=== PATIENT | male | born 1965 | race Two or more races ===

== ENCOUNTER 2019-01-20 10:47 | Inpatient (IN) | payer BC | END 2019-01-22 18:55 | disposition home or self-care (01) | LOC: JER 10:47 → JERBED 14:36 → J4W 01-21 18:33 → J2W 01-21 18:51 → J4W 01-21 21:06 ==

== ENCOUNTER 2019-01-24 15:39 | Inpatient (IN) | payer BC | END 2019-01-28 12:20 | LOC: JER 15:39 → J4S 01-25 16:58 → JERBED 18:55 ==

== ENCOUNTER 2019-09-11 12:08 | Inpatient (IN) | payer BC ==
--- NOTE | 2019-09-11 12:54 | PDOC ---
History of Present Illness - General Stated Complaint: SEIZURE Time Seen by Provider: 09/11/19 12:19 - History of Present Illness Initial Comments: 09/11/19 12:46 53 yo M PMH HTN, HLD, DM, Grave's disease, recent stroke in January 2019 with residual L sided deficits, presenting with seizure. All history per EMS. Called by mother, who states that patient had focal L sided seizure and fell onto his face. Upon EMS arrival, patient denied this was the case and was refusing to come to the hospital, but during EMS interview, patient had another L sided seiz ure. Patient was placed on the stretcher and given 2.5 of midazolam. During transport, patient reportedly had a full tonic clonic seizure, so he was given another 2.5 of midazolam. Per EMS, patient had approximately 5 minutes of witnessed seizure. Unable to assess ROS due to patient's clinical status. Past History - Past Medical History Allergies/Adverse Reactions: Allergies Allergy/AdvReac Type Severity Reaction Status Date / Time No Known Allergies Allergy Verified 09/11/19 12:31 Home Medications: Ambulatory Orders Amlodipine Besylate [Norvasc -] 5 mg PO DAILY #30 tablet 01/22/19 Atorvastatin Ca [Lipitor] 80 mg PO HS #30 tablet 01/22/19 Clopidogrel Bisulfate [Plavix -] 75 mg PO DAILY #30 tablet 01/22/19 metFORMIN HCL [Glucophage -] 500 mg PO BID #60 tablet 01/22/19 Lisinopril [Prinivil] 20 mg PO DAILY #0 tablet 01/28/19 Levetiracetam [Keppra Xr -] 750 mg PO BID #60 tab 09/11/19 Anemia: No Asthma: No Cardiac Disorders: No CVA: Yes COPD: No Diabetes: Yes (borderline) GI Disorders: Yes (hiatal hernia) Disorders: No HTN: No Seizures: Yes - Surgical History Appendectomy: Yes Cholecystectomy: Yes (2010) - Immunization History Immunization Up to Date: No - Psycho Social/Smoking Cessation Hx Smoking Status: No Smoking History: Smoker current status UNK Have you smoked in the past 12 months: No Number of Cigarettes Smoked Daily: 0 Information on smoking cessation initiated: No Hx Alcohol Use: No Drug/Substance Use Hx: No Substance Use Type: None Review of Systems - Review of Systems Comments:: 09/11/19 12:59 Unable to assess due to patient's clinical status. *Physical Exam - Vital Signs Last Vital Signs Temp Pulse Resp BP Pulse Ox 98.4 F 102 H 20 137/72 100 09/11/19 12:28 09/11/19 12:28 09/11/19 12:28 09/11/19 12:28 09/11/19 12:28 - Physical Exam 09/11/19 12:51 Gen: well-developed, appears confused Neuro: not answering questions, leftward deviation. Obeys commands to move his R arm and R leg, squeeze eyes HEENT: atraumatic, normocephalic Neck: trachea midline, supple CV: tachycardic at 103, regular rhythm, no murmurs, rubs, or gallops Pulm: CTA b/l, no wheezing Abd: soft, non-distended, non-tender MSK: full ROM on R side, not moving his left side, intact pulses Extr: no edema, no deformities Skin: warm, dry, small abrasion on bridge of nose ED Treatment Course - LABORATORY CBC & Chemistry Diagram: 09/12/19 09:20 09/12/19 09:20 - RADIOLOGY Radiology Studies Ordered: Category Date Time Status HEAD CT (STROKE) [CT] Stat CT Scan 09/11/19 12:29 Ordered Medical Decision Making - Medical Decision Making 09/11/19 12:50 Concern for CVA v seizure. Patient taken immediately to CT scan, Code Pyle called. - CT (stroke) - EKG, CXR - CBC, CMP - UA/UC - PT & PTT - neurology consult 09/11/19 12:54 CT scan: No CT evidence of acute intracranial pathology. Chronic R temporal/occipital cortical infarct, chronic R thalamic infarct. 09/11/19 13:[address] Juan Antonio Sylvester, who recommends Keppra loading with 1 gram. If patient improves back to baseline mental status, and does not have any more seizures, recommends starting patient on Keppra 750mg BID and to follow up outpatient. 09/11/19 13:12 Patient more awake, knows his own name and that the year is 2019, did not know where he was. States that he has never had seizures in the past. Confirms that he does not move his L arm or leg due to extreme pain if he tries. Will watch patient for at least 2 hours; if patient returns to his baseline, will dc for further outpatient management. 09/11/19 13:36 Patient states that he had a prior seizure in April 2019, went to [facility], and was started on a yellow pill twice a day. Reports that he has been taking this pill as prescribed. Does state that he got this medication from [facility] on [facility]. 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 Dean Ashton this Thursday, was told that his overactive thyroid is due to Graves disease. Attempted to call [facility] to clarify the yellow pill ([phone]), but it appears that they are closed on weekends. Called our pharmacy on file, [facility], who confirm that they have no record of the patient being on Keppra. 09/11/19 13:47 Labs unremarkable. 09/11/19 13:50 Per brother Raymond Osei, patient was on Keppra 500mg BID. Saw Dr. Cade. Has baseline difficulty moving his left arm and left leg at baseline, and also takes some time to get his words out. Asks to call patient at [phone] when patient is ready to be discharged, as the brother can pick the patient up. 09/11/19 14:00 CXR without acute pathology. EKG with normal sinus at 92 bpm, no acute pathology. 09/11/19 14:50 Patient with another generalized tonic clonic seizure starting at 1448, lasting approximately 1 minute and 5 seconds. Resolved before medications were given, and patient is able to say name, location, and year immediately afterwards. Will call Dr. Sylvester again, give Ativan 2mg, admit patient. 09/11/19 15:[address] Sylvester, who recommends giving 500mg more of Keppra and 1g of phosphenytoin. Patient will be admitted. Discharge - Discharge Information Problems reviewed: Yes Clinical Impression/Diagnosis: Seizure Condition: Stable - Admission Yes - Additional Discharge Information - Follow up/Referral - Patient Discharge Instructions - Post Discharge Activity
[2019-09-11 13:01] LABS: BASO % 0.8 % (0-2.0); EOS % 0.6 % (0-4.5); HEMATOCRIT 40.5 % (35.4-49); HEMOGLOBIN 13.3 GM/dL (11.7-16.9); LYMPH % 8.2 % (8-40); MCH 29.7 pg (25.7-33.7); MEAN CELL VOLUME 90.2 fl (80-96); MEAN PLT VOLUME 8.6 fl (7.5-11.1); MONO % 3.1 % (3.8-10.2); NEUT % 87.3 % (42.8-82.8); PLATELET COUNT 276 K/MM3 (134-434); RBC 4.49 M/mm3 (4.00-5.60); RDW 15.1 % (11.9-15.9); WHITE BLOOD COUNT 7.9 K/mm3 (4.0-10.0)
[2019-09-11] MEDS ORDERED: levETIRAcetam 500 MG/5 ML INJECTION VIAL IVPB ONE ×4 (13:03→15:15)
[2019-09-11 13:12] LABS: INR 1.13 (0.83-1.09); PROTHROMBIN TIME (PATIENT) 13.3 SEC (9.7-13.0)
[2019-09-11 13:14] LABS: ACTIVATED PTT 28.8 SECONDS (25.2-36.5)
[2019-09-11 13:35] LABS: ALBUMIN 3.5 g/dl (3.4-5.0); ALK PHOS 66 U/L (45-117); ANION GAP 9 MMOL/L (8-16); BILIRUBIN,TOTAL 0.3 mg/dL (0.2-1); BLOOD UREA NITROGEN 11.8 mg/dL (7-18); CALCIUM 8.7 mg/dL (8.5-10.1); CHLORIDE 108 mmol/L (98-107); CO2 25 mmol/L (21-32); CREATININE 0.9 mg/dL (0.55-1.3); GLUCOSE,RANDOM 129 mg/dL (74-106); POTASSIUM 3.9 mmol/L (3.5-5.1); SGOT/AST 15 U/L (15-37); SGPT/ALT 20 U/L (13-61); SODIUM 142 mmol/L (136-145); TOT PROT 6.3 g/dl (6.4-8.2)
[2019-09-11] MEDS ORDERED: LORazepam 2 MG/ML SDV VIAL ONE (14:49)
[2019-09-11] MEDS ORDERED: PHENYTOIN SODIUM 100 MG/2 ML VIAL IVPB ONE (15:00)
[2019-09-11] MEDS ORDERED: FOSPHENYTOIN SODIUM 1,000 MG in SODIUM CHLORIDE 100 ML IVPB ONE (15:02)
--- NOTE | 2019-09-11 15:02 | PDOC ---
Documentation entered by Higinio Michael SCRIBE, acting as scribe for Ale Gonsalez MD. Ale Gonsalez MD: This documentation has been prepared by the Alec esposito Daniel, SCRIBE, under my direction and personally reviewed by me in its entirety. I confirm that the documentation accurately reflects all work, treatment, procedures, and medical decision making performed by me. Attending Attestation - Resident Resident Name: Filippo Ovalle - ED Attending Attestation I have performed the following: I have examined & evaluated the patient, The case was reviewed & discussed with the resident, I agree w/resident's findings & plan, Exceptions are as noted - HPI HPI: 09/11/19 12:45 The patient is a 53 year old male with a past medical history of HTN, HLD, diabetes, Grave's disease, seizure disorder, TIA, and CVA (01/2019) here today for evaluation of seizure. EMS reports that the patient was visiting his mother when he had a seizure and his mother called EMS. Patient had another seizure when EMS arrived and was given 2.5 of versed. EMS states that he had another seizure while en route and was given another 2.5 of versed. EMS states that his seizure lasted for approximately 5 minutes. Allergies: NKA - Physicial Exam PE: 09/11/19 13:39 Agree with the resident exam. PAtient is alert and oriented x 3. Speech is extremely slow, which is his baseline, as per family. + weakness of the L side, that is chronic as per the patient. - Medical Decision Making 09/11/19 13:56 Pt presents to the ED complaining of partial seizures that generalized x 2. Patient has history of CVA and known seizure disorder, on keppra. Given versed by EMS. Minimally responsive on arrival to the ED, now following commands and answering questions. CT negative for acute findings. 09/11/19 14:54 Called to patient bedside for recurrent seizure. Patient had witnessed tonic clonic seizure lasting 1 min 30 seconds. Seizure resolved spontaneously. Given ativan. Case discussed with Dr. Goodrich, who is asking for the patient to be given an additional 500 of keppra and one gram fosphenytonin. Will admit for recurrent seizures. 09/11/19 15:03 Discharge - Discharge Information Problems reviewed: Yes Clinical Impression/Diagnosis: Seizure Condition: Stable - Follow up/Referral - Patient Discharge Instructions - Post Discharge Activity
--- NOTE | 2019-09-11 15:08 | HP ---
CHIEF COMPLAINT: seizure PCP: follows at the outpatient [facility] HISTORY OF PRESENT ILLNESS: patient somnolent during interview, asleep, received ativan 2mg push in the ED at 1506. history and physical obtained from chart and ED signout. Patient is a 53 year old male with a significant past medical history of hypertension, diabetes, hyperlipidemia, graves disease, seizure disorder and CVA 01/2019 (with residual slow speech and left sided weakness) who presents to the ED today for evaluation of seizures. EMS reported to the ED that the patient was visiting his mother when he had a seizure and his mother called EMS. Patient had another seizure when EMS arrived and was given 2.5mg of Versed. Patient then had another seizure while en route and was given another 2.5 of versed. The last seizure was reported to have lasted for approximately 5 minutes. He was reported to be awake and alert x 3 when in the ED. Patent has a known history of CVA on Keppra, but unclear if he has been compliant with Keppra. His head CT is negative for acute process. In the ED patient had a recurrent seizure, a witnessed tonic clonic seizure lasting 1 min 30 seconds per ED note. Seizure resolved spontaneously. Given ativan 2mg at 1506 and given additional 500 of keppra IV (total keppra 1500mg given) and one gram fosphenytonin. ER course was notable for: (1) No CT evidence of acute intracranial pathology. Chronic R temporal/occipital cortical infarct, chronic R thalamic infarct. (2) fosphenytoin sodium 1000mg (3) keppra loading dose 1000mg in the ED, followed by ativan 2 mg IV (4) Recent Travel: unknown, patent somnolent PAST MEDICAL HISTORY: unknown, patent somnolent PAST SURGICAL HISTORY: unknown, but has old healed abdominal scars (laproscopic) Social History: Smoking: unknown Alcohol: unknown Drugs: unknown Allergies No Known Allergies Allergy (Verified 09/11/19 12:31) HOME MEDICATIONS: Home Medications Medication Instructions Recorded Amlodipine Besylate [Norvasc -] 5 mg PO DAILY #30 tablet 01/22/19 Atorvastatin Ca [Lipitor] 80 mg PO HS #30 tablet 01/22/19 Clopidogrel Bisulfate [Plavix -] 75 mg PO DAILY #30 tablet 01/22/19 metFORMIN HCL [Glucophage -] 500 mg PO BID #60 tablet 01/22/19 Lisinopril [Prinivil] 20 mg PO DAILY #0 tablet 01/28/19 Levetiracetam [Keppra Xr -] 750 mg PO BID #60 tab 09/11/19 REVIEW OF SYSTEMS unable to perform as patient is somnolent PHYSICAL EXAMINATION Vital Signs - 24 hr 09/11/19 09/11/19 09/11/19 12:28 12:56 14:51 Temperature 98.4 F 98.5 F Pulse Rate 102 H Pulse Rate [ 108 H 108 H Apical] Respiratory 20 18 19 Rate Blood Pressure 137/72 Blood Pressure 133/75 141/87 [Left Arm] O2 Sat by Pulse 100 100 99 Oximetry (%) GENERAL: somnolent, post seizure and received ativan 2mg. response to tactile stimuli HEAD: Normal with no signs of trauma. EYES: Pupils equal, round and reactive to light EARS, NOSE, THROAT: Moist mucous membranes. NECK: Normal range of motion, supple without lymphadenopathy, JVD, or masses. LUNGS: mild congestion of upper lobes, on 2 liters of nasal cannula, stable oxygen saturations HEART: Regular rate and rhythm ABDOMEN: Soft, nontender, not distended,old laproscopic surgical scars, healed MUSCULOSKELETAL: No CVA tenderness. UPPER EXTREMITIES: No peripheral edema. LOWER EXTREMITIES: No peripheral edema. NEUROLOGICAL: unable to assess/s/p seizure laboratory Results - last 24 hr 09/11/19 09/11/19 09/11/19 12:29 12:45 12:45 WBC 7.9 RBC 4.49 Hgb 13.3 Hct 40.5 MCV 90.2 MCH 29.7 MCHC 33.0 RDW 15.1 D Plt Count 276 MPV 8.6 D Absolute Neuts (auto) 6.9 Neutrophils % 87.3 H D Lymphocytes % 8.2 D Monocytes % 3.1 L Eosinophils % 0.6 Basophils % 0.8 Nucleated RBC % 0 PT with INR 13.30 H INR 1.13 H PTT (Actin FS) 28.8 Sodium 142 Potassium 3.9 Chloride 108 H Carbon Dioxide 25 Anion Gap 9 BUN 11.8 Creatinine 0.9 Est GFR (CKD-EPI)AfAm 111.05 Est GFR (CKD-EPI)NonAf 95.81 Random Glucose 129 H Calcium 8.7 Total Bilirubin 0.3 AST 15 ALT 20 Alkaline Phosphatase 66 Creatine Kinase 150 Creatine Kinase Index 0.7 CK-MB (CK-2) 1.1 Troponin I < 0.02 Total Protein 6.3 L Albumin 3.5 Blood Type Antibody Screen 09/11/19 12:45 WBC RBC Hgb Hct MCV MCH MCHC RDW Plt Count MPV Absolute Neuts (auto) Neutrophils % Lymphocytes % Monocytes % Eosinophils % Basophils % Nucleated RBC % PT with INR INR PTT (Actin FS) Sodium Potassium Chloride Carbon Dioxide Anion Gap BUN Creatinine Est GFR (CKD-EPI)AfAm Est GFR (CKD-EPI)NonAf Random Glucose Calcium Total Bilirubin AST ALT Alkaline Phosphatase Creatine Kinase Creatine Kinase Index CK-MB (CK-2) Troponin I Total Protein Albumin Blood Type A POSITIVE Antibody Screen Negative ASSESSMENT/PLAN: Problem List - Problem (1) Seizure Assessment/Plan: patient with 3 reported tonic clonic seizure today on arrival to the ED, also had seizure activity in the ED Given Keppra 1500mg loading dose, Fosphenytoin sodium 1000mg and Ativan 2mg Patient appears to be post seizure and somnolent vitals stable, airway patent on 2 liters maintain seizure precautions keppra levels ordered, urine tox and etoh levels ordered continue keprra 1500 iv BID ativan 1mg q 6 prn for breakthrough seizures EEG per neuro neurology aware of consult and has seen patient in past Code(s): R56.9 - UNSPECIFIED CONVULSIONS (2) CVA (cerebral vascular accident) Assessment/Plan: s/p large right HOSPITAL 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 cont plavix (asa intolerance), and statin. PT eval. neuro eval Code(s): I63.9 - CEREBRAL INFARCTION, UNSPECIFIED Qualifiers: CVA mechanism: unspecified Qualified Code(s): I63.9 - Cerebral infarction, unspecified (3) Diabetes mellitus Assessment/Plan: hold oral meds, initiate bgms ac/hs and insulin Code(s): E11.9 - TYPE 2 DIABETES MELLITUS WITHOUT COMPLICATIONS (4) Hypertension Assessment/Plan: on Norvasc and Lisinopril Code(s): I10 - ESSENTIAL (PRIMARY) HYPERTENSION (5) Hyperthyroidism Assessment/Plan: Outpatient endocrine follow-up = Code(s): E05.90 - THYROTOXICOSIS, UNSP WITHOUT THYROTOXIC CRISIS OR STORM (6) DVT prophylaxis Assessment/Plan: on lovenox Code(s): Z29.9 - ENCOUNTER FOR PROPHYLACTIC MEASURES, UNSPECIFIED Visit type - Emergency Visit Emergency Visit: Yes ED Registration Date: 09/11/19 Care time: The patient presented to the Emergency Department on the above date and was hospitalized for further evaluation of their emergent condition. - New Patient This patient is new to me today: Yes Date on this admission: 09/11/19 - Critical Care Critical Care patient: No
[2019-09-11] MEDS ORDERED: LORazepam 2 MG/ML SDV VIAL IVPUSH PRN (16:32)
[2019-09-11 18:27] VITALS: BMI 26.0
[2019-09-11 19:04] LABS: EPI CELLS 6 /uL (0-25.1); HYALINE CASTS 2 /uL (0-3.1); PH,URINE 6.5 (5.0-8.0); URINE APPEARANCE CLEAR; URINE BACTERIA 18 /uL (0-1359); URINE BILIRUBIN NEGATIVE (NEGATIVE); URINE COLOR YELLOW; URINE GLUCOSE (UA) NEGATIVE (NEGATIVE); URINE KETONE NEGATIVE (NEGATIVE); URINE LEUK ESTERASE NEGATIVE (NEGATIVE); URINE NITRITE NEGATIVE (NEGATIVE); URINE PROTEIN 1+ (NEGATIVE); URINE RBC 6 /uL (0-23.9); URINE UROBILINOGEN 0.2 mg/dL (0.2-1.0); URINE WBC 11 /uL (0-25.8)
[2019-09-11 20:09] LABS: COCAINE, UR NEGATIVE ng/ml (CUTOFF=300); METHADONE, UR NEGATIVE ng/ml (CUTOFF=300); OPIATES, URI NEGATIVE ng/ml (CUTOFF=300); PHENCYCLIDINE,URINE NEGATIVE ng/ml (CUTOFF=25); URINE AMPHETAMINES NEGATIVE ng/ml (CUTOFF=500); URINE BARBITURATES NEGATIVE ng/ml (CUTOFF=200)
[2019-09-11 20:22] LABS: URINE BENZODIAZEPINES POSITIVE ng/ml (CUTOFF=200)
[2019-09-11] MEDS: INSULIN SLIDING SCALE (NOVOLOG) 1 VIAL SQ SCH (21:57)
[2019-09-11] MEDS: SODIUM CHLORIDE 1,000 ML IV SCH (21:58)
[2019-09-11] MEDS ORDERED: ATORVASTATIN CA 80 MG TABLET (FP) PO SCH (22:00)
[2019-09-11] MEDS: levETIRAcetam 500 MG/5 ML INJECTION VIAL IVPB SCH (22:00)
--- NOTE | 2019-09-11 22:36 | CON.NEURO ---
Consult - Alcohol/Substance Use Hx Alcohol Use: No - Smoking History Smoking history: Smoker current status UNK Have you smoked in the past 12 months: No Aproximately how many cigarettes per day: 0 Home Medications - Allergies Allergies/Adverse Reactions: Allergies Allergy/AdvReac Type Severity Reaction Status Date / Time No Known Allergies Allergy Verified 09/11/19 12:31 - Home Medications Home Medications: Ambulatory Orders Amlodipine Besylate [Norvasc -] 5 mg PO DAILY #30 tablet 01/22/19 Atorvastatin Ca [Lipitor] 80 mg PO HS #30 tablet 01/22/19 Clopidogrel Bisulfate [Plavix -] 75 mg PO DAILY #30 tablet 01/22/19 metFORMIN HCL [Glucophage -] 500 mg PO BID #60 tablet 01/22/19 Lisinopril [Prinivil] 20 mg PO DAILY #0 tablet 01/28/19 Levetiracetam [Keppra Xr -] 750 mg PO BID #60 tab 09/11/19 Physical Exam-Neuro Vital Signs: Vital Signs Temperature 97.3 F L 09/11/19 18:00 Pulse Rate 99 H 09/11/19 18:00 Respiratory Rate 20 09/11/19 18:00 Blood Pressure 141/83 09/11/19 18:00 O2 Sat by Pulse Oximetry (%) 100 09/11/19 18:46 Labs: CBC, BMP 09/11/19 12:45 09/11/19 12:29 INR, PTT INR 1.13 (0.83-1.09) H 09/11/19 12:45 Assessment/Plan cc New onset seizure HPI 53 year old male known to me, history of HTN, DM, HLD. Ly came to hospital for seizure and had one seizure in ed after keppra. Patient was given versed and wa spost ictal and admitted to [facility]. His ct head was normal. He was on keppra. Patient was given keppra 1.5 gm iv once and dilantin one daniel once . He has right temporal occpital cortical infarct, he is on plavix and statin. He is on keppra 750 po bid Ly was seen during COVID 19 pandemic , case was discussed with housestaff and chart was reviewed. PAST MEDICAL HISTORY: unknown, patent somnolent PAST SURGICAL HISTORY: unknown, but has old healed abdominal scars (laproscopic) Social History: Smoking: unknown Alcohol: unknown Drugs: unknown Allergies No Known Allergies Allergy (Verified 09/11/19 12:31) HOME MEDICATIONS: Home Medications Medication Instructions Recorded Amlodipine Besylate [Norvasc -] 5 mg PO DAILY #30 tablet 01/22/19 Atorvastatin Ca [Lipitor] 80 mg PO HS #30 tablet 01/22/19 Clopidogrel Bisulfate [Plavix -] 75 mg PO DAILY #30 tablet 01/22/19 metFORMIN HCL [Glucophage -] 500 mg PO BID #60 tablet 01/22/19 Lisinopril [Prinivil] 20 mg PO DAILY #0 tablet 01/28/19 Levetiracetam [Keppra Xr -] 750 mg PO BID #60 tab 09/11/19 ROS,FH,SH reviewed in chart old dysarthria and left hemiparesis ct head showed encephalomalacia and no acute findings He was given keppra 1.5 gm keppra once and phosphenytoin 1 gm once A/p 53 year old male known to me, history of HTN, DM, HLD, old stroke with left hp and right occopito-parietal encephalomalcia with breakthrogh seizure Plan increase keppra 1500 po bid may discharged from neurological point of view and follow up outpatient Thanking you so much Juan Antonio Sylvester MD
[2019-09-12] MEDS: INSULIN SLIDING SCALE (NOVOLOG) 1 VIAL SQ SCH ×3 (06:13→16:54)
[2019-09-12] MEDS: SODIUM CHLORIDE 1,000 ML IV SCH (06:15)
[2019-09-12] MEDS ORDERED: ACETAMINOPHEN 325 MG TABLET (FP) PO ONE (06:51)
[2019-09-12 08:35] VITALS: BP 135/79; PULSE 84; TEMP 98.2
[2019-09-12] MEDS: levETIRAcetam 500 MG/5 ML INJECTION VIAL IVPB SCH (09:43)
--- NOTE | 2019-09-12 09:44 | EKG ---
Test Reason : Blood Pressure : / mmHG Vent. Rate : 092 BPM Atrial Rate : 092 BPM P-R Int : 174 ms QRS Dur : 090 ms QT Int : 370 ms P-R-T Axes : 060 024 049 degrees QTc Int : 457 ms NORMAL SINUS RHYTHM NORMAL ECG WHEN COMPARED WITH ECG OF 20-JAN-2019 11:45, NO SIGNIFICANT CHANGE WAS FOUND Confirmed by Artie Nuñez ([id number]) on 09/12/2019 9:43:54 AM Referred By: Confirmed By:Artie Nuñez
[2019-09-12] MEDS ORDERED: LISINOPRIL 20 MG TABLET (FP) PO SCH (10:00)
[2019-09-12] MEDS ORDERED: amLODIPine BESYLATE 5 MG TABLET (FP) PO SCH (10:00)
[2019-09-12] MEDS ORDERED: CLOPIDOGREL BISULFATE 75 MG TABLET (FP) PO SCH (10:00)
[2019-09-12] MEDS ORDERED: ENOXAPARIN NA (PORCINE) 40 MG/0.4 ML DISP.SYRIN SQ SCH (10:00)
[2019-09-12 10:10] LABS: HEMATOCRIT 37.7 % (35.4-49); HEMOGLOBIN 12.6 GM/dL (11.7-16.9); MCH 29.7 pg (25.7-33.7); MCHC 33.3 g/dl (32.0-35.9); MEAN CELL VOLUME 89.2 fl (80-96); MEAN PLT VOLUME 8.7 fl (7.5-11.1); PLATELET COUNT 247 K/MM3 (134-434); RBC 4.23 M/mm3 (4.00-5.60); RDW 15.1 % (11.9-15.9); WHITE BLOOD COUNT 8.9 K/mm3 (4.0-10.0)
[2019-09-12 10:18] LABS: INR 1.26 (0.83-1.09); PROTHROMBIN TIME (PATIENT) 14.9 SEC (9.7-13.0)
[2019-09-12 10:38] LABS: ALBUMIN 3.2 g/dl (3.4-5.0); BILIRUBIN,TOTAL 1.1 mg/dL (0.2-1); BLOOD UREA NITROGEN 8.4 mg/dL (7-18); CALCIUM 8.4 mg/dL (8.5-10.1); CREATININE 0.7 mg/dL (0.55-1.3); PHOSPHOROUS 3.1 mg/dL (2.5-4.9); POTASSIUM 3.8 mmol/L (3.5-5.1); TOT PROT 5.6 g/dl (6.4-8.2)
--- NOTE | 2019-09-12 17:27 | PN ---
Progress Note (short form) - Note Progress Note: H53 year old male known to me, history of HTN, DM, HLD. Ly came to hospital for seizure and had one seizure in ed after keppra. Patient was given versed and wa spost ictal and admitted to [facility]. His ct head was normal. He was on keppra. Patient was given keppra 1.5 gm iv once and dilantin one daniel once . He has right temporal occpital cortical infarct, he is on plavix and statin. He is on keppra 750 po bid Ly was seen during COVID 19 pandemic , case was discussed with housestaff and chart was reviewed. There is no more seizure, patient has been stable overnight NEUROLOGICAL EXAMINATION Alert oriented x 3, follow command, vss Left hemiparesis Dysarthria present ct head showed encephalomalacia and no acute findings He was given keppra 1.5 gm keppra once and phosphenytoin 1 gm once A/p 53 year old male known to me, history of HTN, DM, HLD, old stroke with left hp and right occopito-parietal encephalomalcia with breakthrogh seizure Plan conintue keppra 1500 po bid -Patient can be discharged home Thanking you so much Juan Antonio Sylvester MD
--- NOTE | 2019-09-12 19:01 | DS ---
Physical Examination Vital Signs: Vital Signs Temperature 98.2 F 09/12/19 08:34 Pulse Rate 84 09/12/19 08:34 Respiratory Rate 20 09/12/19 08:35 Blood Pressure 135/79 09/12/19 08:34 O2 Sat by Pulse Oximetry (%) 96 09/12/19 08:35 Findings/Remarks: I was called by hospitalist [facility] pt was admitted yesterday with seizures; he has h/o seizures was on keppra 750 mg po bid at home; head CT no acute changes seen by neruology who rec DC home on [id number] mg po bid; pt ready to go home no c/o no recurrent seizures no AGUIRRE no fever chills cough SOB; no dysuria; UA some WBC UCx pending no symptoms Constitutional: Yes: No Distress, Calm Eyes: Yes: Conjunctiva Clear HENT: Yes: Atraumatic Neck: Yes: Supple Cardiovascular: Yes: Regular Rate and Rhythm Respiratory: Yes: CTA Bilaterally Gastrointestinal: Yes: Soft. No: Tenderness Renal/: No: Hematuria Musculoskeletal: No: Joint Stiffness, Joint Swelling Extremities: No: Cold, Cool, Cyanosis Edema: No Integumentary: No: Rash, Venous Stasis Changes Neurological: Yes: Alert, Oriented ...Motor Strength: LUE (4/5), LLE (4/5) Psychiatric: Yes: Alert, Oriented. No: Agitated, Suicidal Ideation Labs: CBC, BMP 09/12/19 09:20 09/12/19 09:20 Discharge Summary Problems reviewed: Yes Reason For Visit: SEIZURE Current Active Problems DVT prophylaxis (Acute) Seizure (Acute) Procedures: Principal: 53 YOM h/o ASHD CVA Seizures on keppra 750 mg po bid at home admitted with seizures Other Procedures: head CT no changes; seen by neuro rec double keppra dose and DC home;. no other c/o Hospital Course: stable with above; DC home f/u in office in 1 week; no driving; f/u as advised PCP cardio and neurology; falls PFX Condition: Stable - Instructions Diet, Activity, Other Instructions: f/u PCP cardiology and neurology in 1-2 weeks take meds as advised RTER if worse or recurrent c/o do not drive unless cleared by neurology falls prophylaxis Referrals: Juan Antonio Sylvester MD [Staff Physician] - Josiane Arboleda [Staff Physician] - Disposition: HOME - Home Medications Comprehensive Discharge Medication List: Ambulatory Orders Amlodipine Besylate [Norvasc -] 5 mg PO DAILY #30 tablet 01/22/19 Atorvastatin Ca [Lipitor] 80 mg PO HS #30 tablet 01/22/19 Clopidogrel Bisulfate [Plavix -] 75 mg PO DAILY #30 tablet 01/22/19 metFORMIN HCL [Glucophage -] 500 mg PO BID #60 tablet 01/22/19 Lisinopril [Prinivil] 20 mg PO DAILY #0 tablet 01/28/19 Levetiracetam [Keppra Xr -] 1500 mg PO BID #60 tab 09/11/19
[2019-09-12] MEDS ORDERED: levETIRAcetam 500 MG TABLET (FP) PO ONE (19:05)
--- NOTE | 2019-09-13 11:45 | PN ---
Progress Note (short form) - Note Progress Note: UCx mixed GNR and enteroccocus <10K colonies for both; UA WBC 11 pt asymtpomatic no fever NL WBC; advised to repeat UA UCX in office this week and to see PCP and dr Tran this week.
== END 2019-09-12 19:45 | disposition home or self-care (01) | DRG 101 ==
LOC: JER 12:08 → JERBED 14:56 → J6S 16:56
PROVIDERS: ADMIT Internal Medicine; ATTEND Specialist
DX: G40.909 Epilepsy, unspecified, not intractable, without status epilepticus (principal); I69.354 Hemiplegia and hemiparesis following cerebral infarction affecting left non-dominant side; I10 Essential (primary) hypertension; E78.5 Hyperlipidemia, unspecified; E11.9 Type 2 diabetes mellitus without complications; E05.00 Thyrotoxicosis with diffuse goiter without thyrotoxic crisis or storm; Z79.84 Long term (current) use of oral hypoglycemic drugs; G93.89 Other specified disorders of brain
CPT/HCPCS: 36415; 70450-TC; 71045-TC-FY; 80053; 80177; 80307; 81003; 82550; 82553; 82962; 83735; 84100; 84443; 84484; 85025; 85027; 85610; 85730; 86850; 86900; 86901; 87086; 93005; 93010; 97116-GP; 97161-GP; 99285-25; J7030

== ENCOUNTER 2020-01-03 17:00 | Inpatient (IN) | payer BC ==
[2020-01-03 17:24] VITALS: BMI 27.4
[2020-01-03] MEDS ORDERED: levETIRAcetam 500 MG/5 ML INJECTION VIAL IVPB ONE ×2 (17:31→17:43)
[2020-01-03] MEDS ORDERED: LORazepam 2 MG/ML SDV VIAL ONE ×2 (17:36→17:42)
--- NOTE | 2020-01-03 17:36 | PDOC ---
Documentation entered by Josiane Conner SCRIBE, acting as scribe for Lucero Lopez MD. Lucero Lopez MD: This documentation has been prepared by the evaibe, Josiane Conner SCRIBE, under my direction and personally reviewed by me in its entirety. I confirm that the documentation accurately reflects all work, treatment, procedures, and medical decision making performed by me. Attending Attestation - Resident Resident Name: DestinDavey lastison - ED Attending Attestation I have performed the following: I have examined & evaluated the patient, The case was reviewed & discussed with the resident, I agree w/resident's findings & plan, Exceptions are as noted - HPI HPI: 01/03/20 17:29 Patient is a 54 year old male with a significant past medical history of HTN, HLD, diabetes, Grave's disease, seizure disorder, TIA, and CVA (01/2019), who presents to the ED with a complex partial seizure that has been going on x1 hour. Per patients mother, the patient's last seizure was yesterday and that it only lasted a few minutes whereas today's seizure has been lasting a long time only affecting his last side. Patient also had a stroke last January and has ever since been compliant with medication. Patient denies: chest pain, palpitations, SOB, smoking, drugs, alcohol use. Allergies: NKDA Neurologist : Dr. Cade PCP: Dr. Haines PSH: Appendectomy - Physicial Exam PE: 01/03/20 19:18 58-year-old male with partial complex seizures and was conversant Head normocephalic atraumatic Lungs clear to auscultation bilaterally CVS is regular rate rhythm S1-S2 Abdomen is flat Skin is warm and dry Extremities no deformities Neuro patient was alert and oriented x3, he was having partial complex seizures with a Jacksonion march of the left arm and leg 01/03/20 19:20 - Medical Decision Making 01/03/20 19:29 pt has h/o seizures following a stroke in 2018 he BIBA for protracted seizure today, pt given ativan 2 mg x 2 m then 1 gram of fosphentyoin ,then seizure stopped pt denies any head trauma case discussed with neurologist Dr Cade and pt will be admitted , we also increased keppra to 1000mg BID at Dr Cade's suggestion ADMIT 01/03/20 19:34 01/03/20 22:00 Discharge - Discharge Information Problems reviewed: Yes Clinical Impression/Diagnosis: Seizure Condition: Improved - Follow up/Referral - Patient Discharge Instructions - Post Discharge Activity
[2020-01-03] MEDS ORDERED: FOSPHENYTOIN SODIUM 1,000 MG in SODIUM CHLORIDE 100 ML IVPB ONE (18:04)
--- NOTE | 2020-01-03 18:04 | PDOC ---
History of Present Illness - General Chief Complaint: Tremors Stated Complaint: tremors Time Seen by Provider: 01/03/20 17:26 - History of Present Illness Initial Comments: 54 yo male with pmh seizures, DM, stroke presents to the ED with seizure that has been going on for the past 1 hour. Pt is actively seizing so much of the his tory was given by mother. Mother says pt has a history of seizure disorder and his last seizure was yesterday, but that only lasted a few minutes. Today the seizure has been lasting longer it has only been on the left side and it usually is only on one side with the pt conscious. Pt mother explains that he had a stroke last January and he has been having seizures since. Pt has multiple seizures since January, he is being followed by Dr. Cade, who has prescribed pt with Keppra 750 BID. Pt has explained he has been compliant with medication and denies any current chest pain, palpitations, or SOB. Pt did explain he chronically hits head due to left sided weakness, but did not hit his head with seizure today. Pt also has associated left sided weakness which is due to prior stoke. PMH: Seizure DM HLD Stroke Meds: Metformin Metroprolol Keppra Atorvastatin PSH: Appendectomy Allegys: NKA Social: Denies smoking, drugs, or alcohol Neurologist : Dr. Cade PCP: Dr. Arboleda 01/03/20 18:54 Past History - Medical History Allergies/Adverse Reactions: Allergies Allergy/AdvReac Type Severity Reaction Status Date / Time No Known Allergies Allergy Verified 01/03/20 17:24 Home Medications: Ambulatory Orders Clopidogrel Bisulfate [Plavix -] 75 mg PO DAILY #30 tablet 01/22/19 metFORMIN HCL [Glucophage -] 500 mg PO BID #60 tablet 01/22/19 Metoprolol Succinate [Toprol XL -] 25 mg PO DAILY 90 Days #90 tab.sr.24h MDD 1 10/28/19 Risperidone [Risperdal -] 1 mg PO DAILY 7 Days #7 tablet MDD 1 10/28/19 levETIRAcetam [Keppra -] 750 mg PO BID 30 Days #180 tablet MDD 6 10/28/19 Acetaminophen [Tylenol .Regular Strength -] 650 mg PO Q6H PRN tablet 11/15/19 Amlodipine Besylate [Norvasc -] 5 mg PO DAILY 11/15/19 Atorvastatin Ca [Lipitor] 40 mg PO HS 11/15/19 Insulin Sliding Scale [Novolog Vial Sliding Scale -] 1 vial SQ BIDAC units 11/15/19 Methimazole [Tapazole] 5 mg PO 11/15/19 Gabapentin [Neurontin -] 100 mg PO Q8H PRN #30 capsule 11/16/19 Anemia: No Asthma: No Cardiac Disorders: No CVA: Yes COPD: No Diabetes: Yes (borderline) GI Disorders: Yes (hiatal hernia) Disorders: No HTN: No Seizures: Yes - Surgical History Appendectomy: Yes Cholecystectomy: Yes (2010) - Immunization History Immunization Up to Date: No - Psycho-Social/Smoking History Smoking Status: No Smoking History: Never smoked Have you smoked in the past 12 months: No Number of Cigarettes Smoked Daily: 0 - Substance Abuse Hx (Audit-C & DAST Scrn) How often the patient has six or more drinks on one occasion: Never Score: In Men: 4 or > Positive; In Women: 3 or > Positive: 0 Screen Result (Pos requires Nsg. Audit-10AR): Negative In the last yr the pt used illegal drug/Rx for NonMed reason: No Score: Yes response is considered Positive: 0 Screen Result (Positive result requires Nsg. DAST-10): Negative Review of Systems - Review of Systems Comments:: GENERAL/CONSTITUTIONAL: No fever or chills. Weakness on left side HEAD, EYES, EARS, NOSE AND THROAT: No change in vision. No ear pain or dis charge. No sore throat. CARDIOVASCULAR: No chest pain or shortness of breath RESPIRATORY: No cough, wheezing, or hemoptysis. GASTROINTESTINAL: No nausea, vomiting, diarrhea or constipation. GENITOURINARY: No dysuria, frequency, or change in urination. MUSCULOSKELETAL: No joint or muscle swelling or pain. No neck or back pain. SKIN: No rash NEUROLOGIC: Seizure and left sided weakness ENDOCRINE: No increased thirst. No abnormal weight change HEMATOLOGIC/LYMPHATIC: No anemia, easy bleeding, or history of blood clots. ALLERGIC/IMMUNOLOGIC: No hives or skin allergy. *Physical Exam - Vital Signs Last Vital Signs Temp Pulse Resp BP Pulse Ox 99.9 F H 108 H 16 129/65 98 01/03/20 17:19 01/03/20 17:19 01/03/20 17:19 01/03/20 17:19 01/03/20 17:19 - Physical Exam GENERAL: Awake, alert, and fully oriented, Pt was actively seizing left side on first appearace. After giving medication Pt stopped seizing. HEAD: Mild abrasion on left side EYES: PERRLA, EOMI, sclera anicteric, conjunctiva clear ENT: Auricles normal inspection, hearing grossly normal, nares patent, oropharynx clear without exudates. Moist mucosa NECK: no lymphadenopathy, JVD, or masses LUNGS: speaks full sentences, clear to auscultation bilaterally HEART: Regular rate and rhythm, normal S1 and S2, no murmurs, rubs or gallops, peripheral pulses normal and equal bilaterally. ABDOMEN: Soft, nontender, normoactive bowel sounds. No guarding, no rebound. No masses EXTREMITIES : Normal inspection, , no edema. No clubbing or cyanosis. NEUROLOGICAL: Not able to fully do neuro exam because pt was seizing. CN 2-12 were grossly intact. Left side of pt was had active tremors. SKIN: Diaphoretic normal turgor, no rashes or lesions noted 01/03/20 18:30 Heart Score/ECG Review - ECG Intrepretation Rhythm: Regular Rhythm - Adams Adams: Normal - ECG Impressions Comment:: Regular rate Sinus tachycardia at [address] Normal [place] interval No ST changes Normal axis 01/03/20 18:45 ED Treatment Course - LABORATORY CBC & Chemistry Diagram: 01/03/20 17:31 01/03/20 17:31 Medical Decision Making - Medical Decision Making 01/03/20 18:05 54 yo male actively seizing on presentation. Pt was given 2 mg Ativan x2 with 1 g of Keppra. Pt has now stopped seizing. Called Dr. Pitts his neurologist who said to change home medication keppra from 750mg twice a day to keppra 1g twice a day. Norris Kurtz also said to add phosphenytoin 1g once . -Pts labs were drawn: - CBC - CMP - Chest Xray - COVID - levetiracetum levels - UA Dr. Pitts also stated he wanted pt admitted to hospitalist team and he will consult. Pt lab will be assesed and monitored every few minutes. 01/03/20 18:[address] 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 Pt right now at SpO2 100% and not actively seizing. 01/03/20 18:[address] Garcia who stated that he agreed with plan and wants to be admitted to himself. He asked about glucose which is 91 from lab results. He also asked about med change which is keppra from 750 mg BID to 1g BID. 01/03/20 19:08 Pt is still in ED so passed on care to night team. Discharge - Discharge Information Problems reviewed: Yes Clinical Impression/Diagnosis: Seizure Condition: Improved - Admission Yes - Follow up/Referral Referrals: Santos Arboleda MD [Primary Care Provider] - - Patient Discharge Instructions - Post Discharge Activity - Transfer to Acute Care Facility Accepting Physician:: Dr. Santos Arboleda
[2020-01-03 18:19] LABS: INR 1.08 (0.83-1.09); PROTHROMBIN TIME (PATIENT) 12.8 SEC (9.7-13.0)
[2020-01-03 18:21] LABS: ACTIVATED PTT 28.2 SECONDS (25.2-36.5)
[2020-01-03 18:27] LABS: BASO % 0.6 % (0-2.0); HEMATOCRIT 41.6 % (35.4-49); HEMOGLOBIN 13.9 GM/dL (11.7-16.9); LYMPH % 20.2 % (8-40); MCH 30.3 pg (25.7-33.7); MCHC 33.4 g/dl (32.0-35.9); MEAN CELL VOLUME 90.8 fl (80-96); MEAN PLT VOLUME 9.2 fl (7.5-11.1); MONO % 3.8 % (3.8-10.2); NEUT % 75.4 % (42.8-82.8); PLATELET COUNT 301 K/MM3 (134-434); RBC 4.58 M/mm3 (4.00-5.60); RDW 13.7 % (11.9-15.9); WHITE BLOOD COUNT 11.6 K/mm3 (4.0-10.0)
[2020-01-03 19:01] LABS: ALBUMIN 4.4 g/dl (3.4-5.0); ALK PHOS 70 U/L (45-117); ANION GAP 12 MMOL/L (8-16); BILIRUBIN,TOTAL 0.8 mg/dL (0.2-1); BLOOD UREA NITROGEN 11.7 mg/dL (7-18); CALCIUM 9.4 mg/dL (8.5-10.1); CHLORIDE 106 mmol/L (98-107); CO2 23 mmol/L (21-32); GLUCOSE,RANDOM 91 mg/dL (74-106); POTASSIUM 4.5 mmol/L (3.5-5.1); SGOT/AST 19 U/L (15-37); SGPT/ALT 20 U/L (13-61); SODIUM 142 mmol/L (136-145); TOT PROT 7.5 g/dl (6.4-8.2)
[2020-01-03] MEDS ORDERED: ACETAMINOPHEN 1000 MG/100 ML VIAL (NON FORMULARY) IVPB ONE (19:50)
[2020-01-03] MEDS ORDERED: ACETAMINOPHEN INJECTION 100 ML IVPB ONE (19:51)
[2020-01-04] MEDS ORDERED: ATORVASTATIN CA 40 MG TABLET (FP) ONE (01:55)
[2020-01-04] MEDS: metoPROLOL SUCCINATE 25 MG TAB.SR.24H (FP) PO SCH ×3 (01:58→21:10)
[2020-01-04] MEDS: ATORVASTATIN CA 40 MG TABLET (FP) PO SCH ×2 (01:59→21:10)
[2020-01-04 02:15] LABS: PH,URINE 5.5 (5.0-8.0); URINE APPEARANCE CLEAR; URINE BILIRUBIN NEGATIVE (NEGATIVE); URINE COLOR YELLOW; URINE GLUCOSE (UA) NEGATIVE (NEGATIVE); URINE KETONE 1+ (NEGATIVE); URINE LEUK ESTERASE NEGATIVE (NEGATIVE); URINE NITRITE NEGATIVE (NEGATIVE); URINE PROTEIN NEGATIVE (NEGATIVE); URINE UROBILINOGEN 0.2 mg/dL (0.2-1.0)
[2020-01-04] MEDS ORDERED: DEXTROSE 50%-WATER - 25 GM/50 ML VIAL IVPUSH ONE (06:53)
[2020-01-04] MEDS ORDERED: DEXTROSE 50%-WATER 25 GM/50 ML DISP.SYRIN ONE (06:53)
[2020-01-04] MEDS: INSULIN SLIDING SCALE (NOVOLOG) 1 VIAL SQ SCH ×4 (06:55→21:11)
[2020-01-04 07:27] LABS: HEMATOCRIT 36.2 % (35.4-49); HEMOGLOBIN 11.9 GM/dL (11.7-16.9); MEAN CELL VOLUME 91.1 fl (80-96); MEAN PLT VOLUME 8.5 fl (7.5-11.1); PLATELET COUNT 205 K/MM3 (134-434); RBC 3.98 M/mm3 (4.00-5.60); RDW 13.5 % (11.9-15.9); WHITE BLOOD COUNT 6.5 K/mm3 (4.0-10.0)
--- NOTE | 2020-01-04 07:47 | HP ---
Admitting History and Physical - Primary Care Physician PCP: Josiane Arboleda - Admission History of Present Illness: Patient is a 54 year old male with a significant past medical history of HTN, HLD, diabetes, Grave's disease, seizure disorder, TIA, and CVA (01/2019), who presents to the ED with a complex partial seizure that has been going on x1 hour. Per patients mother, the patient's last seizure was yesterday and that it only lasted a few minutes whereas today's seizure has been lasting a long time only affecting his last side. Patient also had a stroke last January and has ever since been compliant with medication. Patient denies: chest pain, palpitations, SOB, smoking, drugs, alcohol use. neurology dr Cade cardiology dr Barrett (saw them recently outpt)/ per pt. 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: CVA (with left hemiparesis), Seizure Cardiovascular: Yes: HTN Endocrine: Yes: Diabetes Mellitus, Other (Graves disease) - Smoking History Smoking history: Never smoked Have you smoked in the past 12 months: No Aproximately how many cigarettes per day: 0 - Alcohol/Substance Use Hx Alcohol Use: Yes (occasionally) History of Substance Use: reports: None - Social History Usual Living Arrangement: Yes: With Parent Do you think of yourself as: Straight/Heterosexual History of Recent Travel: No Home Medications - Allergies Allergies/Adverse Reactions: Allergies Allergy/AdvReac Type Severity Reaction Status Date / Time No Known Allergies Allergy Verified 01/03/20 17:24 - Home Medications Home Medications: Ambulatory Orders metFORMIN HCL [Glucophage -] 500 mg PO BID #60 tablet 01/22/19 Atorvastatin Ca [Lipitor] 40 mg PO HS 11/15/19 Metoprolol Succinate [Toprol XL -] 25 mg PO BID MDD 1 01/03/20 Acetaminophen [Tylenol .Regular Strength -] 650 mg PO Q4H PRN tablet 01/05/20 Lacosamide [Vimpat -] 50 mg PO BID #60 tab MDD 2 01/05/20 levETIRAcetam [Keppra -] 500 mg PO BID #120 tablet MDD 4 01/05/20 Family Medical History Family History: Unremarkable Review of Systems - Review of Systems Constitutional: denies: Chills, Fever Eyes: denies: Blind Spots, Blurred Vision, Double Vision HENT: denies: Ear Pain, Epistaxis Neck: denies: Stiffness, Tenderness Cardiovascular: denies: Chest Pain, Shortness of Breath Respiratory: denies: Cough, SOB, SOB on Exertion Gastrointestinal: denies: Abdominal Pain, Bloating, Constipation, Diarrhea, Vomiting Genitourinary: denies: Burning, Dysuria, Flank Pain Musculoskeletal: denies: Back Pain, Extremity Pain Integumentary: denies: Eczema, Pruritis, Rash Neurological: reports: Seizure. denies: Change in LOC, Confusion, Dizziness, Headache, Syncope, Tremors, Weakness Hematology/Lymphatic: denies: Easily Bruised, Excessive Bleeding Psychiatric: denies: Altered Sleep Pattern, Anxiety, Depression, Paranoia, Suicidal Physical Examination Vital Signs: Vital Signs Temperature 98.1 F 01/04/20 06:00 Pulse Rate 69 01/04/20 06:00 Respiratory Rate 20 01/04/20 06:00 Blood Pressure 121/77 01/04/20 06:00 O2 Sat by Pulse Oximetry (%) 100 01/04/20 06:00 Constitutional: Yes: No Distress, Calm Eyes: Yes: Conjunctiva Clear HENT: Yes: Atraumatic Neck: Yes: Supple Cardiovascular: Yes: Regular Rate and Rhythm Respiratory: Yes: CTA Bilaterally Gastrointestinal: Yes: Soft. No: Tenderness Renal/: No: Hematuria Musculoskeletal: No: Joint Stiffness, Joint Swelling Extremities: No: Cold, Cool, Cyanosis Edema: No Integumentary: No: Rash, Venous Stasis Changes Neurological: Yes: Alert, Oriented ...Motor Strength: LUE (old 4/5 l SIDED WEAKNESS / OLD CVA), LLE Psychiatric: Yes: Alert, Oriented. No: Agitated, Suicidal Ideation Labs: CBC, BMP 01/04/20 07:08 Imaging - Results Chest X-ray: Report Reviewed Other: Report Reviewed Assessment/Plan Patient is a 54 year old male with history of HTN, HLD, diabetes, Grave's disease, seizure disorder, TIA, and CVA (01/2019), who presents to the ED with a complex partial seizure that has been going on x1 hour. admit; neurology eval; anti-seizure meds per neurology; head CT falls pfx d/w pt and staff
[2020-01-04 07:56] LABS: ALBUMIN 3.5 g/dl (3.4-5.0); BILIRUBIN,TOTAL 0.8 mg/dL (0.2-1); CALCIUM 8.6 mg/dL (8.5-10.1); CREATININE 0.8 mg/dL (0.55-1.3); POTASSIUM 3.6 mmol/L (3.5-5.1)
--- NOTE | 2020-01-04 09:38 | EKG ---
Test Reason : Blood Pressure : / mmHG Vent. Rate : 101 BPM Atrial Rate : 101 BPM P-R Int : 178 ms QRS Dur : 094 ms QT Int : 354 ms P-R-T Axes : 073 063 052 degrees QTc Int : 459 ms SINUS TACHYCARDIA INFERIOR INFARCT LATERAL INFARCT ABNORMAL ECG Confirmed by MD SULEMAN, GURVINDER ([id number]) on 01/04/2020 9:38:30 AM Referred By: Confirmed By:GURVINDER SHELL MD
[2020-01-04] MEDS: metFORMIN HCL 500 MG TABLET (FP) PO SCH ×2 (09:45→21:13)
[2020-01-04] MEDS: levETIRAcetam 500 MG TABLET (FP) PO SCH ×4 (10:47→21:10)
--- NOTE | 2020-01-04 11:32 | CONSULT ---
Consult - text type - Consultation Consultation Note: NEUROSURGERY CONSULTATION Samir Osei is a 54 year old Latin male who has achief complaint of neck and arm pains. He has developed particularly severe Left arm radicular pain and was evaluated in the [facility] ED in September 2019, however, although imaging was obtained, due to the COVID pandemic, he was not offered further treatment. The patient has a known seizure disorder and is managed on Keppra. He also has a history of TIA, CVA (January 2019) and DM as well as Grave's disease. The patient was referred to [facility] by Dr. Cade for further evaluation and management. Immediately prior to his visit to the office, he suffered a prolong ed seizure and was brought to the [facility] ED for further evaluation and treatment. He was admitted and his dose of Keppra was increased. I spoke to him briefly and reviewed his clinical course as well as imaging findings. MRI Cervical demonstrates degenerative loss of lordosis and moderate to severe spondylosis with profound osteophytes, disc bulges and hypertrophic posterior longitudinal ligament and ligamentum flavum which when combined with a congenitally narrow spinal canal results in effacement of the ventral and dorsal CSF spaces and deformation of the Cervical spinal cord. There appear to be foraminal soft discs which are worst at C56 and C67 on the Left. The AP spinal canal diameters are: C23 = 8.4mm; C34 = 8.6mm; C45 = 10mm; C56 = 8.8mm; & C67 = 9.3mm. CT Cervical demonstrates ossification of the posterior longitudinal ligament as well as severe ventral osteophytes consistent with DISH. He is currently awake and alert on exam and is awaiting his COVID test results. I will discuss potential treatment options for his condition when I return. The patient appreciates the information shared with him. All questions were answered.
--- NOTE | 2020-01-04 12:31 | CON.NEURO ---
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 Pt was reportedly actively seizing so much of the history was given by mother. Mother says pt has a history of seizure disorder and his last seizure was 01/01, but that only lasted a few minutes. yesterday the seizure has been lasting longer it has only been on the left side and it usually is only on one side with the pt conscious. as per chart, mother explains that he had a stroke last January 2019 and he has been having seizures since. last seen by in office on 12/08/19 --and dx with cervical radiculopathy ( ccervical stenosis causing pain dwon the left arm and was referred to neurosurgery) . As per chart , he has been compliant with medication and denies any current chest pain, palpitations, or SOB. Pt did explain he chronically hits head due to left sided weakness, but did not hit his head with seizure today. Pt also has associated left sided weakness which is due to prior stoke. no Sz today, close to baseline. 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: CVA (with left hemiparesis), Seizure, Other (stroke, residual left hemip) Cardio/Vascular: Yes: HTN Endocrine: Yes: Diabetes Mellitus, Other (Graves disease) - Alcohol/Substance Use Hx Alcohol Use: Yes (occasionally) History of Substance Use: reports: None - Smoking History Smoking history: Never smoked Have you smoked in the past 12 months: No Aproximately how many cigarettes per day: 0 - Social History Usual Living Arrangement: With Spouse History of Recent Travel: No Home Medications - Allergies Allergies/Adverse Reactions: Allergies Allergy/AdvReac Type Severity Reaction Status Date / Time No Known Allergies Allergy Verified 01/03/20 17:24 - Home Medications Home Medications: Ambulatory Orders metFORMIN HCL [Glucophage -] 500 mg PO BID #60 tablet 01/22/19 Atorvastatin Ca [Lipitor] 40 mg PO HS 11/15/19 Metoprolol Succinate [Toprol XL -] 25 mg PO BID MDD 1 01/03/20 levETIRAcetam [Keppra -] 500 mg PO BID MDD 6 01/03/20 Physical Exam-Neuro Vital Signs: Vital Signs Temperature 98.2 F 01/04/20 08:50 Pulse Rate 78 01/04/20 08:50 Respiratory Rate 20 01/04/20 08:50 Blood Pressure 99/55 L 01/04/20 08:50 O2 Sat by Pulse Oximetry (%) 100 01/04/20 08:50 Constitutional: Yes: Well Nourished Labs: CBC, BMP 01/04/20 07:08 01/04/20 07:08 INR, PTT INR 1.08 (0.83-1.09) 01/03/20 17:31 - Neuro Exam Level Of Consciousness: Yes: Alert (left hemieparesis ), Oriented to Person (left hemiparesis ) Speech: WNL Problem List - Problems (1) Seizure Code(s): R56.9 - UNSPECIFIED CONVULSIONS (2) CVA (cerebral vascular accident) Code(s): I63.9 - CEREBRAL INFARCTION, UNSPECIFIED Qualifiers: CVA mechanism: unspecified Qualified Code(s): I63.9 - Cerebral infarction, unspecified (3) History of CVA with residual deficit Code(s): I69.30 - UNSPECIFIED SEQUELAE OF CEREBRAL INFARCTION (4) Hypertension Code(s): I10 - ESSENTIAL (PRIMARY) HYPERTENSION (5) Hyperthyroidism Code(s): E05.90 - THYROTOXICOSIS, UNSP WITHOUT THYROTOXIC CRISIS OR STORM (6) Left-sided weakness Code(s): R53.1 - WEAKNESS Assessment/Plan 54 yo male with pmh seizures, DM, stroke with residual left hemiparesis, last SZ 09/08 (MRI BRAIN 05/21/19 - showed 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 Pt was reportedly actively seizing so much of the history was given by mother. Mother says pt has a history of seizure disorder and his last seizure was 01/01, but that only lasted a few minutes. yesterday the seizure has been lasting longer it has only been on the left side and it usually is only on one side with the pt conscious. as per chart, mother explains that he had a stroke last January 2019 and he has been having seizures since. last seen by in office on 12/08/19 --and dx with cervical radiculopathy ( ccervical stenosis causing pain dwon the left arm and was referred to neurosurgery) . As per chart , he has been compliant with medication and denies any current chest pain, palpitations, or SOB. Pt did explain he chronically hits head due to left sided weakness, but did not hit his head with seizure today. Pt also has associated left sided weakness which is due to prior stoke. AP : as above ,old CVA with residual left hemiparesis , recent focal breakthrough seizures, status epilepticus , old stroke likely ictal focus would like to increase KEppra 1000BID or add another AED ( as he states he was compliant ) as he has a fixed cortical focus of gliosis though he is reluctant to inc Keppra ( feels higher dose dose caused halluicnations) ; so will ADD VINPAT 50BID and continue to titrate as outpt ands continue current dose of keppra 500BID. can Dc in AM if no new events ( can FU NEUROSURGERy as outpt, may require decompression but would wait till neurologically stable ) DR ANTONY
[2020-01-04] MEDS: LACOSAMIDE 50 MG TABLET PO SCH ×2 (14:31→21:10)
[2020-01-05] MEDS ORDERED: ACETAMINOPHEN 325 MG TABLET (FP) ONE (01:27)
[2020-01-05] MEDS ORDERED: ACETAMINOPHEN 325 MG TABLET (FP) PO PRN (01:59)
[2020-01-05] MEDS: INSULIN SLIDING SCALE (NOVOLOG) 1 VIAL SQ SCH ×2 (06:22→12:04)
[2020-01-05] MEDS: metoPROLOL SUCCINATE 25 MG TAB.SR.24H (FP) PO SCH (09:24)
[2020-01-05] MEDS: LACOSAMIDE 50 MG TABLET PO SCH (09:24)
[2020-01-05] MEDS: levETIRAcetam 500 MG TABLET (FP) PO SCH (09:24)
--- NOTE | 2020-01-05 12:00 | DS ---
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 - vimpat ordered per neurology no more seizures feels well wants to go home; cleared by neurology for DC home on keppra and new medication (pt did not want to increase keppra dose) d/w pt do not drive / swim seen also by NS for LUE and neck pain / numbness with moving arm / neck; has CSpine ds and needs surgery, to be done when cleared by neurology no CP SOB MCDONALD palp - saw cardio oputpt advised f/u with them by next week; Constitutional: Yes: No Distress, Calm Eyes: Yes: Conjunctiva Clear HENT: Yes: Atraumatic Neck: Yes: Supple Cardiovascular: Yes: Regular Rate and Rhythm Respiratory: Yes: CTA Bilaterally Gastrointestinal: Yes: Soft. No: Tenderness Renal/: No: CVA Tenderness - Left, CVA Tenderness - Right, Hematuria Musculoskeletal: No: Joint Stiffness, Joint Swelling Extremities: No: Cold, Cool, Cyanosis Edema: No Integumentary: No: Rash, Venous Stasis Changes Neurological: Yes: Alert, Oriented, Pre-Existing Deficit (L sided mild weaknes s). No: Aphasia, Dysarthria, Facial Droop, Lethargy, Seizure ...Motor Strength: LUE, LLE (old 4/5 weakness from old CVA no new changes) Psychiatric: Yes: Alert, Oriented. No: Agitated, Suicidal Ideation Labs: CBC, BMP 01/04/20 07:08 01/04/20 07:08 Discharge Summary Problems reviewed: Yes Reason For Visit: SEIZURE Current Active Problems Seizure (Acute) Procedures: Principal: 54 YOM HTN ASHD CVA seizures admitted with recurrent seizures despite pt taking keppra at home; of note per ER home meds list Plavix was not present; pt is currently on Plavix and he said he has it home Other Procedures: head CT negative, seen by neurology, added vimpat;. also seen by NS for neck and LUE neuropathy Hospital Course: improved with above f/u PCP cardiology neurology and NS in 1-2 weeks; RTER if recurrent c/o Condition: Improved - Instructions Diet, Activity, Other Instructions: f/u PCP and neurology in 1-2 weeks; f/u cardiology and neurosurgery 1-2 weeks; do not drive or swim; take meds as prescribed; RTER if worse or recurrent c/o; to take Plavix everyday (if no bleeding or other C/I d/w pt); falls precautions. Referrals: Santos Arboleda MD [Primary Care Provider] - Tor Raymundo MD, FAANS [Staff Physician] - Camron Cade DO [Staff Physician] - Ranjan Barrett MD [Staff Physician] - Disposition: HOME - Home Medications Comprehensive Discharge Medication List: Ambulatory Orders metFORMIN HCL [Glucophage -] 500 mg PO BID #60 tablet 01/22/19 Atorvastatin Ca [Lipitor] 40 mg PO HS 11/15/19 Metoprolol Succinate [Toprol XL -] 25 mg PO BID MDD 1 01/03/20 levETIRAcetam [Keppra -] 500 mg PO BID MDD 6 01/03/20
[2020-01-05] MEDS: metFORMIN HCL 500 MG TABLET (FP) PO SCH (12:04)
[2020-01-05 15:12] VITALS: BP 125/78; PULSE 80; TEMP 98.8
--- NOTE | 2020-01-06 10:53 | PN ---
Progress Note (short form) - Note Progress Note: Patient seen and examined. I discussed his imaging findings and potential treatment options in detail. I explained that surgery would not be advised so soon after his uncontrolled seizure activity and proposed seeing him in my office in the coming weeks to plan a course of care. He asked intelligent questions and understood the information provided. All questions answered.
--- NOTE | 2020-01-07 11:00 | PN ---
Progress Note (short form) - Note Progress Note: I called pt to see if he is taking his 2 seizure meds as ordered, he is and doing OK, no more seizures, he went for PT rehab, he has home plavix and taking it, refills ordered. To come to clinic next week for f.u.
== END 2020-01-05 15:40 | disposition home or self-care (01) | DRG 101 ==
LOC: JER 17:00 → JERBED 19:17 → J6WEST-2 01-04 08:56
PROVIDERS: ADMIT Specialist; ATTEND Specialist
DX: G40.209 Localization-related (focal) (partial) symptomatic epilepsy and epileptic syndromes with complex partial seizures, not intractable, without status epilepticus (principal); I69.354 Hemiplegia and hemiparesis following cerebral infarction affecting left non-dominant side; I10 Essential (primary) hypertension; E78.5 Hyperlipidemia, unspecified; E11.9 Type 2 diabetes mellitus without complications; I25.10 Atherosclerotic heart disease of native coronary artery without angina pectoris
CPT/HCPCS: 36415; 70450-TC; 71045-TC-FY; 80053; 80177; 81003; 82550; 82962; 84484; 85025; 85027; 85610; 85730; 93005; 93010; 99285-25; J0131; U0003

== ENCOUNTER 2020-01-24 04:22 | Inpatient (IN) | payer BC ==
[2020-01-23 08:39] VITALS: BMI 24.3
[2020-01-24] MEDS ORDERED: CEFAZOLIN 2 GM/D5W 2 GM/50 ML ML IVPB ONE (07:00)
[2020-01-24] MEDS ORDERED: LIDOCAINE 1%/EPI 1:100000 (20 ML MULTI DOSE VIAL) ONE ×2 (07:15→08:54)
[2020-01-24] MEDS ORDERED: GENTAMICIN SO4 80 MG/2 ML VIAL ONE ×2 (07:15→11:27)
[2020-01-24] MEDS ORDERED: BUPIVACAINE LIPOSOME/PF (EXPAREL) 266 MG/20 ML VIAL ONE (07:15)
[2020-01-24] MEDS ORDERED: THROMBIN (BOVINE) 5,000 UNIT VIAL TP ONE ×5 (07:15→11:57)
[2020-01-24] MEDS ORDERED: ceFAZolin SODIUM 1 GM VIAL ONE ×2 (07:19→17:48)
[2020-01-24] MEDS ORDERED: PROPOFOL 20 ML ONE ×2 (07:21)
[2020-01-24] MEDS ORDERED: LIDOCAINE HCL/PF 2% SDV 5ML VIAL ONE (07:21)
[2020-01-24] MEDS ORDERED: fentaNYL CITRATE 250 MCG/5 ML VIAL ONE (07:21)
[2020-01-24] MEDS ORDERED: ROCURONIUM BROMIDE 50 MG/5 ML SYRINGE ONE ×3 (07:22→11:05)
[2020-01-24] MEDS ORDERED: MIDAZOLAM HCL 2 MG/2 ML SINGLE DOSE VIAL ONE ×3 (07:22→13:04)
[2020-01-24] MEDS ORDERED: THROMBIN (BOVINE) 20,000 UNIT VIAL TP ONE (07:49)
--- NOTE | 2020-01-24 07:56 | HP ---
History & Physical Update - History History: No Change - Physical Physical: No Change - Assessment Assessment: No Change - Plan Plan: No Change (Full H&P in chart from 01/18/20)
[2020-01-24] MEDS ORDERED: ONDANSETRON 4 MG/2 ML VIAL IVPUSH PRN ×2 (08:06→13:58)
[2020-01-24] MEDS ORDERED: HYDROmorphone HCl 2 MG/ML VIAL IVPUSH PRN ×2 (08:07→08:08)
[2020-01-24] MEDS ORDERED: ACETAMINOPHEN INJECTION 200 ML IVPB ONE (08:10)
[2020-01-24] MEDS ORDERED: ceFAZolin 2 GRAM PREMIX BAG IVPB ONE (08:35)
[2020-01-24] MEDS ORDERED: VANCOMYCIN 1,000 MG VIAL (RESTRICTED TO ID ONLY) IVPB ONE (08:35)
[2020-01-24] MEDS ORDERED: VANCOMYCIN 1,000 MG VIAL (RESTRICTED TO ID ONLY) ONE (08:43)
[2020-01-24] MEDS ORDERED: LIDOCAINE 1%/EPI 1:100000 (20 ML MULTI DOSE VIAL) IJ ONE (08:44)
[2020-01-24] MEDS ORDERED: BACITRACIN 15 GM TUBE TOPICAL OINTMENT ONE (08:54)
[2020-01-24] MEDS ORDERED: BACITRACIN 50,000 UNITS VIAL NR ONE (09:02)
[2020-01-24] MEDS ORDERED: GENTAMICIN SO4 80 MG/2 ML VIAL IVPB ONE (09:02)
[2020-01-24] MEDS ORDERED: HYDROmorphone HCl 2 MG/ML VIAL ONE ×2 (09:04→15:12)
[2020-01-24] MEDS ORDERED: EPHEDRINE SULFATE/0.9% NACL/PF 50 MG/10 ML SYRINGE NR ONE (10:59)
[2020-01-24] MEDS ORDERED: ceFAZolin SODIUM 1 GM VIAL IVPB ONE (11:30)
[2020-01-24] MEDS ORDERED: NEOSTIGMINE METHYLSULFATE 0.5 MG/1 ML - 10 ML MDV ONE (12:58)
[2020-01-24] MEDS ORDERED: GLYCOPYRROLATE 0.2 MG/1 ML VIAL ONE (12:58)
[2020-01-24] MEDS ORDERED: ONDANSETRON 4 MG/2 ML VIAL ONE (13:00)
[2020-01-24] MEDS ORDERED: LIDOCAINE HCL 2% JELLY (5 ML/TUBE) ONE (13:00)
[2020-01-24] MEDS ORDERED: BUPIVACAINE HCL/PF 0.5% (5 MG/ML) 30 ML VIAL IJ ONE (13:12)
[2020-01-24] MEDS ORDERED: BUPIVACAINE LIPOSOME/PF (EXPAREL) 266 MG/20 ML VIAL NR ONE (13:12)
[2020-01-24] MEDS ORDERED: diphenhydrAMINE HCL 25 MG CAPSULE (FP) PO PRN (13:58)
[2020-01-24] MEDS ORDERED: oxyCODONE HCL 5 MG TABLET PO PRN (13:58)
[2020-01-24] MEDS ORDERED: LACTATED RINGERS SOLUTION 1,000 ML/1,000 ML INFUS.BAG IV SCH (14:00)
[2020-01-24] MEDS: LACTATED RINGERS SOLUTION 1,000 ML IV SCH ×2 (16:30→17:11)
[2020-01-24] MEDS: DOCUSATE SODIUM 100 MG CAPSULE (FP) PO SCH ×3 (17:12→21:37)
[2020-01-24] MEDS ORDERED: DEXTROSE 5%-WATER - 50 ML IVPB ONE (17:48)
[2020-01-24] MEDS: metFORMIN HCL 500 MG TABLET (FP) PO SCH (17:55)
[2020-01-24] MEDS: CEFAZOLIN 1 GM in DEXTROSE 5%-WATER - 50 ML IVPB SCH (17:55)
[2020-01-24] MEDS: LACOSAMIDE 50 MG TABLET PO SCH (21:29)
[2020-01-24] MEDS: oxyCODONE HCL 5 MG TABLET PO PRN (21:29)
[2020-01-24] MEDS: ATORVASTATIN CA 20 MG TABLET (FP) PO SCH (21:29)
[2020-01-24] MEDS: levETIRAcetam 250 MG TABLET PO SCH (21:29)
[2020-01-24] MEDS: metoPROLOL SUCCINATE 25 MG TAB.SR.24H (FP) PO SCH (21:29)
[2020-01-25] MEDS ORDERED: DEXTROSE 5%-WATER - 50 ML IVPB ONE ×3 (00:53→17:20)
[2020-01-25] MEDS ORDERED: ceFAZolin SODIUM 1 GM VIAL ONE ×3 (00:53→17:20)
[2020-01-25] MEDS: CEFAZOLIN 1 GM in DEXTROSE 5%-WATER - 50 ML IVPB SCH ×3 (01:32→17:31)
[2020-01-25] MEDS: oxyCODONE HCL 5 MG TABLET PO PRN (05:00)
[2020-01-25] MEDS: metFORMIN HCL 500 MG TABLET (FP) PO SCH ×2 (06:02→17:31)
[2020-01-25] MEDS: DOCUSATE SODIUM 100 MG CAPSULE (FP) PO SCH ×3 (06:02→21:54)
--- NOTE | 2020-01-25 07:22 | PN ---
Progress Note, Physician Chief Complaint: in bed s/p CSpine surgery, awake alert; has some local pain no other c/o; plavix held per NS consults tests and meds reviewed - Current Medication List Current Medications: Active Medications Atorvastatin Calcium (Lipitor -) 20 mg PO HS [facility] Last Admin: 01/24/20 21:29 Dose: 20 mg Documented by: Diphenhydramine HCl (Benadryl -) 25 mg PO Q6H PRN PRN Reason: FOR ITCHING Docusate Sodium (Colace -) 100 mg PO TID [facility] Last Admin: 01/25/20 06:02 Dose: Not Given Documented by: Ferrous Sulfate (Feosol -) 325 mg PO DAILY [facility] Folic Acid (Folic Acid -) 1 mg PO DAILY [facility] Hydromorphone HCl (Dilaudid Vial -) 0.5 mg IVPUSH ONCE PRN PRN Reason: PAIN LEVEL 7 - 10 Last Admin: 01/24/20 23:11 Dose: 0.5 mg Documented by: Hydromorphone HCl (Dilaudid Vial -) 0.25 mg IVPUSH ONCE PRN PRN Reason: PAIN LEVEL 7 - 10 Last Admin: 01/24/20 15:13 Dose: 0.25 mg Documented by: Lactated Ringer's (Lactated Ringers Solution) 1,000 mls @ 75 mls/hr IV ASDIR [facility] Last Admin: 01/24/20 17:11 Dose: Not Given Documented by: Cefazolin Sodium 1 gm/ (Dextrose) 50 mls @ 100 mls/hr IVPB Q8H-IV [facility] Last Admin: 01/25/20 01:32 Dose: 100 mls/hr Documented by: Lacosamide (Vimpat -) 50 mg PO BID [facility] Last Admin: 01/24/20 21:29 Dose: 50 mg Documented by: Levetiracetam (Keppra -) 750 mg PO BID [facility] Last Admin: 01/24/20 21:29 Dose: 750 mg Documented by: Metformin HCl (Glucophage -) 500 mg PO BIDAC [facility] Last Admin: 01/25/20 06:02 Dose: 500 mg Documented by: Methimazole (Tapazole -) 5 mg PO DAILY [facility] Metoprolol Succinate (Toprol Xl -) 25 mg PO BID [facility] Last Admin: 01/24/20 21:29 Dose: 25 mg Documented by: Ondansetron HCl (Zofran Injection) 4 mg IVPUSH Q6H PRN PRN Reason: NAUSEA AND/OR VOMITING Oxycodone HCl (Roxicodone -) 5 mg PO Q4H PRN PRN Reason: PAIN LEVEL 1-5 Last Admin: 01/25/20 05:06 Dose: 5 mg Documented by: Oxycodone HCl (Roxicodone -) 10 mg PO Q4H PRN PRN Reason: PAIN LEVEL 6-10 - Objective Vital Signs: Vital Signs Temperature 98.3 F 01/25/20 05:00 Pulse Rate 72 01/25/20 05:00 Respiratory Rate 20 01/25/20 05:00 Blood Pressure 137/82 01/25/20 05:00 O2 Sat by Pulse Oximetry (%) 96 01/24/20 21:00 Constitutional: Yes: No Distress, Calm Eyes: Yes: Conjunctiva Clear HENT: Yes: Atraumatic Neck: Yes: Supple, Other (collar s/p CSpine sx) Cardiovascular: Yes: Regular Rate and Rhythm Respiratory: Yes: CTA Bilaterally Gastrointestinal: Yes: Soft. No: Tenderness Genitourinary: No: Hematuria Musculoskeletal: No: Joint Stiffness, Joint Swelling Extremities: No: Cold, Cool, Cyanosis Edema: No Integumentary: No: Rash, Venous Stasis Changes Neurological: Yes: Alert, Oriented ...Motor Strength: WNL Psychiatric: Yes: Alert, Oriented. No: Agitated, Suicidal Ideation - ....Imaging Other: Report Reviewed Assessment/Plan 54 YOM h/o HTN HLPM DM ASHD CVA seizures and spinal ds admitted for elective CSpine surgery stable; cont meds; pain meds prn; DVT pfx DM HTN control seizures meds po to restart plavix po when OK with NS falls pfx; d/w pt and staff
[2020-01-25 07:44] LABS: BASO % 0.2 % (0-2.0); EOS % 0.1 % (0-4.5); HEMATOCRIT 31.4 % (35.4-49); HEMOGLOBIN 10.4 GM/dL (11.7-16.9); LYMPH % 13.3 % (8-40); MCHC 33.2 g/dl (32.0-35.9); MEAN CELL VOLUME 90.6 fl (80-96); MEAN PLT VOLUME 9.2 fl (7.5-11.1); MONO % 7.3 % (3.8-10.2); NEUT % 79.1 % (42.8-82.8); PLATELET COUNT 224 K/MM3 (134-434); RBC 3.47 M/mm3 (4.00-5.60); RDW 13.2 % (11.9-15.9); WHITE BLOOD COUNT 13.3 K/mm3 (4.0-10.0)
[2020-01-25 08:26] LABS: BLOOD UREA NITROGEN 12.4 mg/dL (7-18); CALCIUM 8.6 mg/dL (8.5-10.1); CREATININE 0.6 mg/dL (0.55-1.3); POTASSIUM 3.9 mmol/L (3.5-5.1)
[2020-01-25] MEDS ORDERED: PT OWN MED DRAWER 7, Y5N ONE (09:47)
[2020-01-25] MEDS: FOLIC ACID 1 MG TABLET (FP) PO SCH (09:50)
[2020-01-25] MEDS: LACOSAMIDE 50 MG TABLET PO SCH ×2 (09:50→21:54)
[2020-01-25] MEDS: METHIMAZOLE 5 MG TABLET (FP) PO SCH (09:51)
[2020-01-25] MEDS: FERROUS SO4 325 MG TABLET (FP) PO SCH (09:51)
[2020-01-25] MEDS: metoPROLOL SUCCINATE 25 MG TAB.SR.24H (FP) PO SCH ×2 (09:51→21:54)
[2020-01-25] MEDS: levETIRAcetam 250 MG TABLET PO SCH ×2 (09:51→21:54)
--- NOTE | 2020-01-25 10:45 | PN ---
Progress Note (short form) - Note Progress Note: Surgery note: Pt oob to chair, states that his left hand remains stiff. Having some painful swallowing. No CP or SOB. Vital Signs Period Temp Pulse Resp BP Sys/Adamson Pulse Ox Last 24 Hr 97.9 F-98.8 F 60-100 10-22 112-162/48-95 95-100 FAUZIA:130ml serosangrenous-anterior 185ml serosangrenous posterior Huggins:1300ml GEN: A&0x3, NAD CV: RRR Lungs: CTA b/l Neck: Dressing c/d/i, no masses. cervical collar in place. Neuro: interpreter deaf strength decreased on the left. LE: 5/5 dorsi/plantar flexion b/l. SCDs in place CBC, BMP /05/ 06:50 01/24/ 06:50 A/P: 54 yo male s/p C4-5 corpectomy(anterior) with posterior decompression- laminectomy with pedicle screws C2-T1, POD#1 Continue oob to chair/PT IV fluid until tolerating clears well DVT with heparin SQ IV abx while drain in place D/w Dr. Raymundo
--- NOTE | 2020-01-25 12:13 | PN ---
Progress Note, Physician Chief Complaint: s/p C4-6 ant corpectoym, C7-T1 post. pedicle screws, under general anesthesia History of Present Illness: post op day one - Current Medication List Current Medications: Active Medications Atorvastatin Calcium (Lipitor -) 20 mg PO HS [facility] Last Admin: 01/24/20 21:29 Dose: 20 mg Documented by: Diphenhydramine HCl (Benadryl -) 25 mg PO Q6H PRN PRN Reason: FOR ITCHING Docusate Sodium (Colace -) 100 mg PO TID [facility] Last Admin: 01/25/20 06:02 Dose: Not Given Documented by: Ferrous Sulfate (Feosol -) 325 mg PO DAILY [facility] Last Admin: 01/25/20 09:51 Dose: 325 mg Documented by: Folic Acid (Folic Acid -) 1 mg PO DAILY [facility] Last Admin: 01/25/20 09:50 Dose: 1 mg Documented by: Heparin Sodium (Porcine) (Heparin -) 5,000 unit SQ TID [facility] Lactated Ringer's (Lactated Ringers Solution) 1,000 mls @ 75 mls/hr IV ASDIR [facility] Last Admin: 01/24/20 17:11 Dose: Not Given Documented by: Cefazolin Sodium 1 gm/ (Dextrose) 50 mls @ 100 mls/hr IVPB Q8H-IV [facility] Last Admin: 01/25/20 09:51 Dose: 100 mls/hr Documented by: Lacosamide (Vimpat -) 50 mg PO BID [facility] Last Admin: 01/25/20 09:50 Dose: 50 mg Documented by: Levetiracetam (Keppra -) 750 mg PO BID [facility] Last Admin: 01/25/20 09:51 Dose: 750 mg Documented by: Metformin HCl (Glucophage -) 500 mg PO BIDAC [facility] Last Admin: 01/25/20 06:02 Dose: 500 mg Documented by: Methimazole (Tapazole -) 5 mg PO DAILY [facility] Last Admin: 01/25/20 09:51 Dose: 5 mg Documented by: Metoprolol Succinate (Toprol Xl -) 25 mg PO BID [facility] Last Admin: 01/25/20 09:51 Dose: 25 mg Documented by: Ondansetron HCl (Zofran Injection) 4 mg IVPUSH Q6H PRN PRN Reason: NAUSEA AND/OR VOMITING Oxycodone HCl (Roxicodone -) 5 mg PO Q4H PRN PRN Reason: PAIN LEVEL 1-5 Last Admin: 01/25/20 05:06 Dose: 5 mg Documented by: Oxycodone HCl (Roxicodone -) 10 mg PO Q4H PRN PRN Reason: PAIN LEVEL 6-10 - Objective Vital Signs: Vital Signs Temperature 98.1 F 01/25/20 10:00 Pulse Rate 67 01/25/20 10:00 Respiratory Rate 18 01/25/20 10:00 Blood Pressure 136/65 01/25/20 10:00 O2 Sat by Pulse Oximetry (%) 100 01/25/20 10:00 Constitutional: Yes: Well Nourished Cardiovascular: Yes: WNL Respiratory: Yes: WNL Gastrointestinal: Yes: WNL Labs: CBC, BMP 01/25/20 06:50 01/25/20 06:50 Assessment/Plan Complaining of visual field disturbances intermittently, described as the sensation of tearing in the eye. currently asymptomatic, advised the patient to monitor symptoms and if not improving ask to be further evaluated. Not consistent with optic nerve edema or ischemia. Dept of anesthesiology will sign off care at this time but please consult again if questions regarding anesthesia, pain management or possible positioning related eye injuries.
[2020-01-25] MEDS: HEPARIN NA (PORCINE) 5,000 UNITS/ML 1ML VIAL SQ SCH ×2 (14:43→21:54)
[2020-01-25] MEDS: ATORVASTATIN CA 20 MG TABLET (FP) PO SCH (21:54)
[2020-01-26] MEDS ORDERED: DEXTROSE 5%-WATER - 50 ML IVPB ONE (01:52)
[2020-01-26] MEDS ORDERED: ceFAZolin SODIUM 1 GM VIAL ONE (01:52)
[2020-01-26] MEDS: CEFAZOLIN 1 GM in DEXTROSE 5%-WATER - 50 ML IVPB SCH ×3 (01:54→10:20)
[2020-01-26] MEDS: HEPARIN NA (PORCINE) 5,000 UNITS/ML 1ML VIAL SQ SCH (06:06)
[2020-01-26] MEDS: metFORMIN HCL 500 MG TABLET (FP) PO SCH (06:06)
[2020-01-26] MEDS: DOCUSATE SODIUM 100 MG CAPSULE (FP) PO SCH (06:06)
[2020-01-26 08:20] LABS: BASO % 0.2 % (0-2.0); HEMATOCRIT 30.7 % (35.4-49); HEMOGLOBIN 10.2 GM/dL (11.7-16.9); LYMPH % 9.9 % (8-40); MCH 30.1 pg (25.7-33.7); MCHC 33.3 g/dl (32.0-35.9); MEAN CELL VOLUME 90.5 fl (80-96); MEAN PLT VOLUME 9.2 fl (7.5-11.1); MONO % 8.8 % (3.8-10.2); NEUT % 81.1 % (42.8-82.8); PLATELET COUNT 226 K/MM3 (134-434); RBC 3.39 M/mm3 (4.00-5.60); RDW 13.2 % (11.9-15.9); WHITE BLOOD COUNT 11.6 K/mm3 (4.0-10.0)
[2020-01-26] MEDS: LACTATED RINGERS SOLUTION 1,000 ML IV SCH (08:28)
[2020-01-26 08:46] LABS: BLOOD UREA NITROGEN 10.8 mg/dL (7-18); CALCIUM 8.8 mg/dL (8.5-10.1); CREATININE 0.6 mg/dL (0.55-1.3); POTASSIUM 3.6 mmol/L (3.5-5.1)
--- NOTE | 2020-01-26 09:59 | DS ---
Physical Exam: SUBJECTIVE: Patient seen and examined this AM on rounds with attending Dr Eason. Pt reports some hallucinations overnight (visual-people coming into his room and touching him" which he relays to the antibiotics and keppra he was given. States he has not had any hallucinations since. Pain is controlled, refuses pain medications, states it makes him hallucinate. States eye blurriness has resolved, reports he feels it was due to the "ointment" anesthesia placed in his eyes. Reports he is ready to go home. Has some worsening L hand weakness/numbness, stable since surgery. Denies cp/sob, n/v/d. OBJECTIVE: Vital Signs Temperature 99.5 F 01/26/20 06:00 Pulse Rate 101 H 01/26/20 06:00 Respiratory Rate 20 01/26/20 06:00 Blood Pressure 142/76 01/26/20 06:00 O2 Sat by Pulse Oximetry (%) 98 01/25/20 23:00 PHYSICAL EXAM GENERAL: The patient is awake, alert, and fully oriented, in no acute distress. Ambulating well in room HEAD: Normal with no signs of trauma. Neck: brace in place, anterior dressing removed for drain removal, incision c/d/i, no erythema or drainage, dermabond in place. Drain removed without issue, pt tolerated well. New 4x4s places over incisions, secured with tegaderm. Posterior dressing c/d/i, drain removed without issue, pt tolerated well, new 4x4 and tegaderm placed. LUNGS: no accessory muscle use on ra. EXTREMITIES: diamond grader strength diminished on L (baseline per pt due to prior CVA) 5/5 biceps/triceps on R, 4/5 biceps/triceps on L. SILT b/l hands. Shoulder shrug strong and equal b/l. b/l le's 5/5 dorsi/plantarflexion, 5/5 knee flexion/extension, 5/5 hip flexion. SILT b/l les. LABS CBC,CMP WBC 11.6 K/mm3 (4.0-10.0) H 01/26/20 07:24 RBC 3.39 M/mm3 (4.00-5.60) L 01/26/20 07:24 Hgb 10.2 GM/dL (11.7-16.9) L 01/26/20 07:24 Hct 30.7 % (35.4-49) L 01/26/20 07:24 MCV 90.5 fl (80-96) 01/26/20 07:24 MCH 30.1 pg (25.7-33.7) 01/26/20 07:24 MCHC 33.3 g/dl (32.0-35.9) 01/26/20 07:24 RDW 13.2 % (11.9-15.9) 01/26/20 07:24 Plt Count 226 K/MM3 (134-434) 01/26/20 07:24 MPV 9.2 fl (7.5-11.1) 01/26/20 07:24 Absolute Neuts (auto) 9.4 K/mm3 (1.5-8.0) H 01/26/20 07:24 Neutrophils % 81.1 % (42.8-82.8) 01/26/20 07:24 Lymphocytes % 9.9 % (8-40) D 01/26/20 07:24 Monocytes % 8.8 % (3.8-10.2) 01/26/20 07:24 Eosinophils % 0.0 % (0-4.5) D 01/26/20 07:24 Basophils % 0.2 % (0-2.0) 01/26/20 07:24 Nucleated RBC % 0 % (0-0) 01/26/20 07:24 Sodium 139 mmol/L (136-145) 01/26/20 07:24 Potassium 3.6 mmol/L (3.5-5.1) 01/26/20 07:24 Chloride 102 mmol/L (98-107) 01/26/20 07:24 Carbon Dioxide 32 mmol/L (21-32) 01/26/20 07:24 Anion Gap 5 MMOL/L (8-16) L 01/26/20 07:24 BUN 10.8 mg/dL (7-18) 01/26/20 07:24 Creatinine 0.6 mg/dL (0.55-1.3) 01/26/20 07:24 Est GFR (CKD-EPI)AfAm 130.27 01/26/20 07:24 Est GFR (CKD-EPI)NonAf 112.40 01/26/20 07:24 POC Glucometer 110 UNITS (80-120) 01/26/20 06:04 Random Glucose 114 mg/dL (74-106) H 01/26/20 07:24 Calcium 8.8 mg/dL (8.5-10.1) 01/26/20 07:24 HOSPITAL COURSE: Date of Admission:01/24/20 Date of Discharge: 01/26/20 The patient was admitted to the Med-Surg Unit after an elective repair of his cervical spondylosis. Now, s/p C4-C6 corpectomies/fusion/C2-T1 Jamil ctomies/fusion. The patient had a CT scan after the surgery to confirm placement of the hardware. The day of surgery, the patient ambulated the hallways with assistance. Narcotic and non-narcotic pain management control was achieved with an oral approach. POD #2, the surgical drain was removed fully intact and without incident. Labs were monitored and h/h remained stable. Lori-operative IV ABX were administered. DVT prophylaxis was achieved with SCDs, early ambulation and Heparin sq. The patient ambulated with Physical Therapy and LAURA was recommended, however pt declined services. The patient declined narcotic prescriptions for discharge, The discharge instructions and an oral pain management plan were reviewed with the patient. All questions answered. Above plan discussed with Dr. Eason and agreed. Minutes to complete discharge: 35 Visit type - Case Type Case Type: Scheduled - Emergency Emergency Visit: No - New patient This patient is new to me today: Yes Date on this admission: 01/26/20 - Critical Care Critical Care patient: No
[2020-01-26] MEDS ORDERED: PT OWN MED DRAWER 7, Y5N ONE (10:19)
[2020-01-26] MEDS: levETIRAcetam 250 MG TABLET PO SCH (10:20)
[2020-01-26] MEDS: metoPROLOL SUCCINATE 25 MG TAB.SR.24H (FP) PO SCH (10:20)
[2020-01-26] MEDS: FERROUS SO4 325 MG TABLET (FP) PO SCH (10:20)
[2020-01-26] MEDS: METHIMAZOLE 5 MG TABLET (FP) PO SCH (10:20)
[2020-01-26] MEDS: LACOSAMIDE 50 MG TABLET PO SCH (10:20)
[2020-01-26] MEDS: FOLIC ACID 1 MG TABLET (FP) PO SCH (10:30)
[2020-01-26 11:03] VITALS: BP 126/64; PULSE 98; TEMP 99.6
--- NOTE | 2020-01-26 15:42 | PN ---
Progress Note, Physician Chief Complaint: feeling well; awaiting DC home today per NS; pt said NS told him he can restart plavix tomorrow meds reviewed with pt; to f/u with NS and PCP within 1 week; also to f.u with neurology and cardiology in 2-3 weeks; GI HM per PCP d/w pt to call us or [facility] if any fever chills bleeding, wound DC or worse pain, or other new c/o - Objective Vital Signs: Vital Signs Temperature 99.6 F 01/26/20 09:30 Pulse Rate 98 H 01/26/20 09:30 Respiratory Rate 20 01/26/20 09:30 Blood Pressure 126/64 01/26/20 09:30 O2 Sat by Pulse Oximetry (%) 98 01/26/20 09:30 Constitutional: Yes: No Distress, Calm Eyes: Yes: Conjunctiva Clear HENT: Yes: Atraumatic Neck: Yes: Supple Cardiovascular: Yes: Regular Rate and Rhythm Respiratory: Yes: CTA Bilaterally Gastrointestinal: Yes: Soft. No: Tenderness Genitourinary: No: Hematuria Musculoskeletal: No: Joint Stiffness, Joint Swelling Extremities: No: Cold, Cool, Cyanosis Edema: No Integumentary: No: Rash, Venous Stasis Changes Neurological: Yes: Alert, Oriented ...Motor Strength: WNL Psychiatric: Yes: Alert, Oriented. No: Agitated, Suicidal Ideation Labs: CBC, BMP 01/26/20 07:24 01/26/20 07:24 - ....Imaging Other: Report Reviewed Assessment/Plan 54 YOM h/o HTN HLPM DM ASHD CVA seizures and spinal ds admitted for elective CSpine surgery stable; cont meds; pain meds prn; DVT pfx DM HTN control seizures meds po to restart plavix po when OK with NS falls pfx; d/w pt and staff see above
== END 2020-01-26 12:25 | disposition home or self-care (01) | DRG 454 ==
LOC: J2C 04:22 → J8W 16:42
PROVIDERS: ADMIT Neurological Surgery; ATTEND Neurological Surgery
PROC: 0RG2070 Fusion of 2 or more Cervical Vertebral Joints with Autologous Tissue Substitute, Anterior Approach, Anterior Column, Open Approach (ICD-10-PCS; 2020-01-24)
PROC: 0PB30ZZ Excision of Cervical Vertebra, Open Approach (ICD-10-PCS; 2020-01-24)
PROC: 00NW0ZZ Release Cervical Spinal Cord, Open Approach (ICD-10-PCS; 2020-01-24)
PROC: 0RG2071 Fusion of 2 or more Cervical Vertebral Joints with Autologous Tissue Substitute, Posterior Approach, Posterior Column, Open Approach (ICD-10-PCS; 2020-01-24)
PROC: 0RG4071 Fusion of Cervicothoracic Vertebral Joint with Autologous Tissue Substitute, Posterior Approach, Posterior Column, Open Approach (ICD-10-PCS; 2020-01-24)
PROC: B01BZZZ Fluoroscopy of Spinal Cord (ICD-10-PCS; 2020-01-24)
PROC: 0JX70ZB Transfer Back Subcutaneous Tissue and Fascia with Skin and Subcutaneous Tissue, Open Approach (ICD-10-PCS; 2020-01-24)
PROC: 0RG10A0 Fusion of Cervical Vertebral Joint with Interbody Fusion Device, Anterior Approach, Anterior Column, Open Approach (ICD-10-PCS; principal; 2020-01-24 08:00)
DX: M40.292 Other kyphosis, cervical region (principal); M47.12 Other spondylosis with myelopathy, cervical region; I10 Essential (primary) hypertension; E78.5 Hyperlipidemia, unspecified; E11.9 Type 2 diabetes mellitus without complications; I25.10 Atherosclerotic heart disease of native coronary artery without angina pectoris
CPT/HCPCS: 36415; 72125-TC; 76000-TC-FY; 80048; 82962; 85025; 86850; 86900; 86901; 94760; 97116-GP; 97161-GP; J0131; J1644

== ENCOUNTER 2020-02-05 22:02 | Inpatient (IN) | payer BC ==
[2020-02-05 22:19] VITALS: BMI 24.2
[2020-02-05 23:39] LABS: BASO % 0.7 % (0-2.0); HEMATOCRIT 32.7 % (35.4-49); HEMOGLOBIN 10.9 GM/dL (11.7-16.9); LYMPH % 26.8 % (8-40); MCH 30.2 pg (25.7-33.7); MCHC 33.4 g/dl (32.0-35.9); MEAN CELL VOLUME 90.4 fl (80-96); MONO % 6.2 % (3.8-10.2); NEUT % 64.3 % (42.8-82.8); PLATELET COUNT 398 K/MM3 (134-434); RBC 3.62 M/mm3 (4.00-5.60); RDW 13.5 % (11.9-15.9); WHITE BLOOD COUNT 7.7 K/mm3 (4.0-10.0)
--- NOTE | 2020-02-05 23:41 | PDOC ---
History of Present Illness <Erik Hastings - Last Filed: 02/06/20 01:54> - History of Present Illness Initial Comments: 02/05/20 23:34 54 yo male with pmh of seizure disorder, Graves Disease, CVA with residual left sided weakness, DM, htn, s/p repair of cervical spondylisthesis C4-C6 corpectomy/ fusion C2-T1 laminectomy/fusion presents to ED for left arm and leg weakness, numbness and pain for the past three days. Pt explains he has had recent neck surgery on 01/23 since then was not having any pain on hand and was able to move hand and leg. On pt was discharged wit cervical collar (supposed to be left on for 6 weeks) with no pain and able to move hands and legs. Pt explains he had left jaw pain from cervical collar so decided to take collar off to sleep. The next morning pt explained he started having left arm pain, weakness and numbness. Pt explains symptoms were getting worse throughout the next three days. Pt today feels his hand and arm has contracted on to itself. Pt also today started having left leg cramping pain, numbness and weakness. Pt has stopped taking plavix since surgery. Pt denies headache, fever, chills, back pain, worsening neck pain, loss of control of bladder or bowel movements. PMH: seizure disorder, Graves Disease, CVA with residual left sided weakness, DM , htn PSH: C4-C6 corpectomy/ fusion C2-T1 laminectomy/fusion, appendectomy, cholecystectomy, Allergies: NKDA Social: denies smoking drugs or alcohol PCP: Dr. Arboleda Neurosurgeon: Dr. Shay 02/06/20 01:48 <Florentino Joy - Last Filed: 02/07/20 01:35> - General Chief Complaint: Weakness Stated Complaint: PAIN Time Seen by Provider: 02/05/20 22:05 Past History <Erik Hastings - Last Filed: 02/06/20 01:54> - Medical History Anemia: No Asthma: No Cancer: No Cardiac Disorders: No CVA: Yes (01/2019) COPD: No CHF: No Dementia: No Diabetes: Yes (borderline) GI Disorders: Yes (hiatal hernia) Disorders: No HTN: Yes Hypercholesterolemia: Yes Liver Disease: No Seizures: Yes Thyroid Disease: Yes - Surgical History Appendectomy: Yes (AT 7 YEARS OLD) Cholecystectomy: Yes (2010) - Immunization History Immunization Up to Date: No - Psycho-Social/Smoking History Smoking Status: No Smoking History: Never smoked Have you smoked in the past 12 months: No Number of Cigarettes Smoked Daily: 0 - Substance Abuse Hx (Audit-C & DAST Scrn) How often the patient has a drink containing alcohol: Never Score: In Men: 4 or > Positive; In Women: 3 or > Positive: 0 Screen Result (Pos requires Nsg. Audit-10AR): Negative In the last yr the pt used illegal drug/Rx for NonMed reason: No Score: Yes response is considered Positive: 0 Screen Result (Positive result requires Nsg. DAST-10): Negative <Florentino Joy - Last Filed: 02/07/20 01:35> - Medical History Allergies/Adverse Reactions: Allergies Allergy/AdvReac Type Severity Reaction Status Date / Time No Known Allergies Allergy Verified 02/05/20 22:06 Home Medications: Ambulatory Orders metFORMIN HCL [Glucophage -] 500 mg PO BID #60 tablet 01/22/19 Atorvastatin Ca [Lipitor] 20 mg PO HS 11/15/19 Metoprolol Succinate [Toprol XL -] 25 mg PO BID MDD 1 01/03/20 Lacosamide [Vimpat -] 50 mg PO BID #60 tab MDD 2 01/05/20 Clopidogrel Bisulfate [Plavix -] 75 mg PO DAILY #30 tablet 01/07/20 levETIRAcetam [Keppra -] 750 mg PO BID MDD 4 01/23/20 Methimazole [Tapazole] 5 mg PO DAILY 01/24/20 Review of Systems - Review of Systems Comments:: 02/05/20 23:51 GENERAL/CONSTITUTIONAL: No fever or chills. HEAD, EYES, EARS, NOSE AND THROAT: Vision blurry since surgery due to anesthesia given at surgery. No ear pain or discharge. No sore throat. CARDIOVASCULAR: No chest pain or shortness of breath RESPIRATORY: No cough, wheezing, or hemoptysis. GASTROINTESTINAL: No nausea, vomiting, diarrhea or constipation. GENITOURINARY: No dysuria, frequency, or change in urination. MUSCULOSKELETAL:Left arm and leg pain, weakness and numbness. neck pain. SKIN: No rash NEUROLOGIC: No headache, vertigo, loss of consciousness, decreased strength and sensation in left arm and leg. ENDOCRINE: No increased thirst. No abnormal weight change ALLERGIC/IMMUNOLOGIC: No hives or skin allergy. 02/05/20 23:55 <Florentino Joy - Last Filed: 02/07/20 01:35> *Physical Exam - Vital Signs Last Vital Signs Temp Pulse Resp BP Pulse Ox 98.6 F 76 18 117/41 L 100 02/05/20 22:04 02/05/20 22:04 02/05/20 22:04 02/05/20 22:04 02/05/20 22:04 <Erik Hastings - Last Filed: 02/06/20 01:54> - Vital Signs Last Vital Signs Temp Pulse Resp BP Pulse Ox 98.6 F 76 18 117/41 L 100 02/05/20 22:04 02/05/20 22:04 02/05/20 22:04 02/05/20 22:04 02/05/20 22:04 - Physical Exam 02/05/20 23:56 GENERAL: Awake, alert, and fully oriented, in moderate distress HEAD: No signs of trauma, normocephalic, atraumatic EYES: EOMI, sclera anicteric, conjunctiva clear ENT: Auricles normal inspection, hearing grossly normal, nares patent, oropharynx clear without exudates. Moist mucosa NECK: Restricted ROM of neck with clean surgical scar on posterior aspect. Anterior aspect is taped up due to open wound. LUNGS: No distress, speaks full sentences, clear to auscultation bilaterally HEART: Regular rate and rhythm, normal S1 and S2, no murmurs, rubs or gallops, peripheral pulses normal and equal bilaterally. ABDOMEN: Soft, nontender, normoactive bowel sounds. No guarding, no rebound. No masses NEUROLOGICAL: Cn2-12 intact but facial droop on right side (since stroke). decreased sensation on left arm and leg compared to right 4/5 muscle strength on left arm and leg 5/5 on right arm and leg. Left arm contracted onto itself and hand contracted on self. SKIN: Warm, Dry, normal turgor, no rashes or lesions noted <Florentino Joy - Last Filed: 02/07/20 01:35> ED Treatment Course - LABORATORY CBC & Chemistry Diagram: 02/05/20 23:15 02/05/20 23:15 - ADDITIONAL ORDERS Additional order review: Laboratory Results 02/05/20 02/05/20 23:15 23:15 PT with INR 13.90 H INR 1.18 H Sodium 141 Potassium 3.2 L Chloride 102 Carbon Dioxide 32 Anion Gap 7 L BUN 16.7 Creatinine 0.6 Est GFR (CKD-EPI)AfAm 130.27 Est GFR (CKD-EPI)NonAf 112.40 Random Glucose 106 Calcium 9.0 Total Bilirubin 0.4 AST 15 ALT 21 Alkaline Phosphatase 56 Total Protein 6.2 L Albumin 3.3 L 02/05/20 23:15 RBC 3.62 L MCV 90.4 MCHC 33.4 RDW 13.5 MPV 9.0 Neutrophils % 64.3 D Lymphocytes % 26.8 D Monocytes % 6.2 Eosinophils % 2.0 D Basophils % 0.7 D <Erik Hastings - Last Filed: 02/06/20 01:54> - LABORATORY CBC & Chemistry Diagram: 02/05/20 23:15 02/05/20 23:15 - RADIOLOGY Radiology Studies Ordered: Category Date Time Status CERVICAL SPINE CT W/O CONTR [CT] Stat CT Scan 02/05/20 22:47 Taken <Florentino Joy - Last Filed: 02/07/20 01:35> Medical Decision Making - Medical Decision Making 02/06/20 00:07 54 yo male history above CVA with right sided weakness and s/p cervical surgery presents to ED for right sided weakness, numbness, pain for three days. Will get CT scan of neck and call to see if lumbar and thoracic should also be done. Did not work up CVA due to history being more surgery related. Pt refused pain medication. 02/06/20 00:35 CT scan of neck shows no high grade foramen canal stenosis. Pt has multiple bone splints. Called Dr. Raymundo board [employer] secretary waiting for call back 02/06/20 00:42 Pt signed out to PM team <Florentino Joy - Last Filed: 02/07/20 01:35> Discharge - Discharge Information Problems reviewed: Yes - Admission No <Erik Hastings - Last Filed: 02/06/20 01:54> - Discharge Information Problems reviewed: Yes <Florentino Joy - Last Filed: 02/07/20 01:35> - Discharge Information Clinical Impression/Diagnosis: Numbness Arm pain Qualifiers: Laterality: left Qualified Code(s): M79.602 - Pain in left arm Condition: Stable Disposition: AGAINST MEDICAL ADVICE
[2020-02-05 23:44] LABS: INR 1.18 (0.83-1.09); PROTHROMBIN TIME (PATIENT) 13.9 SEC (9.7-13.0)
--- NOTE | 2020-02-06 00:12 | PDOC ---
Documentation entered by Magan Augustin SCRIBE, acting as scribe for Roxy Paredes MD. Roxy Paredes MD: This documentation has been prepared by the evaibe, Magan Augustin SCRIBE, under my direction and personally reviewed by me in its entirety. I confirm that the documentation accurately reflects all work, treatment, procedures, and medical decision making performed by me. Attending Attestation - Resident Resident Name: [email or web address] - ED Attending Attestation I have performed the following: I have examined & evaluated the patient, The case was reviewed & discussed with the resident, I agree w/resident's findings & plan, Exceptions are as noted - HPI HPI: 02/05/20 23:37 The patient is a 54 year old male with a significant past medical history of HTN, HLD, diabetes, Grave's disease, seizure disorder, TIA, and CVA (01/2019) who presents to the emergency department for evaluation of left arm and left leg pain, numbness, and weakness that began two days ago. Patient was admitted here 01/24/2020- 01/26/2020 for cervical spondylosis, C4-C6 corpectomies/fusion/C2-T1 laminectomies/fusion. He reports he took off his C collar (which he was supposed to wear for six weeks) two days ago. The patient endorses today his pain has worsened, his left hand and left arm began diane, and he is unable to ambulate due to pain in his left leg. He notes taking Tylenol to no relief. The patient denies chest/abdominal/back pain, cough, and shortness of breath. Denies fever, chills, nausea, vomiting, and/or any GI symptoms. Denies any symptoms. Denies any other symptoms. Allergies: NKDA Neurologist : Dr. Cade PCP: Dr. Barnett - Physicial Exam PE: 02/05/20 22:19 GENERAL: Awake, alert, and fully oriented, in no acute distress HEAD: No signs of trauma EYES: PERRLA, EOMI, sclera anicteric, conjunctiva clear ENT: Auricles normal inspection, hearing grossly normal, nares patent, oropharynx clear without exudates. Moist mucosa NECK: Normal ROM, supple, no lymphadenopathy, JVD, or masses. C-collar in place. LUNGS: Breath sounds equal, clear to auscultation bilaterally. No wheezes, and no crackles HEART: Regular rate and rhythm, normal S1 and S2, no murmurs, rubs or gallops ABDOMEN: Soft, nontender, normoactive bowel sounds. No guarding, no rebound. No masses EXTREMITIES: Normal range of motion, no edema. No clubbing or cyanosis. No cords, erythema, or tenderness NEUROLOGICAL: Cranial nerves II through XII grossly intact. Normal speech. Dec sensation to the L lower leg and foot. 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 SKIN: Warm, Dry, normal turgor, no rashes or lesions noted. - Medical Decision Making Case d/w Dr. Raymundo by resident via phone. In light of the numbness of the foot and lower leg, will obtain MRI. Discharge - Discharge Information Problems reviewed: Yes Clinical Impression/Diagnosis: Numbness Arm pain Qualifiers: Laterality: left Qualified Code(s): M79.602 - Pain in left arm - Follow up/Referral Referrals: Santos Barnett MD [Primary Care Provider] - - Patient Discharge Instructions Patient Printed Discharge Instructions: DI for Arm Pain Additional Instructions: You came to the emergency department for arm numbness, pain and weakness. Given your recent surgical history, you received CT scan of the neck which revealed no acute issues. You were considered medically stable and safe to return home. Please follow up with Dr. Comer regarding your visit today. If you experience worsening or your symptoms or chest pain, shortness of breath, confusion, loss of strength or sensation, or speech difficulty, please return to the emergency department. - Post Discharge Activity
[2020-02-06 00:28] LABS: ALBUMIN 3.3 g/dl (3.4-5.0); BILIRUBIN,TOTAL 0.4 mg/dL (0.2-1); BLOOD UREA NITROGEN 16.7 mg/dL (7-18); CREATININE 0.6 mg/dL (0.55-1.3); POTASSIUM 3.2 mmol/L (3.5-5.1); TOT PROT 6.2 g/dl (6.4-8.2)
[2020-02-06] MEDS ORDERED: METHOCARBAMOL 500 MG TABLET PO ONE (01:41)
[2020-02-06] MEDS ORDERED: METHOCARBAMOL 500 MG TABLET ONE (01:51)
--- NOTE | 2020-02-06 03:43 | PDOC ---
History of Present Illness - General Chief Complaint: Weakness Stated Complaint: PAIN Time Seen by Provider: 02/05/20 22:05 - History of Present Illness Initial Comments: 54 yo male with pmh of seizure disorder, Graves Disease, CVA with residual left sided weakness, DM, htn, s/p repair of cervical spondylisthesis C4-C6 corpectom y/ fusion C2-T1 laminectomy/fusion presents to ED for left arm and leg weakness, numbness and pain for the past three days. Pt explains he has had recent neck surgery on 01/23 since then was not having any pain on hand and was able to move hand and leg. On pt was discharged wit cervical collar (supposed to be left on for 6 weeks) with no pain and able to move hands and legs. Pt explains he had left jaw pain from cervical collar so decided to take collar off to sleep. The next morning pt explained he started having left arm pain, weakness and numbness. Pt explains symptoms were getting worse throughout the next three days. Pt today feels his hand and arm has contracted on to itself. Pt also today started having left leg cramping pain, numbness and weakness. Pt has stopped taking plavix since surgery. Pt denies headache, fever, chills, back pain, worsening neck pain, loss of control of bladder or bowel movements. PMH: seizure disorder, Graves Disease, CVA with residual left sided weakness, DM, htn PSH: C4-C6 corpectomy/ fusion C2-T1 laminectomy/fusion, appendectomy, cholecyste ctomy, Allergies: NKDA Social: denies smoking drugs or alcohol PCP: Dr. Arboleda Neurosurgeon: Dr. Shay Constitutional: No Weight Change, No Fever, No Chills, No Night Sweats, No Fatigue, No Malaise ENT/Mouth: No Hearing Changes, No Ear Pain, No Nasal Congestion, No Sinus Pain, No Hoarseness, No sore throat, No Rhinorrhea, No Swallowing Difficulty Eyes: No Eye Pain, No Swelling, No Redness, No Foreign Body, No Discharge, No Vision Changes Cardiovascular: No Chest Pain, No SOB, No PND, No Dyspnea on Exertion, No Orthopnea, No Claudication, No Edema, No Palpitations Respiratory: No Cough, No Sputum, No Wheezing, No Smoke Exposure, No Dyspnea Gastrointestinal: No Nausea, No Vomiting, No Diarrhea, No Constipation, No Pain, No Heartburn, No Anorexia, No Dysphagia, No Hematochezia, No Melena, No Flatulence, No Jaundice Genitourinary: No Dysmenorrhea, No DUB, No Dyspareunia, No Dysuria, No Urinary Frequency, No Hematuria, No Urinary Incontinence, No Urgency, No Flank Pain, No Urinary Flow Changes, No Hesitancy Musculoskeletal: No Arthralgias, No Myalgias, No Joint Swelling Skin: No Skin Lesions, No Pruritis, No Hair Changes, No Breast/Skin Changes, No Nipple Discharge Neuro: No Loss of Consciousness, No Syncope, No Dizziness, No Headache, No Coordination Changes, No Recent Falls Psych: No Anxiety/Panic, No Depression, No Insomnia, No Personality Changes, No Delusions, No Rumination, No SI/HI/AH/VH, No Social Issues, No Memory Changes, No Violence/Abuse Hx., No Eating Concerns Heme/Lymph: No Bruising, No Bleeding, No Transfusions History, No Lymphadenopathy Endocrine: No Polyuria, No Polydipsia, No Temperature Intolerance Past History - Medical History Allergies/Adverse Reactions: Allergies Allergy/AdvReac Type Severity Reaction Status Date / Time No Known Allergies Allergy Verified 02/05/20 22:06 Home Medications: Ambulatory Orders metFORMIN HCL [Glucophage -] 500 mg PO BID #60 tablet 01/22/19 Atorvastatin Ca [Lipitor] 20 mg PO HS 11/15/19 Metoprolol Succinate [Toprol XL -] 25 mg PO BID MDD 1 01/03/20 Lacosamide [Vimpat -] 50 mg PO BID #60 tab MDD 2 01/05/20 Clopidogrel Bisulfate [Plavix -] 75 mg PO DAILY #30 tablet 01/07/20 levETIRAcetam [Keppra -] 750 mg PO BID MDD 4 01/23/20 Methimazole [Tapazole] 5 mg PO DAILY 01/24/20 Anemia: No Asthma: No Cancer: No Cardiac Disorders: No CVA: Yes (01/2019) COPD: No CHF: No Dementia: No Diabetes: Yes (borderline) GI Disorders: Yes (hiatal hernia) Disorders: No HTN: Yes Hypercholesterolemia: Yes Liver Disease: No Seizures: Yes Thyroid Disease: Yes - Surgical History Appendectomy: Yes (AT 7 YEARS OLD) Cholecystectomy: Yes (2010) - Immunization History Immunization Up to Date: No - Psycho-Social/Smoking History Smoking Status: No Smoking History: Never smoked Have you smoked in the past 12 months: No Number of Cigarettes Smoked Daily: 0 - Substance Abuse Hx (Audit-C & DAST Scrn) How often the patient has a drink containing alcohol: Never Score: In Men: 4 or > Positive; In Women: 3 or > Positive: 0 Screen Result (Pos requires Nsg. Audit-10AR): Negative In the last yr the pt used illegal drug/Rx for NonMed reason: No Score: Yes response is considered Positive: 0 Screen Result (Positive result requires Nsg. DAST-10): Negative *Physical Exam - Vital Signs Last Vital Signs Temp Pulse Resp BP Pulse Ox 98.6 F 76 18 117/41 L 100 02/05/20 22:04 02/05/20 22:04 02/05/20 22:04 02/05/20 22:04 02/05/20 22:04 ED Treatment Course - LABORATORY CBC & Chemistry Diagram: 02/05/20 23:15 02/05/20 23:15 - ADDITIONAL ORDERS Additional order review: Laboratory Results 02/05/20 02/05/20 23:15 23:15 PT with INR 13.90 H INR 1.18 H Sodium 141 Potassium 3.2 L Chloride 102 Carbon Dioxide 32 Anion Gap 7 L BUN 16.7 Creatinine 0.6 Est GFR (CKD-EPI)AfAm 130.27 Est GFR (CKD-EPI)NonAf 112.40 Random Glucose 106 Calcium 9.0 Total Bilirubin 0.4 AST 15 ALT 21 Alkaline Phosphatase 56 Total Protein 6.2 L Albumin 3.3 L 02/05/20 23:15 RBC 3.62 L MCV 90.4 MCHC 33.4 RDW 13.5 MPV 9.0 Neutrophils % 64.3 D Lymphocytes % 26.8 D Monocytes % 6.2 Eosinophils % 2.0 D Basophils % 0.7 D - Medications Given in the ED: ED Medications Discontinued Medications Generic Name Dose Route Start Last Admin Trade Name Freq PRN Reason Stop Dose Admin Methocarbamol 500 mg 02/06/20 01:41 02/06/20 01:54 Robaxin - PO 02/06/20 01:42 500 mg ONCE ONE Administration Medical Decision Making - Medical Decision Making 54 yo male history above CVA with right sided weakness and s/p cervical surgery presents to ED for right sided weakness, numbness, pain for three days. Will get CT scan of neck and call to see if lumbar and thoracic should also be done. Did not work up CVA due to history being more surgery related. Pt refused pain medication. ddx includes but is not limited to: cervical nerve impingement, foramen canal stenosis, CVA plan: CT cervical spine, labs reassess: Labs wnl. CT scan of neck shows no high grade foramen canal stenosis. Called Dr. Raymundo who recommended MRI. Will MRI patient in AM. dispo: MRI patient in AM, will sign patient out to day team. 02/08/20 20:40 Discharge - Discharge Information Problems reviewed: Yes Clinical Impression/Diagnosis: Numbness Arm pain Qualifiers: Laterality: left Qualified Code(s): M79.602 - Pain in left arm Condition: Stable Disposition: AGAINST MEDICAL ADVICE - Follow up/Referral - Patient Discharge Instructions - Post Discharge Activity
[2020-02-06] MEDS ORDERED: diazePAM 5 MG TABLET ONE (04:25)
[2020-02-06] MEDS ORDERED: diazePAM 5 MG TABLET PO ONE (04:25)
--- NOTE | 2020-02-06 07:55 | PDOC ---
*Physical Exam - Vital Signs Last Vital Signs Temp Pulse Resp BP Pulse Ox 97.9 F 70 18 118/59 L 98 02/06/20 06:02 02/06/20 06:02 02/06/20 06:02 02/06/20 06:02 02/06/20 06:02 ED Treatment Course - LABORATORY CBC & Chemistry Diagram: 02/05/20 23:15 02/05/20 23:15 - ADDITIONAL ORDERS Additional order review: Laboratory Results 02/05/20 02/05/20 23:15 23:15 PT with INR 13.90 H INR 1.18 H Sodium 141 Potassium 3.2 L Chloride 102 Carbon Dioxide 32 Anion Gap 7 L BUN 16.7 Creatinine 0.6 Est GFR (CKD-EPI)AfAm 130.27 Est GFR (CKD-EPI)NonAf 112.40 Random Glucose 106 Calcium 9.0 Total Bilirubin 0.4 AST 15 ALT 21 Alkaline Phosphatase 56 Total Protein 6.2 L Albumin 3.3 L 02/05/20 23:15 RBC 3.62 L MCV 90.4 MCHC 33.4 RDW 13.5 MPV 9.0 Neutrophils % 64.3 D Lymphocytes % 26.8 D Monocytes % 6.2 Eosinophils % 2.0 D Basophils % 0.7 D - Medications Given in the ED: ED Medications Discontinued Medications Generic Name Dose Route Start Last Admin Trade Name Freq PRN Reason Stop Dose Admin Diazepam 5 mg 02/06/20 04:25 02/06/20 06:03 Valium - PO 02/06/20 04:26 Not Given ONCE ONE Methocarbamol 500 mg 02/06/20 01:41 02/06/20 01:54 Robaxin - PO 02/06/20 01:42 500 mg ONCE ONE Administration Medical Decision Making - Medical Decision Making 02/06/20 07:54 Received sign out. pt seen and assessed at bedside. 54yo M hx seizure disorder, Graves Disease, CVA with residual left sided weakness, DM, HTNm s/p repair of cervical spondylisthesis C4-C6 corpectomy/ fusion C2-T1 laminectomy/fusion (on 01/24/20) presents to ED for left arm and leg weakness, numbness and pain for the past three days. On pt was discharged with cervical collar (supposed to be left on for 6 weeks) with no pain and able to move hands and legs. Took off collar to sleep>next morning pt started having LUE pain, weakness and numbness, worsening x 3 days, today feels his hand and arm has contracted on to itself and began having LLE pain/weakness/numbness. -K-dur to replete K -Case already discussed with Dr Raymundo []MRI>Zackary 02/06/20 11:47 MRI neck resulted: no abnormalities Discussed case with Dr Raymundo: high concern for stroke, recommends stroke w/u. Increased risk for stroke because pt didn't start on plavix like pt was supposed to. Pt has no restriction on anticoagulation. Discussed with pt. Pt A&Ox4 but seems a little confused with a slightly bizarre affect. Pt repeatedly states that Dr Raymundo told him he was getting an MRI of his brain and not of his neck, so he is upset that the opposite was done. Pt also repeatedly complains of a "loud banging noise" and "raucous" despite quieting everything/everyone down; pt states it's the MRI machine breaking down (despite being in the vertical area, nowhere near MRI). -CTH -Consult neuro call placed for Dr Palafox -Admit stroke 02/06/20 13:08 CTH reviewed: no significant interval change 02/06/20 13:25 -3rd call placed for Dr Palafox 02/06/20 13:[address] Sylvester -Aspirin -80 lipitor -restart pt's plavix as instructed by NSGY -MRI brain w/o contrast -US carotid arteries Pt now experience both auditory and visual hallucinations. Pt states he wants to go home but do not believe pt is competent to make that decision. Repeatedly attempted to inform pt of concerns for stroke and reason want to admit him, and pt refuses to acknowledge or repeat concerns or express understanding of concerns. Multiple discussions with pt and pt agreed to stay for MRI and admission if given bed; moved pt from seat to bed and pt calmer. Signed out to admitting Dr Arboleda. Discharge - Discharge Information Problems reviewed: Yes Clinical Impression/Diagnosis: Numbness Arm pain Qualifiers: Laterality: left Qualified Code(s): M79.602 - Pain in left arm Condition: Stable Disposition: AGAINST MEDICAL ADVICE - Admission Yes - Follow up/Referral - Patient Discharge Instructions - Post Discharge Activity NIH Stroke Scale - Last Known Well Date/Time & Onset Date Last Known Well: 02/03/20 Time Last Known Well: 12:00 - Initial Evaluation Level of consciousness: Alert Ask patient the month and their age: Answers both correctly Ask patient to open & close eyes; make fist and let go: Obeys both correctly Best gaze (horizontal eye movement): Normal Visual field testing: No visual field loss Facial paresis (Show teeth/raise eyebrows/close eyes tight): Normal symmetrical movement Motor Function: Left Arm: Drift Motor Function: Right Arm: Normal (extends arm 90 (or 45) degrees for 10 seconds without drift Motor Function: Left Leg: Drift Motor Function: Right Leg: Normal (extends leg 30 degrees for 5 seconds without drift) Limb Ataxia: Present in two limbs Sensory(Use pinprick test arms,legs,trunk,face/side to side): Mild to moderate decrease in sensation Best language (Describe picture, name items, read sentences): No Aphasia Dysarthria (read several words): Normal articulation Extinction and Inattention: No abnormality - Total Score NIH Stroke Scale Score: 5 tPA Exclusion checklist 3-4.5h - Time Elapsed Date last known well: 02/03/20 Time last known well: 12:00 Elaspsed time: 4 Day(s) and 3 Hour(s) and 11 Minutes - Thrombolytic Therapy Candidate Is patient eligible for thrombolytic therapy: No - Ineligibility reason(s) Reasons No tPA given: Outside of window - delayed arrival
[2020-02-06] MEDS ORDERED: POTASSIUM CHLORIDE TABS 20 MEQ TABLET.ER (FP) PO ONE ×2 (12:56→14:31)
[2020-02-06] MEDS ORDERED: ASPIRIN 81 MG CHEWABLE TABLETS PO ONE (13:39)
[2020-02-06] MEDS ORDERED: ATORVASTATIN CA 80 MG TABLET (FP) PO ONE (13:45)
[2020-02-06] MEDS ORDERED: ATORVASTATIN CA 80 MG TABLET (FP) ONE (14:31)
[2020-02-06] MEDS ORDERED: ASPIRIN 81 MG CHEWABLE TABLETS ONE (14:31)
[2020-02-06 18:41] VITALS: BP 137/90; PULSE 96; TEMP 100
--- NOTE | 2020-02-06 20:13 | HP ---
Admitting History and Physical - Primary Care Physician PCP: Santos Arboleda - Admission Chief Complaint: left arm numbness, spasm, pain History of Present Illness: Pt with PMHX/o CVA, DM, recent C spine surgery (01/24/2020, laminectomy and fussion with Dr Raymundo) came in to ER c/o left arm spsm, pain, numbness for one day. Pt also with decreased PO intake, one bottle of Boost a day, limited as his swallowing is impaired; pt is not choking while eating but has the feeling that food cannot go down. 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: CVA (with left hemiparesis), Seizure Cardiovascular: Yes: HTN Endocrine: Yes: Diabetes Mellitus, Other (Graves disease) - Smoking History Smoking history: Never smoked Have you smoked in the past 12 months: No Aproximately how many cigarettes per day: 0 - Alcohol/Substance Use Hx Alcohol Use: Yes (occasionally) History of Substance Use: reports: None - Social History History of Recent Travel: No Home Medications - Allergies Allergies/Adverse Reactions: Allergies Allergy/AdvReac Type Severity Reaction Status Date / Time No Known Allergies Allergy Verified 02/05/20 22:06 - Home Medications Home Medications: Ambulatory Orders metFORMIN HCL [Glucophage -] 500 mg PO BID #60 tablet 01/22/19 Atorvastatin Ca [Lipitor] 20 mg PO HS 11/15/19 Metoprolol Succinate [Toprol XL -] 25 mg PO BID MDD 1 01/03/20 Lacosamide [Vimpat -] 50 mg PO BID #60 tab MDD 2 01/05/20 Clopidogrel Bisulfate [Plavix -] 75 mg PO DAILY #30 tablet 01/07/20 levETIRAcetam [Keppra -] 750 mg PO BID MDD 4 01/23/20 Methimazole [Tapazole] 5 mg PO DAILY 01/24/20 Review of Systems - Review of Systems Constitutional: denies: Chills, Fever Eyes: denies: Blurred Vision, Double Vision HENT: denies: Nasal Congestion, Throat Pain Neck: reports: Other (s/p cervical spine surgery, wearing a collar) Cardiovascular: denies: Chest Pain, Edema, Palpitations Respiratory: denies: Cough, SOB Gastrointestinal: denies: Abdominal Pain, Diarrhea, Nausea, Vomiting Genitourinary: denies: Burning, Discharge Musculoskeletal: denies: Back Pain, Joint Swelling Integumentary: denies: Bruising, Rash Neurological: denies: Change in LOC, Change in Speech Endocrine: denies: Excessive Sweating, Intolerance to Cold Hematology/Lymphatic: reports: Excessive Bleeding. denies: Easily Bruised Psychiatric: reports: Depression. denies: Anxiety Physical Examination Vital Signs: Vital Signs Temperature 100 F H 02/06/20 18:00 Pulse Rate 96 H 02/06/20 18:00 Respiratory Rate 16 02/06/20 18:00 Blood Pressure 137/90 02/06/20 18:00 O2 Sat by Pulse Oximetry (%) 98 02/06/20 06:02 Constitutional: Yes: No Distress, Calm Eyes: Yes: Conjunctiva Clear, EOM Intact HENT: No: Epistaxis, Pharyngeal Erythema Neck: Yes: Trachea Midline, Other (wearing neck collar) Cardiovascular: Yes: Regular Rate and Rhythm, S1, S2 Respiratory: Yes: Regular, Rhonchi. No: Rales Gastrointestinal: Yes: Normal Bowel Sounds, Hepatomegaly. No: Tenderness ...Rectal Exam: Yes: Deferred Renal/: Yes: CVA Tenderness - Left, CVA Tenderness - Right Musculoskeletal: No: Back Pain, Joint Stiffness, Joint Swelling Extremities: No: Cold, Cyanosis Edema: No Peripheral Pulses: Left Radial: 2+, Right Radial: 2+ Integumentary: No: Erythema, Jaundice Neurological: Yes: Alert, Oriented, Other (sensory examination is symmetric in UE/ LE. Motor examination: decrease in L arm and leg comparing with right side. Gait is ataxic) Psychiatric: Yes: Alert, Oriented Labs: CBC, BMP 02/05/20 23:15 02/05/20 23:15 Imaging - Results Cat Scan: Report Reviewed MRI: Report Reviewed Problem List - Problems (1) Numbness Code(s): R20.0 - ANESTHESIA OF SKIN (2) Arm pain Code(s): M79.603 - PAIN IN ARM, UNSPECIFIED Qualifiers: Laterality: left Qualified Code(s): M79.602 - Pain in left arm (3) Hypokalemia Code(s): E87.6 - HYPOKALEMIA (4) Dysphagia Code(s): R13.10 - DYSPHAGIA, UNSPECIFIED (5) History of CVA with residual deficit Code(s): I69.30 - UNSPECIFIED SEQUELAE OF CEREBRAL INFARCTION (6) Diabetes mellitus Code(s): E11.9 - TYPE 2 DIABETES MELLITUS WITHOUT COMPLICATIONS Assessment/Plan Pt's condition was d/w Dr Bravo (Neuro SX); CT scan and MRI findings are consistant with normal healing post surgery w/o complication, Plavix can be resumed. Neuri consulrt is pending. Potassium was replaced but patient has minimum PO intake (one can of Boost per day, since surgery, due to dysphagia). Speach and Swallow consult Monitor electrolytes in AM AM labs. Pt's condition was reviewed with his nurse.
[2020-02-06] MEDS ORDERED: metoPROLOL SUCCINATE 25 MG TAB.SR.24H (FP) PO SCH (22:00)
[2020-02-06] MEDS ORDERED: levETIRAcetam 250 MG TABLET PO SCH (22:00)
[2020-02-06] MEDS ORDERED: LACOSAMIDE 50 MG TABLET PO SCH (22:00)
[2020-02-06] MEDS ORDERED: ATORVASTATIN CA 40 MG TABLET (FP) PO SCH (22:00)
[2020-02-06] MEDS ORDERED: metFORMIN HCL 500 MG TABLET (FP) PO SCH (22:00)
[2020-02-07] MEDS ORDERED: CLOPIDOGREL BISULFATE 75 MG TABLET (FP) PO SCH (10:00)
[2020-02-07] MEDS ORDERED: METHIMAZOLE 5 MG TABLET (FP) PO SCH (10:00)
== END 2020-02-06 20:49 | disposition left against medical advice (07) | DRG 92 ==
LOC: JER 22:02 → JERBED 02-06 13:06
PROVIDERS: ADMIT Internal Medicine; ATTEND Internal Medicine
DX: R20.0 Anesthesia of skin (principal); I69.354 Hemiplegia and hemiparesis following cerebral infarction affecting left non-dominant side; I10 Essential (primary) hypertension; E11.9 Type 2 diabetes mellitus without complications; E78.5 Hyperlipidemia, unspecified; G40.909 Epilepsy, unspecified, not intractable, without status epilepticus; E05.00 Thyrotoxicosis with diffuse goiter without thyrotoxic crisis or storm; Z79.84 Long term (current) use of oral hypoglycemic drugs; M79.602 Pain in left arm; E87.6 Hypokalemia; R13.10 Dysphagia, unspecified
CPT/HCPCS: 36415; 70450-TC; 70551-TC; 72125-TC; 72141-TC; 80053; 85025; 85610; 93880-TC; 99285-25; U0003

== ENCOUNTER 2020-07-07 07:50 | Inpatient (IN) | payer BC ==
[2020-07-07] MEDS ORDERED: THIAMINE HCL 200 MG/2 ML VIAL IVPB ONE (10:09)
[2020-07-07] MEDS ORDERED: LACTATED RINGERS SOLUTION 1000 ML INFUS.BAG IV STA (10:09)
[2020-07-07] MEDS ORDERED: levETIRAcetam 500 MG TABLET (FP) PO ONE ×3 (11:43→20:50)
[2020-07-07] MEDS ORDERED: THIAMINE HCL 200 MG/2 ML VIAL ONE (12:08)
[2020-07-07 12:38] LABS: BASO % 0.4 % (0-2.0); HEMATOCRIT 39.2 % (35.4-49); HEMOGLOBIN 13.4 GM/dL (11.7-16.9); LYMPH % 6.9 % (8-40); MCH 30.5 pg (25.7-33.7); MCHC 34.1 g/dl (32.0-35.9); MEAN CELL VOLUME 89.3 fl (80-96); MEAN PLT VOLUME 9.8 fl (7.5-11.1); MONO % 7.2 % (3.8-10.2); NEUT % 85.5 % (42.8-82.8); PLATELET COUNT 265 K/MM3 (134-434); RBC 4.39 M/mm3 (4.00-5.60); RDW 13.9 % (11.9-15.9)
[2020-07-07 13:05] LABS: POTASSIUM 4.7 mmol/L (3.5-5.1)
[2020-07-07 13:07] LABS: BLOOD UREA NITROGEN 15.1 mg/dL (7-18); CALCIUM 8.3 mg/dL (8.5-10.1)
[2020-07-07 13:08] LABS: ALBUMIN 3.6 g/dl (3.4-5.0); MAGNESIUM 2.1 mg/dL (1.8-2.4)
[2020-07-07 13:11] LABS: CREATININE 0.7 mg/dL (0.55-1.3); PHOSPHOROUS 3.1 mg/dL (2.5-4.9)
[2020-07-07 13:12] LABS: BILIRUBIN,TOTAL 0.4 mg/dL (0.2-1); TOT PROT 7.1 g/dl (6.4-8.2)
[2020-07-07 14:40] LABS: URINE APPEARANCE CLEAR; URINE COLOR YELLOW; URINE GLUCOSE (UA) NEGATIVE (NEGATIVE)
[2020-07-07 14:41] LABS: EPI CELLS 1 /uL (0-25.1); HYALINE CASTS 4 /uL (0-3.1); PH,URINE 5.5 (5.0-8.0); URINE BACTERIA 691 /uL (0-1359); URINE BILIRUBIN NEGATIVE (NEGATIVE); URINE KETONE 1+ (NEGATIVE); URINE LEUK ESTERASE 1+ (NEGATIVE); URINE NITRITE POSITIVE (NEGATIVE); URINE PROTEIN 2+ (NEGATIVE); URINE RBC 21 /uL (0-23.9); URINE UROBILINOGEN 0.2 mg/dL (0.2-1.0); URINE WBC 283 /uL (0-25.8); YEAST NON SEEN (NEGATIVE)
[2020-07-07] MEDS: INSULIN SLIDING SCALE (NOVOLOG) 1 VIAL SQ SCH ×2 (16:30→21:45)
[2020-07-07] MEDS ORDERED: CEFTRIAXONE 1,000 MG in DEXTROSE 5%-WATER - 50 ML IVPB ONE (17:49)
[2020-07-07] MEDS ORDERED: metFORMIN HCL 500 MG TABLET (FP) ONE (17:57)
[2020-07-07] MEDS: metFORMIN HCL 500 MG TABLET (FP) PO SCH (18:00)
[2020-07-07] MEDS ORDERED: CEFTRIAXONE 1 GM/50 ML BAG ONE (19:28)
[2020-07-07] MEDS: LACTATED RINGERS SOLUTION 1,000 ML/1,000 ML INFUS.BAG IV SCH (19:57)
[2020-07-07] MEDS ORDERED: ATORVASTATIN CA 20 MG TABLET (FP) ONE (20:49)
[2020-07-07] MEDS ORDERED: metoPROLOL SUCCINATE 25 MG TAB.SR.24H (FP) ONE (20:50)
[2020-07-07] MEDS: metoPROLOL SUCCINATE 25 MG TAB.SR.24H (FP) PO SCH (21:45)
[2020-07-07] MEDS: ATORVASTATIN CA 40 MG TABLET (FP) PO SCH (21:45)
[2020-07-07] MEDS: levETIRAcetam 500 MG TABLET (FP) PO SCH (21:45)
[2020-07-07 23:36] VITALS: BMI 22.8
[2020-07-08] MEDS: INSULIN SLIDING SCALE (NOVOLOG) 1 VIAL SQ SCH ×4 (06:42→21:43)
[2020-07-08] MEDS: metFORMIN HCL 500 MG TABLET (FP) PO SCH ×2 (08:14→16:53)
[2020-07-08] MEDS: LACTATED RINGERS SOLUTION 1,000 ML/1,000 ML INFUS.BAG IV SCH ×2 (08:14→21:39)
[2020-07-08] MEDS: metoPROLOL SUCCINATE 25 MG TAB.SR.24H (FP) PO SCH ×2 (09:21→21:39)
[2020-07-08] MEDS: levETIRAcetam 500 MG TABLET (FP) PO SCH ×2 (09:21→21:38)
[2020-07-08] MEDS: METHIMAZOLE 5 MG TABLET (FP) PO SCH (09:21)
[2020-07-08 10:23] LABS: BASO % 0.2 % (0-2.0); HEMATOCRIT 37.9 % (35.4-49); HEMOGLOBIN 13.1 GM/dL (11.7-16.9); MCH 30.4 pg (25.7-33.7); MCHC 34.5 g/dl (32.0-35.9); MEAN PLT VOLUME 8.5 fl (7.5-11.1); MONO % 10.8 % (3.8-10.2); PLATELET COUNT 208 K/MM3 (134-434); RDW 13.3 % (11.9-15.9); WHITE BLOOD COUNT 5.9 K/mm3 (4.0-10.0)
[2020-07-08 10:47] LABS: POTASSIUM 3.7 mmol/L (3.5-5.1)
[2020-07-08 10:58] LABS: CALCIUM 8.4 mg/dL (8.5-10.1)
[2020-07-08 10:59] LABS: ALBUMIN 3.3 g/dl (3.4-5.0); BLOOD UREA NITROGEN 14.2 mg/dL (7-18)
[2020-07-08 11:01] LABS: CREATININE 0.5 mg/dL (0.55-1.3)
[2020-07-08 11:03] LABS: BILIRUBIN,TOTAL 0.5 mg/dL (0.2-1)
[2020-07-08] MEDS ORDERED: DEXTROSE 5%-WATER - 50 ML IVPB ONE (17:37)
[2020-07-08] MEDS ORDERED: cefTRIAXone SODIUM 1 GM VIAL ONE (17:37)
[2020-07-08] MEDS: CEFTRIAXONE 1 GM in DEXTROSE 5%-WATER - 50 ML IVPB SCH (17:40)
[2020-07-08] MEDS: ATORVASTATIN CA 40 MG TABLET (FP) PO SCH (21:38)
[2020-07-09] MEDS: metFORMIN HCL 500 MG TABLET (FP) PO SCH ×2 (06:14→16:41)
[2020-07-09] MEDS: INSULIN SLIDING SCALE (NOVOLOG) 1 VIAL SQ SCH ×4 (06:15→21:07)
[2020-07-09] MEDS: metoPROLOL SUCCINATE 25 MG TAB.SR.24H (FP) PO SCH ×2 (09:49→21:07)
[2020-07-09] MEDS: levETIRAcetam 500 MG TABLET (FP) PO SCH ×2 (09:49→21:06)
[2020-07-09] MEDS: METHIMAZOLE 5 MG TABLET (FP) PO SCH (09:49)
[2020-07-09] MEDS ORDERED: DEXTROSE 5%-WATER - 50 ML IVPB ONE (10:42)
[2020-07-09] MEDS ORDERED: cefTRIAXone SODIUM 1 GM VIAL ONE (10:42)
[2020-07-09] MEDS: CEFTRIAXONE 1 GM in DEXTROSE 5%-WATER - 50 ML IVPB SCH (10:43)
[2020-07-09] MEDS: CLOPIDOGREL BISULFATE 75 MG TABLET (FP) PO SCH (16:41)
[2020-07-09] MEDS: LACTATED RINGERS SOLUTION 1,000 ML/1,000 ML INFUS.BAG IV SCH (21:06)
[2020-07-09] MEDS: ATORVASTATIN CA 40 MG TABLET (FP) PO SCH (21:06)
[2020-07-10] MEDS: INSULIN SLIDING SCALE (NOVOLOG) 1 VIAL SQ SCH ×4 (07:19→21:32)
[2020-07-10] MEDS: metFORMIN HCL 500 MG TABLET (FP) PO SCH ×2 (07:19→17:12)
[2020-07-10] MEDS ORDERED: DEXTROSE 5%-WATER - 50 ML IVPB ONE (09:31)
[2020-07-10] MEDS ORDERED: cefTRIAXone SODIUM 1 GM VIAL ONE (09:31)
[2020-07-10] MEDS: metoPROLOL SUCCINATE 25 MG TAB.SR.24H (FP) PO SCH ×3 (10:14→21:22)
[2020-07-10] MEDS: CLOPIDOGREL BISULFATE 75 MG TABLET (FP) PO SCH (10:14)
[2020-07-10] MEDS: levETIRAcetam 500 MG TABLET (FP) PO SCH ×2 (10:14→21:22)
[2020-07-10] MEDS: METHIMAZOLE 5 MG TABLET (FP) PO SCH (10:15)
[2020-07-10] MEDS: CEFTRIAXONE 1 GM in DEXTROSE 5%-WATER - 50 ML IVPB SCH (10:15)
[2020-07-10] MEDS: LACTATED RINGERS SOLUTION 1,000 ML/1,000 ML INFUS.BAG IV SCH ×2 (10:16→21:22)
[2020-07-10] MEDS: ATORVASTATIN CA 40 MG TABLET (FP) PO SCH (21:22)
[2020-07-11] MEDS: metFORMIN HCL 500 MG TABLET (FP) PO SCH ×2 (06:18→18:16)
[2020-07-11] MEDS: INSULIN SLIDING SCALE (NOVOLOG) 1 VIAL SQ SCH ×4 (06:19→21:04)
[2020-07-11] MEDS ORDERED: cefTRIAXone SODIUM 1 GM VIAL ONE (10:53)
[2020-07-11] MEDS ORDERED: DEXTROSE 5%-WATER - 50 ML IVPB ONE (10:54)
[2020-07-11] MEDS: CLOPIDOGREL BISULFATE 75 MG TABLET (FP) PO SCH (11:00)
[2020-07-11] MEDS: CEFTRIAXONE 1 GM in DEXTROSE 5%-WATER - 50 ML IVPB SCH (11:00)
[2020-07-11] MEDS: metoPROLOL SUCCINATE 25 MG TAB.SR.24H (FP) PO SCH ×2 (11:00→21:03)
[2020-07-11] MEDS: levETIRAcetam 500 MG TABLET (FP) PO SCH ×2 (11:00→21:02)
[2020-07-11] MEDS: METHIMAZOLE 5 MG TABLET (FP) PO SCH (11:00)
[2020-07-11] MEDS: LACTATED RINGERS SOLUTION 1,000 ML/1,000 ML INFUS.BAG IV SCH (18:17)
[2020-07-11] MEDS: ATORVASTATIN CA 40 MG TABLET (FP) PO SCH (21:02)
[2020-07-12] MEDS: metFORMIN HCL 500 MG TABLET (FP) PO SCH ×2 (06:54→17:09)
[2020-07-12] MEDS: INSULIN SLIDING SCALE (NOVOLOG) 1 VIAL SQ SCH ×4 (06:54→23:54)
[2020-07-12 08:35] LABS: BASO % 0.6 % (0-2.0); EOS % 4.2 % (0-4.5); HEMATOCRIT 36.2 % (35.4-49); HEMOGLOBIN 12.3 GM/dL (11.7-16.9); LYMPH % 29.6 % (8-40); MCH 30.4 pg (25.7-33.7); MEAN CELL VOLUME 89.5 fl (80-96); MEAN PLT VOLUME 8.7 fl (7.5-11.1); MONO % 9.5 % (3.8-10.2); NEUT % 56.1 % (42.8-82.8); PLATELET COUNT 282 K/MM3 (134-434); RBC 4.04 M/mm3 (4.00-5.60); RDW 13.4 % (11.9-15.9); WHITE BLOOD COUNT 5.1 K/mm3 (4.0-10.0)
[2020-07-12 08:38] LABS: POTASSIUM 4.2 mmol/L (3.5-5.1)
[2020-07-12 08:53] LABS: ALBUMIN 3.2 g/dl (3.4-5.0); BLOOD UREA NITROGEN 9.7 mg/dL (7-18); CREATININE 0.6 mg/dL (0.55-1.3)
[2020-07-12 08:54] LABS: BILIRUBIN,TOTAL 0.6 mg/dL (0.2-1)
[2020-07-12 08:55] LABS: TOT PROT 5.8 g/dl (6.4-8.2)
[2020-07-12] MEDS ORDERED: PT OWN MED DRAWER 7, Y5N ONE (09:49)
[2020-07-12] MEDS ORDERED: cefTRIAXone SODIUM 1 GM VIAL ONE (09:49)
[2020-07-12] MEDS ORDERED: DEXTROSE 5%-WATER - 50 ML IVPB ONE (09:49)
[2020-07-12] MEDS: CLOPIDOGREL BISULFATE 75 MG TABLET (FP) PO SCH (10:00)
[2020-07-12] MEDS: levETIRAcetam 500 MG TABLET (FP) PO SCH ×2 (10:00→23:24)
[2020-07-12] MEDS: METHIMAZOLE 5 MG TABLET (FP) PO SCH (10:00)
[2020-07-12] MEDS: CEFTRIAXONE 1 GM in DEXTROSE 5%-WATER - 50 ML IVPB SCH (10:00)
[2020-07-12] MEDS: metoPROLOL SUCCINATE 25 MG TAB.SR.24H (FP) PO SCH ×2 (10:01→23:25)
[2020-07-12] MEDS ORDERED: INSULIN (NOVOLOG) ASPART 100 UNITS/ML 10ML VIAL ONE (11:34)
[2020-07-12] MEDS ORDERED: ACETAMINOPHEN 325 MG TABLET (FP) PO PRN (17:00)
[2020-07-12] MEDS: LACTATED RINGERS SOLUTION 1,000 ML/1,000 ML INFUS.BAG IV SCH (18:41)
[2020-07-12] MEDS: ATORVASTATIN CA 40 MG TABLET (FP) PO SCH (23:25)
[2020-07-13 00:58] LABS: PH,URINE 7.5 (5.0-8.0); URINE APPEARANCE CLEAR; URINE BILIRUBIN NEGATIVE (NEGATIVE); URINE COLOR YELLOW; URINE GLUCOSE (UA) NEGATIVE (NEGATIVE); URINE KETONE NEGATIVE (NEGATIVE); URINE LEUK ESTERASE NEGATIVE (NEGATIVE); URINE NITRITE NEGATIVE (NEGATIVE); URINE PROTEIN NEGATIVE (NEGATIVE); URINE UROBILINOGEN 0.2 mg/dL (0.2-1.0)
[2020-07-13 01:02] LABS: EPI CELLS 1 /uL (0-25.1); HYALINE CASTS 0 /uL (0-3.1); URINE BACTERIA 12 /uL (0-1359); URINE RBC 3 /uL (0-23.9); URINE WBC 1 /uL (0-25.8)
[2020-07-13] MEDS: metFORMIN HCL 500 MG TABLET (FP) PO SCH ×2 (06:33→17:18)
[2020-07-13] MEDS: INSULIN SLIDING SCALE (NOVOLOG) 1 VIAL SQ SCH ×4 (06:34→21:38)
[2020-07-13 09:35] LABS: EOS % 5.5 % (0-4.5); HEMATOCRIT 34.8 % (35.4-49); HEMOGLOBIN 11.7 GM/dL (11.7-16.9); LYMPH % 28.9 % (8-40); MCH 29.9 pg (25.7-33.7); MCHC 33.7 g/dl (32.0-35.9); MEAN CELL VOLUME 88.7 fl (80-96); MEAN PLT VOLUME 8.5 fl (7.5-11.1); MONO % 7.4 % (3.8-10.2); NEUT % 57.2 % (42.8-82.8); PLATELET COUNT 303 K/MM3 (134-434); RBC 3.92 M/mm3 (4.00-5.60); RDW 13.3 % (11.9-15.9); WHITE BLOOD COUNT 4.9 K/mm3 (4.0-10.0)
[2020-07-13 09:58] LABS: POTASSIUM 3.9 mmol/L (3.5-5.1)
[2020-07-13 10:03] LABS: CALCIUM 8.6 mg/dL (8.5-10.1)
[2020-07-13 10:04] LABS: ALBUMIN 3.1 g/dl (3.4-5.0); BLOOD UREA NITROGEN 8.9 mg/dL (7-18)
[2020-07-13 10:07] LABS: BILIRUBIN,TOTAL 0.6 mg/dL (0.2-1); CREATININE 0.5 mg/dL (0.55-1.3)
[2020-07-13 10:08] LABS: TOT PROT 5.9 g/dl (6.4-8.2)
[2020-07-13] MEDS: levETIRAcetam 500 MG TABLET (FP) PO SCH ×2 (10:33→21:34)
[2020-07-13] MEDS: METHIMAZOLE 5 MG TABLET (FP) PO SCH (10:33)
[2020-07-13] MEDS: CLOPIDOGREL BISULFATE 75 MG TABLET (FP) PO SCH (10:33)
[2020-07-13] MEDS: metoPROLOL SUCCINATE 25 MG TAB.SR.24H (FP) PO SCH ×2 (10:34→21:34)
[2020-07-13] MEDS ORDERED: DEXTROSE 5%-WATER - 50 ML IVPB ONE (10:42)
[2020-07-13] MEDS ORDERED: cefTRIAXone SODIUM 1 GM VIAL ONE (10:42)
[2020-07-13] MEDS: CEFTRIAXONE 1 GM in DEXTROSE 5%-WATER - 50 ML IVPB SCH (10:48)
[2020-07-13] MEDS: LACTATED RINGERS SOLUTION 1,000 ML/1,000 ML INFUS.BAG IV SCH ×2 (12:43→19:39)
[2020-07-13] MEDS: ATORVASTATIN CA 40 MG TABLET (FP) PO SCH (21:34)
[2020-07-14] MEDS: metFORMIN HCL 500 MG TABLET (FP) PO SCH (06:11)
[2020-07-14] MEDS: INSULIN SLIDING SCALE (NOVOLOG) 1 VIAL SQ SCH ×2 (06:11→12:10)
[2020-07-14] MEDS ORDERED: cefTRIAXone SODIUM 1 GM VIAL ONE (09:42)
[2020-07-14] MEDS ORDERED: DEXTROSE 5%-WATER - 50 ML IVPB ONE (09:43)
[2020-07-14] MEDS: METHIMAZOLE 5 MG TABLET (FP) PO SCH (10:49)
[2020-07-14] MEDS: CEFTRIAXONE 1 GM in DEXTROSE 5%-WATER - 50 ML IVPB SCH (10:49)
[2020-07-14] MEDS: metoPROLOL SUCCINATE 25 MG TAB.SR.24H (FP) PO SCH (10:50)
[2020-07-14] MEDS: CLOPIDOGREL BISULFATE 75 MG TABLET (FP) PO SCH (10:51)
[2020-07-14] MEDS: levETIRAcetam 500 MG TABLET (FP) PO SCH (10:51)
[2020-07-14 15:53] VITALS: BP 101/66; PULSE 75; TEMP 98.1
== END 2020-07-14 17:01 | disposition home health service (06) | DRG 689 ==
LOC: JER 07:50 → JERBED 10:54 → J8W 23:04
PROVIDERS: ADMIT Internal Medicine; ATTEND Internal Medicine
DX: N39.0 Urinary tract infection, site not specified (principal); U07.1 COVID-19; I69.354 Hemiplegia and hemiparesis following cerebral infarction affecting left non-dominant side; S00.12XA Contusion of left eyelid and periocular area, initial encounter; W19.XXXA Unspecified fall, initial encounter; Y93.9 Activity, unspecified; Y92.008 Other place in unspecified non-institutional (private) residence as the place of occurrence of the external cause; Y99.9 Unspecified external cause status; E11.9 Type 2 diabetes mellitus without complications; E03.9 Hypothyroidism, unspecified; M54.10 Radiculopathy, site unspecified; E86.0 Dehydration; I10 Essential (primary) hypertension
CPT/HCPCS: 36415; 70450-TC; 70486-TC; 71045-TC-FY; 72125-TC; 73502-TC-LT-FY; 80053; 81003; 82962; 83735; 84100; 85025; 87040; 87086; 87426; 93005; 93010; 97116-GP; 97162-GP; 99285-25

== ENCOUNTER 2020-11-19 16:29 | Observation (INO) | payer BC ==
[2020-11-19] MEDS ORDERED: levETIRAcetam 500 MG/5 ML INJECTION VIAL IVPB ONE (16:50)
[2020-11-19] MEDS ORDERED: levETIRAcetam 500 MG TABLET (FP) PO ONE ×2 (17:44→22:18)
[2020-11-19] MEDS ORDERED: levETIRAcetam 500 MG TABLET (FP) PO SCH ×2 (17:45→22:00)
[2020-11-19 17:50] LABS: BASO % 0.4 % (0-2.0); EOS % 0.1 % (0-4.5); HEMATOCRIT 28.1 % (35.4-49); LYMPH % 6.6 % (8-40); MCH 28.1 pg (25.7-33.7); MCHC 32.1 g/dl (32.0-35.9); MEAN CELL VOLUME 87.4 fl (80-96); MEAN PLT VOLUME 8.1 fl (7.5-11.1); NEUT % 89.9 % (42.8-82.8); PLATELET COUNT 253 K/MM3 (134-434); RBC 3.22 M/mm3 (4.00-5.60); WHITE BLOOD COUNT 8.9 K/mm3 (4.0-10.0)
[2020-11-19 17:57] LABS: INR 1.2 (0.83-1.09); PROTHROMBIN TIME (PATIENT) 14.5 SEC (9.7-13.0)
[2020-11-19 18:00] LABS: ACTIVATED PTT 26.2 SECONDS (25.2-36.5)
[2020-11-19 18:08] LABS: CHLORIDE 115 mmol/L (98-107); SODIUM 147 mmol/L (136-145)
[2020-11-19 18:10] LABS: CALCIUM 7.2 mg/dL (8.5-10.1)
[2020-11-19 18:11] LABS: ALBUMIN 2.6 g/dl (3.4-5.0); ANION GAP 5 MMOL/L (8-16); BLOOD UREA NITROGEN 14.6 mg/dL (7-18); CO2 27 mmol/L (21-32); MAGNESIUM 1.8 mg/dL (1.8-2.4)
[2020-11-19 18:14] LABS: CREATININE 0.5 mg/dL (0.55-1.3); PHOSPHOROUS 2.7 mg/dL (2.5-4.9); SGOT/AST 17 U/L (15-37); SGPT/ALT 16 U/L (13-61)
[2020-11-19 18:15] LABS: BILIRUBIN,TOTAL 0.2 mg/dL (0.2-1); TOT PROT 5.4 g/dl (6.4-8.2)
[2020-11-19 18:16] LABS: ALK PHOS 61 U/L (45-117)
[2020-11-19 18:31] LABS: GLUCOSE,RANDOM 42 mg/dL (74-106)
[2020-11-19] MEDS ORDERED: DEXTROSE 10%-WATER 500 ML INFUS.BAG IV ONE (18:35)
[2020-11-19 19:31] LABS: EPI CELLS 15 /uL (0-25.1); HYALINE CASTS 4 /uL (0-3.1); URINE APPEARANCE CLEAR; URINE BACTERIA 18 /uL (0-1359); URINE BILIRUBIN NEGATIVE (NEGATIVE); URINE COLOR YELLOW; URINE GLUCOSE (UA) NEGATIVE (NEGATIVE); URINE KETONE NEGATIVE (NEGATIVE); URINE LEUK ESTERASE 1+ (NEGATIVE); URINE NITRITE NEGATIVE (NEGATIVE); URINE PROTEIN TRACE (NEGATIVE); URINE RBC 62 /uL (0-23.9); URINE UROBILINOGEN 0.2 mg/dL (0.2-1.0); URINE WBC 8 /uL (0-25.8)
[2020-11-19 19:33] LABS: BLOOD UREA NITROGEN 16.7 mg/dL (7-18)
[2020-11-19 19:36] LABS: CREATININE 0.6 mg/dL (0.55-1.3)
[2020-11-19 19:54] LABS: CALCIUM 8.8 mg/dL (8.5-10.1)
[2020-11-19] MEDS ORDERED: levETIRAcetam 500 MG/5 ML INJECTION VIAL IVPB SCH (22:00)
[2020-11-19] MEDS ORDERED: levETIRAcetam 250 MG TABLET PO ONE (22:18)
[2020-11-20] MEDS ORDERED: ACETAMINOPHEN 325 MG TABLET (FP) PO PRN (02:01)
[2020-11-20 03:17] VITALS: BMI 21.7
[2020-11-20] MEDS: INSULIN (NOVOLOG) ASPART 100 UNITS/ML 10ML VIAL SQ SCH ×4 (06:52→21:18)
[2020-11-20] MEDS: metFORMIN HCL 500 MG TABLET (FP) PO SCH ×2 (08:34→17:29)
[2020-11-20] MEDS ORDERED: levETIRAcetam 500 MG TABLET (FP) PO ONE ×2 (09:27→20:46)
[2020-11-20] MEDS ORDERED: PT OWN MED DRAWER 7, Y5N ONE (09:27)
[2020-11-20] MEDS ORDERED: levETIRAcetam 250 MG TABLET PO ONE ×2 (09:27→20:46)
[2020-11-20] MEDS: metoPROLOL SUCCINATE 25 MG TAB.SR.24H (FP) PO SCH ×2 (09:30→22:03)
[2020-11-20] MEDS: CLOPIDOGREL BISULFATE 75 MG TABLET (FP) PO SCH (09:36)
[2020-11-20] MEDS: METHIMAZOLE 5 MG TABLET (FP) PO SCH (09:52)
[2020-11-20] MEDS ORDERED: levETIRAcetam 500 MG TABLET (FP) PO SCH (10:00)
[2020-11-20] MEDS ORDERED: INSULIN (NOVOLOG) ASPART 100 UNITS/ML 10ML VIAL ONE ×2 (11:26→18:27)
[2020-11-20] MEDS ORDERED: ATORVASTATIN CA 20 MG TABLET (FP) PO SCH (22:00)
[2020-11-21] MEDS: INSULIN (NOVOLOG) ASPART 100 UNITS/ML 10ML VIAL SQ SCH ×2 (06:22→11:48)
[2020-11-21] MEDS: metFORMIN HCL 500 MG TABLET (FP) PO SCH (06:24)
[2020-11-21 09:23] VITALS: BP 122/68; PULSE 82; TEMP 98.8
[2020-11-21] MEDS ORDERED: PT OWN MED DRAWER 7, Y5N ONE (10:04)
[2020-11-21] MEDS ORDERED: levETIRAcetam 500 MG TABLET (FP) PO ONE (10:04)
[2020-11-21] MEDS ORDERED: levETIRAcetam 250 MG TABLET PO ONE (10:04)
[2020-11-21] MEDS: metoPROLOL SUCCINATE 25 MG TAB.SR.24H (FP) PO SCH (10:08)
[2020-11-21] MEDS: METHIMAZOLE 5 MG TABLET (FP) PO SCH (10:08)
[2020-11-21] MEDS: CLOPIDOGREL BISULFATE 75 MG TABLET (FP) PO SCH (10:08)
== END 2020-11-21 13:50 | disposition home health service (06) ==
LOC: JER 16:29 → UNDOADMOB 19:17 → JERBED 19:17 → INTOOBSV 19:17 → JERBED 22:15 → J5S 22:15 → JERBED 11-21 10:27 → J5S 11-21 10:27
PROVIDERS: ADMIT Internal Medicine; ATTEND Internal Medicine
DX: G40.909 Epilepsy, unspecified, not intractable, without status epilepticus (principal); R56.9 Unspecified convulsions; I25.10 Atherosclerotic heart disease of native coronary artery without angina pectoris; I10 Essential (primary) hypertension; E05.90 Thyrotoxicosis, unspecified without thyrotoxic crisis or storm; E11.9 Type 2 diabetes mellitus without complications; Z79.84 Long term (current) use of oral hypoglycemic drugs; I69.854 Hemiplegia and hemiparesis following other cerebrovascular disease affecting left non-dominant side; K44.9 Diaphragmatic hernia without obstruction or gangrene; Z90.49 Acquired absence of other specified parts of digestive tract
CPT/HCPCS: 36415; 70450-TC; 71045-TC-FY; 80048; 80053; 80177; 81003; 82962; 83735; 84100; 84439; 84443; 85025; 85610; 85730; 87086; 93005; 93010; 99285-25; C9803; G0378; U0003; U0005

== ENCOUNTER 2020-12-12 20:10 | Inpatient (IN) | payer BC ==
[2020-12-12 21:42] LABS: BASO % 0.8 % (0-2.0); EOS % 1.2 % (0-4.5); HEMATOCRIT 35.2 % (35.4-49); HEMOGLOBIN 11.6 GM/dL (11.7-16.9); LYMPH % 18.8 % (8-40); MCH 28.2 pg (25.7-33.7); MEAN CELL VOLUME 85.7 fl (80-96); MEAN PLT VOLUME 8.5 fl (7.5-11.1); MONO % 5.1 % (3.8-10.2); NEUT % 74.1 % (42.8-82.8); PLATELET COUNT 276 10^3/uL (134-434); RDW 18.8 % (11.9-15.9); WHITE BLOOD COUNT 8.7 K/mm3 (4.0-10.0)
[2020-12-12] MEDS ORDERED: levETIRAcetam 500 MG/5 ML INJECTION VIAL IVPB ONE ×2 (21:43→21:55)
[2020-12-12] MEDS ORDERED: ASPIRIN 81 MG CHEWABLE TABLETS PO ONE (21:44)
[2020-12-12 21:53] LABS: INR 1.06 (0.83-1.09)
[2020-12-12] MEDS ORDERED: ASPIRIN 81 MG CHEWABLE TABLETS ONE (21:55)
[2020-12-12 21:56] LABS: ACTIVATED PTT 27.4 SECONDS (25.2-36.5)
[2020-12-12 22:01] LABS: CHLORIDE 103 mmol/L (98-107); SODIUM 141 mmol/L (136-145)
[2020-12-12 22:04] LABS: ALBUMIN 3.9 g/dl (3.4-5.0); ANION GAP 9 MMOL/L (8-16); CALCIUM 8.9 mg/dL (8.5-10.1); CO2 30 mmol/L (21-32); GLUCOSE,RANDOM 87 mg/dL (74-106)
[2020-12-12 22:07] LABS: CHOLESTEROL 131 mg/dL (50-200); CREATININE 0.7 mg/dL (0.55-1.3); SGOT/AST 19 U/L (15-37); SGPT/ALT 19 U/L (13-61); TRIGLYCERIDES 48 mg/dL (0-150)
[2020-12-12 22:08] LABS: BILIRUBIN,TOTAL 0.6 mg/dL (0.2-1); LDL CHOLESTEROL (ONLY SJRH) 44 mg/dL (5-100); TOT PROT 7.3 g/dl (6.4-8.2)
[2020-12-12] MEDS: SODIUM CHLORIDE 1,000 ML IV SCH (22:09)
[2020-12-12 22:10] LABS: ALK PHOS 70 U/L (45-117); HDL CHOLESTEROL 74 mg/dL (40-60)
[2020-12-13 00:03] LABS: EPI CELLS 3 /uL (0-25.1); HYALINE CASTS 1 /uL (0-3.1); PH,URINE 7.5 (5.0-8.0); URINE APPEARANCE CLEAR; URINE BACTERIA 22 /uL (0-1359); URINE BILIRUBIN NEGATIVE (NEGATIVE); URINE COLOR YELLOW; URINE GLUCOSE (UA) NEGATIVE (NEGATIVE); URINE KETONE NEGATIVE (NEGATIVE); URINE LEUK ESTERASE NEGATIVE (NEGATIVE); URINE NITRITE NEGATIVE (NEGATIVE); URINE PROTEIN NEGATIVE (NEGATIVE); URINE RBC 105 /uL (0-23.9); URINE UROBILINOGEN 0.2 mg/dL (0.2-1.0); URINE WBC 3 /uL (0-25.8)
[2020-12-13] MEDS ORDERED: ACETAMINOPHEN 325 MG TABLET (FP) PO PRN (00:11)
[2020-12-13] MEDS ORDERED: levETIRAcetam 500 MG TABLET (FP) PO ONE ×2 (00:31→11:26)
[2020-12-13 06:47] LABS: BASO % 1.2 % (0-2.0); EOS % 3.1 % (0-4.5); LYMPH % 30.9 % (8-40); MCH 29.1 pg (25.7-33.7); MCHC 33.4 g/dl (32.0-35.9); MEAN CELL VOLUME 87.1 fl (80-96); MEAN PLT VOLUME 8.2 fl (7.5-11.1); MONO % 6.4 % (3.8-10.2); NEUT % 58.4 % (42.8-82.8); PLATELET COUNT 252 10^3/uL (134-434); RBC 3.79 M/mm3 (4.00-5.60); RDW 18.7 % (11.9-15.9); WHITE BLOOD COUNT 5.9 K/mm3 (4.0-10.0)
[2020-12-13 07:07] LABS: CALCIUM 8.8 mg/dL (8.5-10.1)
[2020-12-13 07:08] LABS: ALBUMIN 3.6 g/dl (3.4-5.0)
[2020-12-13 07:11] LABS: CREATININE 0.6 mg/dL (0.55-1.3)
[2020-12-13 07:12] LABS: BILIRUBIN,TOTAL 0.7 mg/dL (0.2-1); TOT PROT 6.5 g/dl (6.4-8.2)
[2020-12-13] MEDS ORDERED: levETIRAcetam 500 MG TABLET (FP) PO SCH (10:00)
[2020-12-13] MEDS ORDERED: metFORMIN HCL 500 MG TABLET (FP) ONE (11:26)
[2020-12-13] MEDS ORDERED: metoPROLOL SUCCINATE 25 MG TAB.SR.24H (FP) ONE (11:27)
[2020-12-13] MEDS ORDERED: CLOPIDOGREL BISULFATE 75 MG TABLET (FP) ONE (11:27)
[2020-12-13] MEDS: levETIRAcetam 500 MG TABLET (FP) PO SCH ×2 (11:37→22:59)
[2020-12-13] MEDS: metFORMIN HCL 500 MG TABLET (FP) PO SCH ×2 (11:37→22:59)
[2020-12-13] MEDS: METHIMAZOLE 5 MG TABLET (FP) PO SCH (11:38)
[2020-12-13] MEDS: metoPROLOL SUCCINATE 25 MG TAB.SR.24H (FP) PO SCH ×2 (11:38→22:52)
[2020-12-13] MEDS: CLOPIDOGREL BISULFATE 75 MG TABLET (FP) PO SCH (11:38)
[2020-12-13] MEDS: ATORVASTATIN CA 20 MG TABLET (FP) PO SCH (22:59)
[2020-12-14 02:03] VITALS: BMI 20.9
[2020-12-14 07:43] LABS: BASO % 1.2 % (0-2.0); EOS % 3.9 % (0-4.5); HEMATOCRIT 36.2 % (35.4-49); HEMOGLOBIN 11.8 GM/dL (11.7-16.9); LYMPH % 32.9 % (8-40); MCH 28.2 pg (25.7-33.7); MCHC 32.5 g/dl (32.0-35.9); MEAN CELL VOLUME 86.9 fl (80-96); MONO % 5.6 % (3.8-10.2); NEUT % 56.4 % (42.8-82.8); PLATELET COUNT 291 10^3/uL (134-434); RBC 4.17 M/mm3 (4.00-5.60); RDW 19.1 % (11.9-15.9); WHITE BLOOD COUNT 5.3 K/mm3 (4.0-10.0)
[2020-12-14 07:47] LABS: ALBUMIN 3.8 g/dl (3.4-5.0); BLOOD UREA NITROGEN 14.4 mg/dL (7-18)
[2020-12-14 07:50] LABS: BILIRUBIN,TOTAL 0.8 mg/dL (0.2-1); CREATININE 0.6 mg/dL (0.55-1.3); TOT PROT 7.1 g/dl (6.4-8.2)
[2020-12-14] MEDS ORDERED: PT OWN MED DRAWER 7, Y5N ONE (09:16)
[2020-12-14] MEDS: levETIRAcetam 500 MG TABLET (FP) PO SCH ×2 (09:29→22:37)
[2020-12-14] MEDS: METHIMAZOLE 5 MG TABLET (FP) PO SCH (09:29)
[2020-12-14] MEDS: metoPROLOL SUCCINATE 25 MG TAB.SR.24H (FP) PO SCH ×2 (09:31→22:42)
[2020-12-14] MEDS: metFORMIN HCL 500 MG TABLET (FP) PO SCH ×2 (09:31→22:39)
[2020-12-14] MEDS: CLOPIDOGREL BISULFATE 75 MG TABLET (FP) PO SCH (09:32)
[2020-12-14] MEDS: ATORVASTATIN CA 20 MG TABLET (FP) PO SCH (22:40)
[2020-12-15] MEDS ORDERED: PT OWN MED DRAWER 7, Y5N ONE (08:57)
[2020-12-15] MEDS: levETIRAcetam 500 MG TABLET (FP) PO SCH ×2 (10:46→21:53)
[2020-12-15] MEDS: metFORMIN HCL 500 MG TABLET (FP) PO SCH ×2 (10:47→21:54)
[2020-12-15] MEDS: CLOPIDOGREL BISULFATE 75 MG TABLET (FP) PO SCH (10:47)
[2020-12-15] MEDS: metoPROLOL SUCCINATE 25 MG TAB.SR.24H (FP) PO SCH ×2 (10:47→21:59)
[2020-12-15] MEDS: METHIMAZOLE 5 MG TABLET (FP) PO SCH (10:48)
[2020-12-15] MEDS: lamoTRIgine 25 MG TABLET PO SCH (21:56)
[2020-12-15] MEDS: ATORVASTATIN CA 20 MG TABLET (FP) PO SCH (21:58)
[2020-12-15] MEDS ORDERED: DOCUSATE SODIUM 100 MG CAPSULE (FP) PO SCH (22:00)
[2020-12-16] MEDS: SODIUM CHLORIDE 1,000 ML IV SCH (06:59)
[2020-12-16] MEDS ORDERED: PT OWN MED DRAWER 7, Y5N ONE ×2 (09:06→09:56)
[2020-12-16] MEDS: metFORMIN HCL 500 MG TABLET (FP) PO SCH (09:37)
[2020-12-16] MEDS: levETIRAcetam 500 MG TABLET (FP) PO SCH (09:38)
[2020-12-16] MEDS: CLOPIDOGREL BISULFATE 75 MG TABLET (FP) PO SCH (09:40)
[2020-12-16] MEDS: lamoTRIgine 25 MG TABLET PO SCH (09:40)
[2020-12-16] MEDS: metoPROLOL SUCCINATE 25 MG TAB.SR.24H (FP) PO SCH (09:41)
[2020-12-16] MEDS: METHIMAZOLE 5 MG TABLET (FP) PO SCH (09:41)
[2020-12-16] MEDS ORDERED: DOCUSATE SODIUM 100 MG CAPSULE (FP) PO ONE (14:00)
[2020-12-16 16:03] VITALS: BP 107/57; PULSE 65; TEMP 98.1
== END 2020-12-16 18:47 | disposition home or self-care (01) | DRG 69 ==
LOC: JER 20:10 → JERBED 21:55 → J4W 12-13 20:49
PROVIDERS: ADMIT Specialist; ATTEND Specialist
DX: G45.9 Transient cerebral ischemic attack, unspecified (principal); I69.354 Hemiplegia and hemiparesis following cerebral infarction affecting left non-dominant side; R44.0 Auditory hallucinations; R20.0 Anesthesia of skin; R44.1 Visual hallucinations; G40.909 Epilepsy, unspecified, not intractable, without status epilepticus; I10 Essential (primary) hypertension; E11.9 Type 2 diabetes mellitus without complications; Z79.84 Long term (current) use of oral hypoglycemic drugs; I25.10 Atherosclerotic heart disease of native coronary artery without angina pectoris; E78.00 Pure hypercholesterolemia, unspecified; T50.995A Adverse effect of other drugs, medicaments and biological substances, initial encounter; E05.00 Thyrotoxicosis with diffuse goiter without thyrotoxic crisis or storm
CPT/HCPCS: 36415; 70450-TC; 70551-TC; 80053; 80061; 81003; 82550; 82962; 83721; 84484; 85025; 85610; 85730; 93005; 93010; 99285-25; C9803; U0003; U0005

== ENCOUNTER 2021-05-25 07:38 | Inpatient (IN) | payer BC ==
[2021-05-25 08:34] VITALS: BMI 24.5
[2021-05-25 09:19] LABS: BASO % 0.7 % (0-2.0); EOS % 0.1 % (0-4.5); HEMATOCRIT 37.7 % (35.4-49); HEMOGLOBIN 12.9 GM/dL (11.7-16.9); LYMPH % 16.5 % (8-40); MCH 31.7 pg (25.7-33.7); MCHC 34.3 g/dl (32.0-35.9); MEAN CELL VOLUME 92.3 fl (80-96); MONO % 6.4 % (3.8-10.2); NEUT % 76.3 % (42.8-82.8); PLATELET COUNT 192 10^3/uL (134-434); RBC 4.08 M/mm3 (4.00-5.60)
[2021-05-25 09:26] LABS: EPI CELLS 2 /uL (0-25.1); HYALINE CASTS 0 /uL (0-3.1); INR 1.12 (0.83-1.09); PH,URINE 6.5 (5.0-8.0); PROTHROMBIN TIME (PATIENT) 13.1 SEC (9.7-13.0); URINE APPEARANCE CLEAR; URINE BACTERIA 24 /uL (0-1359); URINE BILIRUBIN NEGATIVE (NEGATIVE); URINE COLOR YELLOW; URINE GLUCOSE (UA) NEGATIVE (NEGATIVE); URINE KETONE TRACE (NEGATIVE); URINE LEUK ESTERASE 1+ (NEGATIVE); URINE NITRITE NEGATIVE (NEGATIVE); URINE PROTEIN NEGATIVE (NEGATIVE); URINE RBC 16 /uL (0-23.9); URINE UROBILINOGEN 0.2 mg/dL (0.2-1.0); URINE WBC 3 /uL (0-25.8)
[2021-05-25 09:31] LABS: CHLORIDE 106 mmol/L (98-107); SODIUM 140 mmol/L (136-145)
[2021-05-25 09:33] LABS: BLOOD UREA NITROGEN 15.3 mg/dL (7-18); CALCIUM 8.7 mg/dL (8.5-10.1)
[2021-05-25 09:34] LABS: ALBUMIN 3.5 g/dl (3.4-5.0); ANION GAP 8 MMOL/L (8-16); CO2 26 mmol/L (21-32); GLUCOSE,RANDOM 84 mg/dL (74-106)
[2021-05-25 09:36] LABS: TRIGLYCERIDES 62 mg/dL (0-150)
[2021-05-25 09:37] LABS: CHOLESTEROL 153 mg/dL (50-200); CREATININE 0.8 mg/dL (0.55-1.3); SGOT/AST 48 U/L (15-37); SGPT/ALT 24 U/L (13-61)
[2021-05-25 09:38] LABS: BILIRUBIN,TOTAL 0.9 mg/dL (0.2-1); LDL CHOLESTEROL (ONLY SJRH) 67 mg/dL (5-100)
[2021-05-25 09:39] LABS: ALK PHOS 65 U/L (45-117); HDL CHOLESTEROL 72 mg/dL (40-60)
[2021-05-25] MEDS ORDERED: CEFTRIAXONE 1 GM in DEXTROSE 5%-WATER - 100 ML IVPB ONE (09:54)
[2021-05-25] MEDS: SODIUM CHLORIDE 1,000 ML IV SCH (10:32)
[2021-05-25] MEDS ORDERED: CEFTRIAXONE 1 GM/50 ML BAG ONE (10:33)
[2021-05-25] MEDS ORDERED: ASPIRIN 325 MG TABLET PO ONE (13:14)
[2021-05-25] MEDS ORDERED: CLOPIDOGREL BISULFATE 75 MG TABLET (FP) ONE (14:00)
[2021-05-25] MEDS ORDERED: ASPIRIN 81 MG CHEWABLE TABLETS ONE (14:00)
[2021-05-25] MEDS: CLOPIDOGREL BISULFATE 75 MG TABLET (FP) PO SCH (14:04)
[2021-05-25 14:05] LABS: CHLORIDE 107 mmol/L (98-107); SODIUM 141 mmol/L (136-145)
[2021-05-25 14:09] LABS: ALBUMIN 3.6 g/dl (3.4-5.0); ANION GAP 7 MMOL/L (8-16); BLOOD UREA NITROGEN 13.1 mg/dL (7-18); CALCIUM 8.8 mg/dL (8.5-10.1); CO2 27 mmol/L (21-32); GLUCOSE,RANDOM 85 mg/dL (74-106)
[2021-05-25 14:12] LABS: CREATININE 0.8 mg/dL (0.55-1.3)
[2021-05-25 14:13] LABS: SGOT/AST 34 U/L (15-37); SGPT/ALT 22 U/L (13-61)
[2021-05-25 14:14] LABS: BILIRUBIN,TOTAL 0.8 mg/dL (0.2-1); TOT PROT 6.7 g/dl (6.4-8.2)
[2021-05-25 14:15] LABS: ALK PHOS 66 U/L (45-117)
[2021-05-25] MEDS ORDERED: levETIRAcetam 500 MG TABLET (FP) PO ONE (14:21)
[2021-05-25] MEDS ORDERED: lamoTRIgine 25 MG TABLET ONE (14:25)
[2021-05-25] MEDS ORDERED: levETIRAcetam 500 MG TABLET (FP) PO SCH (22:00)
[2021-05-25] MEDS: DOCUSATE SODIUM 100 MG CAPSULE (FP) PO SCH (22:43)
[2021-05-25] MEDS: levETIRAcetam 250 MG, levETIRAcetam 1,000 MG PO SCH (22:43)
[2021-05-25] MEDS: lamoTRIgine 25 MG TABLET PO SCH (22:43)
[2021-05-25] MEDS: metFORMIN HCL 500 MG TABLET (FP) PO SCH (22:43)
[2021-05-25] MEDS: ATORVASTATIN CA 20 MG TABLET (FP) PO SCH (22:43)
[2021-05-25] MEDS: metoPROLOL SUCCINATE 25 MG TAB.SR.24H (FP) PO SCH (22:43)
[2021-05-26] MEDS ORDERED: ASPIRIN 81 MG CHEWABLE TABLETS ONE (07:52)
[2021-05-26] MEDS ORDERED: levETIRAcetam 500 MG TABLET (FP) PO ONE (07:53)
[2021-05-26] MEDS ORDERED: metFORMIN HCL 500 MG TABLET (FP) ONE (07:53)
[2021-05-26] MEDS ORDERED: metoPROLOL SUCCINATE 25 MG TAB.SR.24H (FP) ONE (07:53)
[2021-05-26] MEDS ORDERED: CLOPIDOGREL BISULFATE 75 MG TABLET (FP) ONE (07:54)
[2021-05-26] MEDS ORDERED: lamoTRIgine 25 MG TABLET ONE ×2 (07:54→11:21)
[2021-05-26] MEDS ORDERED: CEFTRIAXONE 1 GM/50 ML BAG ONE (07:54)
[2021-05-26 09:22] LABS: BASO % 0.6 % (0-2.0); EOS % 0.7 % (0-4.5); HEMATOCRIT 41.1 % (35.4-49); MCH 31.5 pg (25.7-33.7); MEAN CELL VOLUME 92.6 fl (80-96); MEAN PLT VOLUME 9.3 fl (7.5-11.1); MONO % 5.8 % (3.8-10.2); NEUT % 69.9 % (42.8-82.8); PLATELET COUNT 228 10^3/uL (134-434); RBC 4.44 M/mm3 (4.00-5.60); WHITE BLOOD COUNT 8.3 K/mm3 (4.0-10.0)
[2021-05-26 09:42] LABS: CALCIUM 8.7 mg/dL (8.5-10.1)
[2021-05-26 09:43] LABS: ALBUMIN 3.8 g/dl (3.4-5.0); BLOOD UREA NITROGEN 14.9 mg/dL (7-18)
[2021-05-26 09:46] LABS: CREATININE 0.8 mg/dL (0.55-1.3)
[2021-05-26 09:47] LABS: BILIRUBIN,TOTAL 0.8 mg/dL (0.2-1); TOT PROT 6.9 g/dl (6.4-8.2)
[2021-05-26] MEDS: SODIUM CHLORIDE 1,000 ML IV SCH (11:00)
[2021-05-26] MEDS: metoPROLOL SUCCINATE 25 MG TAB.SR.24H (FP) PO SCH ×2 (11:00→22:27)
[2021-05-26] MEDS: ASPIRIN 81 MG CHEWABLE TABLETS PO SCH (11:00)
[2021-05-26] MEDS: lamoTRIgine 25 MG TABLET PO SCH ×2 (11:00→22:27)
[2021-05-26] MEDS: CEFTRIAXONE 1,000 MG in DEXTROSE 5%-WATER - 50 ML IVPB SCH (11:00)
[2021-05-26] MEDS: METHIMAZOLE 5 MG TABLET PO SCH (11:00)
[2021-05-26] MEDS: levETIRAcetam 250 MG, levETIRAcetam 1,000 MG PO SCH ×2 (11:00→22:27)
[2021-05-26] MEDS: CLOPIDOGREL BISULFATE 75 MG TABLET (FP) PO SCH (11:00)
[2021-05-26] MEDS: metFORMIN HCL 500 MG TABLET (FP) PO SCH ×2 (11:53→22:27)
[2021-05-26] MEDS: ATORVASTATIN CA 20 MG TABLET (FP) PO SCH (22:27)
[2021-05-26] MEDS: DOCUSATE SODIUM 100 MG CAPSULE (FP) PO SCH (22:28)
[2021-05-27 06:32] VITALS: BP 108/59; PULSE 67; TEMP 98.6
[2021-05-27] MEDS: SODIUM CHLORIDE 1,000 ML IV SCH (07:30)
[2021-05-27] MEDS ORDERED: metFORMIN HCL 500 MG TABLET (FP) ONE (08:45)
[2021-05-27] MEDS ORDERED: metoPROLOL SUCCINATE 25 MG TAB.SR.24H (FP) ONE (08:45)
[2021-05-27] MEDS ORDERED: ASPIRIN 81 MG CHEWABLE TABLETS ONE (08:45)
[2021-05-27] MEDS ORDERED: CEFTRIAXONE 1 GM/50 ML BAG ONE (08:46)
[2021-05-27] MEDS ORDERED: lamoTRIgine 25 MG TABLET ONE (08:46)
[2021-05-27] MEDS ORDERED: CLOPIDOGREL BISULFATE 75 MG TABLET (FP) ONE (08:46)
[2021-05-27] MEDS ORDERED: levETIRAcetam 500 MG TABLET (FP) PO ONE (09:02)
[2021-05-27] MEDS: ASPIRIN 81 MG CHEWABLE TABLETS PO SCH (09:15)
[2021-05-27] MEDS: metFORMIN HCL 500 MG TABLET (FP) PO SCH (09:15)
[2021-05-27] MEDS: lamoTRIgine 25 MG TABLET PO SCH (09:16)
[2021-05-27] MEDS: metoPROLOL SUCCINATE 25 MG TAB.SR.24H (FP) PO SCH (09:16)
[2021-05-27] MEDS: CLOPIDOGREL BISULFATE 75 MG TABLET (FP) PO SCH (09:16)
[2021-05-27] MEDS: METHIMAZOLE 5 MG TABLET PO SCH (09:16)
[2021-05-27] MEDS: CEFTRIAXONE 1,000 MG in DEXTROSE 5%-WATER - 50 ML IVPB SCH (09:16)
[2021-05-27] MEDS: levETIRAcetam 250 MG, levETIRAcetam 1,000 MG PO SCH (09:16)
== END 2021-05-27 15:00 | disposition home or self-care (01) | DRG 690 ==
LOC: JER 07:38 → JERBED 10:23
PROVIDERS: ADMIT Internal Medicine; ATTEND Internal Medicine
DX: N39.0 Urinary tract infection, site not specified (principal); I69.354 Hemiplegia and hemiparesis following cerebral infarction affecting left non-dominant side; I25.10 Atherosclerotic heart disease of native coronary artery without angina pectoris; M17.12 Unilateral primary osteoarthritis, left knee; E78.5 Hyperlipidemia, unspecified; E11.9 Type 2 diabetes mellitus without complications; I11.9 Hypertensive heart disease without heart failure; E05.90 Thyrotoxicosis, unspecified without thyrotoxic crisis or storm
CPT/HCPCS: 36415; 70450-TC; 80053; 80061; 81003; 82550; 82553; 82962; 83036; 84443; 84484; 85025; 85610; 85730; 87086; 93005; 93010; 99285-25; C9803; U0003; U0005

== ENCOUNTER 2021-06-06 02:06 | Emergency (ER) | payer BC ==
[2021-06-06 02:44] VITALS: BP 123/80; PULSE 100; BMI 25.8
[2021-06-06 03:10] LABS: VENOUS BASE EXCESS 3.7 mmol/L (-2-2); VENOUS O2 SATURATION 70.9 % (70-80); VENOUS PCO2 51.9 mmHg (38-52); VENOUS PH 7.378 (7.310-7.410)
[2021-06-06 03:30] LABS: CHLORIDE 107 mmol/L (98-107); SODIUM 142 mmol/L (136-145)
[2021-06-06 03:32] LABS: CALCIUM 8.7 mg/dL (8.5-10.1)
[2021-06-06 03:33] LABS: ALBUMIN 3.3 g/dl (3.4-5.0); ANION GAP 8 MMOL/L (8-16); BLOOD UREA NITROGEN 19.1 mg/dL (7-18); CO2 27 mmol/L (21-32); GLUCOSE,RANDOM 118 mg/dL (74-106)
[2021-06-06 03:35] LABS: CREATININE 0.9 mg/dL (0.55-1.3)
[2021-06-06 03:36] LABS: SGOT/AST 26 U/L (15-37); SGPT/ALT 32 U/L (13-61)
[2021-06-06 03:37] LABS: BILIRUBIN,TOTAL 0.3 mg/dL (0.2-1); TOT PROT 6.4 g/dl (6.4-8.2)
[2021-06-06 03:39] LABS: ALK PHOS 57 U/L (45-117)
[2021-06-06] MEDS ORDERED: levETIRAcetam 500 MG/5 ML INJECTION VIAL IVPB ONE ×2 (03:47→04:09)
[2021-06-06 04:55] LABS: BASO % 0.9 % (0-2.0); HEMATOCRIT 37.3 % (35.4-49); HEMOGLOBIN 12.3 GM/dL (11.7-16.9); LYMPH % 13.9 % (8-40); MCH 30.8 pg (25.7-33.7); MEAN CELL VOLUME 93.4 fl (80-96); MEAN PLT VOLUME 8.9 fl (7.5-11.1); NEUT % 79.2 % (42.8-82.8); PLATELET COUNT 230 10^3/uL (134-434); RBC 3.99 M/mm3 (4.00-5.60); RDW 13.3 % (11.9-15.9); WHITE BLOOD COUNT 7.6 K/mm3 (4.0-10.0)
== END 2021-06-06 06:21 | disposition home or self-care (01) ==
LOC: JER 02:06
PROC: 3E033GC Introduction of Other Therapeutic Substance into Peripheral Vein, Percutaneous Approach (ICD-10-PCS; principal; 2021-06-06)
DX: R56.9 Unspecified convulsions (principal)
CPT/HCPCS: 36415; 70450-TC; 80053; 80175; 80177; 82550; 82803; 83735; 84443; 84484; 85025; 93005; 93010; 99285-25; C9803; U0003; U0005

== ENCOUNTER 2021-07-30 08:54 | Emergency (ER) | payer BC ==
[2021-07-30 09:12] VITALS: TEMP 99.4; BMI 25.8
[2021-07-30 09:32] LABS: BASO % 0.7 % (0-2.0); EOS % 0.4 % (0-4.5); HEMATOCRIT 37.8 % (35.4-49); HEMOGLOBIN 12.8 GM/dL (11.7-16.9); LYMPH % 8.6 % (8-40); MCHC 33.8 g/dl (32.0-35.9); MEAN CELL VOLUME 91.7 fl (80-96); MEAN PLT VOLUME 8.6 fl (7.5-11.1); MONO % 3.2 % (3.8-10.2); NEUT % 87.1 % (42.8-82.8); PLATELET COUNT 194 10^3/uL (134-434); RBC 4.12 M/mm3 (4.00-5.60); RDW 12.9 % (11.9-15.9); WHITE BLOOD COUNT 5.6 K/mm3 (4.0-10.0)
[2021-07-30 09:52] LABS: INR 1.09 (0.83-1.09); PROTHROMBIN TIME (PATIENT) 12.5 SEC (9.7-13.0)
[2021-07-30 09:54] LABS: ACTIVATED PTT 27.6 SECONDS (25.2-36.5)
[2021-07-30 09:57] LABS: ALBUMIN 3.8 g/dl (3.4-5.0); CALCIUM 8.6 mg/dL (8.5-10.1)
[2021-07-30 09:58] LABS: BLOOD UREA NITROGEN 16.5 mg/dL (7-18)
[2021-07-30] MEDS ORDERED: levETIRAcetam 500 MG/5 ML INJECTION VIAL IVPB ONE ×2 (09:59→10:07)
[2021-07-30 10:01] LABS: CREATININE 0.9 mg/dL (0.55-1.3)
[2021-07-30 10:03] LABS: BILIRUBIN,TOTAL 0.3 mg/dL (0.2-1); TOT PROT 6.6 g/dl (6.4-8.2)
[2021-07-30 10:41] VITALS: BP 116/62; PULSE 74
[2021-07-30] MEDS ORDERED: lamoTRIgine 25 MG TABLET PO ONE (11:37)
[2021-07-30] MEDS ORDERED: lamoTRIgine 25 MG TABLET ONE (11:43)
[2021-07-30 12:04] LABS: EPI CELLS 3 /uL (0-25.1); HYALINE CASTS 1 /uL (0-3.1); PH,URINE 6.5 (5.0-8.0); URINE APPEARANCE CLEAR; URINE BACTERIA 1 /uL (0-1359); URINE BILIRUBIN NEGATIVE (NEGATIVE); URINE COLOR YELLOW; URINE GLUCOSE (UA) NEGATIVE (NEGATIVE); URINE KETONE 1+ (NEGATIVE); URINE LEUK ESTERASE NEGATIVE (NEGATIVE); URINE NITRITE NEGATIVE (NEGATIVE); URINE PROTEIN 1+ (NEGATIVE); URINE RBC 17 /uL (0-23.9); URINE UROBILINOGEN 0.2 mg/dL (0.2-1.0); URINE WBC 4 /uL (0-25.8)
== END 2021-07-30 13:44 | disposition home or self-care (01) ==
LOC: JER 08:54
PROC: 3E033NZ Introduction of Analgesics, Hypnotics, Sedatives into Peripheral Vein, Percutaneous Approach (ICD-10-PCS; principal; 2021-07-30)
DX: R56.9 Unspecified convulsions (principal)
CPT/HCPCS: 36415; 70450-TC; 71045-TC-FY; 80053; 80175; 80177; 81003; 82248; 82550; 82962; 84484; 85025; 85610; 85730; 86850; 86900; 86901; 87086; 93005; 93010; 99285-25; C9803; U0003; U0005

== ENCOUNTER 2021-09-29 14:38 | Inpatient (IN) | payer BC ==
[2021-09-29 14:49] VITALS: BMI 25.7
[2021-09-29 15:26] LABS: EOS % 1.3 % (0-4.5); HEMATOCRIT 36.3 % (35.4-49); HEMOGLOBIN 12.5 GM/dL (11.7-16.9); LYMPH % 14.1 % (8-40); MCH 31.4 pg (25.7-33.7); MCHC 34.3 g/dl (32.0-35.9); MEAN CELL VOLUME 91.5 fl (80-96); MEAN PLT VOLUME 8.8 fl (7.5-11.1); MONO % 4.2 % (3.8-10.2); NEUT % 79.4 % (42.8-82.8); PLATELET COUNT 203 10^3/uL (134-434); RBC 3.97 M/mm3 (4.00-5.60); RDW 13.3 % (11.9-15.9); WHITE BLOOD COUNT 4.7 K/mm3 (4.0-10.0)
[2021-09-29 15:48] LABS: CALCIUM 8.8 mg/dL (8.5-10.1)
[2021-09-29 15:49] LABS: ALBUMIN 3.6 g/dl (3.4-5.0); BLOOD UREA NITROGEN 18.3 mg/dL (7-18)
[2021-09-29 15:52] LABS: CREATININE 0.9 mg/dL (0.55-1.3)
[2021-09-29 15:53] LABS: BILIRUBIN,TOTAL 0.4 mg/dL (0.2-1); TOT PROT 6.8 g/dl (6.4-8.2)
[2021-09-29] MEDS ORDERED: LORazepam 2 MG/ML SDV VIAL IVPUSH ONE (16:49)
[2021-09-29] MEDS ORDERED: levETIRAcetam 500 MG/5 ML INJECTION VIAL IVPB ONE ×2 (16:52→17:00)
[2021-09-30] MEDS: metFORMIN HCL 500 MG TABLET (FP) PO SCH ×2 (06:29→16:52)
[2021-09-30] MEDS ORDERED: lamoTRIgine 25 MG TABLET PO SCH (10:00)
[2021-09-30] MEDS ORDERED: levETIRAcetam 500 MG TABLET (FP) PO SCH ×3 (10:00→22:00)
[2021-09-30] MEDS ORDERED: metoPROLOL SUCCINATE 25 MG TAB.SR.24H (FP) PO SCH (10:00)
[2021-09-30] MEDS ORDERED: CLOPIDOGREL BISULFATE 75 MG TABLET (FP) PO SCH (10:00)
[2021-09-30] MEDS ORDERED: ASPIRIN 325 MG TABLET PO SCH (10:00)
[2021-09-30] MEDS ORDERED: levETIRAcetam 250 MG TABLET PO ONE ×2 (10:06→10:12)
[2021-09-30] MEDS ORDERED: levETIRAcetam 500 MG TABLET (FP) PO ONE ×2 (10:06→10:12)
[2021-09-30 14:19] VITALS: BP 120/79; PULSE 85; TEMP 99
[2021-09-30] MEDS ORDERED: ATORVASTATIN CA 40 MG TABLET (FP) PO SCH (22:00)
== END 2021-09-30 18:11 | disposition home or self-care (01) | DRG 101 ==
LOC: JER 14:38 → JERBED 16:53 → J6S 21:55
PROVIDERS: ADMIT Internal Medicine; ATTEND Internal Medicine
DX: G40.909 Epilepsy, unspecified, not intractable, without status epilepticus (principal); I69.354 Hemiplegia and hemiparesis following cerebral infarction affecting left non-dominant side; R44.3 Hallucinations, unspecified; E11.9 Type 2 diabetes mellitus without complications; I10 Essential (primary) hypertension; I25.10 Atherosclerotic heart disease of native coronary artery without angina pectoris; Z79.84 Long term (current) use of oral hypoglycemic drugs; E78.5 Hyperlipidemia, unspecified; Z91.14 Patient's other noncompliance with medication regimen; E05.00 Thyrotoxicosis with diffuse goiter without thyrotoxic crisis or storm
CPT/HCPCS: 36415; 70450-TC; 71045-TC-FY; 80053; 80175; 80177; 82962; 85025; 93005; 93010; 99285-25; C9803-CS; U0003; U0005

== ENCOUNTER 2022-02-11 01:00 | Inpatient (IN) | payer BC ==
[2022-02-11 02:16] LABS: BASO % 0.9 % (0-2.0); EOS % 0.7 % (0-4.5); HEMATOCRIT 34.7 % (35.4-49); HEMOGLOBIN 11.7 GM/dL (11.7-16.9); LYMPH % 10.6 % (8-40); MCH 31.2 pg (25.7-33.7); MCHC 33.6 g/dl (32.0-35.9); MEAN CELL VOLUME 92.8 fl (80-96); MONO % 5.1 % (3.8-10.2); NEUT % 82.7 % (42.8-82.8); PLATELET COUNT 272 10^3/uL (134-434); RBC 3.74 M/mm3 (4.00-5.60); RDW 13.5 % (11.9-15.9); WHITE BLOOD COUNT 7.4 K/mm3 (4.0-10.0)
[2022-02-11 02:20] LABS: CALCIUM 8.6 mg/dL (8.5-10.1)
[2022-02-11 02:21] LABS: ALBUMIN 3.6 g/dl (3.4-5.0); BLOOD UREA NITROGEN 21.8 mg/dL (7-18)
[2022-02-11 02:24] LABS: CREATININE 0.9 mg/dL (0.55-1.3)
[2022-02-11 02:25] LABS: BILIRUBIN,TOTAL 0.3 mg/dL (0.2-1)
[2022-02-11 02:26] LABS: TOT PROT 6.7 g/dl (6.4-8.2)
[2022-02-11 02:36] LABS: EPI CELLS 10 /uL (0-25.1); HYALINE CASTS 0 /uL (0-3.1); PH,URINE 7.5 (5.0-8.0); URINE APPEARANCE CLOUDY; URINE BACTERIA 40 /uL (0-1359); URINE BILIRUBIN NEGATIVE (NEGATIVE); URINE COLOR YELLOW; URINE GLUCOSE (UA) NEGATIVE (NEGATIVE); URINE KETONE NEGATIVE (NEGATIVE); URINE LEUK ESTERASE 2+ (NEGATIVE); URINE NITRITE NEGATIVE (NEGATIVE); URINE PROTEIN NEGATIVE (NEGATIVE); URINE RBC 23 /uL (0-23.9); URINE UROBILINOGEN 0.2 mg/dL (0.2-1.0); URINE WBC 13 /uL (0-25.8)
[2022-02-11 05:10] LABS: ACTIVATED PTT 28.5 SECONDS (25.2-36.5); INR 1.09 (0.83-1.09); PROTHROMBIN TIME (PATIENT) 12.6 SEC (9.7-13.0)
[2022-02-11 08:24] VITALS: BMI 26.6
[2022-02-11] MEDS ORDERED: levETIRAcetam 500 MG TABLET (FP) PO SCH (11:15)
[2022-02-11] MEDS ORDERED: lamoTRIgine 100 MG TABLET PO SCH (11:15)
[2022-02-11] MEDS: CLOPIDOGREL BISULFATE 75 MG TABLET (FP) PO SCH (11:31)
[2022-02-11] MEDS: ASPIRIN 325 MG TABLET PO SCH (11:31)
[2022-02-11] MEDS: metoPROLOL SUCCINATE 25 MG TAB.SR.24H (FP) PO SCH ×2 (11:31→21:21)
[2022-02-11] MEDS: metFORMIN HCL 500 MG TABLET (FP) PO SCH ×2 (11:36→16:48)
[2022-02-11] MEDS: levETIRAcetam 500 MG TABLET (FP) PO SCH (21:19)
[2022-02-11] MEDS: lamoTRIgine 100 MG TABLET PO SCH (21:20)
[2022-02-11] MEDS: ATORVASTATIN CA 40 MG TABLET (FP) PO SCH (21:23)
[2022-02-12 06:49] VITALS: RESP 18
[2022-02-12] MEDS: levETIRAcetam 500 MG TABLET (FP) PO SCH ×2 (09:37→21:40)
[2022-02-12] MEDS: ASPIRIN 325 MG TABLET PO SCH (09:37)
[2022-02-12] MEDS: CLOPIDOGREL BISULFATE 75 MG TABLET (FP) PO SCH (09:37)
[2022-02-12] MEDS: lamoTRIgine 100 MG TABLET PO SCH ×2 (09:38→21:41)
[2022-02-12] MEDS: metoPROLOL SUCCINATE 25 MG TAB.SR.24H (FP) PO SCH ×2 (09:39→21:39)
[2022-02-12] MEDS: ATORVASTATIN CA 40 MG TABLET (FP) PO SCH (21:40)
[2022-02-13] MEDS: lamoTRIgine 100 MG TABLET PO SCH (10:02)
[2022-02-13] MEDS: CLOPIDOGREL BISULFATE 75 MG TABLET (FP) PO SCH (10:02)
[2022-02-13] MEDS: levETIRAcetam 500 MG TABLET (FP) PO SCH (10:02)
[2022-02-13] MEDS: metoPROLOL SUCCINATE 25 MG TAB.SR.24H (FP) PO SCH (10:02)
[2022-02-13] MEDS: ASPIRIN 325 MG TABLET PO SCH (10:02)
[2022-02-13 11:33] VITALS: BP 130/70; PULSE 60; TEMP 98
== END 2022-02-13 14:37 | disposition home or self-care (01) | DRG 101 ==
LOC: JER 01:00 → JERBED 05:10 → J6S 07:53
PROVIDERS: ADMIT Specialist; ATTEND Specialist
DX: G40.909 Epilepsy, unspecified, not intractable, without status epilepticus (principal); I69.354 Hemiplegia and hemiparesis following cerebral infarction affecting left non-dominant side; I10 Essential (primary) hypertension; E78.5 Hyperlipidemia, unspecified; M54.12 Radiculopathy, cervical region; K44.9 Diaphragmatic hernia without obstruction or gangrene; E05.00 Thyrotoxicosis with diffuse goiter without thyrotoxic crisis or storm; F41.8 Other specified anxiety disorders; M24.562 Contracture, left knee; E11.59 Type 2 diabetes mellitus with other circulatory complications
CPT/HCPCS: 0241U-QW; 36415; 70450-TC; 71045-TC-FY; 72125-TC; 80053; 80177; 81003; 82962; 84484; 85025; 85610; 85730; 87086; 93005; 93010; 99285-25; G0378

== ENCOUNTER 2022-05-07 06:29 | Emergency (ER) | payer BC ==
[2022-05-07 06:55] VITALS: BMI 26.6
[2022-05-07] MEDS ORDERED: ACETAMINOPHEN 1000 MG/100 ML BAG IVPB ONE (08:04)
[2022-05-07] MEDS ORDERED: ACETAMINOPHEN INJECTION 100 ML IVPB ONE (08:19)
[2022-05-07 08:59] LABS: BASO % 0.4 % (0-2.0); EOS % 0.1 % (0-4.5); HEMATOCRIT 40.2 % (35.4-49); HEMOGLOBIN 13.3 GM/dL (11.7-16.9); LYMPH % 5.5 % (8-40); MCH 30.7 pg (25.7-33.7); MEAN PLT VOLUME 9.5 fl (7.5-11.1); MONO % 4.1 % (3.8-10.2); NEUT % 89.9 % (42.8-82.8); PLATELET COUNT 213 10^3/uL (134-434); RBC 4.33 M/mm3 (4.00-5.60); RDW 13.1 % (11.9-15.9); WHITE BLOOD COUNT 9.5 K/mm3 (4.0-10.0)
[2022-05-07 09:23] LABS: ALBUMIN 3.8 g/dl (3.4-5.0); BLOOD UREA NITROGEN 18.5 mg/dL (7-18); CALCIUM 8.7 mg/dL (8.5-10.1)
[2022-05-07 09:26] LABS: CREATININE 0.8 mg/dL (0.55-1.3)
[2022-05-07 09:28] LABS: BILIRUBIN,TOTAL 0.4 mg/dL (0.2-1); TOT PROT 6.8 g/dl (6.4-8.2)
[2022-05-07 13:39] VITALS: BP 121/55; PULSE 80; RESP 20; TEMP 97.8
== END 2022-05-07 13:53 | disposition home or self-care (01) ==
LOC: JER 06:29
PROC: 3E0333Z Introduction of Anti-inflammatory into Peripheral Vein, Percutaneous Approach (ICD-10-PCS; principal; 2022-05-07)
DX: G40.89 Other seizures (principal)
CPT/HCPCS: 0241U-QW; 36415; 71045-TC-FY; 72170-TC-FY; 80053; 80177; 83605; 85025; 93005; 93010; 99285-25

== ENCOUNTER 2022-08-04 09:03 | Inpatient (IN) | payer BC ==
[~2022-08-04 09:03] MED LIST: MIDAZOLAM HCL 5 MG/1 ML Single Dose Vial IM ONE; MIDAZOLAM HCL 5 MG/1 ML Single Dose Vial IVPUSH ONE
[2022-08-04] MEDS ORDERED: MIDAZOLAM HCL 2 MG/2 ML SINGLE DOSE VIAL IVPUSH ONE ×4 (09:15→15:47)
[2022-08-04] MEDS ORDERED: levETIRAcetam 500 MG/5 ML INJECTION VIAL IVPB ONE ×4 (09:31→11:13)
[2022-08-04] MEDS ORDERED: LACTATED RINGERS SOLUTION 1000 ML INFUS.BAG IV ONE (09:32)
[2022-08-04 10:05] LABS: BASO % 0.3 % (0-2.0); HEMOGLOBIN 13.2 GM/dL (11.7-16.9); LYMPH % 2.6 % (8-40); MCH 31.8 pg (25.7-33.7); MEAN CELL VOLUME 93.6 fl (80-96); MEAN PLT VOLUME 9.7 fl (7.5-11.1); MONO % 7.2 % (3.8-10.2); NEUT % 89.9 % (42.8-82.8); PLATELET COUNT 233 10^3/uL (134-434); RBC 4.16 M/mm3 (4.00-5.60); RDW 13.7 % (11.9-15.9); WHITE BLOOD COUNT 18.7 K/mm3 (4.0-10.0)
[2022-08-04 10:13] LABS: INR 1.1 (0.83-1.09); PROTHROMBIN TIME (PATIENT) 12.8 SEC (9.7-13.0)
[2022-08-04 10:15] LABS: ACTIVATED PTT 25.2 SECONDS (25.2-36.5)
[2022-08-04] MEDS ORDERED: MIDAZOLAM HCL 2 MG/2 ML SINGLE DOSE VIAL ONE (10:23)
[2022-08-04 10:27] LABS: CALCIUM 9.3 mg/dL (8.5-10.1)
[2022-08-04 10:28] LABS: ALBUMIN 4.2 g/dl (3.4-5.0); BLOOD UREA NITROGEN 22.8 mg/dL (7-18)
[2022-08-04 10:31] LABS: CREATININE 1.1 mg/dL (0.55-1.3)
[2022-08-04 10:32] LABS: TOT PROT 7.2 g/dl (6.4-8.2)
[2022-08-04 10:33] LABS: BILIRUBIN,TOTAL 0.5 mg/dL (0.2-1)
[2022-08-04 10:57] LABS: VENOUS BASE EXCESS -1.2 mmol/L (-2-2); VENOUS O2 SATURATION 69.1 % (70-80); VENOUS PCO2 51.1 mmHg (38-52); VENOUS PH 7.318 (7.310-7.410)
[2022-08-04] MEDS ORDERED: ACETAMINOPHEN 1000 MG/100 ML BAG IVPB ONE (11:10)
[2022-08-04] MEDS ORDERED: ACETAMINOPHEN INJECTION 100 ML IVPB ONE (11:23)
[2022-08-04 11:54] LABS: LACTIC ACID 2.8 mmol/L (0.4-2.0)
[2022-08-04 12:18] LABS: EPI CELLS 12 /uL (0-25.1); HYALINE CASTS 1 /uL (0-3.1); URINE APPEARANCE CLEAR; URINE BACTERIA 1 /uL (0-1359); URINE BILIRUBIN NEGATIVE (NEGATIVE); URINE COLOR YELLOW; URINE GLUCOSE (UA) NEGATIVE (NEGATIVE); URINE KETONE TRACE (NEGATIVE); URINE LEUK ESTERASE NEGATIVE (NEGATIVE); URINE NITRITE NEGATIVE (NEGATIVE); URINE PROTEIN 1+ (NEGATIVE); URINE RBC 32 /uL (0-23.9); URINE UROBILINOGEN 0.2 mg/dL (0.2-1.0); URINE WBC 12 /uL (0-25.8)
[2022-08-04 12:33] LABS: OPIATES, URI NEGATIVE (NEGATIVE); PHENCYCLIDINE,URINE NEGATIVE (NEGATIVE); URINE BARBITURATES NEGATIVE (NEGATIVE)
[2022-08-04 12:38] LABS: COCAINE, UR NEGATIVE (NEGATIVE); METHADONE, UR NEGATIVE (NEGATIVE); URINE AMPHETAMINES NEGATIVE (NEGATIVE); URINE BENZODIAZEPINES POSITIVE (NEGATIVE)
[2022-08-04] MEDS ORDERED: oxyCODONE HCL 5 MG TABLET PO PRN (13:09)
[2022-08-04] MEDS: levETIRAcetam 500 MG TABLET (FP) PO SCH (22:08)
[2022-08-04] MEDS: metoPROLOL SUCCINATE 25 MG TAB.SR.24H (FP) PO SCH (22:08)
[2022-08-04] MEDS: ATORVASTATIN CA 20 MG TABLET (FP) PO SCH (22:16)
[2022-08-04] MEDS: lamoTRIgine 100 MG TABLET PO SCH (22:34)
[2022-08-05] MEDS ORDERED: lamoTRIgine 100 MG TABLET PO SCH ×2 (10:00→14:12)
[2022-08-05] MEDS: ASPIRIN 325 MG TABLET PO SCH (10:11)
[2022-08-05] MEDS: levETIRAcetam 500 MG TABLET (FP) PO SCH (10:12)
[2022-08-05] MEDS: metoPROLOL SUCCINATE 25 MG TAB.SR.24H (FP) PO SCH ×2 (10:13→21:18)
[2022-08-05] MEDS: CLOPIDOGREL BISULFATE 75 MG TABLET (FP) PO SCH (10:13)
[2022-08-05 11:07] LABS: BASO % 0.2 % (0-2.0); EOS % 0.1 % (0-4.5); HEMATOCRIT 37.8 % (35.4-49); LYMPH % 12.1 % (8-40); MCH 32.1 pg (25.7-33.7); MCHC 34.5 g/dl (32.0-35.9); MEAN CELL VOLUME 93.1 fl (80-96); MEAN PLT VOLUME 9.4 fl (7.5-11.1); MONO % 6.3 % (3.8-10.2); NEUT % 81.3 % (42.8-82.8); PLATELET COUNT 181 10^3/uL (134-434); RBC 4.06 M/mm3 (4.00-5.60); RDW 13.6 % (11.9-15.9); WHITE BLOOD COUNT 10.9 K/mm3 (4.0-10.0)
[2022-08-05 11:48] LABS: CALCIUM 8.8 mg/dL (8.5-10.1)
[2022-08-05 11:49] LABS: BLOOD UREA NITROGEN 19.5 mg/dL (7-18)
[2022-08-05 11:53] LABS: CREATININE 0.9 mg/dL (0.55-1.3)
[2022-08-05] MEDS ORDERED: SODIUM CHLORIDE 1,000 ML IV SCH (14:00)
[2022-08-05] MEDS: lamoTRIgine 100 MG TABLET PO SCH (21:18)
[2022-08-05] MEDS: ATORVASTATIN CA 20 MG TABLET (FP) PO SCH (21:19)
[2022-08-06] MEDS: ACETAMINOPHEN 325 MG TABLET (FP) PO PRN ×2 (04:32→17:10)
[2022-08-06] MEDS: metoPROLOL SUCCINATE 25 MG TAB.SR.24H (FP) PO SCH ×2 (09:10→21:18)
[2022-08-06] MEDS: ASPIRIN 325 MG TABLET PO SCH (09:10)
[2022-08-06] MEDS: CLOPIDOGREL BISULFATE 75 MG TABLET (FP) PO SCH (09:10)
[2022-08-06] MEDS: lamoTRIgine 100 MG TABLET PO SCH ×2 (11:44→21:18)
[2022-08-06] MEDS: ATORVASTATIN CA 20 MG TABLET (FP) PO SCH (21:18)
[2022-08-07] MEDS: lamoTRIgine 100 MG TABLET PO SCH ×3 (07:24→21:35)
[2022-08-07] MEDS: ASPIRIN 325 MG TABLET PO SCH (09:44)
[2022-08-07] MEDS: metoPROLOL SUCCINATE 25 MG TAB.SR.24H (FP) PO SCH ×2 (09:44→21:39)
[2022-08-07] MEDS: CLOPIDOGREL BISULFATE 75 MG TABLET (FP) PO SCH (09:44)
[2022-08-07 15:22] LABS: BASO % 0.4 % (0-2.0); EOS % 0.5 % (0-4.5); HEMOGLOBIN 13.2 GM/dL (11.7-16.9); MCH 31.2 pg (25.7-33.7); MCHC 33.8 g/dl (32.0-35.9); MEAN CELL VOLUME 92.3 fl (80-96); MEAN PLT VOLUME 9.6 fl (7.5-11.1); MONO % 8.3 % (3.8-10.2); NEUT % 74.8 % (42.8-82.8); PLATELET COUNT 218 10^3/uL (134-434); RBC 4.22 M/mm3 (4.00-5.60); RDW 13.7 % (11.9-15.9); WHITE BLOOD COUNT 7.5 K/mm3 (4.0-10.0)
[2022-08-07 15:50] LABS: BLOOD UREA NITROGEN 22.7 mg/dL (7-18); CALCIUM 8.9 mg/dL (8.5-10.1)
[2022-08-07 15:51] LABS: ALBUMIN 3.5 g/dl (3.4-5.0)
[2022-08-07 15:54] LABS: CREATININE 0.9 mg/dL (0.55-1.3)
[2022-08-07 15:55] LABS: BILIRUBIN,TOTAL 0.6 mg/dL (0.2-1); TOT PROT 6.5 g/dl (6.4-8.2)
[2022-08-07] MEDS: ATORVASTATIN CA 20 MG TABLET (FP) PO SCH (21:38)
[2022-08-08] MEDS: lamoTRIgine 100 MG TABLET PO SCH ×3 (06:21→22:06)
[2022-08-08] MEDS: ASPIRIN 325 MG TABLET PO SCH (09:10)
[2022-08-08] MEDS: metoPROLOL SUCCINATE 25 MG TAB.SR.24H (FP) PO SCH ×2 (09:11→22:06)
[2022-08-08] MEDS: CLOPIDOGREL BISULFATE 75 MG TABLET (FP) PO SCH (09:11)
[2022-08-08] MEDS: Lacosamide 200 MG/20 ML VIAL IVPB SCH (18:06)
[2022-08-08] MEDS ORDERED: Lacosamide 200 MG/20 ML VIAL IVPB SCH (22:00)
[2022-08-08] MEDS: ATORVASTATIN CA 20 MG TABLET (FP) PO SCH (22:06)
[2022-08-08 23:46] VITALS: BMI 26.2
[2022-08-09] MEDS: Lacosamide 200 MG/20 ML VIAL IVPB SCH (05:56)
[2022-08-09] MEDS: lamoTRIgine 100 MG TABLET PO SCH ×3 (05:57→21:26)
[2022-08-09] MEDS: metoPROLOL SUCCINATE 25 MG TAB.SR.24H (FP) PO SCH ×2 (09:44→21:27)
[2022-08-09] MEDS: CLOPIDOGREL BISULFATE 75 MG TABLET (FP) PO SCH (09:44)
[2022-08-09] MEDS: ASPIRIN 325 MG TABLET PO SCH (09:44)
[2022-08-09] MEDS: ATORVASTATIN CA 20 MG TABLET (FP) PO SCH (21:27)
[2022-08-09] MEDS: LACOSAMIDE 50 MG TABLET PO SCH (21:27)
[2022-08-10] MEDS: lamoTRIgine 100 MG TABLET PO SCH ×2 (05:52→11:16)
[2022-08-10 08:35] VITALS: RESP 18
[2022-08-10] MEDS: LACOSAMIDE 50 MG TABLET PO SCH (09:25)
[2022-08-10] MEDS: metoPROLOL SUCCINATE 25 MG TAB.SR.24H (FP) PO SCH (09:25)
[2022-08-10] MEDS: ASPIRIN 325 MG TABLET PO SCH (09:25)
[2022-08-10] MEDS: CLOPIDOGREL BISULFATE 75 MG TABLET (FP) PO SCH (09:25)
[2022-08-10 13:24] VITALS: BP 143/74; PULSE 66; TEMP 98.4
== END 2022-08-10 19:30 | disposition home health service (06) | DRG 101 ==
LOC: JER 09:03 → JERBED 12:45 → J4W 15:56
PROVIDERS: ADMIT Internal Medicine; ATTEND Internal Medicine
DX: G40.801 Other epilepsy, not intractable, with status epilepticus (principal); I69.352 Hemiplegia and hemiparesis following cerebral infarction affecting left dominant side; M62.82 Rhabdomyolysis; I47.1 Supraventricular tachycardia; I69.351 Hemiplegia and hemiparesis following cerebral infarction affecting right dominant side; E11.9 Type 2 diabetes mellitus without complications; I10 Essential (primary) hypertension; I25.10 Atherosclerotic heart disease of native coronary artery without angina pectoris; D72.829 Elevated white blood cell count, unspecified; E05.90 Thyrotoxicosis, unspecified without thyrotoxic crisis or storm; R31.29 Other microscopic hematuria; E78.00 Pure hypercholesterolemia, unspecified; E78.5 Hyperlipidemia, unspecified
CPT/HCPCS: 0241U-QW; 36415; 70450-TC; 71045-TC-FY; 71046-TC-FY; 73502-TC-LT-FY; 76775-TC; 76856-TC; 80048; 80053; 80177; 80307; 81003; 82550; 82553; 82803; 82962; 83605; 84484; 85025; 85610; 85730; 86850; 86900; 86901; 87040; 87086; 93005; 93010; 97116-GP; 97162-GP; 99291; 99292

== ENCOUNTER 2022-09-09 13:07 | Observation (INO) | payer BC ==
[2022-09-09 14:33] LABS: BASO % 0.6 % (0-2.0); EOS % 0.9 % (0-4.5); HEMATOCRIT 38.8 % (35.4-49); HEMOGLOBIN 13.1 GM/dL (11.7-16.9); LYMPH % 16.3 % (8-40); MCH 31.1 pg (25.7-33.7); MCHC 33.8 g/dl (32.0-35.9); MEAN PLT VOLUME 9.4 fl (7.5-11.1); MONO % 5.8 % (3.8-10.2); NEUT % 76.4 % (42.8-82.8); PLATELET COUNT 172 10^3/uL (134-434); RBC 4.21 M/mm3 (4.00-5.60); RDW 13.4 % (11.9-15.9); WHITE BLOOD COUNT 7.5 K/mm3 (4.0-10.0)
[2022-09-09 14:54] LABS: ALBUMIN 3.5 g/dl (3.4-5.0); BLOOD UREA NITROGEN 13.1 mg/dL (7-18); CALCIUM 8.8 mg/dL (8.5-10.1); MAGNESIUM 2.2 mg/dL (1.8-2.4)
[2022-09-09 14:57] LABS: CREATININE 0.8 mg/dL (0.55-1.3)
[2022-09-09 14:59] LABS: BILIRUBIN,TOTAL 0.8 mg/dL (0.2-1); TOT PROT 6.6 g/dl (6.4-8.2)
[2022-09-09] MEDS ORDERED: BACLOFEN 10 MG TABLET (FP) PO ONE (14:59)
[2022-09-09] MEDS ORDERED: ACETAMINOPHEN 325 MG TABLET (FP) PO ONE (15:00)
[2022-09-09] MEDS ORDERED: BACLOFEN 10 MG TABLET (FP) ONE (15:44)
[2022-09-09] MEDS ORDERED: ACETAMINOPHEN 325 MG TABLET (FP) ONE ×2 (15:44→23:21)
[2022-09-09 16:05] LABS: PH,URINE 6.5 (5.0-8.0); URINE APPEARANCE CLEAR; URINE BILIRUBIN NEGATIVE (NEGATIVE); URINE COLOR YELLOW; URINE GLUCOSE (UA) NEGATIVE (NEGATIVE); URINE KETONE TRACE (NEGATIVE); URINE LEUK ESTERASE NEGATIVE (NEGATIVE); URINE NITRITE NEGATIVE (NEGATIVE); URINE PROTEIN NEGATIVE (NEGATIVE); URINE UROBILINOGEN 0.2 mg/dL (0.2-1.0)
[2022-09-09] MEDS ORDERED: ASPIRIN 81 MG CHEWABLE TABLETS PO ONE (16:07)
[2022-09-09] MEDS ORDERED: ASPIRIN 81 MG CHEWABLE TABLETS ONE (16:21)
[2022-09-09 16:23] LABS: INR 1.06 (0.83-1.09); PROTHROMBIN TIME (PATIENT) 12.3 SEC (9.7-13.0)
[2022-09-09 16:44] LABS: CHOLESTEROL 133 mg/dL (50-200)
[2022-09-09 16:46] LABS: LDL CHOLESTEROL (ONLY SJRH) 54 mg/dL (5-100)
[2022-09-09 16:48] LABS: HDL CHOLESTEROL 74 mg/dL (40-60)
[2022-09-09 17:44] LABS: POTASSIUM 3.9 mmol/L (3.5-5.1)
[2022-09-09 17:45] LABS: CALCIUM 8.5 mg/dL (8.5-10.1); MAGNESIUM 2.2 mg/dL (1.8-2.4)
[2022-09-09 17:46] LABS: BLOOD UREA NITROGEN 12.1 mg/dL (7-18)
[2022-09-09 17:49] LABS: CREATININE 0.8 mg/dL (0.55-1.3)
[2022-09-09] MEDS ORDERED: SODIUM CHLORIDE 1,000 ML IV STA (18:02)
[2022-09-09] MEDS ORDERED: lamoTRIgine 100 MG TABLET ONE (18:07)
[2022-09-09] MEDS ORDERED: ATORVASTATIN CA 20 MG TABLET (FP) ONE (22:49)
[2022-09-09] MEDS ORDERED: LACOSAMIDE 50 MG TABLET PO ONE (22:49)
[2022-09-09] MEDS ORDERED: metoPROLOL SUCCINATE 25 MG TAB.SR.24H (FP) PO ONE (22:50)
[2022-09-09] MEDS: metoPROLOL SUCCINATE 25 MG TAB.SR.24H (FP) PO SCH (22:59)
[2022-09-09] MEDS: LACOSAMIDE 50 MG TABLET PO SCH (22:59)
[2022-09-09] MEDS: ATORVASTATIN CA 20 MG TABLET (FP) PO SCH (22:59)
[2022-09-09] MEDS: ACETAMINOPHEN 325 MG TABLET (FP) PO PRN (23:24)
[2022-09-10] MEDS ORDERED: ACETAMINOPHEN 325 MG TABLET (FP) ONE (03:42)
[2022-09-10] MEDS: ACETAMINOPHEN 325 MG TABLET (FP) PO PRN ×2 (03:45→21:19)
[2022-09-10 05:48] VITALS: BMI 27.1
[2022-09-10] MEDS: lamoTRIgine 100 MG TABLET PO SCH ×2 (06:46→11:38)
[2022-09-10] MEDS: CLOPIDOGREL BISULFATE 75 MG TABLET (FP) PO SCH (09:09)
[2022-09-10] MEDS: LACOSAMIDE 50 MG TABLET PO SCH ×2 (09:10→21:20)
[2022-09-10] MEDS: metoPROLOL SUCCINATE 25 MG TAB.SR.24H (FP) PO SCH ×2 (09:10→21:20)
[2022-09-10] MEDS: ASPIRIN 325 MG TABLET PO SCH (09:10)
[2022-09-10] MEDS: ATORVASTATIN CA 20 MG TABLET (FP) PO SCH (21:20)
[2022-09-11] MEDS: lamoTRIgine 100 MG TABLET PO SCH ×2 (06:24→12:55)
[2022-09-11] MEDS: metoPROLOL SUCCINATE 25 MG TAB.SR.24H (FP) PO SCH ×2 (09:21→21:13)
[2022-09-11] MEDS: CLOPIDOGREL BISULFATE 75 MG TABLET (FP) PO SCH (09:22)
[2022-09-11] MEDS: LACOSAMIDE 50 MG TABLET PO SCH ×2 (09:22→21:11)
[2022-09-11] MEDS: ASPIRIN 325 MG TABLET PO SCH (09:22)
[2022-09-11] MEDS: ATORVASTATIN CA 20 MG TABLET (FP) PO SCH (21:11)
[2022-09-12] MEDS: ACETAMINOPHEN 325 MG TABLET (FP) PO PRN (02:45)
[2022-09-12 03:27] VITALS: RESP 18
[2022-09-12] MEDS: lamoTRIgine 100 MG TABLET PO SCH ×2 (06:33→11:32)
[2022-09-12 08:56] VITALS: BP 128/79; PULSE 86; TEMP 98.5
[2022-09-12] MEDS: metoPROLOL SUCCINATE 25 MG TAB.SR.24H (FP) PO SCH (09:01)
[2022-09-12] MEDS: LACOSAMIDE 50 MG TABLET PO SCH (09:01)
[2022-09-12] MEDS: CLOPIDOGREL BISULFATE 75 MG TABLET (FP) PO SCH (09:01)
[2022-09-12] MEDS: ASPIRIN 325 MG TABLET PO SCH (09:01)
== END 2022-09-12 17:14 | disposition home or self-care (01) ==
LOC: JER 13:07 → JERBED 15:06 → J8W 20:27 → JERBED 22:42 → J4W 09-10 05:25
PROVIDERS: ADMIT Specialist; ATTEND Specialist
PROC: 3E0337Z Introduction of Electrolytic and Water Balance Substance into Peripheral Vein, Percutaneous Approach (ICD-10-PCS; principal; 2022-09-09)
DX: R56.9 Unspecified convulsions (principal); M62.838 Other muscle spasm; M25.60 Stiffness of unspecified joint, not elsewhere classified; E11.9 Type 2 diabetes mellitus without complications; M79.602 Pain in left arm; Z86.73 Personal history of transient ischemic attack (TIA), and cerebral infarction without residual deficits; Z91.199 Patient's noncompliance with other medical treatment and regimen due to unspecified reason
CPT/HCPCS: 36415; 70450-TC; 70496-TC; 70498-TC; 80048; 80053; 80061; 80175; 81003; 82550; 82553; 83036; 83735; 85025; 85610; 85730; 86850; 86900; 86901; 93005; 93010; 93970-TC; 96360; 97116-GP; 97162-GP; 99291; C9803-CS; G0378; G0480; J0475; U0003; U0005

== ENCOUNTER 2022-09-28 16:33 | Observation (INO) | payer BC ==
[2022-09-28 16:39] VITALS: BMI 28.2
[2022-09-28] MEDS ORDERED: SODIUM CHLORIDE 1,000 ML IV STA (17:13)
[2022-09-28 18:35] LABS: PH,URINE 8.5 (5.0-8.0); URINE APPEARANCE CLOUDY; URINE BILIRUBIN NEGATIVE (NEGATIVE); URINE COLOR YELLOW; URINE GLUCOSE (UA) NEGATIVE (NEGATIVE); URINE KETONE NEGATIVE (NEGATIVE); URINE LEUK ESTERASE NEGATIVE (NEGATIVE); URINE NITRITE NEGATIVE (NEGATIVE); URINE PROTEIN NEGATIVE (NEGATIVE); URINE UROBILINOGEN 0.2 mg/dL (0.2-1.0)
[2022-09-28 18:37] LABS: HEMATOCRIT 37.4 % (35.4-49); HEMOGLOBIN 12.9 GM/dL (11.7-16.9); MCH 31.4 pg (25.7-33.7); MCHC 34.4 g/dl (32.0-35.9); MEAN CELL VOLUME 91.2 fl (80-96); MEAN PLT VOLUME 8.7 fl (7.5-11.1); PLATELET COUNT 270 10^3/uL (134-434); RDW 13.1 % (11.9-15.9); WHITE BLOOD COUNT 10.1 K/mm3 (4.0-10.0)
[2022-09-28 18:40] LABS: INR 1.07 (0.83-1.09); PROTHROMBIN TIME (PATIENT) 12.4 SEC (9.7-13.0)
[2022-09-28 18:43] LABS: ACTIVATED PTT 26.4 SECONDS (25.2-36.5)
[2022-09-28 18:57] LABS: ALBUMIN 3.8 g/dl (3.4-5.0); BLOOD UREA NITROGEN 13.8 mg/dL (7-18); CALCIUM 9.1 mg/dL (8.5-10.1)
[2022-09-28 19:00] LABS: CREATININE 0.8 mg/dL (0.55-1.3)
[2022-09-28 19:02] LABS: BILIRUBIN,TOTAL 0.5 mg/dL (0.2-1)
[2022-09-28 20:11] LABS: ANISOCYTOSIS 0; MACROCYTOSIS 0
[2022-09-28] MEDS ORDERED: ACETAMINOPHEN 325 MG TABLET (FP) PO PRN (20:55)
[2022-09-28] MEDS ORDERED: ATORVASTATIN CA 20 MG TABLET (FP) PO SCH (22:00)
[2022-09-28] MEDS ORDERED: metoPROLOL SUCCINATE 25 MG TAB.SR.24H (FP) PO ONE (23:15)
[2022-09-28] MEDS ORDERED: ATORVASTATIN CA 20 MG TABLET (FP) ONE (23:15)
[2022-09-28] MEDS ORDERED: LACOSAMIDE 50 MG TABLET PO ONE (23:15)
[2022-09-28] MEDS: LACOSAMIDE 50 MG TABLET PO SCH (23:19)
[2022-09-28] MEDS: metoPROLOL SUCCINATE 25 MG TAB.SR.24H (FP) PO SCH (23:19)
[2022-09-29 06:57] VITALS: TEMP 98.9
[2022-09-29] MEDS: lamoTRIgine 100 MG TABLET PO SCH ×2 (08:13→10:39)
[2022-09-29 09:14] VITALS: BP 127/77; PULSE 74; RESP 18
[2022-09-29] MEDS ORDERED: ASPIRIN 325 MG TABLET PO SCH (10:00)
[2022-09-29] MEDS ORDERED: CLOPIDOGREL BISULFATE 75 MG TABLET (FP) PO SCH (10:00)
[2022-09-29] MEDS: metoPROLOL SUCCINATE 25 MG TAB.SR.24H (FP) PO SCH (10:05)
[2022-09-29] MEDS: LACOSAMIDE 50 MG TABLET PO SCH (10:05)
[2022-09-29] MEDS ORDERED: lamoTRIgine 100 MG TABLET PO SCH (12:00)
== END 2022-09-29 14:25 | disposition home or self-care (01) ==
LOC: JER 16:33 → JERBED 17:10 → J4W 09-29 00:32
PROVIDERS: ADMIT Internal Medicine; ATTEND Internal Medicine
PROC: 3E0337Z Introduction of Electrolytic and Water Balance Substance into Peripheral Vein, Percutaneous Approach (ICD-10-PCS; principal; 2022-09-28)
DX: I47.1 Supraventricular tachycardia (principal); E05.90 Thyrotoxicosis, unspecified without thyrotoxic crisis or storm; E11.9 Type 2 diabetes mellitus without complications; Z86.73 Personal history of transient ischemic attack (TIA), and cerebral infarction without residual deficits; I11.9 Hypertensive heart disease without heart failure; E78.00 Pure hypercholesterolemia, unspecified; R56.9 Unspecified convulsions; I25.10 Atherosclerotic heart disease of native coronary artery without angina pectoris; E05.00 Thyrotoxicosis with diffuse goiter without thyrotoxic crisis or storm; M62.838 Other muscle spasm; M24.562 Contracture, left knee
CPT/HCPCS: 0241U-QW; 36415; 80053; 81003; 82550; 84443; 84484; 85025; 85610; 85730; 87086; 93005; 93010; 99285-25; G0378

== ENCOUNTER 2022-10-04 15:54 | Emergency (ER) | payer BC ==
[2022-10-04 16:02] VITALS: BMI 24.5
[2022-10-04] MEDS ORDERED: morphine CARPU-JECT 4 MG/1 ML DISP.SYRIN IVPUSH ONE (16:57)
[2022-10-04] MEDS ORDERED: ACETAMINOPHEN INJECTION 100 ML IVPB ONE (17:06)
[2022-10-04] MEDS ORDERED: ACETAMINOPHEN 1000 MG/100 ML BAG IVPB ONE (17:06)
[2022-10-04] MEDS ORDERED: BUPIVACAINE HCL/PF 0.5% (5MG/ML) 10 ML VIAL ONE (17:43)
[2022-10-04] MEDS ORDERED: BUPIVACAINE HCL/PF 0.5% (5 MG/ML) 30 ML VIAL IJ ONE (17:44)
[2022-10-04 18:06] LABS: INR 1.1 (0.83-1.09); PROTHROMBIN TIME (PATIENT) 12.7 SEC (9.7-13.0)
[2022-10-04 18:09] LABS: ACTIVATED PTT 25.3 SECONDS (25.2-36.5)
[2022-10-04 18:12] LABS: BLOOD UREA NITROGEN 16.8 mg/dL (7-18); CALCIUM 8.7 mg/dL (8.5-10.1)
[2022-10-04 18:13] LABS: ALBUMIN 3.6 g/dl (3.4-5.0)
[2022-10-04 18:15] LABS: CREATININE 0.9 mg/dL (0.55-1.3)
[2022-10-04 18:17] LABS: BILIRUBIN,TOTAL 0.4 mg/dL (0.2-1); TOT PROT 6.5 g/dl (6.4-8.2)
[2022-10-04 18:21] LABS: BASO % 0.6 % (0-2.0); EOS % 0.6 % (0-4.5); HEMATOCRIT 35.4 % (35.4-49); HEMOGLOBIN 12.1 GM/dL (11.7-16.9); LYMPH % 11.5 % (8-40); MCH 31.2 pg (25.7-33.7); MCHC 34.1 g/dl (32.0-35.9); MEAN CELL VOLUME 91.5 fl (80-96); MEAN PLT VOLUME 9.2 fl (7.5-11.1); MONO % 4.4 % (3.8-10.2); NEUT % 82.9 % (42.8-82.8); PLATELET COUNT 246 10^3/uL (134-434); RBC 3.87 M/mm3 (4.00-5.60); RDW 13.1 % (11.9-15.9); WHITE BLOOD COUNT 9.4 K/mm3 (4.0-10.0)
[2022-10-04 19:38] VITALS: RESP 18
[2022-10-04 23:05] VITALS: BP 155/75; PULSE 69; TEMP 98.6
== END 2022-10-04 23:15 | disposition short-term general hospital (02) ==
LOC: JER 15:54
PROC: 3E033NZ Introduction of Analgesics, Hypnotics, Sedatives into Peripheral Vein, Percutaneous Approach (ICD-10-PCS; principal; 2022-10-04)
PROC: 3E0T3BZ Introduction of Anesthetic Agent into Peripheral Nerves and Plexi, Percutaneous Approach (ICD-10-PCS; 2022-10-04)
DX: S22.42XA Multiple fractures of ribs, left side, initial encounter for closed fracture (principal); R06.09 Other forms of dyspnea; R07.81 Pleurodynia; W10.8XXA Fall (on) (from) other stairs and steps, initial encounter; Z20.822 Contact with and (suspected) exposure to COVID-19
CPT/HCPCS: 0241U-QW; 36415; 70450-TC; 71045-TC-FY; 71101-TC-LT-FY; 71260-TC; 72125-TC; 74177-TC; 80053; 84484; 85025; 85610; 85730; 86850; 86900; 86901; 93005; 93010; 99285-25; Q9967

== ENCOUNTER 2022-10-13 09:06 | Inpatient (IN) | payer BC ==
[2022-10-13 11:22] LABS: EOS % 2.3 % (0-4.5); HEMATOCRIT 35.2 % (35.4-49); HEMOGLOBIN 12.5 GM/dL (11.7-16.9); LYMPH % 20.4 % (8-40); MCH 32.4 pg (25.7-33.7); MCHC 35.5 g/dl (32.0-35.9); MEAN CELL VOLUME 91.4 fl (80-96); MEAN PLT VOLUME 9.3 fl (7.5-11.1); MONO % 6.6 % (3.8-10.2); NEUT % 69.7 % (42.8-82.8); PLATELET COUNT 252 10^3/uL (134-434); RBC 3.86 M/mm3 (4.00-5.60); RDW 12.9 % (11.9-15.9); WHITE BLOOD COUNT 6.5 K/mm3 (4.0-10.0)
[2022-10-13 11:45] LABS: CALCIUM 9.4 mg/dL (8.5-10.1)
[2022-10-13 11:46] LABS: ALBUMIN 3.8 g/dl (3.4-5.0)
[2022-10-13 11:48] LABS: CREATININE 0.9 mg/dL (0.55-1.3)
[2022-10-13] MEDS ORDERED: ACETAMINOPHEN 500 MG TABLET (FP) PO ONE (11:49)
[2022-10-13] MEDS ORDERED: LIDOCAINE 5% TOPICAL PATCH TP ONE (11:49)
[2022-10-13 11:50] LABS: BILIRUBIN,TOTAL 0.7 mg/dL (0.2-1); TOT PROT 6.9 g/dl (6.4-8.2)
[2022-10-13] MEDS ORDERED: PIPERACILLIN/TAZOB 4.5 GM 4.5 GM in DEXTROSE 5%-WATER 100 ML IVPB ONE (13:28)
[2022-10-13] MEDS ORDERED: VANCOMYCIN 1 GM in D5W (PRE-DOCKED) 1,000 MG/250 ML (RESTRICTED TO ID ONLY IVPB ONE (13:28)
[2022-10-13] MEDS ORDERED: LIDOCAINE 5% TOPICAL PATCH ONE (13:28)
[2022-10-13] MEDS ORDERED: ACETAMINOPHEN 500 MG TABLET (FP) ONE (13:30)
[2022-10-13] MEDS ORDERED: VANCOMYCIN/WATER FOR INJ (PEG) 1,000 MG/200 ML BAG IVPB ONE (14:08)
[2022-10-13] MEDS ORDERED: PIPERACILLIN/TAZOB 4.5 GM 4.5 GM/100 ML BAG IVPB ONE (14:08)
[2022-10-13] MEDS: LIDOCAINE PATCH REMOVAL MC SCH (21:48)
[2022-10-13] MEDS ORDERED: TIZANIDINE HCL 2 MG TABLET PO PRN (21:57)
[2022-10-13] MEDS ORDERED: ACETAMINOPHEN 325 MG TABLET (FP) PO PRN (21:57)
[2022-10-13] MEDS: lamoTRIgine 100 MG TABLET PO SCH (22:46)
[2022-10-13] MEDS: ATORVASTATIN CA 20 MG TABLET (FP) PO SCH (22:47)
[2022-10-13] MEDS: metoPROLOL SUCCINATE 25 MG TAB.SR.24H (FP) PO SCH (22:47)
[2022-10-13] MEDS: LACOSAMIDE 50 MG TABLET PO SCH (22:47)
[2022-10-14 08:03] LABS: BASO % 1.2 % (0-2.0); EOS % 2.2 % (0-4.5); HEMATOCRIT 32.7 % (35.4-49); HEMOGLOBIN 11.7 GM/dL (11.7-16.9); LYMPH % 16.7 % (8-40); MCH 32.5 pg (25.7-33.7); MCHC 35.9 g/dl (32.0-35.9); MEAN CELL VOLUME 90.5 fl (80-96); MONO % 5.9 % (3.8-10.2); PLATELET COUNT 250 10^3/uL (134-434); RBC 3.61 M/mm3 (4.00-5.60); WHITE BLOOD COUNT 6.2 K/mm3 (4.0-10.0)
[2022-10-14 08:19] LABS: ALBUMIN 3.4 g/dl (3.4-5.0); CALCIUM 8.6 mg/dL (8.5-10.1)
[2022-10-14 08:20] LABS: BLOOD UREA NITROGEN 9.9 mg/dL (7-18)
[2022-10-14 08:22] LABS: CREATININE 0.9 mg/dL (0.55-1.3)
[2022-10-14 08:24] LABS: BILIRUBIN,TOTAL 0.7 mg/dL (0.2-1); TOT PROT 6.2 g/dl (6.4-8.2)
[2022-10-14 08:32] LABS: INR 1.14 (0.83-1.09); PROTHROMBIN TIME (PATIENT) 13.2 SEC (9.7-13.0)
[2022-10-14] MEDS: LACOSAMIDE 50 MG TABLET PO SCH ×2 (09:47→21:25)
[2022-10-14] MEDS ORDERED: ASPIRIN 325 MG TABLET PO SCH (10:00)
[2022-10-14] MEDS: metoPROLOL SUCCINATE 25 MG TAB.SR.24H (FP) PO SCH ×2 (10:27→21:25)
[2022-10-14] MEDS: lamoTRIgine 100 MG TABLET PO SCH ×3 (11:27→21:23)
[2022-10-14] MEDS: ATORVASTATIN CA 20 MG TABLET (FP) PO SCH (21:23)
[2022-10-14] MEDS: LIDOCAINE PATCH REMOVAL MC SCH (21:26)
[2022-10-15] MEDS: LACOSAMIDE 50 MG TABLET PO SCH ×2 (09:38→22:36)
[2022-10-15] MEDS: metoPROLOL SUCCINATE 25 MG TAB.SR.24H (FP) PO SCH ×2 (09:38→22:35)
[2022-10-15] MEDS: ASPIRIN COATED 81 MG TABLET.EC PO SCH (09:38)
[2022-10-15] MEDS: lamoTRIgine 100 MG TABLET PO SCH ×3 (09:39→22:35)
[2022-10-15] MEDS ORDERED: LORazepam 2 MG/ML SDV VIAL IVPUSH ONE ×2 (13:44)
[2022-10-15] MEDS ORDERED: LORazepam 2 MG/ML SDV VIAL IM ONE ×2 (13:44→16:16)
[2022-10-15] MEDS: LIDOCAINE PATCH REMOVAL MC SCH (22:35)
[2022-10-15] MEDS: ATORVASTATIN CA 20 MG TABLET (FP) PO SCH (22:35)
[2022-10-16 09:46] VITALS: BP 145/77; PULSE 86; RESP 16; TEMP 99.2
[2022-10-16] MEDS: lamoTRIgine 100 MG TABLET PO SCH ×2 (09:49→11:51)
[2022-10-16] MEDS: LACOSAMIDE 50 MG TABLET PO SCH (09:50)
[2022-10-16] MEDS: metoPROLOL SUCCINATE 25 MG TAB.SR.24H (FP) PO SCH (09:50)
[2022-10-16] MEDS: ASPIRIN COATED 81 MG TABLET.EC PO SCH (09:51)
[2022-10-16 20:38] VITALS: BMI 26.3
== END 2022-10-16 12:50 | disposition home or self-care (01) | DRG 200 ==
LOC: JER 09:06 → JERBED 15:19 → J4W 18:22 → JERBED 10-14 06:44 → J4W 10-14 06:45
PROVIDERS: ADMIT Internal Medicine; ATTEND Internal Medicine
DX: S27.1XXA Traumatic hemothorax, initial encounter (principal); I69.354 Hemiplegia and hemiparesis following cerebral infarction affecting left non-dominant side; S22.42XA Multiple fractures of ribs, left side, initial encounter for closed fracture; W19.XXXA Unspecified fall, initial encounter; Y92.098 Other place in other non-institutional residence as the place of occurrence of the external cause; Y93.9 Activity, unspecified; Y99.9 Unspecified external cause status; E03.9 Hypothyroidism, unspecified; E11.9 Type 2 diabetes mellitus without complications; I11.9 Hypertensive heart disease without heart failure; E78.5 Hyperlipidemia, unspecified; I25.10 Atherosclerotic heart disease of native coronary artery without angina pectoris
CPT/HCPCS: 0241U-QW; 36415; 71046-TC-FY; 71250-TC; 80053; 84484; 85025; 85610; 86850; 86900; 86901; 93005; 93010; 99285-25

== ENCOUNTER 2022-10-18 02:43 | Inpatient (IN) | payer BC ==
[2022-10-18 02:50] VITALS: BMI 26.6
[2022-10-18] MEDS ORDERED: LIDOCAINE 5% TOPICAL PATCH TP ONE (03:38)
[2022-10-18] MEDS ORDERED: ACETAMINOPHEN 1000 MG/100 ML BAG IVPB ONE (03:38)
[2022-10-18] MEDS ORDERED: LIDOCAINE 5% TOPICAL PATCH ONE (03:49)
[2022-10-18] MEDS ORDERED: ACETAMINOPHEN INJECTION 100 ML IVPB ONE (03:49)
[2022-10-18 04:28] LABS: EOS % 3.5 % (0-4.5); HEMATOCRIT 36.1 % (35.4-49); HEMOGLOBIN 12.3 GM/dL (11.7-16.9); LYMPH % 17.2 % (8-40); MCH 31.2 pg (25.7-33.7); MCHC 34.1 g/dl (32.0-35.9); MEAN CELL VOLUME 91.7 fl (80-96); MEAN PLT VOLUME 8.7 fl (7.5-11.1); MONO % 6.8 % (3.8-10.2); NEUT % 71.5 % (42.8-82.8); PLATELET COUNT 278 10^3/uL (134-434); RBC 3.93 M/mm3 (4.00-5.60); RDW 13.3 % (11.9-15.9); VENOUS BASE EXCESS 5.6 mmol/L (-2-2); VENOUS O2 SATURATION 76.5 % (70-80); VENOUS PCO2 51.9 mmHg (38-52); VENOUS PH 7.403 (7.310-7.410); WHITE BLOOD COUNT 6.8 K/mm3 (4.0-10.0)
[2022-10-18 04:48] LABS: ALBUMIN 3.4 g/dl (3.4-5.0); BLOOD UREA NITROGEN 18.4 mg/dL (7-18)
[2022-10-18 04:53] LABS: BILIRUBIN,TOTAL 0.4 mg/dL (0.2-1); TOT PROT 6.3 g/dl (6.4-8.2)
[2022-10-18 04:56] LABS: ACTIVATED PTT 23.7 SECONDS (25.2-36.5); INR 1.07 (0.83-1.09); PROTHROMBIN TIME (PATIENT) 12.4 SEC (9.7-13.0)
[2022-10-18 09:14] VITALS: RESP 18
[2022-10-18] MEDS ORDERED: ACETAMINOPHEN 325 MG TABLET (FP) PO PRN (12:23)
[2022-10-18] MEDS ORDERED: PATIENT'S OWN MEDICATION (NON-FORMULARY) (Tizanidine Hcl 2 MG Tablet) PO PRN (12:23)
[2022-10-18] MEDS: lamoTRIgine 100 MG TABLET PO SCH (21:33)
[2022-10-18] MEDS: LACOSAMIDE 50 MG TABLET PO SCH (21:33)
[2022-10-18] MEDS: metoPROLOL SUCCINATE 25 MG TAB.SR.24H (FP) PO SCH (21:33)
[2022-10-18] MEDS ORDERED: ATORVASTATIN CA 10 MG TABLET (FP) PO SCH (22:00)
[2022-10-18] MEDS ORDERED: LIDOCAINE PATCH REMOVAL MC ONE (22:00)
[2022-10-19 09:04] VITALS: BP 139/83; PULSE 71; TEMP 99.1
[2022-10-19] MEDS: metoPROLOL SUCCINATE 25 MG TAB.SR.24H (FP) PO SCH ×2 (09:10→09:13)
[2022-10-19] MEDS: LACOSAMIDE 50 MG TABLET PO SCH ×2 (09:10→09:14)
[2022-10-19] MEDS: lamoTRIgine 100 MG TABLET PO SCH ×2 (09:10→09:13)
[2022-10-19] MEDS: ASPIRIN 81 MG CHEWABLE TABLETS PO SCH ×2 (09:10→09:13)
== END 2022-10-19 18:20 | disposition left against medical advice (07) | DRG 183 ==
LOC: JER 02:43 → JERBED 06:38 → J5S 11:14
PROVIDERS: ADMIT Internal Medicine; ATTEND Internal Medicine
DX: S22.42XA Multiple fractures of ribs, left side, initial encounter for closed fracture (principal); S27.1XXA Traumatic hemothorax, initial encounter; I69.354 Hemiplegia and hemiparesis following cerebral infarction affecting left non-dominant side; E03.9 Hypothyroidism, unspecified; E78.5 Hyperlipidemia, unspecified; I10 Essential (primary) hypertension; W19.XXXA Unspecified fall, initial encounter; Y93.89 Activity, other specified; Y92.89 Other specified places as the place of occurrence of the external cause; Y99.8 Other external cause status; I25.10 Atherosclerotic heart disease of native coronary artery without angina pectoris; G40.909 Epilepsy, unspecified, not intractable, without status epilepticus; E11.9 Type 2 diabetes mellitus without complications
CPT/HCPCS: 0241U-QW; 36415; 71045-TC-FY; 71250-TC; 80053; 82803; 84484; 85025; 85610; 85730; 86850; 86900; 86901; 93005; 93010; 99285-25

== ENCOUNTER 2022-10-30 14:03 | Emergency (ER) | payer BC ==
[2022-10-30 14:27] VITALS: RESP 18; BMI 26.3
[2022-10-30] MEDS ORDERED: ACETAMINOPHEN 1000 MG/100 ML BAG IVPB ONE (14:42)
[2022-10-30] MEDS ORDERED: SODIUM CHLORIDE 0.9% 500 ML INFUS.BAG IV ONE (14:42)
[2022-10-30] MEDS ORDERED: ACETAMINOPHEN INJECTION 100 ML IVPB ONE (14:48)
[2022-10-30 15:45] LABS: BASO % 1.1 % (0-2.0); EOS % 3.3 % (0-4.5); HEMATOCRIT 36.4 % (35.4-49); HEMOGLOBIN 12.6 GM/dL (11.7-16.9); LYMPH % 19.2 % (8-40); MCH 31.5 pg (25.7-33.7); MCHC 34.6 g/dl (32.0-35.9); MEAN CELL VOLUME 91.1 fl (80-96); MEAN PLT VOLUME 9.5 fl (7.5-11.1); MONO % 6.3 % (3.8-10.2); NEUT % 70.1 % (42.8-82.8); PLATELET COUNT 252 10^3/uL (134-434); RDW 13.2 % (11.9-15.9); WHITE BLOOD COUNT 4.8 K/mm3 (4.0-10.0)
[2022-10-30 15:48] LABS: URINE APPEARANCE CLOUDY; URINE BILIRUBIN NEGATIVE (NEGATIVE); URINE COLOR YELLOW; URINE GLUCOSE (UA) NEGATIVE (NEGATIVE); URINE KETONE NEGATIVE (NEGATIVE); URINE LEUK ESTERASE NEGATIVE (NEGATIVE); URINE NITRITE NEGATIVE (NEGATIVE); URINE PROTEIN NEGATIVE (NEGATIVE); URINE UROBILINOGEN 0.2 mg/dL (0.2-1.0)
[2022-10-30 16:18] LABS: POTASSIUM 3.9 mmol/L (3.5-5.1)
[2022-10-30 16:20] LABS: CALCIUM 9.1 mg/dL (8.5-10.1)
[2022-10-30 16:21] LABS: ALBUMIN 3.6 g/dl (3.4-5.0); MAGNESIUM 2.2 mg/dL (1.8-2.4)
[2022-10-30 16:24] LABS: CREATININE 0.8 mg/dL (0.55-1.3)
[2022-10-30 16:25] LABS: BILIRUBIN,TOTAL 0.3 mg/dL (0.2-1); TOT PROT 6.6 g/dl (6.4-8.2)
[2022-10-30] MEDS ORDERED: diazePAM 2 MG TABLET PO ONE (17:23)
[2022-10-30 17:28] VITALS: BP 144/67; PULSE 70; TEMP 98.8
[2022-10-30] MEDS ORDERED: diazePAM 2 MG TABLET ONE (17:58)
== END 2022-10-30 19:36 | disposition home or self-care (01) ==
LOC: JER 14:03
PROC: 3E033NZ Introduction of Analgesics, Hypnotics, Sedatives into Peripheral Vein, Percutaneous Approach (ICD-10-PCS; principal; 2022-10-30)
DX: M79.652 Pain in left thigh (principal); Z20.822 Contact with and (suspected) exposure to COVID-19
CPT/HCPCS: 0241U-QW; 36415; 73552-TC-LT-FY; 80053; 81003; 83735; 85025; 87086; 93005; 93010; 93971-TC; 99285-25

== ENCOUNTER 2022-11-08 17:22 | Observation (INO) | payer BC ==
[2022-11-08] MEDS ORDERED: LORazepam 2 MG/ML SDV VIAL IVPUSH ONE (18:22)
[2022-11-08 18:33] LABS: HEMATOCRIT 37.2 % (35.4-49); HEMOGLOBIN 12.2 GM/dL (11.7-16.9); MCH 30.5 pg (25.7-33.7); MCHC 32.9 g/dl (32.0-35.9); MEAN CELL VOLUME 92.6 fl (80-96); MEAN PLT VOLUME 8.7 fl (7.5-11.1); PLATELET COUNT 306 10^3/uL (134-434); RBC 4.02 M/mm3 (4.00-5.60); RDW 13.6 % (11.9-15.9)
[2022-11-08 18:40] LABS: INR 1.09 (0.83-1.09); PROTHROMBIN TIME (PATIENT) 12.6 SEC (9.7-13.0)
[2022-11-08 18:42] LABS: ACTIVATED PTT 26.8 SECONDS (25.2-36.5)
[2022-11-08 19:13] LABS: CHLORIDE 104 mmol/L (98-107); POTASSIUM 4.1 mmol/L (3.5-5.1); SODIUM 139 mmol/L (136-145)
[2022-11-08 19:15] LABS: ALBUMIN 3.7 g/dl (3.4-5.0); ANION GAP 4 MMOL/L (8-16); BLOOD UREA NITROGEN 12.4 mg/dL (7-18); CO2 31 mmol/L (21-32); GLUCOSE,RANDOM 132 mg/dL (74-106); LIPASE 94 U/L (73-393); MAGNESIUM 2.3 mg/dL (1.8-2.4)
[2022-11-08 19:18] LABS: CREATININE 0.9 mg/dL (0.55-1.3); SGOT/AST 21 U/L (15-37); SGPT/ALT 35 U/L (13-61)
[2022-11-08 19:19] LABS: PHOSPHOROUS 2.4 mg/dL (2.5-4.9)
[2022-11-08 19:20] LABS: BILIRUBIN,TOTAL 0.4 mg/dL (0.2-1); TOT PROT 6.7 g/dl (6.4-8.2)
[2022-11-08 19:21] LABS: ALK PHOS 82 U/L (45-117)
[2022-11-08 19:36] LABS: ANISOCYTOSIS 0; MACROCYTOSIS 3+
[2022-11-08] MEDS ORDERED: levETIRAcetam 500 MG/5 ML INJECTION VIAL IVPB ONE ×2 (19:57→20:14)
[2022-11-08] MEDS ORDERED: lamoTRIgine 100 MG TABLET ONE (20:13)
[2022-11-08] MEDS ORDERED: ONDANSETRON 4 MG/2 ML VIAL IVPUSH ONE (20:27)
[2022-11-08] MEDS ORDERED: ONDANSETRON 4 MG/2 ML VIAL ONE (20:39)
[2022-11-09 02:11] LABS: PH,URINE 7.5 (5.0-8.0); URINE APPEARANCE CLEAR; URINE BILIRUBIN NEGATIVE (NEGATIVE); URINE COLOR YELLOW; URINE GLUCOSE (UA) NEGATIVE (NEGATIVE); URINE KETONE 1+ (NEGATIVE); URINE LEUK ESTERASE NEGATIVE (NEGATIVE); URINE NITRITE NEGATIVE (NEGATIVE); URINE PROTEIN NEGATIVE (NEGATIVE); URINE UROBILINOGEN 0.2 mg/dL (0.2-1.0)
[2022-11-09 05:45] VITALS: RESP 18
[2022-11-09] MEDS ORDERED: ACETAMINOPHEN 325 MG TABLET (FP) PO PRN (05:51)
[2022-11-09] MEDS: ASPIRIN 325 MG TABLET PO SCH (09:50)
[2022-11-09] MEDS: lamoTRIgine 100 MG TABLET PO SCH ×3 (09:50→21:24)
[2022-11-09] MEDS: CLOPIDOGREL BISULFATE 75 MG TABLET (FP) PO SCH (09:51)
[2022-11-09] MEDS: metoPROLOL SUCCINATE 25 MG TAB.SR.24H (FP) PO SCH ×2 (09:51→21:24)
[2022-11-09] MEDS: LACOSAMIDE 50 MG TABLET PO SCH ×2 (09:51→21:24)
[2022-11-09] MEDS: ATORVASTATIN CA 10 MG TABLET (FP) PO SCH (21:23)
[2022-11-10] MEDS: lamoTRIgine 100 MG TABLET PO SCH ×3 (09:43→21:37)
[2022-11-10] MEDS: CLOPIDOGREL BISULFATE 75 MG TABLET (FP) PO SCH (09:44)
[2022-11-10] MEDS: ASPIRIN 325 MG TABLET PO SCH (09:44)
[2022-11-10] MEDS: metoPROLOL SUCCINATE 25 MG TAB.SR.24H (FP) PO SCH ×2 (09:44→21:37)
[2022-11-10] MEDS: LACOSAMIDE 50 MG TABLET PO SCH ×2 (09:44→21:37)
[2022-11-10 11:00] LABS: POTASSIUM 3.8 mmol/L (3.5-5.1)
[2022-11-10 11:03] LABS: BLOOD UREA NITROGEN 13.6 mg/dL (7-18)
[2022-11-10 11:06] LABS: CREATININE 0.9 mg/dL (0.55-1.3)
[2022-11-10 14:10] VITALS: BMI 25.4
[2022-11-10] MEDS ORDERED: ONDANSETRON 4 MG/2 ML VIAL IVPB PRN (14:50)
[2022-11-10] MEDS: ATORVASTATIN CA 10 MG TABLET (FP) PO SCH (21:36)
[2022-11-10] MEDS: FAMOTIDINE 20 MG TABLET PO SCH (21:37)
[2022-11-11 06:20] VITALS: BP 105/56; PULSE 71; TEMP 98.5
[2022-11-11] MEDS: FAMOTIDINE 20 MG TABLET PO SCH ×2 (10:36→10:48)
[2022-11-11] MEDS: lamoTRIgine 100 MG TABLET PO SCH ×2 (10:36→13:28)
[2022-11-11] MEDS: metoPROLOL SUCCINATE 25 MG TAB.SR.24H (FP) PO SCH ×2 (10:36→10:47)
[2022-11-11] MEDS: ASPIRIN 325 MG TABLET PO SCH (10:36)
[2022-11-11] MEDS: CLOPIDOGREL BISULFATE 75 MG TABLET (FP) PO SCH (10:36)
[2022-11-11] MEDS: LACOSAMIDE 50 MG TABLET PO SCH (10:49)
== END 2022-11-11 16:13 | disposition home health service (06) ==
LOC: JER 17:22 → JERBED 20:04 → J5S 11-09 05:13
PROVIDERS: ADMIT Internal Medicine; ATTEND Internal Medicine
DX: R56.9 Unspecified convulsions (principal); Z91.199 Patient's noncompliance with other medical treatment and regimen due to unspecified reason; I25.10 Atherosclerotic heart disease of native coronary artery without angina pectoris
CPT/HCPCS: 0241U-QW; 36415; 70450-TC; 71250-TC; 80048; 80053; 80175; 80307; 81003; 82962; 83690; 83735; 84100; 84484; 85025; 85610; 85730; 87086; 93005; 93010; 99285-25; G0378; G0480

== ENCOUNTER 2022-11-19 13:17 | Inpatient (IN) | payer BC ==
[2022-11-19 13:35] VITALS: BMI 26.3
[2022-11-19 19:37] LABS: POTASSIUM 4.1 mmol/L (3.5-5.1)
[2022-11-19 19:40] LABS: ALBUMIN 3.4 g/dl (3.4-5.0); BLOOD UREA NITROGEN 11.9 mg/dL (7-18)
[2022-11-19 19:43] LABS: BILIRUBIN,DIRECT 0.2 mg/dL (0.0-0.2); CREATININE 0.8 mg/dL (0.55-1.3)
[2022-11-19 19:45] LABS: BILIRUBIN,TOTAL 0.5 mg/dL (0.2-1); TOT PROT 6.3 g/dl (6.4-8.2)
[2022-11-19 21:23] LABS: BASO % 0.8 % (0-2.0); EOS % 1.2 % (0-4.5); HEMATOCRIT 38.1 % (35.4-49); HEMOGLOBIN 12.7 GM/dL (11.7-16.9); LYMPH % 19.7 % (8-40); MCH 30.4 pg (25.7-33.7); MCHC 33.4 g/dl (32.0-35.9); MEAN CELL VOLUME 91.1 fl (80-96); MEAN PLT VOLUME 8.8 fl (7.5-11.1); MONO % 6.1 % (3.8-10.2); NEUT % 72.2 % (42.8-82.8); PLATELET COUNT 332 10^3/uL (134-434); RBC 4.19 M/mm3 (4.00-5.60); RDW 13.2 % (11.9-15.9); WHITE BLOOD COUNT 8.3 K/mm3 (4.0-10.0)
[2022-11-19 21:32] LABS: INR 1.08 (0.83-1.09); PROTHROMBIN TIME (PATIENT) 12.5 SEC (9.7-13.0)
[2022-11-20] MEDS: ACETAMINOPHEN 325 MG TABLET (FP) PO PRN ×2 (06:17→22:23)
[2022-11-20] MEDS ORDERED: PATIENT'S OWN MEDICATION (NON-FORMULARY) (Tizanidine Hcl 2 MG Tablet) PO PRN (06:50)
[2022-11-20] MEDS: LACOSAMIDE 50 MG TABLET PO SCH ×2 (09:52→22:23)
[2022-11-20] MEDS: FAMOTIDINE 20 MG TABLET PO SCH ×2 (09:53→22:23)
[2022-11-20] MEDS: metoPROLOL SUCCINATE 25 MG TAB.SR.24H (FP) PO SCH ×2 (09:53→22:23)
[2022-11-20] MEDS ORDERED: lamoTRIgine 100 MG TABLET PO SCH (10:00)
[2022-11-20] MEDS: lamoTRIgine 100 MG TABLET PO SCH ×2 (12:30→22:28)
[2022-11-20] MEDS: ATORVASTATIN CA 10 MG TABLET (FP) PO SCH (22:29)
[2022-11-21] MEDS: lamoTRIgine 100 MG TABLET PO SCH ×3 (06:28→22:04)
[2022-11-21 07:38] LABS: BASO % 0.5 % (0-2.0); EOS % 1.8 % (0-4.5); HEMATOCRIT 38.8 % (35.4-49); HEMOGLOBIN 13.1 GM/dL (11.7-16.9); LYMPH % 15.2 % (8-40); MCH 30.8 pg (25.7-33.7); MCHC 33.8 g/dl (32.0-35.9); MEAN CELL VOLUME 91.2 fl (80-96); MEAN PLT VOLUME 9.4 fl (7.5-11.1); NEUT % 74.5 % (42.8-82.8); PLATELET COUNT 305 10^3/uL (134-434); RBC 4.26 M/mm3 (4.00-5.60); RDW 12.9 % (11.9-15.9); WHITE BLOOD COUNT 7.8 K/mm3 (4.0-10.0)
[2022-11-21 07:47] LABS: ALBUMIN 3.3 g/dl (3.4-5.0); CALCIUM 9.1 mg/dL (8.5-10.1)
[2022-11-21 07:48] LABS: BLOOD UREA NITROGEN 12.5 mg/dL (7-18)
[2022-11-21 07:51] LABS: CREATININE 0.8 mg/dL (0.55-1.3)
[2022-11-21 07:52] LABS: BILIRUBIN,TOTAL 0.5 mg/dL (0.2-1); TOT PROT 6.2 g/dl (6.4-8.2)
[2022-11-21] MEDS: FAMOTIDINE 20 MG TABLET PO SCH ×2 (10:06→22:04)
[2022-11-21] MEDS: LACOSAMIDE 50 MG TABLET PO SCH ×2 (10:06→22:03)
[2022-11-21] MEDS: metoPROLOL SUCCINATE 25 MG TAB.SR.24H (FP) PO SCH ×2 (10:06→22:03)
[2022-11-21] MEDS: ATORVASTATIN CA 10 MG TABLET (FP) PO SCH (22:03)
[2022-11-22] MEDS: lamoTRIgine 100 MG TABLET PO SCH ×3 (05:51→22:11)
[2022-11-22] MEDS: LACOSAMIDE 50 MG TABLET PO SCH ×2 (09:06→22:10)
[2022-11-22] MEDS: FAMOTIDINE 20 MG TABLET PO SCH ×3 (09:07→22:20)
[2022-11-22] MEDS: metoPROLOL SUCCINATE 25 MG TAB.SR.24H (FP) PO SCH ×2 (09:07→22:11)
[2022-11-22] MEDS: ACETAMINOPHEN 325 MG TABLET (FP) PO PRN (14:04)
[2022-11-22] MEDS ORDERED: oxyCODONE HCL 5 MG TABLET PO PRN (17:10)
[2022-11-22] MEDS: ATORVASTATIN CA 10 MG TABLET (FP) PO SCH (22:11)
[2022-11-23] MEDS: lamoTRIgine 100 MG TABLET PO SCH ×3 (06:02→22:43)
[2022-11-23] MEDS: FAMOTIDINE 20 MG TABLET PO SCH ×2 (09:14→22:45)
[2022-11-23] MEDS: metoPROLOL SUCCINATE 25 MG TAB.SR.24H (FP) PO SCH ×2 (09:14→22:44)
[2022-11-23] MEDS: LACOSAMIDE 50 MG TABLET PO SCH ×2 (09:14→22:42)
[2022-11-23 12:10] LABS: BASO % 0.6 % (0-2.0); EOS % 1.2 % (0-4.5); HEMATOCRIT 38.4 % (35.4-49); HEMOGLOBIN 13.1 GM/dL (11.7-16.9); LYMPH % 13.3 % (8-40); MCH 30.7 pg (25.7-33.7); MEAN CELL VOLUME 90.4 fl (80-96); MEAN PLT VOLUME 8.8 fl (7.5-11.1); MONO % 8.3 % (3.8-10.2); NEUT % 76.6 % (42.8-82.8); PLATELET COUNT 346 10^3/uL (134-434); RBC 4.25 M/mm3 (4.00-5.60); RDW 12.9 % (11.9-15.9); WHITE BLOOD COUNT 8.3 K/mm3 (4.0-10.0)
[2022-11-23 12:20] LABS: INR 1.07 (0.83-1.09); PROTHROMBIN TIME (PATIENT) 12.4 SEC (9.7-13.0)
[2022-11-23 12:27] LABS: POTASSIUM 4.5 mmol/L (3.5-5.1)
[2022-11-23 12:29] LABS: ALBUMIN 3.2 g/dl (3.4-5.0); BLOOD UREA NITROGEN 12.7 mg/dL (7-18); CALCIUM 9.1 mg/dL (8.5-10.1)
[2022-11-23 12:33] LABS: CREATININE 0.8 mg/dL (0.55-1.3)
[2022-11-23 12:34] LABS: BILIRUBIN,TOTAL 0.4 mg/dL (0.2-1); TOT PROT 6.7 g/dl (6.4-8.2)
[2022-11-23] MEDS: ATORVASTATIN CA 10 MG TABLET (FP) PO SCH (22:42)
[2022-11-24] MEDS: lamoTRIgine 100 MG TABLET PO SCH ×3 (05:05→21:54)
[2022-11-24] MEDS: LACOSAMIDE 50 MG TABLET PO SCH ×2 (10:49→21:53)
[2022-11-24] MEDS: metoPROLOL SUCCINATE 25 MG TAB.SR.24H (FP) PO SCH ×2 (10:51→21:55)
[2022-11-24] MEDS: FAMOTIDINE 20 MG TABLET PO SCH ×2 (10:51→21:54)
[2022-11-24] MEDS: ATORVASTATIN CA 10 MG TABLET (FP) PO SCH (21:54)
[2022-11-25] MEDS: lamoTRIgine 100 MG TABLET PO SCH ×3 (05:47→21:49)
[2022-11-25] MEDS: FAMOTIDINE 20 MG TABLET PO SCH ×2 (09:50→21:48)
[2022-11-25] MEDS: metoPROLOL SUCCINATE 25 MG TAB.SR.24H (FP) PO SCH ×2 (09:50→21:49)
[2022-11-25] MEDS: LACOSAMIDE 50 MG TABLET PO SCH ×2 (09:50→21:48)
[2022-11-25] MEDS: ATORVASTATIN CA 10 MG TABLET (FP) PO SCH (21:48)
[2022-11-26] MEDS: lamoTRIgine 100 MG TABLET PO SCH ×3 (05:46→21:33)
[2022-11-26] MEDS: metoPROLOL SUCCINATE 25 MG TAB.SR.24H (FP) PO SCH ×2 (10:12→21:39)
[2022-11-26] MEDS: FAMOTIDINE 20 MG TABLET PO SCH ×2 (10:13→21:33)
[2022-11-26] MEDS: LACOSAMIDE 50 MG TABLET PO SCH ×2 (10:13→21:32)
[2022-11-26] MEDS: ATORVASTATIN CA 10 MG TABLET (FP) PO SCH (21:33)
[2022-11-27] MEDS: lamoTRIgine 100 MG TABLET PO SCH ×3 (06:16→22:29)
[2022-11-27 09:17] LABS: BASO % 1.1 % (0-2.0); EOS % 2.1 % (0-4.5); HEMATOCRIT 37.7 % (35.4-49); HEMOGLOBIN 12.3 GM/dL (11.7-16.9); LYMPH % 20.2 % (8-40); MCH 29.6 pg (25.7-33.7); MCHC 32.7 g/dl (32.0-35.9); MEAN CELL VOLUME 90.6 fl (80-96); MEAN PLT VOLUME 8.5 fl (7.5-11.1); NEUT % 70.6 % (42.8-82.8); PLATELET COUNT 357 10^3/uL (134-434); RBC 4.16 M/mm3 (4.00-5.60); RDW 13.3 % (11.9-15.9); WHITE BLOOD COUNT 7.5 K/mm3 (4.0-10.0)
[2022-11-27] MEDS: FAMOTIDINE 20 MG TABLET PO SCH ×2 (09:32→22:30)
[2022-11-27] MEDS: metoPROLOL SUCCINATE 25 MG TAB.SR.24H (FP) PO SCH ×2 (09:32→22:30)
[2022-11-27 09:46] LABS: POTASSIUM 4.2 mmol/L (3.5-5.1)
[2022-11-27 09:47] LABS: CALCIUM 9.3 mg/dL (8.5-10.1)
[2022-11-27 09:50] LABS: BLOOD UREA NITROGEN 12.5 mg/dL (7-18); CREATININE 0.7 mg/dL (0.55-1.3)
[2022-11-27] MEDS ORDERED: LACOSAMIDE 50 MG TABLET PO SCH (10:30)
[2022-11-27] MEDS: LACOSAMIDE 50 MG TABLET PO SCH ×2 (10:42→22:30)
[2022-11-27] MEDS ORDERED: BUPIVACAINE HCL/PF 0.25% (2.5MG/ML) 10 ML VIAL ONE (13:26)
[2022-11-27] MEDS ORDERED: PROPOFOL 40 ML ONE (14:53)
[2022-11-27] MEDS ORDERED: MIDAZOLAM HCL 2 MG/2 ML SINGLE DOSE VIAL ONE (14:54)
[2022-11-27] MEDS ORDERED: SUCCINYLCHOLINE CHLORIDE 200 MG/10 ML SYRINGE ONE (14:54)
[2022-11-27] MEDS ORDERED: ROCURONIUM BROMIDE 50 MG/5 ML SYRINGE ONE ×2 (14:54→15:20)
[2022-11-27] MEDS ORDERED: ceFAZolin 2 GRAM PREMIX BAG IVPB ONE (15:24)
[2022-11-27] MEDS ORDERED: NEOSTIGMINE METHYLSULFATE 0.5 MG/1 ML - 10 ML MDV ONE (16:09)
[2022-11-27] MEDS ORDERED: ePHEDrine SULFATE 50 MG/1 ML AMPULE ONE (16:37)
[2022-11-27] MEDS ORDERED: BUPIVACAINE HCL/PF 0.25% (2.5MG/ML) 10 ML VIAL IJ ONE (16:50)
[2022-11-27] MEDS ORDERED: ONDANSETRON 4 MG/2 ML VIAL IVPUSH PRN ×2 (17:07)
[2022-11-27] MEDS ORDERED: DEXAMETHASONE SOD PHOSPHATE 4 MG/1 ML VIAL IVPUSH PRN (17:07)
[2022-11-27] MEDS ORDERED: ACETAMINOPHEN 325 MG TABLET (FP) PO PRN (17:08)
[2022-11-27] MEDS ORDERED: HYDROmorphone *PCA* 10MG/50ML DISP.SYRIN PCA SCH (17:15)
[2022-11-27] MEDS ORDERED: HYDROmorphone *PCA* 10MG/50ML DISP.SYRIN ONE (17:16)
[2022-11-27] MEDS: LACTATED RINGERS SOLUTION 1,000 ML IV SCH (17:25)
[2022-11-27] MEDS ORDERED: HYDROmorphone *PCA* 10MG/50ML DISP.SYRIN PCA ONE (17:40)
[2022-11-27] MEDS: KETOROLAC TROMETHAMINE 30 MG/1 ML VIAL IVPUSH SCH ×2 (19:54→23:51)
[2022-11-27] MEDS ORDERED: MUPIROCIN 2% TOPICAL OINTMENT FOR DECOLONIZATION NS SCH (22:00)
[2022-11-27] MEDS ORDERED: CHLORHEXIDINE GLUCONATE 4% CLEANSER FOR DECOLONIZATION TP SCH (22:00)
[2022-11-27] MEDS: MUPIROCIN 2% TOPICAL OINTMENT FOR DECOLONIZATION NS SCH (22:29)
[2022-11-27] MEDS: CHLORHEXIDINE GLUCONATE 4% CLEANSER FOR DECOLONIZATION TP SCH (22:29)
[2022-11-27] MEDS: ATORVASTATIN CA 10 MG TABLET (FP) PO SCH (22:30)
[2022-11-28] MEDS: KETOROLAC TROMETHAMINE 30 MG/1 ML VIAL IVPUSH SCH ×4 (05:16→23:00)
[2022-11-28] MEDS: lamoTRIgine 100 MG TABLET PO SCH ×4 (05:17→21:39)
[2022-11-28 07:36] LABS: BASO % 0.4 % (0-2.0); EOS % 0.1 % (0-4.5); HEMATOCRIT 38.7 % (35.4-49); HEMOGLOBIN 12.5 GM/dL (11.7-16.9); LYMPH % 8.6 % (8-40); MCH 29.8 pg (25.7-33.7); MCHC 32.3 g/dl (32.0-35.9); MEAN CELL VOLUME 92.4 fl (80-96); MEAN PLT VOLUME 8.9 fl (7.5-11.1); MONO % 4.7 % (3.8-10.2); NEUT % 86.2 % (42.8-82.8); PLATELET COUNT 374 10^3/uL (134-434); RBC 4.19 M/mm3 (4.00-5.60); WHITE BLOOD COUNT 16.2 K/mm3 (4.0-10.0)
[2022-11-28 08:05] LABS: CALCIUM 8.2 mg/dL (8.5-10.1)
[2022-11-28 08:06] LABS: BLOOD UREA NITROGEN 22.3 mg/dL (7-18); MAGNESIUM 1.9 mg/dL (1.8-2.4)
[2022-11-28 08:09] LABS: CREATININE 1.1 mg/dL (0.55-1.3); PHOSPHOROUS 4.4 mg/dL (2.5-4.9); TOT PROT 5.3 g/dl (6.4-8.2)
[2022-11-28 08:11] LABS: BILIRUBIN,TOTAL 0.5 mg/dL (0.2-1)
[2022-11-28 08:18] LABS: ALBUMIN 2.4 g/dl (3.4-5.0)
[2022-11-28] MEDS: metoPROLOL SUCCINATE 25 MG TAB.SR.24H (FP) PO SCH (09:47)
[2022-11-28] MEDS: FAMOTIDINE 20 MG TABLET PO SCH ×2 (09:47→21:39)
[2022-11-28] MEDS: LACOSAMIDE 50 MG TABLET PO SCH ×2 (09:49→21:39)
[2022-11-28] MEDS: MUPIROCIN 2% TOPICAL OINTMENT FOR DECOLONIZATION NS SCH ×2 (09:50→21:48)
[2022-11-28] MEDS ORDERED: ACETAMINOPHEN 325 MG TABLET (FP) PO PRN (10:04)
[2022-11-28] MEDS ORDERED: GABAPENTIN 300 MG CAPSULE PO PRN (11:53)
[2022-11-28] MEDS: LACTATED RINGERS SOLUTION 1,000 ML IV SCH (15:00)
[2022-11-28] MEDS: ATORVASTATIN CA 10 MG TABLET (FP) PO SCH (21:39)
[2022-11-28] MEDS: CHLORHEXIDINE GLUCONATE 4% CLEANSER FOR DECOLONIZATION TP SCH (21:40)
[2022-11-29] MEDS: KETOROLAC TROMETHAMINE 30 MG/1 ML VIAL IVPUSH SCH ×2 (04:39→12:00)
[2022-11-29] MEDS: lamoTRIgine 100 MG TABLET PO SCH ×3 (05:47→21:06)
[2022-11-29 07:20] LABS: CALCIUM 8.3 mg/dL (8.5-10.1)
[2022-11-29 07:21] LABS: ALBUMIN 2.5 g/dl (3.4-5.0)
[2022-11-29 07:23] LABS: HEMOGLOBIN 11.7 GM/dL (11.7-16.9); MCH 30.2 pg (25.7-33.7); MCHC 33.4 g/dl (32.0-35.9); MEAN CELL VOLUME 90.2 fl (80-96); PLATELET COUNT 295 10^3/uL (134-434); RBC 3.88 M/mm3 (4.00-5.60); RDW 12.8 % (11.9-15.9); WHITE BLOOD COUNT 9.8 K/mm3 (4.0-10.0)
[2022-11-29 07:24] LABS: CREATININE 0.8 mg/dL (0.55-1.3); PHOSPHOROUS 2.6 mg/dL (2.5-4.9)
[2022-11-29 07:26] LABS: BILIRUBIN,TOTAL 0.2 mg/dL (0.2-1); TOT PROT 5.2 g/dl (6.4-8.2)
[2022-11-29 08:18] LABS: POTASSIUM 4.3 mmol/L (3.5-5.1)
[2022-11-29] MEDS: LACTATED RINGERS SOLUTION 1,000 ML IV SCH ×2 (09:00→18:26)
[2022-11-29] MEDS ORDERED: MELATONIN 5 MG TABLETS PO PRN (09:27)
[2022-11-29] MEDS: MUPIROCIN 2% TOPICAL OINTMENT FOR DECOLONIZATION NS SCH ×2 (09:29→21:05)
[2022-11-29] MEDS: FAMOTIDINE 20 MG TABLET PO SCH ×2 (09:30→21:07)
[2022-11-29] MEDS: LACOSAMIDE 50 MG TABLET PO SCH ×2 (09:30→21:07)
[2022-11-29] MEDS ORDERED: ENOXAPARIN NA (PORCINE) 40 MG/0.4 ML DISP.SYRIN SQ SCH (10:00)
[2022-11-29] MEDS ORDERED: INSULIN SLIDING SCALE (NOVOLOG) 1 VIAL SQ SCH (11:00)
[2022-11-29] MEDS ORDERED: KETOROLAC TROMETHAMINE 30 MG/1 ML VIAL IVPUSH PRN (11:48)
[2022-11-29] MEDS ORDERED: ENOXAPARIN NA (PORCINE) 40 MG/0.4 ML DISP.SYRIN SQ ONE (11:49)
[2022-11-29] MEDS ORDERED: LORazepam 2 MG/ML SDV VIAL IM ONE (17:02)
[2022-11-29] MEDS ORDERED: DEXMEDETOMIDINE PREMIX 400 MCG/100 ML BAG IVPB ONE (17:10)
[2022-11-29] MEDS ORDERED: KETAMINE HCL 200 MG/20 ML VIAL IM ONE (17:15)
[2022-11-29] MEDS ORDERED: RAPID SEQUENCE INTUBATION KIT NR ONE (17:21)
[2022-11-29] MEDS: DEXMEDETOMIDINE PREMIX 400 MCG/100 ML BAG IVPB SCH ×3 (17:35→23:28)
[2022-11-29] MEDS ORDERED: DANTROLENE SODIUM IVPUSH ONE (17:45)
[2022-11-29 18:22] LABS: POTASSIUM 3.7 mmol/L (3.5-5.1)
[2022-11-29 18:24] LABS: CALCIUM 8.6 mg/dL (8.5-10.1)
[2022-11-29 18:25] LABS: ALBUMIN 2.7 g/dl (3.4-5.0); BLOOD UREA NITROGEN 15.4 mg/dL (7-18)
[2022-11-29] MEDS ORDERED: LORazepam 2 MG/ML SDV VIAL IVPUSH ONE (18:28)
[2022-11-29 18:30] LABS: BILIRUBIN,TOTAL 0.3 mg/dL (0.2-1); TOT PROT 5.6 g/dl (6.4-8.2)
[2022-11-29] MEDS: CHLORHEXIDINE GLUCONATE 4% CLEANSER FOR DECOLONIZATION TP SCH (21:05)
[2022-11-29] MEDS: ATORVASTATIN CA 10 MG TABLET (FP) PO SCH (21:07)
[2022-11-30] MEDS: DEXMEDETOMIDINE PREMIX 400 MCG/100 ML BAG IVPB SCH ×5 (04:05→23:44)
[2022-11-30] MEDS: lamoTRIgine 100 MG TABLET PO SCH ×5 (05:31→22:25)
[2022-11-30 07:35] LABS: POTASSIUM 4.2 mmol/L (3.5-5.1)
[2022-11-30 07:37] LABS: CALCIUM 8.3 mg/dL (8.5-10.1)
[2022-11-30 07:39] LABS: BLOOD UREA NITROGEN 13.1 mg/dL (7-18)
[2022-11-30 07:41] LABS: CREATININE 0.6 mg/dL (0.55-1.3); PHOSPHOROUS 2.7 mg/dL (2.5-4.9)
[2022-11-30 07:54] LABS: HEMATOCRIT 34.8 % (35.4-49); HEMOGLOBIN 11.6 GM/dL (11.7-16.9); MCH 30.7 pg (25.7-33.7); MCHC 33.3 g/dl (32.0-35.9); MEAN CELL VOLUME 92.1 fl (80-96); PLATELET COUNT 328 10^3/uL (134-434); RBC 3.77 M/mm3 (4.00-5.60); RDW 12.6 % (11.9-15.9); WHITE BLOOD COUNT 8.7 K/mm3 (4.0-10.0)
[2022-11-30] MEDS ORDERED: LORazepam 2 MG/ML SDV VIAL IVPUSH ONE (10:32)
[2022-11-30] MEDS: ENOXAPARIN NA (PORCINE) 40 MG/0.4 ML DISP.SYRIN SQ SCH (10:55)
[2022-11-30] MEDS: MUPIROCIN 2% TOPICAL OINTMENT FOR DECOLONIZATION NS SCH ×2 (10:57→22:13)
[2022-11-30] MEDS: FAMOTIDINE 20 MG/50 ML IVPB 20 MG/50 ML MG IVPB SCH ×2 (13:22→22:12)
[2022-11-30] MEDS: FAMOTIDINE 20 MG TABLET PO SCH (13:41)
[2022-11-30] MEDS: LACOSAMIDE 50 MG TABLET PO SCH (13:41)
[2022-11-30] MEDS: Lacosamide 200 MG/20 ML VIAL IVPB SCH ×2 (14:42→22:12)
[2022-11-30] MEDS ORDERED: ACETAMINOPHEN 1000 MG/100 ML BAG IVPB ONE (16:55)
[2022-11-30] MEDS: CHLORHEXIDINE GLUCONATE 4% CLEANSER FOR DECOLONIZATION TP SCH (22:13)
[2022-11-30] MEDS: ATORVASTATIN CA 10 MG TABLET (FP) PO SCH ×3 (22:13→22:25)
[2022-12-01] MEDS: lamoTRIgine 100 MG TABLET PO SCH ×3 (05:07→21:40)
[2022-12-01 07:19] LABS: BASO % 0.6 % (0-2.0); EOS % 1.2 % (0-4.5); HEMATOCRIT 35.2 % (35.4-49); HEMOGLOBIN 11.8 GM/dL (11.7-16.9); LYMPH % 14.7 % (8-40); MCH 30.4 pg (25.7-33.7); MCHC 33.5 g/dl (32.0-35.9); MEAN CELL VOLUME 90.8 fl (80-96); MEAN PLT VOLUME 8.9 fl (7.5-11.1); MONO % 4.8 % (3.8-10.2); NEUT % 78.7 % (42.8-82.8); PLATELET COUNT 342 10^3/uL (134-434); RBC 3.88 M/mm3 (4.00-5.60); RDW 12.7 % (11.9-15.9); WHITE BLOOD COUNT 8.5 K/mm3 (4.0-10.0)
[2022-12-01 07:38] LABS: POTASSIUM 3.9 mmol/L (3.5-5.1)
[2022-12-01 07:45] LABS: ALBUMIN 2.4 g/dl (3.4-5.0); PHOSPHOROUS 2.6 mg/dL (2.5-4.9)
[2022-12-01 07:46] LABS: BLOOD UREA NITROGEN 15.2 mg/dL (7-18); TOT PROT 5.3 g/dl (6.4-8.2)
[2022-12-01 07:47] LABS: BILIRUBIN,TOTAL 0.4 mg/dL (0.2-1)
[2022-12-01 07:48] LABS: CALCIUM 8.4 mg/dL (8.5-10.1); CREATININE 0.8 mg/dL (0.55-1.3)
[2022-12-01 07:49] LABS: MAGNESIUM 1.7 mg/dL (1.8-2.4)
[2022-12-01] MEDS: DEXMEDETOMIDINE PREMIX 400 MCG/100 ML BAG IVPB SCH ×2 (08:00→18:30)
[2022-12-01] MEDS ORDERED: MAGNESIUM SULF 50% (8.12 MEQ/2 ML-1 GM VIAL) IVPB ONE (09:15)
[2022-12-01] MEDS: FAMOTIDINE 20 MG/50 ML IVPB 20 MG/50 ML MG IVPB SCH ×2 (09:23→21:40)
[2022-12-01] MEDS: Lacosamide 200 MG/20 ML VIAL IVPB SCH ×2 (09:23→21:41)
[2022-12-01] MEDS: ENOXAPARIN NA (PORCINE) 40 MG/0.4 ML DISP.SYRIN SQ SCH (09:23)
[2022-12-01] MEDS: MUPIROCIN 2% TOPICAL OINTMENT FOR DECOLONIZATION NS SCH ×2 (09:24→21:38)
[2022-12-01] MEDS ORDERED: LORazepam 2 MG/ML SDV VIAL IM PRN (11:40)
[2022-12-01] MEDS: ATORVASTATIN CA 10 MG TABLET (FP) PO SCH (21:39)
[2022-12-01] MEDS: CHLORHEXIDINE GLUCONATE 4% CLEANSER FOR DECOLONIZATION TP SCH (21:39)
[2022-12-02] MEDS: lamoTRIgine 100 MG TABLET PO SCH ×3 (05:35→22:22)
[2022-12-02 07:44] LABS: BASO % 0.3 % (0-2.0); EOS % 4.4 % (0-4.5); HEMATOCRIT 37.6 % (35.4-49); HEMOGLOBIN 12.4 GM/dL (11.7-16.9); LYMPH % 14.2 % (8-40); MCH 30.2 pg (25.7-33.7); MEAN CELL VOLUME 91.4 fl (80-96); MEAN PLT VOLUME 8.8 fl (7.5-11.1); MONO % 7.8 % (3.8-10.2); NEUT % 73.3 % (42.8-82.8); PLATELET COUNT 382 10^3/uL (134-434); RBC 4.11 M/mm3 (4.00-5.60); RDW 12.6 % (11.9-15.9); WHITE BLOOD COUNT 8.1 K/mm3 (4.0-10.0)
[2022-12-02 07:53] LABS: POTASSIUM 3.4 mmol/L (3.5-5.1)
[2022-12-02 08:00] LABS: CALCIUM 8.3 mg/dL (8.5-10.1)
[2022-12-02 08:01] LABS: ALBUMIN 2.4 g/dl (3.4-5.0); MAGNESIUM 1.7 mg/dL (1.8-2.4)
[2022-12-02 08:04] LABS: CREATININE 0.6 mg/dL (0.55-1.3); PHOSPHOROUS 2.5 mg/dL (2.5-4.9)
[2022-12-02 08:05] LABS: BILIRUBIN,TOTAL 0.4 mg/dL (0.2-1); TOT PROT 5.3 g/dl (6.4-8.2)
[2022-12-02] MEDS ORDERED: MAGNESIUM 2GM/50ML STERILE WATER IVPB IVPB ONE (08:40)
[2022-12-02] MEDS ORDERED: POTASSIUM CHLORIDE ORAL LIQUID 20 MEQ/15 ML PO ONE (08:45)
[2022-12-02] MEDS: metoPROLOL SUCCINATE 25 MG TAB.SR.24H (FP) PO SCH ×2 (09:00→22:22)
[2022-12-02] MEDS: LACOSAMIDE 50 MG TABLET PO SCH ×2 (09:01→22:21)
[2022-12-02] MEDS: ENOXAPARIN NA (PORCINE) 40 MG/0.4 ML DISP.SYRIN SQ SCH (09:01)
[2022-12-02] MEDS: FAMOTIDINE 20 MG TABLET PO SCH ×2 (09:02→22:22)
[2022-12-02] MEDS: MUPIROCIN 2% TOPICAL OINTMENT FOR DECOLONIZATION NS SCH (09:02)
[2022-12-02] MEDS: CLOPIDOGREL BISULFATE 75 MG TABLET (FP) PO SCH ×2 (10:56→11:39)
[2022-12-02] MEDS: ATORVASTATIN CA 10 MG TABLET (FP) PO SCH (22:21)
[2022-12-02] MEDS: CHLORHEXIDINE GLUCONATE 4% CLEANSER FOR DECOLONIZATION TP SCH (22:22)
[2022-12-03] MEDS: lamoTRIgine 100 MG TABLET PO SCH ×3 (05:56→22:30)
[2022-12-03 09:23] LABS: BASO % 0.6 % (0-2.0); HEMATOCRIT 38.6 % (35.4-49); HEMOGLOBIN 12.5 GM/dL (11.7-16.9); LYMPH % 18.5 % (8-40); MCH 29.7 pg (25.7-33.7); MCHC 32.3 g/dl (32.0-35.9); MEAN CELL VOLUME 91.8 fl (80-96); MEAN PLT VOLUME 8.6 fl (7.5-11.1); MONO % 5.8 % (3.8-10.2); NEUT % 69.1 % (42.8-82.8); PLATELET COUNT 429 10^3/uL (134-434); RBC 4.21 M/mm3 (4.00-5.60); RDW 12.8 % (11.9-15.9); WHITE BLOOD COUNT 7.9 K/mm3 (4.0-10.0)
[2022-12-03 09:43] LABS: POTASSIUM 3.9 mmol/L (3.5-5.1)
[2022-12-03 09:45] LABS: CALCIUM 8.9 mg/dL (8.5-10.1)
[2022-12-03 09:46] LABS: ALBUMIN 2.7 g/dl (3.4-5.0); BLOOD UREA NITROGEN 8.7 mg/dL (7-18)
[2022-12-03 09:49] LABS: CREATININE 0.7 mg/dL (0.55-1.3)
[2022-12-03 09:50] LABS: TOT PROT 5.7 g/dl (6.4-8.2)
[2022-12-03 09:51] LABS: BILIRUBIN,TOTAL 0.2 mg/dL (0.2-1)
[2022-12-03] MEDS: metoPROLOL SUCCINATE 25 MG TAB.SR.24H (FP) PO SCH ×2 (09:57→22:30)
[2022-12-03] MEDS: LACOSAMIDE 50 MG TABLET PO SCH ×2 (09:57→22:30)
[2022-12-03] MEDS: ENOXAPARIN NA (PORCINE) 40 MG/0.4 ML DISP.SYRIN SQ SCH (09:57)
[2022-12-03] MEDS: FAMOTIDINE 20 MG TABLET PO SCH ×2 (09:57→22:30)
[2022-12-03] MEDS: CLOPIDOGREL BISULFATE 75 MG TABLET (FP) PO SCH (09:57)
[2022-12-03] MEDS: ATORVASTATIN CA 10 MG TABLET (FP) PO SCH (22:30)
[2022-12-04] MEDS ORDERED: LORazepam 2 MG/ML SDV VIAL IM PRN (00:51)
[2022-12-04] MEDS ORDERED: ACETAMINOPHEN 325 MG TABLET (FP) PO PRN (00:51)
[2022-12-04] MEDS ORDERED: ONDANSETRON 4 MG/2 ML VIAL IVPUSH PRN (00:51)
[2022-12-04] MEDS ORDERED: GABAPENTIN 300 MG CAPSULE PO PRN (00:51)
[2022-12-04] MEDS: lamoTRIgine 100 MG TABLET PO SCH ×3 (06:05→21:05)
[2022-12-04] MEDS: LACOSAMIDE 50 MG TABLET PO SCH ×2 (10:12→21:05)
[2022-12-04] MEDS: ENOXAPARIN NA (PORCINE) 40 MG/0.4 ML DISP.SYRIN SQ SCH ×2 (10:12→10:19)
[2022-12-04] MEDS: metoPROLOL SUCCINATE 25 MG TAB.SR.24H (FP) PO SCH ×2 (10:12→21:05)
[2022-12-04] MEDS: FAMOTIDINE 20 MG TABLET PO SCH ×2 (10:12→21:05)
[2022-12-04] MEDS: CLOPIDOGREL BISULFATE 75 MG TABLET (FP) PO SCH (10:12)
[2022-12-04] MEDS: ATORVASTATIN CA 10 MG TABLET (FP) PO SCH (21:23)
[2022-12-05] MEDS: lamoTRIgine 100 MG TABLET PO SCH ×3 (05:34→22:06)
[2022-12-05] MEDS ORDERED: INSULIN (LEVEMIR) 100 UNITS/ML UNITS SQ ONE (06:53)
[2022-12-05] MEDS ORDERED: INSULIN (NOVOLOG) ASPART 100 UNITS/ML 10ML VIAL ONE (06:53)
[2022-12-05] MEDS: CLOPIDOGREL BISULFATE 75 MG TABLET (FP) PO SCH (09:23)
[2022-12-05] MEDS: LACOSAMIDE 50 MG TABLET PO SCH ×2 (09:23→22:05)
[2022-12-05] MEDS: metoPROLOL SUCCINATE 25 MG TAB.SR.24H (FP) PO SCH ×2 (09:23→22:05)
[2022-12-05] MEDS: FAMOTIDINE 20 MG TABLET PO SCH ×2 (09:23→22:05)
[2022-12-05] MEDS: ENOXAPARIN NA (PORCINE) 40 MG/0.4 ML DISP.SYRIN SQ SCH (09:27)
[2022-12-05] MEDS: ATORVASTATIN CA 10 MG TABLET (FP) PO SCH (22:05)
[2022-12-06] MEDS: lamoTRIgine 100 MG TABLET PO SCH ×3 (06:10→22:12)
[2022-12-06] MEDS: LACOSAMIDE 50 MG TABLET PO SCH ×2 (09:13→22:09)
[2022-12-06] MEDS: ENOXAPARIN NA (PORCINE) 40 MG/0.4 ML DISP.SYRIN SQ SCH (09:13)
[2022-12-06] MEDS: metoPROLOL SUCCINATE 25 MG TAB.SR.24H (FP) PO SCH ×2 (09:13→22:11)
[2022-12-06] MEDS: FAMOTIDINE 20 MG TABLET PO SCH ×2 (09:13→22:11)
[2022-12-06] MEDS: CLOPIDOGREL BISULFATE 75 MG TABLET (FP) PO SCH (09:13)
[2022-12-06] MEDS: ATORVASTATIN CA 10 MG TABLET (FP) PO SCH (22:10)
[2022-12-07] MEDS: lamoTRIgine 100 MG TABLET PO SCH ×3 (06:09→21:50)
[2022-12-07] MEDS: FAMOTIDINE 20 MG TABLET PO SCH ×2 (11:20→21:50)
[2022-12-07] MEDS: CLOPIDOGREL BISULFATE 75 MG TABLET (FP) PO SCH (11:21)
[2022-12-07] MEDS: LACOSAMIDE 50 MG TABLET PO SCH ×2 (11:21→21:49)
[2022-12-07] MEDS: metoPROLOL SUCCINATE 25 MG TAB.SR.24H (FP) PO SCH ×2 (11:21→21:48)
[2022-12-07] MEDS: ENOXAPARIN NA (PORCINE) 40 MG/0.4 ML DISP.SYRIN SQ SCH (11:44)
[2022-12-07] MEDS: MELATONIN 5 MG TABLETS PO PRN (21:49)
[2022-12-07] MEDS: ATORVASTATIN CA 10 MG TABLET (FP) PO SCH (21:49)
[2022-12-08] MEDS: lamoTRIgine 100 MG TABLET PO SCH ×3 (06:31→22:14)
[2022-12-08 09:27] LABS: BASO % 1.3 % (0-2.0); EOS % 8.7 % (0-4.5); HEMOGLOBIN 11.9 GM/dL (11.7-16.9); LYMPH % 21.9 % (8-40); MCH 29.7 pg (25.7-33.7); MCHC 32.3 g/dl (32.0-35.9); MEAN CELL VOLUME 91.8 fl (80-96); MEAN PLT VOLUME 8.6 fl (7.5-11.1); NEUT % 62.1 % (42.8-82.8); PLATELET COUNT 411 10^3/uL (134-434); RBC 4.02 M/mm3 (4.00-5.60); RDW 13.5 % (11.9-15.9)
[2022-12-08 09:44] LABS: POTASSIUM 4.3 mmol/L (3.5-5.1)
[2022-12-08 09:51] LABS: ALBUMIN 2.7 g/dl (3.4-5.0); CALCIUM 8.7 mg/dL (8.5-10.1)
[2022-12-08 09:52] LABS: BLOOD UREA NITROGEN 15.3 mg/dL (7-18)
[2022-12-08 09:54] LABS: CREATININE 0.8 mg/dL (0.55-1.3)
[2022-12-08 09:55] LABS: BILIRUBIN,TOTAL 0.2 mg/dL (0.2-1); TOT PROT 5.6 g/dl (6.4-8.2)
[2022-12-08] MEDS: ENOXAPARIN NA (PORCINE) 40 MG/0.4 ML DISP.SYRIN SQ SCH (10:26)
[2022-12-08] MEDS: metoPROLOL SUCCINATE 25 MG TAB.SR.24H (FP) PO SCH ×2 (10:26→22:13)
[2022-12-08] MEDS: CLOPIDOGREL BISULFATE 75 MG TABLET (FP) PO SCH (10:26)
[2022-12-08] MEDS: FAMOTIDINE 20 MG TABLET PO SCH ×2 (10:26→22:13)
[2022-12-08] MEDS: LACOSAMIDE 50 MG TABLET PO SCH ×2 (10:26→22:13)
[2022-12-08] MEDS: ATORVASTATIN CA 10 MG TABLET (FP) PO SCH (22:13)
[2022-12-08] MEDS: MELATONIN 5 MG TABLETS PO PRN (22:13)
[2022-12-09] MEDS: lamoTRIgine 100 MG TABLET PO SCH ×2 (06:26→12:28)
[2022-12-09] MEDS: ENOXAPARIN NA (PORCINE) 40 MG/0.4 ML DISP.SYRIN SQ SCH (10:21)
[2022-12-09] MEDS: CLOPIDOGREL BISULFATE 75 MG TABLET (FP) PO SCH (10:22)
[2022-12-09] MEDS: metoPROLOL SUCCINATE 25 MG TAB.SR.24H (FP) PO SCH (10:22)
[2022-12-09] MEDS: FAMOTIDINE 20 MG TABLET PO SCH (10:22)
[2022-12-09] MEDS: LACOSAMIDE 50 MG TABLET PO SCH (10:23)
[2022-12-09 13:49] VITALS: BP 105/66; PULSE 72; RESP 18; TEMP 98
== END 2022-12-09 14:15 | disposition home health service (06) | DRG 167 ==
LOC: JER 13:17 → JERFT 13:17 → JERBED 19:07 → J7W 23:58 → JICU 11-27 19:43 → J6S 12-03 01:56
PROVIDERS: ADMIT Internal Medicine; ATTEND Internal Medicine
PROC: 0W9B40Z Drainage of Left Pleural Cavity with Drainage Device, Percutaneous Endoscopic Approach (ICD-10-PCS; principal; 2022-11-27 14:00)
PROC: 0CJS8ZZ Inspection of Larynx, Via Natural or Artificial Opening Endoscopic (ICD-10-PCS; 2022-12-04)
DX: S27.1XXA Traumatic hemothorax, initial encounter (principal); I69.354 Hemiplegia and hemiparesis following cerebral infarction affecting left non-dominant side; S22.42XK Multiple fractures of ribs, left side, subsequent encounter for fracture with nonunion; J98.11 Atelectasis; J90 Pleural effusion, not elsewhere classified; W19.XXXA Unspecified fall, initial encounter; Y93.9 Activity, unspecified; Y92.89 Other specified places as the place of occurrence of the external cause; Y99.9 Unspecified external cause status; E78.5 Hyperlipidemia, unspecified; E11.9 Type 2 diabetes mellitus without complications; I11.9 Hypertensive heart disease without heart failure; I25.10 Atherosclerotic heart disease of native coronary artery without angina pectoris
CPT/HCPCS: 36415; 70450-TC; 71045-TC-FY; 71046-TC-FY; 71250-TC; 73560-TC-LT-FY; 80048; 80053; 80076; 82140; 82550; 83036; 83615; 83735; 84100; 84157; 85025; 85027; 85610; 85730; 86850; 86900; 86901; 87070; 87075; 87102; 87205; 87210; 87635; 88108; 88305-TC; 88341-TC; 93005; 93010; 93971-TC; 94010; 94760; 97116-GP; 97161-GP; 99285-25

== ENCOUNTER 2022-12-12 12:22 | Observation (INO) | payer BC ==
[2022-12-12 16:19] LABS: EPI CELLS 9 /uL (0-25.1); HYALINE CASTS 0 /uL (0-3.1); URINE APPEARANCE CLOUDY; URINE BACTERIA 17 /uL (0-1359); URINE BILIRUBIN NEGATIVE (NEGATIVE); URINE COLOR YELLOW; URINE GLUCOSE (UA) NEGATIVE (NEGATIVE); URINE KETONE NEGATIVE (NEGATIVE); URINE LEUK ESTERASE 1+ (NEGATIVE); URINE NITRITE NEGATIVE (NEGATIVE); URINE PROTEIN NEGATIVE (NEGATIVE); URINE RBC 46 /uL (0-23.9); URINE UROBILINOGEN 0.2 mg/dL (0.2-1.0); URINE WBC 56 /uL (0-25.8)
[2022-12-12 16:57] LABS: POTASSIUM 4.3 mmol/L (3.5-5.1)
[2022-12-12 16:59] LABS: CALCIUM 9.3 mg/dL (8.5-10.1)
[2022-12-12 17:00] LABS: BLOOD UREA NITROGEN 14.5 mg/dL (7-18)
[2022-12-12 17:04] LABS: BILIRUBIN,TOTAL 0.2 mg/dL (0.2-1); TOT PROT 6.8 g/dl (6.4-8.2)
[2022-12-12 17:12] LABS: ALBUMIN 3.3 g/dl (3.4-5.0)
[2022-12-12] MEDS ORDERED: LORazepam 2 MG/ML SDV VIAL IVPUSH STA (18:15)
[2022-12-12 18:27] LABS: BASO % 0.5 % (0-2.0); EOS % 1.1 % (0-4.5); HEMATOCRIT 38.9 % (35.4-49); HEMOGLOBIN 12.5 GM/dL (11.7-16.9); MCH 29.1 pg (25.7-33.7); MCHC 32.2 g/dl (32.0-35.9); MEAN CELL VOLUME 90.5 fl (80-96); MEAN PLT VOLUME 8.8 fl (7.5-11.1); MONO % 2.8 % (3.8-10.2); NEUT % 90.6 % (42.8-82.8); PLATELET COUNT 381 10^3/uL (134-434); RDW 13.5 % (11.9-15.9); WHITE BLOOD COUNT 12.4 K/mm3 (4.0-10.0)
[2022-12-12] MEDS ORDERED: ACETAMINOPHEN 325 MG TABLET (FP) PO PRN (19:15)
[2022-12-12] MEDS ORDERED: TIZANIDINE HCL 2 MG TABLET PO PRN ×2 (19:15→19:24)
[2022-12-12] MEDS ORDERED: MELATONIN 5 MG TABLETS PO PRN (19:15)
[2022-12-12] MEDS: LACOSAMIDE 50 MG TABLET PO SCH (22:46)
[2022-12-12] MEDS: metoPROLOL SUCCINATE 25 MG TAB.SR.24H (FP) PO SCH (22:46)
[2022-12-12] MEDS: ATORVASTATIN CA 10 MG TABLET (FP) PO SCH (22:46)
[2022-12-12] MEDS: GABAPENTIN 300 MG CAPSULE PO SCH (22:47)
[2022-12-12] MEDS: FAMOTIDINE 20 MG TABLET PO SCH (22:47)
[2022-12-12] MEDS: lamoTRIgine 100 MG TABLET PO SCH (22:47)
[2022-12-13] MEDS: GABAPENTIN 300 MG CAPSULE PO SCH ×3 (06:21→23:00)
[2022-12-13] MEDS: lamoTRIgine 100 MG TABLET PO SCH ×3 (06:21→21:45)
[2022-12-13 07:08] VITALS: BMI 24.1
[2022-12-13] MEDS: LACOSAMIDE 50 MG TABLET PO SCH ×2 (09:30→23:00)
[2022-12-13] MEDS: metoPROLOL SUCCINATE 25 MG TAB.SR.24H (FP) PO SCH ×2 (09:31→23:00)
[2022-12-13] MEDS: FAMOTIDINE 20 MG TABLET PO SCH ×2 (09:31→23:00)
[2022-12-13] MEDS: CLOPIDOGREL BISULFATE 75 MG TABLET (FP) PO SCH (09:31)
[2022-12-13] MEDS: ATORVASTATIN CA 10 MG TABLET (FP) PO SCH (23:00)
[2022-12-14] MEDS: GABAPENTIN 300 MG CAPSULE PO SCH ×3 (06:29→22:51)
[2022-12-14] MEDS: lamoTRIgine 100 MG TABLET PO SCH ×4 (06:30→22:52)
[2022-12-14 08:31] LABS: BASO % 0.3 % (0-2.0); EOS % 8.2 % (0-4.5); HEMATOCRIT 38.9 % (35.4-49); HEMOGLOBIN 12.4 GM/dL (11.7-16.9); LYMPH % 20.8 % (8-40); MCH 29.2 pg (25.7-33.7); MCHC 31.9 g/dl (32.0-35.9); MEAN CELL VOLUME 91.6 fl (80-96); MONO % 5.6 % (3.8-10.2); NEUT % 65.1 % (42.8-82.8); PLATELET COUNT 377 10^3/uL (134-434); RBC 4.24 M/mm3 (4.00-5.60); RDW 13.2 % (11.9-15.9); WHITE BLOOD COUNT 7.6 K/mm3 (4.0-10.0)
[2022-12-14 08:47] LABS: POTASSIUM 4.6 mmol/L (3.5-5.1)
[2022-12-14 08:55] LABS: ALBUMIN 3.2 g/dl (3.4-5.0); BLOOD UREA NITROGEN 13.5 mg/dL (7-18); CALCIUM 9.2 mg/dL (8.5-10.1)
[2022-12-14 08:58] LABS: CREATININE 0.9 mg/dL (0.55-1.3)
[2022-12-14 08:59] LABS: BILIRUBIN,TOTAL 0.5 mg/dL (0.2-1); TOT PROT 6.1 g/dl (6.4-8.2)
[2022-12-14] MEDS: metoPROLOL SUCCINATE 25 MG TAB.SR.24H (FP) PO SCH ×4 (09:12→22:53)
[2022-12-14] MEDS: CLOPIDOGREL BISULFATE 75 MG TABLET (FP) PO SCH ×3 (09:12→14:57)
[2022-12-14] MEDS: FAMOTIDINE 20 MG TABLET PO SCH ×4 (09:12→22:51)
[2022-12-14] MEDS: LACOSAMIDE 50 MG TABLET PO SCH ×4 (09:13→22:51)
[2022-12-14] MEDS ORDERED: LORazepam 2 MG/ML SDV VIAL IM PRN (12:04)
[2022-12-14] MEDS: ATORVASTATIN CA 10 MG TABLET (FP) PO SCH (22:51)
[2022-12-15] MEDS: GABAPENTIN 300 MG CAPSULE PO SCH ×2 (05:45→13:00)
[2022-12-15] MEDS: lamoTRIgine 100 MG TABLET PO SCH ×2 (05:45→11:20)
[2022-12-15] MEDS: LACOSAMIDE 50 MG TABLET PO SCH (10:11)
[2022-12-15] MEDS: FAMOTIDINE 20 MG TABLET PO SCH (10:11)
[2022-12-15] MEDS: CLOPIDOGREL BISULFATE 75 MG TABLET (FP) PO SCH (10:11)
[2022-12-15] MEDS: metoPROLOL SUCCINATE 25 MG TAB.SR.24H (FP) PO SCH (10:11)
[2022-12-15 10:48] VITALS: RESP 18
[2022-12-15 17:31] VITALS: BP 120/71; PULSE 68; TEMP 98.4
== END 2022-12-15 19:11 | disposition home health service (06) ==
LOC: JER 12:22 → JERBED 17:58 → J7W 20:24
PROVIDERS: ADMIT Internal Medicine; ATTEND Internal Medicine
PROC: 3E023NZ Introduction of Analgesics, Hypnotics, Sedatives into Muscle, Percutaneous Approach (ICD-10-PCS; principal; 2022-12-12)
DX: R56.9 Unspecified convulsions (principal); I25.10 Atherosclerotic heart disease of native coronary artery without angina pectoris; I11.9 Hypertensive heart disease without heart failure; E78.5 Hyperlipidemia, unspecified; E11.9 Type 2 diabetes mellitus without complications; E05.00 Thyrotoxicosis with diffuse goiter without thyrotoxic crisis or storm
CPT/HCPCS: 0241U-QW; 36415; 70450-TC; 71045-TC-FY; 71250-TC; 80053; 80175; 81003; 82962; 85025; 87040; 87086; 93005; 93010; 97116-GP; 97161-GP; 99285-25; G0378; G0480

== ENCOUNTER 2022-12-17 10:25 | Observation (INO) | payer BC ==
[2022-12-17] MEDS ORDERED: SODIUM CHLORIDE 1,000 ML IV SCH (10:45)
[2022-12-17 11:40] LABS: EOS % 9.9 % (0-4.5); HEMATOCRIT 37.4 % (35.4-49); HEMOGLOBIN 12.4 GM/dL (11.7-16.9); LYMPH % 22.9 % (8-40); MCH 29.8 pg (25.7-33.7); MCHC 33.1 g/dl (32.0-35.9); MEAN PLT VOLUME 8.9 fl (7.5-11.1); MONO % 5.2 % (3.8-10.2); PLATELET COUNT 316 10^3/uL (134-434); RBC 4.16 M/mm3 (4.00-5.60); RDW 13.5 % (11.9-15.9); WHITE BLOOD COUNT 6.6 K/mm3 (4.0-10.0)
[2022-12-17 11:46] LABS: INR 1.05 (0.83-1.09); PROTHROMBIN TIME (PATIENT) 12.2 SEC (9.7-13.0)
[2022-12-17 11:49] LABS: ACTIVATED PTT 29.8 SECONDS (25.2-36.5)
[2022-12-17 12:00] LABS: POTASSIUM 5.4 mmol/L (3.5-5.1)
[2022-12-17 12:02] LABS: BLOOD UREA NITROGEN 14.3 mg/dL (7-18); CALCIUM 9.4 mg/dL (8.5-10.1)
[2022-12-17 12:03] LABS: ALBUMIN 3.3 g/dl (3.4-5.0)
[2022-12-17 12:06] LABS: CREATININE 0.9 mg/dL (0.55-1.3)
[2022-12-17 12:07] LABS: BILIRUBIN,TOTAL 0.4 mg/dL (0.2-1); TOT PROT 6.7 g/dl (6.4-8.2)
[2022-12-17 13:01] LABS: EPI CELLS 5 /uL (0-25.1); HYALINE CASTS 0 /uL (0-3.1); URINE APPEARANCE CLOUDY; URINE BACTERIA 22 /uL (0-1359); URINE BILIRUBIN NEGATIVE (NEGATIVE); URINE COLOR YELLOW; URINE GLUCOSE (UA) NEGATIVE (NEGATIVE); URINE KETONE NEGATIVE (NEGATIVE); URINE LEUK ESTERASE TRACE (NEGATIVE); URINE NITRITE NEGATIVE (NEGATIVE); URINE PROTEIN NEGATIVE (NEGATIVE); URINE RBC 28 /uL (0-23.9); URINE UROBILINOGEN 0.2 mg/dL (0.2-1.0); URINE WBC 13 /uL (0-25.8)
[2022-12-17] MEDS ORDERED: levETIRAcetam 500 MG/5 ML INJECTION VIAL IVPB ONE ×2 (13:46→13:50)
[2022-12-17] MEDS ORDERED: ACETAMINOPHEN 325 MG TABLET (FP) PO PRN (14:48)
[2022-12-17] MEDS: INSULIN SLIDING SCALE (NOVOLOG) 1 VIAL SQ SCH (16:12)
[2022-12-17] MEDS: FAMOTIDINE 20 MG TABLET PO SCH (23:33)
[2022-12-17] MEDS: GABAPENTIN 300 MG CAPSULE PO SCH (23:33)
[2022-12-17] MEDS: metoPROLOL SUCCINATE 25 MG TAB.SR.24H (FP) PO SCH (23:34)
[2022-12-17] MEDS: ATORVASTATIN CA 10 MG TABLET (FP) PO SCH (23:34)
[2022-12-17] MEDS: LACOSAMIDE 50 MG TABLET PO SCH (23:34)
[2022-12-17] MEDS: lamoTRIgine 100 MG TABLET PO SCH (23:55)
[2022-12-18] MEDS: INSULIN SLIDING SCALE (NOVOLOG) 1 VIAL SQ SCH ×5 (00:08→21:42)
[2022-12-18] MEDS: GABAPENTIN 300 MG CAPSULE PO SCH ×3 (05:57→21:20)
[2022-12-18] MEDS: lamoTRIgine 100 MG TABLET PO SCH ×3 (06:51→21:18)
[2022-12-18] MEDS: SERTRALINE HCL 50 MG TABLET (FP) PO SCH (09:05)
[2022-12-18] MEDS: CLOPIDOGREL BISULFATE 75 MG TABLET (FP) PO SCH (09:05)
[2022-12-18] MEDS: LACOSAMIDE 50 MG TABLET PO SCH ×2 (09:05→21:19)
[2022-12-18] MEDS: FAMOTIDINE 20 MG TABLET PO SCH ×2 (09:05→21:20)
[2022-12-18] MEDS: metoPROLOL SUCCINATE 25 MG TAB.SR.24H (FP) PO SCH ×2 (09:05→21:19)
[2022-12-18] MEDS: MELATONIN 5 MG TABLETS PO PRN (21:19)
[2022-12-18] MEDS: ATORVASTATIN CA 10 MG TABLET (FP) PO SCH (21:20)
[2022-12-19] MEDS: GABAPENTIN 300 MG CAPSULE PO SCH ×3 (06:14→22:02)
[2022-12-19] MEDS: INSULIN SLIDING SCALE (NOVOLOG) 1 VIAL SQ SCH ×3 (07:30→16:39)
[2022-12-19] MEDS: lamoTRIgine 100 MG TABLET PO SCH ×3 (07:30→21:44)
[2022-12-19] MEDS: SERTRALINE HCL 50 MG TABLET (FP) PO SCH (09:32)
[2022-12-19] MEDS: LACOSAMIDE 50 MG TABLET PO SCH ×2 (09:32→21:44)
[2022-12-19] MEDS: CLOPIDOGREL BISULFATE 75 MG TABLET (FP) PO SCH (09:32)
[2022-12-19] MEDS: metoPROLOL SUCCINATE 25 MG TAB.SR.24H (FP) PO SCH ×2 (09:32→21:45)
[2022-12-19] MEDS: FAMOTIDINE 20 MG TABLET PO SCH ×2 (09:32→21:45)
[2022-12-19] MEDS ORDERED: INSULIN (NOVOLOG) ASPART 100 UNITS/ML 10ML VIAL ONE (16:55)
[2022-12-19] MEDS: ATORVASTATIN CA 10 MG TABLET (FP) PO SCH (21:45)
[2022-12-19] MEDS: MELATONIN 5 MG TABLETS PO PRN (21:45)
[2022-12-20] MEDS: lamoTRIgine 100 MG TABLET PO SCH ×3 (05:56→21:37)
[2022-12-20] MEDS: INSULIN SLIDING SCALE (NOVOLOG) 1 VIAL SQ SCH ×4 (05:57→17:04)
[2022-12-20] MEDS: GABAPENTIN 300 MG CAPSULE PO SCH ×3 (06:14→21:37)
[2022-12-20] MEDS: FAMOTIDINE 20 MG TABLET PO SCH ×2 (09:34→21:40)
[2022-12-20] MEDS: metoPROLOL SUCCINATE 25 MG TAB.SR.24H (FP) PO SCH ×2 (09:34→21:38)
[2022-12-20] MEDS: LACOSAMIDE 50 MG TABLET PO SCH ×2 (09:34→21:36)
[2022-12-20] MEDS: CLOPIDOGREL BISULFATE 75 MG TABLET (FP) PO SCH (09:34)
[2022-12-20] MEDS: SERTRALINE HCL 50 MG TABLET (FP) PO SCH (09:34)
[2022-12-20] MEDS: ATORVASTATIN CA 10 MG TABLET (FP) PO SCH (21:36)
[2022-12-20] MEDS: MELATONIN 5 MG TABLETS PO PRN (21:38)
[2022-12-20 22:25] VITALS: BMI 23.3
[2022-12-21] MEDS: lamoTRIgine 100 MG TABLET PO SCH ×3 (05:52→21:32)
[2022-12-21] MEDS: GABAPENTIN 300 MG CAPSULE PO SCH ×3 (05:53→21:28)
[2022-12-21] MEDS: INSULIN SLIDING SCALE (NOVOLOG) 1 VIAL SQ SCH ×5 (06:05→21:47)
[2022-12-21 09:19] LABS: EOS % 4.3 % (0-4.5); HEMATOCRIT 39.9 % (35.4-49); HEMOGLOBIN 12.9 GM/dL (11.7-16.9); LYMPH % 20.1 % (8-40); MCH 29.3 pg (25.7-33.7); MCHC 32.3 g/dl (32.0-35.9); MEAN CELL VOLUME 90.8 fl (80-96); MEAN PLT VOLUME 9.3 fl (7.5-11.1); MONO % 6.3 % (3.8-10.2); NEUT % 68.3 % (42.8-82.8); PLATELET COUNT 315 10^3/uL (134-434); RDW 13.3 % (11.9-15.9)
[2022-12-21 09:37] LABS: POTASSIUM 4.4 mmol/L (3.5-5.1)
[2022-12-21] MEDS: CLOPIDOGREL BISULFATE 75 MG TABLET (FP) PO SCH (09:38)
[2022-12-21] MEDS: FAMOTIDINE 20 MG TABLET PO SCH ×2 (09:38→21:28)
[2022-12-21] MEDS: LACOSAMIDE 50 MG TABLET PO SCH ×2 (09:38→21:28)
[2022-12-21] MEDS: metoPROLOL SUCCINATE 25 MG TAB.SR.24H (FP) PO SCH ×2 (09:38→21:28)
[2022-12-21] MEDS: SERTRALINE HCL 50 MG TABLET (FP) PO SCH (09:38)
[2022-12-21 09:40] LABS: ALBUMIN 3.4 g/dl (3.4-5.0); BLOOD UREA NITROGEN 15.6 mg/dL (7-18); CALCIUM 9.1 mg/dL (8.5-10.1)
[2022-12-21 09:43] LABS: CREATININE 0.9 mg/dL (0.55-1.3)
[2022-12-21 09:45] LABS: BILIRUBIN,TOTAL 0.4 mg/dL (0.2-1); TOT PROT 6.3 g/dl (6.4-8.2)
[2022-12-21 15:24] VITALS: RESP 18
[2022-12-21] MEDS: ATORVASTATIN CA 10 MG TABLET (FP) PO SCH (21:28)
[2022-12-21] MEDS: MELATONIN 5 MG TABLETS PO PRN (21:30)
[2022-12-22] MEDS: lamoTRIgine 100 MG TABLET PO SCH ×3 (05:46→21:07)
[2022-12-22] MEDS: GABAPENTIN 300 MG CAPSULE PO SCH ×3 (05:46→21:07)
[2022-12-22] MEDS: INSULIN SLIDING SCALE (NOVOLOG) 1 VIAL SQ SCH ×4 (06:03→21:07)
[2022-12-22] MEDS: FAMOTIDINE 20 MG TABLET PO SCH ×2 (12:31→21:07)
[2022-12-22] MEDS: metoPROLOL SUCCINATE 25 MG TAB.SR.24H (FP) PO SCH ×2 (12:32→21:07)
[2022-12-22] MEDS: LACOSAMIDE 50 MG TABLET PO SCH ×2 (12:32→21:07)
[2022-12-22] MEDS: CLOPIDOGREL BISULFATE 75 MG TABLET (FP) PO SCH (12:32)
[2022-12-22] MEDS: SERTRALINE HCL 50 MG TABLET (FP) PO SCH (12:33)
[2022-12-22] MEDS ORDERED: LORazepam 2 MG/ML SDV VIAL IVPUSH ONE (17:54)
[2022-12-22] MEDS: ATORVASTATIN CA 10 MG TABLET (FP) PO SCH (21:07)
[2022-12-23] MEDS: lamoTRIgine 100 MG TABLET PO SCH ×4 (06:06→21:08)
[2022-12-23] MEDS: GABAPENTIN 300 MG CAPSULE PO SCH ×3 (06:06→21:09)
[2022-12-23] MEDS: INSULIN SLIDING SCALE (NOVOLOG) 1 VIAL SQ SCH ×5 (06:06→22:00)
[2022-12-23] MEDS: LORazepam 2 MG/ML SDV VIAL IVPUSH PRN (07:36)
[2022-12-23] MEDS: FAMOTIDINE 20 MG TABLET PO SCH ×2 (11:40→21:09)
[2022-12-23] MEDS: LACOSAMIDE 50 MG TABLET PO SCH ×3 (11:41→21:10)
[2022-12-23] MEDS: SERTRALINE HCL 50 MG TABLET (FP) PO SCH ×2 (11:41→15:00)
[2022-12-23] MEDS: metoPROLOL SUCCINATE 25 MG TAB.SR.24H (FP) PO SCH ×2 (11:41→21:09)
[2022-12-23] MEDS: CLOPIDOGREL BISULFATE 75 MG TABLET (FP) PO SCH ×3 (11:41→15:04)
[2022-12-23] MEDS ORDERED: INSULIN (NOVOLOG) ASPART 100 UNITS/ML 10ML VIAL ONE (21:07)
[2022-12-23] MEDS: ATORVASTATIN CA 10 MG TABLET (FP) PO SCH (21:08)
[2022-12-23] MEDS: MELATONIN 5 MG TABLETS PO PRN (21:10)
[2022-12-24] MEDS: INSULIN SLIDING SCALE (NOVOLOG) 1 VIAL SQ SCH ×2 (06:15→12:11)
[2022-12-24] MEDS: GABAPENTIN 300 MG CAPSULE PO SCH ×2 (06:52→13:46)
[2022-12-24] MEDS: lamoTRIgine 100 MG TABLET PO SCH ×2 (06:52→12:08)
[2022-12-24] MEDS: LACOSAMIDE 50 MG TABLET PO SCH ×2 (09:15→09:23)
[2022-12-24] MEDS: metoPROLOL SUCCINATE 25 MG TAB.SR.24H (FP) PO SCH ×2 (09:15→09:23)
[2022-12-24] MEDS: SERTRALINE HCL 50 MG TABLET (FP) PO SCH ×2 (09:15→09:23)
[2022-12-24] MEDS: FAMOTIDINE 20 MG TABLET PO SCH ×2 (09:15→09:22)
[2022-12-24] MEDS: CLOPIDOGREL BISULFATE 75 MG TABLET (FP) PO SCH (09:15)
[2022-12-24 11:01] VITALS: BP 132/65; PULSE 66; TEMP 98.6
[2022-12-24] MEDS: LORazepam 2 MG/ML SDV VIAL IVPUSH PRN (12:05)
== END 2022-12-24 14:24 ==
LOC: JER 10:25 → JERBED 14:02 → J4W 15:36
PROVIDERS: ADMIT Specialist; ATTEND Specialist
PROC: 3E033GC Introduction of Other Therapeutic Substance into Peripheral Vein, Percutaneous Approach (ICD-10-PCS; principal; 2022-12-17)
PROC: 3E033NZ Introduction of Analgesics, Hypnotics, Sedatives into Peripheral Vein, Percutaneous Approach (ICD-10-PCS; 2022-12-17)
DX: R56.9 Unspecified convulsions (principal); I25.10 Atherosclerotic heart disease of native coronary artery without angina pectoris; I11.9 Hypertensive heart disease without heart failure; E05.00 Thyrotoxicosis with diffuse goiter without thyrotoxic crisis or storm; Z86.73 Personal history of transient ischemic attack (TIA), and cerebral infarction without residual deficits; E78.5 Hyperlipidemia, unspecified
CPT/HCPCS: 36415; 70450-TC; 80053; 80061; 81003; 82550; 82962; 83036; 84484; 85025; 85610; 85730; 86850; 86900; 86901; 87086; 93005; 93010; 97116-GP; 97162-GP; 99285-25; G0378

== ENCOUNTER 2022-12-31 17:23 | Emergency (ER) | payer BC ==
[2022-12-31 18:07] VITALS: BMI 24.5
[2022-12-31] MEDS ORDERED: LORazepam 2 MG/ML SDV VIAL IM ONE ×2 (18:54→19:38)
[2022-12-31] MEDS ORDERED: SODIUM CHLORIDE 0.9% 1000 ML INFUS.BAG IV ONE (18:54)
[2022-12-31] MEDS ORDERED: HALOPERIDOL LACTATE 5 MG/ML IM ONE (20:19)
[2022-12-31 20:47] LABS: BASO % 0.4 % (0-2.0); EOS % 4.4 % (0-4.5); HEMATOCRIT 36.5 % (35.4-49); HEMOGLOBIN 11.9 GM/dL (11.7-16.9); LYMPH % 22.4 % (8-40); MCH 29.1 pg (25.7-33.7); MCHC 32.5 g/dl (32.0-35.9); MEAN CELL VOLUME 89.5 fl (80-96); MONO % 6.5 % (3.8-10.2); NEUT % 66.3 % (42.8-82.8); RBC 4.08 M/mm3 (4.00-5.60); RDW 13.9 % (11.9-15.9); WHITE BLOOD COUNT 8.8 K/mm3 (4.0-10.0)
[2022-12-31 20:55] LABS: POTASSIUM 4.2 mmol/L (3.5-5.1)
[2022-12-31 20:58] LABS: ALBUMIN 3.2 g/dl (3.4-5.0); MAGNESIUM 2.1 mg/dL (1.8-2.4)
[2022-12-31 21:02] LABS: BILIRUBIN,TOTAL 0.6 mg/dL (0.2-1); TOT PROT 6.2 g/dl (6.4-8.2)
[2022-12-31] MEDS ORDERED: LACOSAMIDE 100 MG TABLET PO ONE (21:08)
[2022-12-31 21:19] LABS: MEAN PLT VOLUME 9.1 fl (7.5-11.1)
[2022-12-31 21:20] LABS: PLATELET COUNT 208 10^3/uL (134-434)
[2022-12-31] MEDS ORDERED: lamoTRIgine 100 MG TABLET ONE (21:28)
[2022-12-31] MEDS ORDERED: LACOSAMIDE 50 MG TABLET PO ONE (21:28)
[2022-12-31 22:53] VITALS: BP 161/75; PULSE 76; RESP 16
== END 2022-12-31 23:11 | disposition short-term general hospital (02) ==
LOC: JER 17:23
PROC: 3E023GC Introduction of Other Therapeutic Substance into Muscle, Percutaneous Approach (ICD-10-PCS; principal; 2022-12-31)
DX: R41.82 Altered mental status, unspecified (principal); G40.909 Epilepsy, unspecified, not intractable, without status epilepticus; Z20.822 Contact with and (suspected) exposure to COVID-19
CPT/HCPCS: 36415; 71045-TC-FY; 80053; 80175; 83735; 85025; 87635; 99285-25; G0480

== ENCOUNTER 2023-01-11 17:38 | Emergency (ER) | payer BC ==
[2023-01-11 18:04] VITALS: BMI 24.2
[2023-01-11] MEDS ORDERED: lamoTRIgine 100 MG TABLET PO ONE (19:03)
[2023-01-11 19:06] LABS: BASO % 0.4 % (0-2.0); EOS % 0.3 % (0-4.5); HEMOGLOBIN 13.2 GM/dL (11.7-16.9); LYMPH % 5.3 % (8-40); MCH 29.2 pg (25.7-33.7); MCHC 32.1 g/dl (32.0-35.9); MEAN CELL VOLUME 91.1 fl (80-96); MEAN PLT VOLUME 9.7 fl (7.5-11.1); PLATELET COUNT 279 10^3/uL (134-434); RDW 14.1 % (11.9-15.9); WHITE BLOOD COUNT 10.6 K/mm3 (4.0-10.0)
[2023-01-11] MEDS ORDERED: lamoTRIgine 100 MG TABLET ONE (19:16)
[2023-01-11] MEDS ORDERED: LACOSAMIDE 100 MG TABLET PO ONE (19:16)
[2023-01-11] MEDS ORDERED: Lacosamide 50 MG/5 ML ORAL SOLUTION UNIT CUPS ONE (19:16)
[2023-01-11 19:25] LABS: POTASSIUM 4.3 mmol/L (3.5-5.1)
[2023-01-11 19:28] LABS: CALCIUM 8.9 mg/dL (8.5-10.1)
[2023-01-11 19:29] LABS: ALBUMIN 3.4 g/dl (3.4-5.0); BLOOD UREA NITROGEN 23.2 mg/dL (7-18); MAGNESIUM 2.1 mg/dL (1.8-2.4)
[2023-01-11 19:32] LABS: CREATININE 0.9 mg/dL (0.55-1.3); PHOSPHOROUS 3.5 mg/dL (2.5-4.9)
[2023-01-11 19:33] LABS: BILIRUBIN,TOTAL 0.4 mg/dL (0.2-1); TOT PROT 6.4 g/dl (6.4-8.2)
[2023-01-11 19:45] LABS: EPI CELLS 1 /uL (0-25.1); HYALINE CASTS 0 /uL (0-3.1); URINE APPEARANCE CLEAR; URINE BACTERIA 1035 /uL (0-1359); URINE BILIRUBIN NEGATIVE (NEGATIVE); URINE COLOR YELLOW; URINE GLUCOSE (UA) NEGATIVE (NEGATIVE); URINE KETONE 1+ (NEGATIVE); URINE LEUK ESTERASE 1+ (NEGATIVE); URINE NITRITE NEGATIVE (NEGATIVE); URINE PROTEIN TRACE (NEGATIVE); URINE UROBILINOGEN 0.2 mg/dL (0.2-1.0); URINE WBC 138 /uL (0-25.8)
[2023-01-11 19:45] LABS: ANISOCYTOSIS 2+; MACROCYTOSIS 0; TARGET CELLS 1+; TEAR DROP CELLS 1+
[2023-01-11 20:08] LABS: URINE RBC NONE SEEN /uL (0-23.9)
[2023-01-11] MEDS ORDERED: CEFTRIAXONE 1 GM/50 ML BAG ONE (20:49)
[2023-01-12 01:00] VITALS: RESP 16
[2023-01-12 01:01] VITALS: PULSE 89; TEMP 97.9
[2023-01-12 01:12] VITALS: BP 121/64
== END 2023-01-12 01:25 | disposition home or self-care (01) ==
LOC: JER 17:38
DX: G40.909 Epilepsy, unspecified, not intractable, without status epilepticus (principal)
CPT/HCPCS: 36415; 70450-TC; 71045-TC-FY; 80053; 80175; 81003; 83735; 84100; 85025; 87086; 87186; 99285-25; G0480

== ENCOUNTER 2023-02-05 08:56 | Inpatient (IN) | payer BC ==
[2023-02-05] MEDS ORDERED: MIDAZOLAM HCL 2 MG/2 ML SINGLE DOSE VIAL ONE (10:25)
[2023-02-05] MEDS ORDERED: MIDAZOLAM HCL 2 MG/2 ML SINGLE DOSE VIAL IM ONE (10:26)
[2023-02-05] MEDS ORDERED: SODIUM CHLORIDE 0.9% 500 ML INFUS.BAG IV ONE (10:30)
[2023-02-05 11:02] LABS: BASO % 0.9 % (0-2.0); EOS % 5.8 % (0-4.5); HEMATOCRIT 36.1 % (35.4-49); HEMOGLOBIN 11.5 GM/dL (11.7-16.9); LYMPH % 19.6 % (8-40); MCH 29.1 pg (25.7-33.7); MCHC 31.9 g/dl (32.0-35.9); MEAN CELL VOLUME 91.4 fl (80-96); MEAN PLT VOLUME 9.5 fl (7.5-11.1); MONO % 5.1 % (3.8-10.2); NEUT % 68.6 % (42.8-82.8); PLATELET COUNT 221 10^3/uL (134-434); RBC 3.95 M/mm3 (4.00-5.60); RDW 15.3 % (11.9-15.9); WHITE BLOOD COUNT 5.5 K/mm3 (4.0-10.0)
[2023-02-05 11:22] LABS: ALBUMIN 3.2 g/dl (3.4-5.0); BLOOD UREA NITROGEN 11.8 mg/dL (7-18); CALCIUM 8.1 mg/dL (8.5-10.1)
[2023-02-05 11:23] LABS: MAGNESIUM 2.1 mg/dL (1.8-2.4)
[2023-02-05 11:25] LABS: CREATININE 0.8 mg/dL (0.55-1.3)
[2023-02-05 11:27] LABS: BILIRUBIN,TOTAL 0.2 mg/dL (0.2-1); TOT PROT 5.9 g/dl (6.4-8.2)
[2023-02-05] MEDS ORDERED: ACETAMINOPHEN 325 MG TABLET (FP) PO PRN (13:02)
[2023-02-05] MEDS ORDERED: MELATONIN 5 MG TABLETS PO PRN (13:02)
[2023-02-05 13:38] LABS: EPI CELLS 1 /uL (0-25.1); HYALINE CASTS 0 /uL (0-3.1); PH,URINE 7.5 (5.0-8.0); URINE APPEARANCE CLEAR; URINE BACTERIA 477 /uL (0-1359); URINE BILIRUBIN NEGATIVE (NEGATIVE); URINE COLOR YELLOW; URINE GLUCOSE (UA) NEGATIVE (NEGATIVE); URINE KETONE NEGATIVE (NEGATIVE); URINE LEUK ESTERASE 2+ (NEGATIVE); URINE NITRITE NEGATIVE (NEGATIVE); URINE PROTEIN NEGATIVE (NEGATIVE); URINE RBC 8 /uL (0-23.9); URINE UROBILINOGEN 0.2 mg/dL (0.2-1.0); URINE WBC 116 /uL (0-25.8)
[2023-02-05] MEDS ORDERED: CEFTRIAXONE 1 GM/50 ML BAG ONE (19:04)
[2023-02-05] MEDS ORDERED: GABAPENTIN 300 MG CAPSULE ONE (19:04)
[2023-02-05] MEDS: CEFTRIAXONE 1 GM in DEXTROSE 5%-WATER - 50 ML IVPB SCH (19:13)
[2023-02-05] MEDS: GABAPENTIN 300 MG CAPSULE PO SCH ×2 (19:13→23:12)
[2023-02-05] MEDS ORDERED: LACOSAMIDE 50 MG TABLET PO SCH (22:00)
[2023-02-05] MEDS: FAMOTIDINE 20 MG TABLET PO SCH (23:10)
[2023-02-05] MEDS: ATORVASTATIN CA 20 MG TABLET (FP) PO SCH (23:11)
[2023-02-05] MEDS: lamoTRIgine 100 MG TABLET PO SCH (23:12)
[2023-02-05] MEDS: OLANZapine 5 MG TABLET PO SCH (23:12)
[2023-02-06] MEDS: levETIRAcetam 500 MG TABLET (FP) PO SCH ×3 (00:38→22:04)
[2023-02-06] MEDS: metoPROLOL SUCCINATE 25 MG TAB.SR.24H (FP) PO SCH ×3 (00:39→21:36)
[2023-02-06 02:16] VITALS: BMI 21.9
[2023-02-06] MEDS: GABAPENTIN 300 MG CAPSULE PO SCH ×4 (05:47→22:04)
[2023-02-06] MEDS: lamoTRIgine 100 MG TABLET PO SCH ×4 (05:48→22:03)
[2023-02-06] MEDS: CLOPIDOGREL BISULFATE 75 MG TABLET (FP) PO SCH (09:59)
[2023-02-06] MEDS: SERTRALINE HCL 50 MG TABLET (FP) PO SCH (09:59)
[2023-02-06] MEDS: FAMOTIDINE 20 MG TABLET PO SCH ×2 (09:59→22:02)
[2023-02-06] MEDS: CEFTRIAXONE 1 GM in DEXTROSE 5%-WATER - 50 ML IVPB SCH (09:59)
[2023-02-06] MEDS: LACOSAMIDE 200 MG TABLET PO SCH ×2 (10:48→22:04)
[2023-02-06] MEDS: AMOXICILLIN 500 MG CAPSULE (FP) PO SCH ×2 (18:03→22:07)
[2023-02-06] MEDS ORDERED: SODIUM CHLORIDE 1,000 ML IV STA (20:21)
[2023-02-06] MEDS ORDERED: SODIUM CHLORIDE 0.9% 500 ML INFUS.BAG IV PRN (22:01)
[2023-02-06] MEDS: ATORVASTATIN CA 20 MG TABLET (FP) PO SCH (22:02)
[2023-02-06] MEDS: OLANZapine 5 MG TABLET PO SCH (22:04)
[2023-02-07] MEDS: lamoTRIgine 100 MG TABLET PO SCH ×3 (06:17→22:04)
[2023-02-07] MEDS: GABAPENTIN 300 MG CAPSULE PO SCH ×3 (06:17→22:13)
[2023-02-07] MEDS: AMOXICILLIN 500 MG CAPSULE (FP) PO SCH ×3 (06:17→22:24)
[2023-02-07 10:23] LABS: BASO % 0.8 % (0-2.0); EOS % 5.1 % (0-4.5); HEMATOCRIT 39.1 % (35.4-49); HEMOGLOBIN 13.1 GM/dL (11.7-16.9); LYMPH % 28.8 % (8-40); MCHC 33.4 g/dl (32.0-35.9); MEAN CELL VOLUME 89.8 fl (80-96); MEAN PLT VOLUME 9.9 fl (7.5-11.1); MONO % 6.5 % (3.8-10.2); NEUT % 58.8 % (42.8-82.8); RBC 4.36 M/mm3 (4.00-5.60); RDW 15.7 % (11.9-15.9); WHITE BLOOD COUNT 6.5 K/mm3 (4.0-10.0)
[2023-02-07 10:37] LABS: POTASSIUM 4.3 mmol/L (3.5-5.1)
[2023-02-07] MEDS: FAMOTIDINE 20 MG TABLET PO SCH ×2 (10:38→22:13)
[2023-02-07] MEDS: levETIRAcetam 500 MG TABLET (FP) PO SCH ×2 (10:38→22:07)
[2023-02-07] MEDS: CLOPIDOGREL BISULFATE 75 MG TABLET (FP) PO SCH (10:39)
[2023-02-07] MEDS: metoPROLOL SUCCINATE 25 MG TAB.SR.24H (FP) PO SCH ×2 (10:41→22:13)
[2023-02-07] MEDS: LACOSAMIDE 200 MG TABLET PO SCH ×2 (10:41→22:10)
[2023-02-07] MEDS: SERTRALINE HCL 50 MG TABLET (FP) PO SCH (10:42)
[2023-02-07 10:43] LABS: CALCIUM 8.6 mg/dL (8.5-10.1)
[2023-02-07 10:45] LABS: CREATININE 0.7 mg/dL (0.55-1.3)
[2023-02-07 10:46] LABS: BILIRUBIN,TOTAL 0.6 mg/dL (0.2-1)
[2023-02-07 10:47] LABS: BLOOD UREA NITROGEN 8.8 mg/dL (7-18); TOT PROT 5.7 g/dl (6.4-8.2)
[2023-02-07 11:46] LABS: PLATELET COUNT 203 10^3/uL (134-434)
[2023-02-07] MEDS: ATORVASTATIN CA 20 MG TABLET (FP) PO SCH (22:13)
[2023-02-07] MEDS: OLANZapine 5 MG TABLET PO SCH (22:13)
[2023-02-07] MEDS ORDERED: SODIUM CHLORIDE 1,000 ML IV SCH (22:45)
[2023-02-08] MEDS: GABAPENTIN 300 MG CAPSULE PO SCH ×3 (05:59→21:57)
[2023-02-08] MEDS: lamoTRIgine 100 MG TABLET PO SCH ×3 (05:59→21:37)
[2023-02-08] MEDS: AMOXICILLIN 500 MG CAPSULE (FP) PO SCH ×3 (06:00→21:56)
[2023-02-08] MEDS: FAMOTIDINE 20 MG TABLET PO SCH ×2 (10:43→21:56)
[2023-02-08] MEDS: levETIRAcetam 500 MG TABLET (FP) PO SCH ×2 (10:43→21:37)
[2023-02-08] MEDS: CLOPIDOGREL BISULFATE 75 MG TABLET (FP) PO SCH (10:43)
[2023-02-08] MEDS: metoPROLOL SUCCINATE 25 MG TAB.SR.24H (FP) PO SCH ×3 (10:43→21:57)
[2023-02-08] MEDS: SERTRALINE HCL 50 MG TABLET (FP) PO SCH (10:48)
[2023-02-08] MEDS: LACOSAMIDE 200 MG TABLET PO SCH ×2 (10:48→21:38)
[2023-02-08] MEDS: OLANZapine 5 MG TABLET PO SCH (21:37)
[2023-02-08] MEDS: ATORVASTATIN CA 20 MG TABLET (FP) PO SCH (21:56)
[2023-02-09] MEDS: lamoTRIgine 100 MG TABLET PO SCH ×3 (06:43→15:11)
[2023-02-09] MEDS: GABAPENTIN 300 MG CAPSULE PO SCH ×3 (06:43→15:11)
[2023-02-09] MEDS: AMOXICILLIN 500 MG CAPSULE (FP) PO SCH ×2 (06:43→13:58)
[2023-02-09 10:20] LABS: EOS % 2.7 % (0-4.5); HEMATOCRIT 33.9 % (35.4-49); HEMOGLOBIN 11.4 GM/dL (11.7-16.9); LYMPH % 21.3 % (8-40); MCH 29.9 pg (25.7-33.7); MCHC 33.6 g/dl (32.0-35.9); MEAN CELL VOLUME 89.1 fl (80-96); MEAN PLT VOLUME 9.1 fl (7.5-11.1); MONO % 5.9 % (3.8-10.2); NEUT % 69.1 % (42.8-82.8); PLATELET COUNT 233 10^3/uL (134-434); RBC 3.81 M/mm3 (4.00-5.60); RDW 15.8 % (11.9-15.9); WHITE BLOOD COUNT 7.6 K/mm3 (4.0-10.0)
[2023-02-09] MEDS: levETIRAcetam 500 MG TABLET (FP) PO SCH (10:42)
[2023-02-09] MEDS: CLOPIDOGREL BISULFATE 75 MG TABLET (FP) PO SCH (10:42)
[2023-02-09] MEDS: SERTRALINE HCL 50 MG TABLET (FP) PO SCH (10:43)
[2023-02-09] MEDS: FAMOTIDINE 20 MG TABLET PO SCH (10:43)
[2023-02-09] MEDS: LACOSAMIDE 200 MG TABLET PO SCH (10:43)
[2023-02-09] MEDS: metoPROLOL SUCCINATE 25 MG TAB.SR.24H (FP) PO SCH (10:43)
[2023-02-09 10:44] LABS: BILIRUBIN,TOTAL 0.6 mg/dL (0.2-1); BLOOD UREA NITROGEN 11.1 mg/dL (7-18); CALCIUM 8.2 mg/dL (8.5-10.1); CREATININE 0.7 mg/dL (0.55-1.3); POTASSIUM 3.7 mmol/L (3.5-5.1); TOT PROT 5.8 g/dl (6.4-8.2)
[2023-02-09] MEDS: LORazepam 2 MG/ML SDV VIAL IM PRN ×2 (11:30→22:52)
[2023-02-10] MEDS: levETIRAcetam 500 MG TABLET (FP) PO SCH ×3 (00:02→22:12)
[2023-02-10] MEDS: AMOXICILLIN 500 MG CAPSULE (FP) PO SCH ×5 (00:02→22:12)
[2023-02-10] MEDS: lamoTRIgine 100 MG TABLET PO SCH ×4 (00:02→22:13)
[2023-02-10] MEDS: LACOSAMIDE 200 MG TABLET PO SCH ×3 (00:03→22:14)
[2023-02-10] MEDS: GABAPENTIN 300 MG CAPSULE PO SCH ×5 (00:03→22:13)
[2023-02-10] MEDS: metoPROLOL SUCCINATE 25 MG TAB.SR.24H (FP) PO SCH ×4 (00:03→22:16)
[2023-02-10] MEDS: ATORVASTATIN CA 20 MG TABLET (FP) PO SCH (00:03)
[2023-02-10] MEDS: OLANZapine 5 MG TABLET PO SCH ×2 (00:03→22:14)
[2023-02-10] MEDS: FAMOTIDINE 20 MG TABLET PO SCH ×3 (00:03→22:13)
[2023-02-10] MEDS: CLOPIDOGREL BISULFATE 75 MG TABLET (FP) PO SCH (10:25)
[2023-02-10] MEDS: SERTRALINE HCL 50 MG TABLET (FP) PO SCH (10:25)
[2023-02-10] MEDS: AMINO ACIDS/PROTEIN HYDROLYS 30 ML LIQUID.PKT PO SCH (17:42)
[2023-02-10] MEDS: ATORVASTATIN CA 10 MG TABLET (FP) PO SCH (22:13)
[2023-02-11] MEDS: AMOXICILLIN 500 MG CAPSULE (FP) PO SCH ×2 (05:03→14:27)
[2023-02-11] MEDS: GABAPENTIN 300 MG CAPSULE PO SCH ×3 (05:03→22:09)
[2023-02-11] MEDS: lamoTRIgine 100 MG TABLET PO SCH ×3 (05:03→22:38)
[2023-02-11] MEDS: LORazepam 2 MG/ML SDV VIAL IM PRN (08:08)
[2023-02-11] MEDS: LACOSAMIDE 200 MG TABLET PO SCH ×2 (10:27→12:42)
[2023-02-11] MEDS: levETIRAcetam 500 MG TABLET (FP) PO SCH ×3 (10:27→21:48)
[2023-02-11] MEDS: metoPROLOL SUCCINATE 25 MG TAB.SR.24H (FP) PO SCH ×3 (10:27→22:10)
[2023-02-11] MEDS: MULTIVITAMINS (DAILY MVI) TABLET (FP) PO SCH ×2 (10:27→12:42)
[2023-02-11] MEDS: SERTRALINE HCL 50 MG TABLET (FP) PO SCH ×2 (10:27→12:42)
[2023-02-11] MEDS: FAMOTIDINE 20 MG TABLET PO SCH ×3 (10:27→21:48)
[2023-02-11] MEDS: TAMSULOSIN HCL 0.4 MG CAP PO SCH ×2 (10:28→12:42)
[2023-02-11] MEDS: CLOPIDOGREL BISULFATE 75 MG TABLET (FP) PO SCH ×2 (10:28→12:42)
[2023-02-11] MEDS: AMINO ACIDS/PROTEIN HYDROLYS 30 ML LIQUID.PKT PO SCH ×2 (10:28→16:30)
[2023-02-11] MEDS ORDERED: NALOXONE HCL 0.4 MG/ML VIAL ONE (11:02)
[2023-02-11] MEDS ORDERED: DEXTROSE 50%-WATER 25 GM/50 ML DISP.SYRIN ONE (11:02)
[2023-02-11] MEDS ORDERED: FLUMAZENIL 0.5 MG/5 ML VIAL IVPUSH ONE (11:05)
[2023-02-11 11:22] LABS: BASO % 0.7 % (0-2.0); EOS % 6.6 % (0-4.5); HEMATOCRIT 34.3 % (35.4-49); HEMOGLOBIN 11.5 GM/dL (11.7-16.9); LYMPH % 27.6 % (8-40); MCH 29.9 pg (25.7-33.7); MCHC 33.5 g/dl (32.0-35.9); MEAN CELL VOLUME 89.2 fl (80-96); MONO % 6.9 % (3.8-10.2); NEUT % 58.2 % (42.8-82.8); PLATELET COUNT 231 10^3/uL (134-434); RBC 3.85 M/mm3 (4.00-5.60); RDW 15.7 % (11.9-15.9); WHITE BLOOD COUNT 5.9 K/mm3 (4.0-10.0)
[2023-02-11] MEDS ORDERED: SODIUM CHLORIDE 1,000 ML IV STA (11:22)
[2023-02-11] MEDS ORDERED: DEXTROSE 50%-WATER - 25 GM/50 ML VIAL IVPUSH ONE (11:23)
[2023-02-11 11:32] LABS: ALLENS TEST POSITIVE; ARTERIAL BLD GAS O2 SATURATION 99.7 % (95-98); ARTERIAL BLOOD GAS BASE EXCESS 1.3 mmol/L (-2-2); ARTERIAL BLOOD GAS PO2 315.9 mmHg (80-100)
[2023-02-11 12:11] LABS: POTASSIUM 3.9 mmol/L (3.5-5.1)
[2023-02-11 12:28] LABS: BASO % 0.8 % (0-2.0); EOS % 5.3 % (0-4.5); HEMATOCRIT 31.4 % (35.4-49); HEMOGLOBIN 10.5 GM/dL (11.7-16.9); LYMPH % 22.2 % (8-40); MCHC 33.5 g/dl (32.0-35.9); MEAN CELL VOLUME 89.6 fl (80-96); MEAN PLT VOLUME 8.9 fl (7.5-11.1); MONO % 6.9 % (3.8-10.2); NEUT % 64.8 % (42.8-82.8); PLATELET COUNT 203 10^3/uL (134-434); RBC 3.51 M/mm3 (4.00-5.60); RDW 15.5 % (11.9-15.9); WHITE BLOOD COUNT 4.9 K/mm3 (4.0-10.0)
[2023-02-11 12:28] LABS: BLOOD UREA NITROGEN 15.5 mg/dL (7-18)
[2023-02-11 12:29] LABS: CALCIUM 8.6 mg/dL (8.5-10.1)
[2023-02-11 12:31] LABS: CREATININE 0.9 mg/dL (0.55-1.3)
[2023-02-11 12:32] LABS: BILIRUBIN,TOTAL 0.6 mg/dL (0.2-1); TOT PROT 5.8 g/dl (6.4-8.2)
[2023-02-11 12:35] LABS: INR 1.1 (0.83-1.09); PROTHROMBIN TIME (PATIENT) 12.7 SEC (9.7-13.0)
[2023-02-11 12:38] LABS: ACTIVATED PTT 26.7 SECONDS (25.2-36.5)
[2023-02-11 12:52] LABS: CHLORIDE 110 mmol/L (98-107); SODIUM 140 mmol/L (136-145)
[2023-02-11 12:55] LABS: ALBUMIN 2.6 g/dl (3.4-5.0); BLOOD UREA NITROGEN 14.3 mg/dL (7-18); CALCIUM 7.9 mg/dL (8.5-10.1); CO2 27 mmol/L (21-32); GLUCOSE,RANDOM 119 mg/dL (74-106)
[2023-02-11 12:58] LABS: ANION GAP 3 MMOL/L (8-16); CREATININE 0.9 mg/dL (0.55-1.3); POTASSIUM 7.5 mmol/L (3.5-5.1); SGOT/AST 50 U/L (15-37); SGPT/ALT 24 U/L (13-61)
[2023-02-11 12:59] LABS: BILIRUBIN,TOTAL 0.4 mg/dL (0.2-1); TOT PROT 5.6 g/dl (6.4-8.2)
[2023-02-11 13:01] LABS: ALK PHOS 56 U/L (45-117)
[2023-02-11] MEDS ORDERED: SODIUM CHLORIDE 500 ML IV STA (14:06)
[2023-02-11] MEDS: CEFTRIAXONE 1 GM in DEXTROSE 5%-WATER - 50 ML IVPB SCH (14:40)
[2023-02-11 15:25] LABS: POTASSIUM 3.6 mmol/L (3.5-5.1)
[2023-02-11 15:26] LABS: BLOOD UREA NITROGEN 13.1 mg/dL (7-18)
[2023-02-11 15:29] LABS: CALCIUM 7.9 mg/dL (8.5-10.1)
[2023-02-11 15:30] LABS: CREATININE 0.7 mg/dL (0.55-1.3)
[2023-02-11] MEDS: OLANZapine 5 MG TABLET PO SCH (21:48)
[2023-02-11] MEDS: ATORVASTATIN CA 10 MG TABLET (FP) PO SCH (21:48)
[2023-02-11] MEDS: LACOSAMIDE 100 MG TABLET PO SCH (22:09)
[2023-02-12] MEDS: lamoTRIgine 100 MG TABLET PO SCH ×2 (05:25→21:57)
[2023-02-12] MEDS: GABAPENTIN 300 MG CAPSULE PO SCH ×3 (05:25→21:26)
[2023-02-12 08:04] LABS: EOS % 6.5 % (0-4.5); HEMATOCRIT 33.1 % (35.4-49); MCHC 33.3 g/dl (32.0-35.9); MONO % 6.7 % (3.8-10.2); NEUT % 57.8 % (42.8-82.8); PLATELET COUNT 224 10^3/uL (134-434); RBC 3.68 M/mm3 (4.00-5.60); RDW 16.1 % (11.9-15.9); WHITE BLOOD COUNT 5.8 K/mm3 (4.0-10.0)
[2023-02-12] MEDS: AMINO ACIDS/PROTEIN HYDROLYS 30 ML LIQUID.PKT PO SCH ×2 (08:15→17:12)
[2023-02-12] MEDS: TAMSULOSIN HCL 0.4 MG CAP PO SCH (08:15)
[2023-02-12 08:20] LABS: POTASSIUM 4.2 mmol/L (3.5-5.1)
[2023-02-12 08:38] LABS: ALBUMIN 2.9 g/dl (3.4-5.0); BILIRUBIN,TOTAL 0.4 mg/dL (0.2-1)
[2023-02-12 08:39] LABS: TOT PROT 5.7 g/dl (6.4-8.2)
[2023-02-12 08:40] LABS: CALCIUM 8.4 mg/dL (8.5-10.1)
[2023-02-12 08:41] LABS: BLOOD UREA NITROGEN 9.6 mg/dL (7-18); CREATININE 0.7 mg/dL (0.55-1.3)
[2023-02-12] MEDS: levETIRAcetam 500 MG TABLET (FP) PO SCH ×2 (09:03→21:26)
[2023-02-12] MEDS: CEFTRIAXONE 1 GM in DEXTROSE 5%-WATER - 50 ML IVPB SCH (09:04)
[2023-02-12] MEDS: FAMOTIDINE 20 MG TABLET PO SCH ×2 (09:04→21:27)
[2023-02-12] MEDS: MULTIVITAMINS (DAILY MVI) TABLET (FP) PO SCH (09:04)
[2023-02-12] MEDS: CLOPIDOGREL BISULFATE 75 MG TABLET (FP) PO SCH (09:04)
[2023-02-12] MEDS: LACOSAMIDE 100 MG TABLET PO SCH ×2 (09:04→21:27)
[2023-02-12] MEDS: SERTRALINE HCL 25 MG TABLET (FP) PO SCH (09:08)
[2023-02-12] MEDS: metoPROLOL SUCCINATE 25 MG TAB.SR.24H (FP) PO SCH ×2 (09:11→21:26)
[2023-02-12] MEDS: SODIUM CHLORIDE 1,000 ML IV SCH (13:46)
[2023-02-12] MEDS: AZITHROMYCIN IVPB 500 MG/250 ML BAG IVPB SCH (13:46)
[2023-02-12] MEDS ORDERED: ACETAMINOPHEN 325 MG TABLET (FP) PO PRN (19:46)
[2023-02-12] MEDS ORDERED: LORazepam 2 MG/ML SDV VIAL IM PRN (19:46)
[2023-02-12] MEDS: ATORVASTATIN CA 10 MG TABLET (FP) PO SCH (21:27)
[2023-02-12] MEDS ORDERED: OLANZapine 2.5 MG TABLET PO SCH (22:00)
[2023-02-13] MEDS: lamoTRIgine 100 MG TABLET PO SCH ×2 (06:07→21:17)
[2023-02-13] MEDS: GABAPENTIN 300 MG CAPSULE PO SCH ×2 (06:07→21:21)
[2023-02-13] MEDS: LACOSAMIDE 100 MG TABLET PO SCH ×2 (09:59→21:17)
[2023-02-13] MEDS: metoPROLOL SUCCINATE 25 MG TAB.SR.24H (FP) PO SCH ×2 (09:59→21:17)
[2023-02-13] MEDS: CEFTRIAXONE 1 GM in DEXTROSE 5%-WATER - 50 ML IVPB SCH (09:59)
[2023-02-13] MEDS: AMINO ACIDS/PROTEIN HYDROLYS 30 ML LIQUID.PKT PO SCH ×2 (09:59→17:03)
[2023-02-13] MEDS: TAMSULOSIN HCL 0.4 MG CAP PO SCH (09:59)
[2023-02-13] MEDS: SERTRALINE HCL 25 MG TABLET (FP) PO SCH (10:00)
[2023-02-13] MEDS: FAMOTIDINE 20 MG TABLET PO SCH ×2 (10:00→21:15)
[2023-02-13] MEDS: levETIRAcetam 500 MG TABLET (FP) PO SCH ×2 (10:00→21:16)
[2023-02-13] MEDS: CLOPIDOGREL BISULFATE 75 MG TABLET (FP) PO SCH (10:03)
[2023-02-13] MEDS: MULTIVITAMINS (DAILY MVI) TABLET (FP) PO SCH (10:03)
[2023-02-13] MEDS: AZITHROMYCIN IVPB 500 MG/250 ML BAG IVPB SCH (10:37)
[2023-02-13] MEDS: SODIUM CHLORIDE 1,000 ML IV SCH ×2 (17:02→19:45)
[2023-02-13] MEDS: MELATONIN 5 MG TABLETS PO PRN (21:17)
[2023-02-13] MEDS: ATORVASTATIN CA 10 MG TABLET (FP) PO SCH (21:17)
[2023-02-14] MEDS: lamoTRIgine 100 MG TABLET PO SCH ×2 (05:57→22:08)
[2023-02-14] MEDS: TAMSULOSIN HCL 0.4 MG CAP PO SCH (08:59)
[2023-02-14] MEDS: AMINO ACIDS/PROTEIN HYDROLYS 30 ML LIQUID.PKT PO SCH ×2 (08:59→17:16)
[2023-02-14] MEDS: FAMOTIDINE 20 MG TABLET PO SCH ×2 (09:12→22:07)
[2023-02-14] MEDS: levETIRAcetam 500 MG TABLET (FP) PO SCH ×2 (09:12→22:11)
[2023-02-14] MEDS: AZITHROMYCIN IVPB 500 MG/250 ML BAG IVPB SCH (09:12)
[2023-02-14] MEDS: SERTRALINE HCL 25 MG TABLET (FP) PO SCH (09:12)
[2023-02-14] MEDS: metoPROLOL SUCCINATE 25 MG TAB.SR.24H (FP) PO SCH ×2 (09:12→22:08)
[2023-02-14] MEDS: CLOPIDOGREL BISULFATE 75 MG TABLET (FP) PO SCH (09:12)
[2023-02-14] MEDS: MULTIVITAMINS (DAILY MVI) TABLET (FP) PO SCH (09:12)
[2023-02-14] MEDS: CEFTRIAXONE 1 GM in DEXTROSE 5%-WATER - 50 ML IVPB SCH (09:13)
[2023-02-14] MEDS: LACOSAMIDE 100 MG TABLET PO SCH ×2 (10:01→22:08)
[2023-02-14] MEDS: MELATONIN 5 MG TABLETS PO PRN (22:07)
[2023-02-14] MEDS: ATORVASTATIN CA 10 MG TABLET (FP) PO SCH (22:08)
[2023-02-14] MEDS: GABAPENTIN 300 MG CAPSULE PO SCH (22:08)
[2023-02-15] MEDS: lamoTRIgine 100 MG TABLET PO SCH ×2 (05:35→22:40)
[2023-02-15] MEDS: SODIUM CHLORIDE 1,000 ML IV SCH ×2 (05:35→12:17)
[2023-02-15] MEDS: levETIRAcetam 500 MG TABLET (FP) PO SCH ×3 (10:21→22:40)
[2023-02-15] MEDS: TAMSULOSIN HCL 0.4 MG CAP PO SCH ×2 (10:21→12:37)
[2023-02-15] MEDS: CEFTRIAXONE 1 GM in DEXTROSE 5%-WATER - 50 ML IVPB SCH (10:21)
[2023-02-15] MEDS: CLOPIDOGREL BISULFATE 75 MG TABLET (FP) PO SCH ×2 (10:21→12:37)
[2023-02-15] MEDS: SERTRALINE HCL 25 MG TABLET (FP) PO SCH ×2 (10:22→12:38)
[2023-02-15] MEDS: LACOSAMIDE 50 MG TABLET PO SCH ×3 (10:22→22:41)
[2023-02-15] MEDS: AMINO ACIDS/PROTEIN HYDROLYS 30 ML LIQUID.PKT PO SCH ×3 (10:22→16:40)
[2023-02-15] MEDS: FAMOTIDINE 20 MG TABLET PO SCH ×3 (10:22→22:40)
[2023-02-15] MEDS: MULTIVITAMINS (DAILY MVI) TABLET (FP) PO SCH ×2 (10:22→12:37)
[2023-02-15] MEDS: metoPROLOL SUCCINATE 25 MG TAB.SR.24H (FP) PO SCH ×3 (10:23→22:40)
[2023-02-15] MEDS ORDERED: ONDANSETRON 4 MG/2 ML VIAL IVPUSH PRN (10:56)
[2023-02-15] MEDS: AZITHROMYCIN IVPB 500 MG/250 ML BAG IVPB SCH (11:11)
[2023-02-15 17:45] LABS: BASO % 1.2 % (0-2.0); EOS % 1.5 % (0-4.5); HEMATOCRIT 34.1 % (35.4-49); HEMOGLOBIN 11.3 GM/dL (11.7-16.9); LYMPH % 23.9 % (8-40); MCH 29.6 pg (25.7-33.7); MCHC 33.2 g/dl (32.0-35.9); MEAN CELL VOLUME 89.2 fl (80-96); MEAN PLT VOLUME 9.4 fl (7.5-11.1); MONO % 4.5 % (3.8-10.2); NEUT % 68.9 % (42.8-82.8); PLATELET COUNT 219 10^3/uL (134-434); RBC 3.82 M/mm3 (4.00-5.60); RDW 15.6 % (11.9-15.9); WHITE BLOOD COUNT 4.4 K/mm3 (4.0-10.0)
[2023-02-15 18:02] LABS: POTASSIUM 3.8 mmol/L (3.5-5.1)
[2023-02-15 18:04] LABS: CALCIUM 8.4 mg/dL (8.5-10.1)
[2023-02-15 18:05] LABS: BLOOD UREA NITROGEN 10.7 mg/dL (7-18)
[2023-02-15 18:08] LABS: CREATININE 0.6 mg/dL (0.55-1.3)
[2023-02-15 18:09] LABS: TOT PROT 5.8 g/dl (6.4-8.2)
[2023-02-15 18:10] LABS: BILIRUBIN,TOTAL 0.3 mg/dL (0.2-1)
[2023-02-15] MEDS: ATORVASTATIN CA 10 MG TABLET (FP) PO SCH (22:40)
[2023-02-15] MEDS: GABAPENTIN 300 MG CAPSULE PO SCH (22:40)
[2023-02-16] MEDS: lamoTRIgine 100 MG TABLET PO SCH (05:21)
[2023-02-16] MEDS: AMINO ACIDS/PROTEIN HYDROLYS 30 ML LIQUID.PKT PO SCH (08:00)
[2023-02-16] MEDS: TAMSULOSIN HCL 0.4 MG CAP PO SCH (08:30)
[2023-02-16] MEDS: CEFTRIAXONE 1 GM in DEXTROSE 5%-WATER - 50 ML IVPB SCH (09:53)
[2023-02-16] MEDS: AZITHROMYCIN IVPB 500 MG/250 ML BAG IVPB SCH (09:53)
[2023-02-16] MEDS: MULTIVITAMINS (DAILY MVI) TABLET (FP) PO SCH (10:00)
[2023-02-16] MEDS: CLOPIDOGREL BISULFATE 75 MG TABLET (FP) PO SCH (10:00)
[2023-02-16] MEDS: metoPROLOL SUCCINATE 25 MG TAB.SR.24H (FP) PO SCH (10:00)
[2023-02-16] MEDS: FAMOTIDINE 20 MG TABLET PO SCH (10:00)
[2023-02-16] MEDS: SERTRALINE HCL 25 MG TABLET (FP) PO SCH (10:00)
[2023-02-16] MEDS: LACOSAMIDE 50 MG TABLET PO SCH (10:00)
[2023-02-16] MEDS: levETIRAcetam 500 MG TABLET (FP) PO SCH (10:00)
[2023-02-16 16:29] VITALS: BP 134/67; PULSE 66; RESP 20; TEMP 97.9
== END 2023-02-16 17:10 | disposition left against medical advice (07) | DRG 100 ==
LOC: JER 08:56 → JERBED 12:38 → J5S 19:57 → OBSVTOIN 02-06 10:44 → J4W 02-11 12:18
PROVIDERS: ADMIT Specialist; ATTEND Specialist
DX: G40.909 Epilepsy, unspecified, not intractable, without status epilepticus (principal); G93.41 Metabolic encephalopathy; R57.1 Hypovolemic shock; J18.9 Pneumonia, unspecified organism; I69.354 Hemiplegia and hemiparesis following cerebral infarction affecting left non-dominant side; N39.0 Urinary tract infection, site not specified; R33.9 Retention of urine, unspecified; E05.90 Thyrotoxicosis, unspecified without thyrotoxic crisis or storm; I11.9 Hypertensive heart disease without heart failure; E11.9 Type 2 diabetes mellitus without complications; I25.10 Atherosclerotic heart disease of native coronary artery without angina pectoris
CPT/HCPCS: 0241U-QW; 36415; 36600; 70450-TC; 71045-TC-FY; 80048; 80053; 80175; 81003; 82550; 82553; 82607; 82803; 82962; 83605; 83735; 84443; 84484; 85025; 85610; 85730; 87086; 87186; 93005; 93010; 97116-GP; 97162-GP; 99285-25; G0378; G0480

== ENCOUNTER 2023-02-19 02:20 | Inpatient (IN) | payer BC ==
[2023-02-19] MEDS ORDERED: METOCLOPRAMIDE HCL INJECTION 10 MG/2 ML VIAL IVPUSH ONE (02:42)
[2023-02-19] MEDS ORDERED: LACTATED RINGERS SOLUTION 1000 ML INFUS.BAG IV ONE (02:42)
[2023-02-19] MEDS ORDERED: ACETAMINOPHEN 1000 MG/100 ML BAG IVPB ONE (02:42)
[2023-02-19] MEDS ORDERED: ALBUTEROL SO4 2.5/IPRATROPIUM 0.5 INH SOL 3 ML VIAL.NEB. NEB ONE ×2 (02:45→03:57)
[2023-02-19] MEDS ORDERED: METOCLOPRAMIDE HCL INJECTION 10 MG/2 ML VIAL ONE (02:48)
[2023-02-19] MEDS ORDERED: ACETAMINOPHEN INJECTION 100 ML IVPB ONE (02:48)
[2023-02-19 03:54] LABS: BASO % 0.6 % (0-2.0); HEMATOCRIT 36.3 % (35.4-49); HEMOGLOBIN 12.1 GM/dL (11.7-16.9); LYMPH % 13.3 % (8-40); MCH 29.7 pg (25.7-33.7); MCHC 33.4 g/dl (32.0-35.9); MEAN CELL VOLUME 88.9 fl (80-96); MEAN PLT VOLUME 8.4 fl (7.5-11.1); MONO % 5.3 % (3.8-10.2); NEUT % 80.8 % (42.8-82.8); PLATELET COUNT 302 10^3/uL (134-434); RBC 4.09 M/mm3 (4.00-5.60); RDW 15.9 % (11.9-15.9); WHITE BLOOD COUNT 10.1 K/mm3 (4.0-10.0)
[2023-02-19 04:08] LABS: POTASSIUM 3.5 mmol/L (3.5-5.1)
[2023-02-19 04:10] LABS: CALCIUM 8.9 mg/dL (8.5-10.1)
[2023-02-19 04:11] LABS: BLOOD UREA NITROGEN 10.8 mg/dL (7-18)
[2023-02-19 04:14] LABS: CREATININE 0.9 mg/dL (0.55-1.3)
[2023-02-19 04:15] LABS: BILIRUBIN,TOTAL 0.3 mg/dL (0.2-1)
[2023-02-19 04:28] LABS: ALBUMIN 3.8 g/dl (3.4-5.0)
[2023-02-19 04:59] LABS: EPI CELLS 2 /uL (0-25.1); HYALINE CASTS 0 /uL (0-3.1); PH,URINE >= 9.0 (5.0-8.0); URINE APPEARANCE CLOUDY; URINE BACTERIA 226 /uL (0-1359); URINE BILIRUBIN NEGATIVE (NEGATIVE); URINE COLOR YELLOW; URINE GLUCOSE (UA) NEGATIVE (NEGATIVE); URINE KETONE NEGATIVE (NEGATIVE); URINE LEUK ESTERASE TRACE (NEGATIVE); URINE NITRITE NEGATIVE (NEGATIVE); URINE PROTEIN NEGATIVE (NEGATIVE); URINE RBC 46 /uL (0-23.9); URINE UROBILINOGEN 0.2 mg/dL (0.2-1.0); URINE WBC 56 /uL (0-25.8)
[2023-02-19] MEDS ORDERED: ONDANSETRON 4 MG/2 ML VIAL IVPUSH ONE (05:15)
[2023-02-19] MEDS ORDERED: ONDANSETRON 4 MG/2 ML VIAL ONE (05:32)
[2023-02-19] MEDS ORDERED: KETOROLAC TROMETHAMINE 15 MG/ML VIAL IVPUSH ONE (05:50)
[2023-02-19] MEDS ORDERED: CEFTRIAXONE 1 GM in DEXTROSE 5%-WATER - 100 ML IVPB ONE (06:00)
[2023-02-19] MEDS ORDERED: KETOROLAC TROMETHAMINE 15 MG/ML VIAL ONE (06:26)
[2023-02-19] MEDS ORDERED: CEFTRIAXONE 1 GM/50 ML BAG ONE (06:27)
[2023-02-19] MEDS ORDERED: ACETAMINOPHEN 325 MG TABLET (FP) PO PRN (07:40)
[2023-02-19] MEDS ORDERED: TAMSULOSIN HCL 0.4 MG CAP ONE (09:14)
[2023-02-19] MEDS: TAMSULOSIN HCL 0.4 MG CAP PO SCH (09:18)
[2023-02-19] MEDS ORDERED: FAMOTIDINE 20 MG TABLET ONE (09:52)
[2023-02-19] MEDS ORDERED: metoPROLOL SUCCINATE 25 MG TAB.SR.24H (FP) PO ONE (09:52)
[2023-02-19] MEDS ORDERED: levETIRAcetam 500 MG TABLET (FP) PO ONE (09:52)
[2023-02-19] MEDS ORDERED: LACOSAMIDE 200 MG TABLET PO ONE (09:52)
[2023-02-19] MEDS ORDERED: SERTRALINE HCL 50 MG TABLET (FP) ONE (09:53)
[2023-02-19] MEDS ORDERED: CLOPIDOGREL BISULFATE 75 MG TABLET (FP) ONE (09:53)
[2023-02-19] MEDS ORDERED: MULTIVITAMINS (DAILY MVI) TABLET (FP) ONE (09:53)
[2023-02-19] MEDS: MULTIVITAMINS (DAILY MVI) TABLET (FP) PO SCH (10:03)
[2023-02-19] MEDS: FAMOTIDINE 20 MG TABLET PO SCH ×2 (10:03→22:20)
[2023-02-19] MEDS: CLOPIDOGREL BISULFATE 75 MG TABLET (FP) PO SCH (10:03)
[2023-02-19] MEDS: LACOSAMIDE 200 MG TABLET PO SCH ×2 (10:03→22:22)
[2023-02-19] MEDS: metoPROLOL SUCCINATE 25 MG TAB.SR.24H (FP) PO SCH ×2 (10:03→22:21)
[2023-02-19] MEDS: SERTRALINE HCL 50 MG TABLET (FP) PO SCH (10:04)
[2023-02-19] MEDS: levETIRAcetam 500 MG TABLET (FP) PO SCH ×2 (10:05→22:20)
[2023-02-19] MEDS: GABAPENTIN 300 MG CAPSULE PO SCH (22:19)
[2023-02-19] MEDS: ATORVASTATIN CA 10 MG TABLET (FP) PO SCH (22:19)
[2023-02-19] MEDS: lamoTRIgine 100 MG TABLET PO SCH (22:20)
[2023-02-19] MEDS: MELATONIN 5 MG TABLETS PO PRN (22:21)
[2023-02-19] MEDS: VANCOMYCIN/WATER FOR INJ (PEG) 1,000 MG/200 ML BAG IVPB SCH (22:34)
[2023-02-20] MEDS: lamoTRIgine 100 MG TABLET PO SCH ×2 (06:14→22:31)
[2023-02-20] MEDS: TAMSULOSIN HCL 0.4 MG CAP PO SCH (08:11)
[2023-02-20] MEDS: MULTIVITAMINS (DAILY MVI) TABLET (FP) PO SCH (09:46)
[2023-02-20] MEDS: FAMOTIDINE 20 MG TABLET PO SCH ×2 (09:46→22:32)
[2023-02-20] MEDS: metoPROLOL SUCCINATE 25 MG TAB.SR.24H (FP) PO SCH ×2 (09:46→22:32)
[2023-02-20] MEDS: SERTRALINE HCL 50 MG TABLET (FP) PO SCH (09:46)
[2023-02-20] MEDS: levETIRAcetam 500 MG TABLET (FP) PO SCH ×2 (09:46→22:31)
[2023-02-20] MEDS: CLOPIDOGREL BISULFATE 75 MG TABLET (FP) PO SCH (09:47)
[2023-02-20] MEDS: LACOSAMIDE 200 MG TABLET PO SCH ×2 (09:47→22:32)
[2023-02-20] MEDS: CEFTRIAXONE 1 GM in DEXTROSE 5%-WATER - 50 ML IVPB SCH (09:48)
[2023-02-20] MEDS ORDERED: SODIUM CHLORIDE 1,000 ML IV SCH ×2 (10:30→18:35)
[2023-02-20] MEDS: VANCOMYCIN/WATER FOR INJ (PEG) 1,000 MG/200 ML BAG IVPB SCH ×2 (10:36→22:33)
[2023-02-20] MEDS: ATORVASTATIN CA 10 MG TABLET (FP) PO SCH (22:31)
[2023-02-20] MEDS: GABAPENTIN 300 MG CAPSULE PO SCH (22:32)
[2023-02-21] MEDS: metoPROLOL SUCCINATE 25 MG TAB.SR.24H (FP) PO SCH ×2 (00:05→09:52)
[2023-02-21] MEDS: lamoTRIgine 100 MG TABLET PO SCH ×2 (05:44→21:19)
[2023-02-21] MEDS: FAMOTIDINE 20 MG TABLET PO SCH ×2 (09:50→21:20)
[2023-02-21] MEDS: CLOPIDOGREL BISULFATE 75 MG TABLET (FP) PO SCH (09:51)
[2023-02-21] MEDS: TAMSULOSIN HCL 0.4 MG CAP PO SCH (09:51)
[2023-02-21] MEDS: MULTIVITAMINS (DAILY MVI) TABLET (FP) PO SCH (09:51)
[2023-02-21] MEDS: levETIRAcetam 500 MG TABLET (FP) PO SCH ×2 (09:51→21:20)
[2023-02-21] MEDS: SERTRALINE HCL 50 MG TABLET (FP) PO SCH (09:51)
[2023-02-21] MEDS: CEFTRIAXONE 1 GM in DEXTROSE 5%-WATER - 50 ML IVPB SCH (09:53)
[2023-02-21 09:54] LABS: BASO % 0.8 % (0-2.0); EOS % 8.8 % (0-4.5); HEMATOCRIT 33.7 % (35.4-49); HEMOGLOBIN 11.1 GM/dL (11.7-16.9); LYMPH % 25.3 % (8-40); MCH 30.1 pg (25.7-33.7); MEAN CELL VOLUME 91.4 fl (80-96); MEAN PLT VOLUME 9.4 fl (7.5-11.1); MONO % 7.8 % (3.8-10.2); NEUT % 57.3 % (42.8-82.8); PLATELET COUNT 233 10^3/uL (134-434); RBC 3.69 M/mm3 (4.00-5.60); WHITE BLOOD COUNT 6.2 K/mm3 (4.0-10.0)
[2023-02-21 10:05] LABS: POTASSIUM 3.9 mmol/L (3.5-5.1)
[2023-02-21] MEDS: LACOSAMIDE 200 MG TABLET PO SCH ×2 (10:07→21:20)
[2023-02-21 10:14] LABS: BLOOD UREA NITROGEN 20.5 mg/dL (7-18)
[2023-02-21 10:15] LABS: CREATININE 0.7 mg/dL (0.55-1.3)
[2023-02-21 10:16] LABS: TOT PROT 5.2 g/dl (6.4-8.2)
[2023-02-21 10:18] LABS: BILIRUBIN,TOTAL 0.3 mg/dL (0.2-1)
[2023-02-21 10:19] LABS: ALBUMIN 2.8 g/dl (3.4-5.0)
[2023-02-21] MEDS: VANCOMYCIN/WATER FOR INJ (PEG) 1,000 MG/200 ML BAG IVPB SCH (10:52)
[2023-02-21] MEDS: AMPICILLIN - 2 GM in SODIUM CHLORIDE 100 ML IVPB SCH ×2 (14:11→20:48)
[2023-02-21] MEDS: SODIUM CHLORIDE 1,000 ML IV SCH (18:36)
[2023-02-21] MEDS: ATORVASTATIN CA 10 MG TABLET (FP) PO SCH (21:20)
[2023-02-21] MEDS: GABAPENTIN 300 MG CAPSULE PO SCH (21:20)
[2023-02-21] MEDS: MELATONIN 5 MG TABLETS PO PRN (21:20)
[2023-02-22] MEDS: AMPICILLIN - 2 GM in SODIUM CHLORIDE 100 ML IVPB SCH ×4 (02:07→20:38)
[2023-02-22] MEDS: lamoTRIgine 100 MG TABLET PO SCH ×2 (05:36→22:18)
[2023-02-22] MEDS: TAMSULOSIN HCL 0.4 MG CAP PO SCH (08:25)
[2023-02-22] MEDS: FAMOTIDINE 20 MG TABLET PO SCH ×2 (09:45→22:17)
[2023-02-22] MEDS: MULTIVITAMINS (DAILY MVI) TABLET (FP) PO SCH (09:45)
[2023-02-22] MEDS: levETIRAcetam 500 MG TABLET (FP) PO SCH ×2 (09:45→22:17)
[2023-02-22] MEDS: CLOPIDOGREL BISULFATE 75 MG TABLET (FP) PO SCH (09:45)
[2023-02-22] MEDS: SERTRALINE HCL 50 MG TABLET (FP) PO SCH (09:45)
[2023-02-22] MEDS: LACOSAMIDE 200 MG TABLET PO SCH ×2 (09:45→22:46)
[2023-02-22] MEDS ORDERED: AMPICILLIN SODIUM 2 GM VIAL ONE (15:06)
[2023-02-22] MEDS: SODIUM CHLORIDE 1,000 ML IV SCH ×2 (15:12→18:04)
[2023-02-22] MEDS: GABAPENTIN 300 MG CAPSULE PO SCH (22:16)
[2023-02-22] MEDS: ATORVASTATIN CA 10 MG TABLET (FP) PO SCH (22:16)
[2023-02-23] MEDS: SODIUM CHLORIDE 1,000 ML IV SCH ×2 (03:26→14:55)
[2023-02-23] MEDS: AMPICILLIN - 2 GM in SODIUM CHLORIDE 100 ML IVPB SCH ×4 (03:29→22:04)
[2023-02-23] MEDS: lamoTRIgine 100 MG TABLET PO SCH ×2 (06:24→21:27)
[2023-02-23] MEDS: TAMSULOSIN HCL 0.4 MG CAP PO SCH (08:40)
[2023-02-23] MEDS: SERTRALINE HCL 50 MG TABLET (FP) PO SCH (09:04)
[2023-02-23] MEDS: MULTIVITAMINS (DAILY MVI) TABLET (FP) PO SCH (09:04)
[2023-02-23] MEDS: FAMOTIDINE 20 MG TABLET PO SCH ×2 (09:04→21:27)
[2023-02-23] MEDS: levETIRAcetam 500 MG TABLET (FP) PO SCH ×2 (09:04→21:27)
[2023-02-23] MEDS: CLOPIDOGREL BISULFATE 75 MG TABLET (FP) PO SCH (09:04)
[2023-02-23] MEDS: LACOSAMIDE 200 MG TABLET PO SCH ×2 (09:05→21:28)
[2023-02-23] MEDS: ATORVASTATIN CA 10 MG TABLET (FP) PO SCH (21:27)
[2023-02-23] MEDS: GABAPENTIN 300 MG CAPSULE PO SCH (21:27)
[2023-02-24] MEDS: AMPICILLIN - 2 GM in SODIUM CHLORIDE 100 ML IVPB SCH ×2 (02:58→10:29)
[2023-02-24] MEDS: lamoTRIgine 100 MG TABLET PO SCH ×2 (05:21→21:47)
[2023-02-24 10:01] LABS: EOS % 6.3 % (0-4.5); HEMATOCRIT 33.7 % (35.4-49); HEMOGLOBIN 11.1 GM/dL (11.7-16.9); LYMPH % 33.9 % (8-40); MCHC 32.9 g/dl (32.0-35.9); MEAN CELL VOLUME 91.3 fl (80-96); MONO % 5.3 % (3.8-10.2); NEUT % 53.5 % (42.8-82.8); PLATELET COUNT 271 10^3/uL (134-434); RBC 3.69 M/mm3 (4.00-5.60); WHITE BLOOD COUNT 5.6 K/mm3 (4.0-10.0)
[2023-02-24 10:07] LABS: POTASSIUM 3.9 mmol/L (3.5-5.1)
[2023-02-24 10:25] LABS: ALBUMIN 2.7 g/dl (3.4-5.0); BLOOD UREA NITROGEN 13.5 mg/dL (7-18); CALCIUM 8.1 mg/dL (8.5-10.1)
[2023-02-24 10:28] LABS: CREATININE 0.5 mg/dL (0.55-1.3)
[2023-02-24] MEDS: SERTRALINE HCL 50 MG TABLET (FP) PO SCH (10:28)
[2023-02-24] MEDS: CLOPIDOGREL BISULFATE 75 MG TABLET (FP) PO SCH (10:28)
[2023-02-24] MEDS: TAMSULOSIN HCL 0.4 MG CAP PO SCH (10:28)
[2023-02-24 10:29] LABS: BILIRUBIN,TOTAL 0.4 mg/dL (0.2-1)
[2023-02-24] MEDS: levETIRAcetam 500 MG TABLET (FP) PO SCH ×2 (10:29→21:47)
[2023-02-24] MEDS: MULTIVITAMINS (DAILY MVI) TABLET (FP) PO SCH (10:29)
[2023-02-24] MEDS: FAMOTIDINE 20 MG TABLET PO SCH ×2 (10:29→21:47)
[2023-02-24 10:30] LABS: TOT PROT 5.2 g/dl (6.4-8.2)
[2023-02-24] MEDS: LACOSAMIDE 200 MG TABLET PO SCH ×2 (11:00→21:46)
[2023-02-24] MEDS: AMOXICILLIN 500 MG CAPSULE (FP) PO SCH ×2 (16:30→21:46)
[2023-02-24] MEDS: ATORVASTATIN CA 10 MG TABLET (FP) PO SCH (21:46)
[2023-02-24] MEDS: GABAPENTIN 300 MG CAPSULE PO SCH (21:47)
[2023-02-25] MEDS: AMOXICILLIN 500 MG CAPSULE (FP) PO SCH ×2 (05:42→14:12)
[2023-02-25] MEDS: lamoTRIgine 100 MG TABLET PO SCH (05:42)
[2023-02-25] MEDS: TAMSULOSIN HCL 0.4 MG CAP PO SCH (08:37)
[2023-02-25 08:46] VITALS: RESP 18
[2023-02-25] MEDS: CLOPIDOGREL BISULFATE 75 MG TABLET (FP) PO SCH (09:34)
[2023-02-25] MEDS: levETIRAcetam 500 MG TABLET (FP) PO SCH (09:34)
[2023-02-25] MEDS: FAMOTIDINE 20 MG TABLET PO SCH (09:34)
[2023-02-25] MEDS: MULTIVITAMINS (DAILY MVI) TABLET (FP) PO SCH (09:35)
[2023-02-25] MEDS: SERTRALINE HCL 50 MG TABLET (FP) PO SCH (09:35)
[2023-02-25] MEDS: LACOSAMIDE 200 MG TABLET PO SCH (09:35)
[2023-02-25 14:58] VITALS: BP 109/67; PULSE 74; TEMP 98.9
[2023-02-25 15:15] VITALS: BMI 21.6
== END 2023-02-25 15:17 | disposition home health service (06) | DRG 690 ==
LOC: JER 02:20 → JERBED 06:11 → OBSVTOIN 07:38 → J5S 15:19
PROVIDERS: ADMIT Internal Medicine; ATTEND Internal Medicine
DX: N39.0 Urinary tract infection, site not specified (principal); I69.354 Hemiplegia and hemiparesis following cerebral infarction affecting left non-dominant side; I25.10 Atherosclerotic heart disease of native coronary artery without angina pectoris; I10 Essential (primary) hypertension; E78.5 Hyperlipidemia, unspecified; B95.2 Enterococcus as the cause of diseases classified elsewhere; D72.829 Elevated white blood cell count, unspecified
CPT/HCPCS: 0241U-QW; 36415; 70450-TC; 71045-TC-FY; 80053; 81003; 84484; 85025; 87040; 87086; 87186; 93005; 93010; 97116-GP; 97161-GP; 99285-25; G0378

== ENCOUNTER 2023-02-26 14:44 | Observation (INO) | payer BC ==
[2023-02-26 15:37] VITALS: BMI 24.7
[2023-02-26] MEDS: SODIUM CHLORIDE 1,000 ML IV SCH (16:07)
[2023-02-26 16:33] LABS: BASO % 1.1 % (0-2.0); EOS % 1.9 % (0-4.5); HEMATOCRIT 31.6 % (35.4-49); HEMOGLOBIN 10.2 GM/dL (11.7-16.9); LYMPH % 25.4 % (8-40); MCH 29.1 pg (25.7-33.7); MCHC 32.3 g/dl (32.0-35.9); MEAN CELL VOLUME 90.2 fl (80-96); MEAN PLT VOLUME 8.6 fl (7.5-11.1); MONO % 5.9 % (3.8-10.2); NEUT % 65.7 % (42.8-82.8); PLATELET COUNT 280 10^3/uL (134-434); RDW 16.6 % (11.9-15.9); WHITE BLOOD COUNT 5.8 K/mm3 (4.0-10.0)
[2023-02-26 17:05] LABS: POTASSIUM 4.1 mmol/L (3.5-5.1)
[2023-02-26 17:07] LABS: CALCIUM 8.5 mg/dL (8.5-10.1)
[2023-02-26 17:08] LABS: ALBUMIN 3.1 g/dl (3.4-5.0)
[2023-02-26 17:09] LABS: BLOOD UREA NITROGEN 18.5 mg/dL (7-18)
[2023-02-26 17:11] LABS: CREATININE 0.7 mg/dL (0.55-1.3)
[2023-02-26 17:12] LABS: TOT PROT 5.7 g/dl (6.4-8.2)
[2023-02-26 17:14] LABS: BILIRUBIN,TOTAL 0.3 mg/dL (0.2-1)
[2023-02-26] MEDS ORDERED: ACETAMINOPHEN 325 MG TABLET (FP) PO PRN (20:58)
[2023-02-26] MEDS ORDERED: MELATONIN 5 MG TABLETS PO PRN (20:58)
[2023-02-26] MEDS: LACOSAMIDE 50 MG TABLET PO SCH (22:41)
[2023-02-26] MEDS: lamoTRIgine 100 MG TABLET PO SCH (22:41)
[2023-02-26] MEDS: GABAPENTIN 300 MG CAPSULE PO SCH (22:41)
[2023-02-26] MEDS: ATORVASTATIN CA 10 MG TABLET (FP) PO SCH (22:42)
[2023-02-26] MEDS: AMOXICILLIN 500 MG CAPSULE (FP) PO SCH (22:42)
[2023-02-26] MEDS: metoPROLOL SUCCINATE 25 MG TAB.SR.24H (FP) PO SCH (22:42)
[2023-02-26] MEDS: FAMOTIDINE 20 MG TABLET PO SCH (22:42)
[2023-02-26] MEDS: levETIRAcetam 500 MG TABLET (FP) PO SCH (22:42)
[2023-02-27] MEDS: AMOXICILLIN 500 MG CAPSULE (FP) PO SCH ×3 (06:44→21:31)
[2023-02-27] MEDS: lamoTRIgine 100 MG TABLET PO SCH ×2 (06:45→21:31)
[2023-02-27 08:57] LABS: BASO % 1.4 % (0-2.0); EOS % 7.2 % (0-4.5); HEMATOCRIT 30.1 % (35.4-49); HEMOGLOBIN 10.1 GM/dL (11.7-16.9); LYMPH % 31.9 % (8-40); MCH 30.2 pg (25.7-33.7); MCHC 33.5 g/dl (32.0-35.9); MEAN CELL VOLUME 90.2 fl (80-96); MEAN PLT VOLUME 8.6 fl (7.5-11.1); MONO % 5.8 % (3.8-10.2); NEUT % 53.7 % (42.8-82.8); PLATELET COUNT 257 10^3/uL (134-434); RBC 3.33 M/mm3 (4.00-5.60); RDW 16.4 % (11.9-15.9); RETICULOCYTES 0.51 % (0.5-1.5); WHITE BLOOD COUNT 4.3 K/mm3 (4.0-10.0)
[2023-02-27 09:33] LABS: CALCIUM 8.2 mg/dL (8.5-10.1)
[2023-02-27 09:34] LABS: BLOOD UREA NITROGEN 12.1 mg/dL (7-18)
[2023-02-27 09:37] LABS: CREATININE 0.6 mg/dL (0.55-1.3)
[2023-02-27 09:38] LABS: BILIRUBIN,TOTAL 0.6 mg/dL (0.2-1); TOT PROT 5.4 g/dl (6.4-8.2)
[2023-02-27 09:39] LABS: ALBUMIN 2.9 g/dl (3.4-5.0)
[2023-02-27] MEDS: metoPROLOL SUCCINATE 25 MG TAB.SR.24H (FP) PO SCH ×2 (10:20→21:35)
[2023-02-27] MEDS: MULTIVITAMINS (DAILY MVI) TABLET (FP) PO SCH (10:21)
[2023-02-27] MEDS: TAMSULOSIN HCL 0.4 MG CAP PO SCH (10:21)
[2023-02-27] MEDS: FAMOTIDINE 20 MG TABLET PO SCH ×2 (10:21→21:30)
[2023-02-27] MEDS: levETIRAcetam 500 MG TABLET (FP) PO SCH ×2 (10:21→21:31)
[2023-02-27] MEDS: SERTRALINE HCL 50 MG TABLET (FP) PO SCH ×2 (10:21→11:03)
[2023-02-27] MEDS: CLOPIDOGREL BISULFATE 75 MG TABLET (FP) PO SCH (10:21)
[2023-02-27] MEDS: LACOSAMIDE 50 MG TABLET PO SCH ×2 (10:21→21:35)
[2023-02-27] MEDS: SODIUM CHLORIDE 1,000 ML IV SCH (18:19)
[2023-02-27] MEDS: ATORVASTATIN CA 10 MG TABLET (FP) PO SCH (21:34)
[2023-02-27] MEDS: GABAPENTIN 300 MG CAPSULE PO SCH (21:34)
[2023-02-28] MEDS: lamoTRIgine 100 MG TABLET PO SCH (05:35)
[2023-02-28] MEDS: AMOXICILLIN 500 MG CAPSULE (FP) PO SCH ×3 (05:35→13:05)
[2023-02-28 07:14] LABS: EPI CELLS 23 /uL (0-25.1); HYALINE CASTS 2 /uL (0-3.1); PH,URINE 8.5 (5.0-8.0); URINE APPEARANCE TURBID; URINE BACTERIA 805 /uL (0-1359); URINE BILIRUBIN NEGATIVE (NEGATIVE); URINE COLOR YELLOW; URINE GLUCOSE (UA) NEGATIVE (NEGATIVE); URINE KETONE NEGATIVE (NEGATIVE); URINE LEUK ESTERASE 2+ (NEGATIVE); URINE NITRITE NEGATIVE (NEGATIVE); URINE PROTEIN NEGATIVE (NEGATIVE); URINE RBC 12 /uL (0-23.9); URINE UROBILINOGEN 0.2 mg/dL (0.2-1.0); URINE WBC 46 /uL (0-25.8)
[2023-02-28 08:30] VITALS: RESP 18
[2023-02-28] MEDS: MULTIVITAMINS (DAILY MVI) TABLET (FP) PO SCH (09:36)
[2023-02-28] MEDS: levETIRAcetam 500 MG TABLET (FP) PO SCH (09:36)
[2023-02-28] MEDS: FAMOTIDINE 20 MG TABLET PO SCH (09:36)
[2023-02-28] MEDS: TAMSULOSIN HCL 0.4 MG CAP PO SCH (09:36)
[2023-02-28] MEDS: metoPROLOL SUCCINATE 25 MG TAB.SR.24H (FP) PO SCH (09:37)
[2023-02-28] MEDS: CLOPIDOGREL BISULFATE 75 MG TABLET (FP) PO SCH (09:37)
[2023-02-28] MEDS: LACOSAMIDE 50 MG TABLET PO SCH (09:37)
[2023-02-28] MEDS: SERTRALINE HCL 50 MG TABLET (FP) PO SCH (09:38)
[2023-02-28] MEDS ORDERED: ASPIRIN COATED 81 MG TABLET.EC PO SCH (10:00)
[2023-02-28 15:13] VITALS: BP 110/58; PULSE 65; TEMP 99.3
== END 2023-02-28 15:13 | disposition home health service (06) ==
LOC: JER 14:44 → INTOOBSV 18:17 → J4S 18:17
PROVIDERS: ADMIT Internal Medicine; ATTEND Internal Medicine
DX: I25.10 Atherosclerotic heart disease of native coronary artery without angina pectoris (principal); I69.959 Hemiplegia and hemiparesis following unspecified cerebrovascular disease affecting unspecified side; Z79.01 Long term (current) use of anticoagulants; R56.9 Unspecified convulsions; I10 Essential (primary) hypertension; E11.9 Type 2 diabetes mellitus without complications; R20.0 Anesthesia of skin; R20.2 Paresthesia of skin; E05.00 Thyrotoxicosis with diffuse goiter without thyrotoxic crisis or storm; M62.838 Other muscle spasm
CPT/HCPCS: 36415; 70450-TC; 80053; 80061; 81003; 82550; 82728; 82962; 83036; 83540; 84484; 85025; 85045; 86850; 86900; 86901; 93005; 93010; 97116-GP; 97162-GP; 99285-25; G0378

== ENCOUNTER 2023-05-08 17:40 | Observation (INO) | payer BC ==
[2023-05-08 18:28] VITALS: BMI 26.3
[2023-05-08 19:25] LABS: BASO % 1.3 % (0-2.0); EOS % 1.2 % (0-4.5); HEMATOCRIT 37.5 % (35.4-49); HEMOGLOBIN 12.7 GM/dL (11.7-16.9); MEAN CELL VOLUME 91.3 fl (80-96); MEAN PLT VOLUME 8.8 fl (7.5-11.1); MONO % 5.1 % (3.8-10.2); NEUT % 68.4 % (42.8-82.8); PLATELET COUNT 280 10^3/uL (134-434); RBC 4.11 M/mm3 (4.00-5.60); RDW 13.5 % (11.9-15.9); WHITE BLOOD COUNT 6.3 K/mm3 (4.0-10.0)
[2023-05-08 19:34] LABS: INR 1.06 (0.83-1.09); PROTHROMBIN TIME (PATIENT) 12.3 SEC (9.7-13.0)
[2023-05-08 19:37] LABS: ACTIVATED PTT 26.9 SECONDS (25.2-36.5)
[2023-05-08 19:50] LABS: POTASSIUM 4.9 mmol/L (3.5-5.1)
[2023-05-08 19:52] LABS: CALCIUM 8.8 mg/dL (8.5-10.1)
[2023-05-08 19:53] LABS: ALBUMIN 3.4 g/dl (3.4-5.0); BLOOD UREA NITROGEN 13.4 mg/dL (7-18)
[2023-05-08 19:56] LABS: CREATININE 0.9 mg/dL (0.55-1.3)
[2023-05-08 19:57] LABS: TOT PROT 6.5 g/dl (6.4-8.2)
[2023-05-08 19:58] LABS: BILIRUBIN,TOTAL 0.3 mg/dL (0.2-1)
[2023-05-08] MEDS ORDERED: levETIRAcetam 500 MG TABLET (FP) PO ONE ×2 (21:08→21:33)
[2023-05-08] MEDS ORDERED: lamoTRIgine 100 MG TABLET ONE (21:33)
[2023-05-08] MEDS ORDERED: LACOSAMIDE 50 MG TABLET PO ONE (21:34)
[2023-05-08 21:38] LABS: CALCIUM 8.8 mg/dL (8.5-10.1)
[2023-05-08 21:39] LABS: ALBUMIN 3.4 g/dl (3.4-5.0); BLOOD UREA NITROGEN 12.6 mg/dL (7-18)
[2023-05-08 21:42] LABS: CREATININE 0.9 mg/dL (0.55-1.3)
[2023-05-08 21:44] LABS: BILIRUBIN,TOTAL 0.2 mg/dL (0.2-1); TOT PROT 6.2 g/dl (6.4-8.2)
[2023-05-08] MEDS ORDERED: LACOSAMIDE 50 MG TABLET PO SCH (22:00)
[2023-05-09] MEDS ORDERED: MELATONIN 5 MG TABLETS PO PRN (07:02)
[2023-05-09] MEDS ORDERED: ACETAMINOPHEN 325 MG TABLET (FP) PO PRN (07:02)
[2023-05-09] MEDS ORDERED: TAMSULOSIN HCL 0.4 MG CAP ONE (07:43)
[2023-05-09] MEDS: TAMSULOSIN HCL 0.4 MG CAP PO SCH (07:55)
[2023-05-09] MEDS ORDERED: LACOSAMIDE 200 MG TABLET PO SCH (10:00)
[2023-05-09] MEDS ORDERED: LACOSAMIDE 200 MG TABLET PO ONE (10:32)
[2023-05-09] MEDS: CLOPIDOGREL BISULFATE 75 MG TABLET (FP) PO SCH (10:41)
[2023-05-09] MEDS: levETIRAcetam 500 MG TABLET (FP) PO SCH ×2 (10:41→21:19)
[2023-05-09] MEDS: FAMOTIDINE 20 MG TABLET PO SCH ×2 (10:41→21:19)
[2023-05-09] MEDS: MULTIVITAMINS (DAILY MVI) TABLET (FP) PO SCH (10:41)
[2023-05-09] MEDS: metoPROLOL SUCCINATE 25 MG TAB.SR.24H (FP) PO SCH ×2 (10:41→21:19)
[2023-05-09] MEDS: ASPIRIN COATED 81 MG TABLET.EC PO SCH (10:41)
[2023-05-09] MEDS: SERTRALINE HCL 50 MG TABLET (FP) PO SCH (10:42)
[2023-05-09] MEDS ORDERED: MECLIZINE HCL 12.5 MG TABLET PO PRN (14:59)
[2023-05-09] MEDS: GABAPENTIN 300 MG CAPSULE PO SCH (21:19)
[2023-05-09] MEDS: LACOSAMIDE 50 MG TABLET PO SCH (22:08)
[2023-05-09] MEDS: lamoTRIgine 100 MG TABLET PO SCH (22:08)
[2023-05-09] MEDS: ATORVASTATIN CA 10 MG TABLET (FP) PO SCH (22:09)
[2023-05-10] MEDS: lamoTRIgine 100 MG TABLET PO SCH ×2 (06:13→21:23)
[2023-05-10] MEDS: SERTRALINE HCL 50 MG TABLET (FP) PO SCH (09:23)
[2023-05-10] MEDS: ASPIRIN COATED 81 MG TABLET.EC PO SCH (09:23)
[2023-05-10] MEDS: TAMSULOSIN HCL 0.4 MG CAP PO SCH (09:23)
[2023-05-10] MEDS: FAMOTIDINE 20 MG TABLET PO SCH ×2 (09:23→21:22)
[2023-05-10] MEDS: MULTIVITAMINS (DAILY MVI) TABLET (FP) PO SCH (09:23)
[2023-05-10] MEDS: CLOPIDOGREL BISULFATE 75 MG TABLET (FP) PO SCH (09:23)
[2023-05-10] MEDS: metoPROLOL SUCCINATE 25 MG TAB.SR.24H (FP) PO SCH ×2 (09:23→21:22)
[2023-05-10] MEDS: levETIRAcetam 500 MG TABLET (FP) PO SCH ×2 (09:23→21:22)
[2023-05-10] MEDS: LACOSAMIDE 50 MG TABLET PO SCH ×2 (09:24→21:23)
[2023-05-10] MEDS ORDERED: LORazepam 2 MG/ML SDV VIAL IM ONE (11:30)
[2023-05-10] MEDS ORDERED: LORazepam 2 MG/ML SDV VIAL IM PRN (12:27)
[2023-05-10] MEDS: ATORVASTATIN CA 10 MG TABLET (FP) PO SCH (21:22)
[2023-05-10] MEDS: GABAPENTIN 300 MG CAPSULE PO SCH (21:22)
[2023-05-11] MEDS: lamoTRIgine 100 MG TABLET PO SCH ×2 (05:42→21:54)
[2023-05-11] MEDS: levETIRAcetam 500 MG TABLET (FP) PO SCH ×2 (10:28→21:54)
[2023-05-11] MEDS: metoPROLOL SUCCINATE 25 MG TAB.SR.24H (FP) PO SCH ×2 (10:28→21:54)
[2023-05-11] MEDS: TAMSULOSIN HCL 0.4 MG CAP PO SCH (10:28)
[2023-05-11] MEDS: LACOSAMIDE 50 MG TABLET PO SCH ×2 (10:28→21:54)
[2023-05-11] MEDS: MULTIVITAMINS (DAILY MVI) TABLET (FP) PO SCH (10:28)
[2023-05-11] MEDS: FAMOTIDINE 20 MG TABLET PO SCH ×2 (10:28→21:54)
[2023-05-11] MEDS: ASPIRIN COATED 81 MG TABLET.EC PO SCH (10:28)
[2023-05-11] MEDS: CLOPIDOGREL BISULFATE 75 MG TABLET (FP) PO SCH (10:28)
[2023-05-11] MEDS: SERTRALINE HCL 50 MG TABLET (FP) PO SCH (10:30)
[2023-05-11] MEDS: GABAPENTIN 300 MG CAPSULE PO SCH (21:54)
[2023-05-11] MEDS: ATORVASTATIN CA 10 MG TABLET (FP) PO SCH (21:54)
[2023-05-11] MEDS: OLANZapine 10 MG TABLET PO SCH ×2 (22:05→23:00)
[2023-05-11 23:39] LABS: EPI CELLS 2 /uL (0-25.1); HYALINE CASTS 0 /uL (0-3.1); PH,URINE 5.5 (5.0-8.0); URINE APPEARANCE CLOUDY; URINE BACTERIA 3188 /uL (0-1359); URINE BILIRUBIN NEGATIVE (NEGATIVE); URINE COLOR DK YELLOW; URINE GLUCOSE (UA) NEGATIVE (NEGATIVE); URINE KETONE NEGATIVE (NEGATIVE); URINE LEUK ESTERASE 3+ (NEGATIVE); URINE NITRITE NEGATIVE (NEGATIVE); URINE PROTEIN TRACE (NEGATIVE); URINE RBC 15 /uL (0-23.9); URINE UROBILINOGEN 0.2 mg/dL (0.2-1.0); URINE WBC 1219 /uL (0-25.8)
[2023-05-12 02:47] VITALS: RESP 18
[2023-05-12] MEDS: lamoTRIgine 100 MG TABLET PO SCH (06:08)
[2023-05-12 09:01] VITALS: BP 116/60; PULSE 70; TEMP 98.8
[2023-05-12] MEDS: metoPROLOL SUCCINATE 25 MG TAB.SR.24H (FP) PO SCH (09:24)
[2023-05-12] MEDS: LACOSAMIDE 50 MG TABLET PO SCH (09:24)
[2023-05-12] MEDS: TAMSULOSIN HCL 0.4 MG CAP PO SCH (09:24)
[2023-05-12] MEDS: FAMOTIDINE 20 MG TABLET PO SCH (09:24)
[2023-05-12] MEDS: ASPIRIN COATED 81 MG TABLET.EC PO SCH (09:25)
[2023-05-12] MEDS: MULTIVITAMINS (DAILY MVI) TABLET (FP) PO SCH (09:25)
[2023-05-12] MEDS: CLOPIDOGREL BISULFATE 75 MG TABLET (FP) PO SCH (09:25)
[2023-05-12] MEDS: levETIRAcetam 500 MG TABLET (FP) PO SCH (09:26)
[2023-05-12] MEDS ORDERED: AMOXICILLIN 500 MG CAPSULE (FP) PO SCH (14:00)
== END 2023-05-12 14:50 | disposition home health service (06) ==
LOC: JER 17:40 → JERBED 20:13 → J4W 05-09 12:15
PROVIDERS: ADMIT Internal Medicine; ATTEND Internal Medicine
PROC: 3E023GC Introduction of Other Therapeutic Substance into Muscle, Percutaneous Approach (ICD-10-PCS; principal; 2023-05-08)
DX: G40.804 Other epilepsy, intractable, without status epilepticus (principal); I25.10 Atherosclerotic heart disease of native coronary artery without angina pectoris; I11.0 Hypertensive heart disease with heart failure; E05.00 Thyrotoxicosis with diffuse goiter without thyrotoxic crisis or storm; G40.909 Epilepsy, unspecified, not intractable, without status epilepticus; E11.9 Type 2 diabetes mellitus without complications; E78.5 Hyperlipidemia, unspecified; I69.354 Hemiplegia and hemiparesis following cerebral infarction affecting left non-dominant side; Z95.810 Presence of automatic (implantable) cardiac defibrillator; R42 Dizziness and giddiness; R45.1 Restlessness and agitation; Z79.01 Long term (current) use of anticoagulants
CPT/HCPCS: 0241U-QW; 36415; 70450-TC; 80053; 80175; 80177; 81003; 82962; 85025; 85610; 85730; 86850; 86900; 86901; 87086; 87186; 93005; 93010; 97116-GP; 97162-GP; 99285-25; G0378; G0480

== ENCOUNTER 2023-07-25 04:50 | Observation (INO) | payer BC ==
[2023-07-25] MEDS ORDERED: ACETAMINOPHEN INJECTION 100 ML IVPB ONE (05:35)
[2023-07-25] MEDS: LACTATED RINGERS SOLUTION 1000 ML INFUS.BAG IV ONE (05:44)
[2023-07-25] MEDS: ACETAMINOPHEN 1000 MG/100 ML BAG IVPB ONE (05:45)
[2023-07-25 06:33] LABS: HEMATOCRIT 37.2 % (35.4-49); HEMOGLOBIN 12.4 GM/dL (11.7-16.9); MCH 31.1 pg (25.7-33.7); MCHC 33.2 g/dl (32.0-35.9); MEAN CELL VOLUME 93.6 fl (80-96); MEAN PLT VOLUME 8.3 fl (7.5-11.1); PLATELET COUNT 247 10^3/uL (134-434); RBC 3.98 M/mm3 (4.00-5.60); WHITE BLOOD COUNT 8.5 K/mm3 (4.0-10.0)
[2023-07-25 06:59] LABS: BLOOD UREA NITROGEN 17.4 mg/dL (7-18)
[2023-07-25 07:01] LABS: CALCIUM 8.7 mg/dL (8.5-10.1)
[2023-07-25 07:02] LABS: ALBUMIN 3.4 g/dl (3.4-5.0); CREATININE 0.9 mg/dL (0.55-1.3)
[2023-07-25 07:03] LABS: BILIRUBIN,TOTAL 0.3 mg/dL (0.2-1); TOT PROT 6.5 g/dl (6.4-8.2)
[2023-07-25] MEDS ORDERED: METOCLOPRAMIDE HCL INJECTION 10 MG/2 ML VIAL ONE (07:30)
[2023-07-25] MEDS: METOCLOPRAMIDE HCL INJECTION 10 MG/2 ML VIAL IVPB ONE (07:38)
[2023-07-25 08:16] LABS: PH,URINE 8.5 (5.0-8.0); URINE APPEARANCE CLOUDY; URINE BILIRUBIN NEGATIVE (NEGATIVE); URINE COLOR YELLOW; URINE GLUCOSE (UA) NEGATIVE (NEGATIVE); URINE KETONE NEGATIVE (NEGATIVE); URINE LEUK ESTERASE NEGATIVE (NEGATIVE); URINE NITRITE NEGATIVE (NEGATIVE); URINE PROTEIN NEGATIVE (NEGATIVE); URINE UROBILINOGEN 0.2 mg/dL (0.2-1.0)
[2023-07-25] MEDS ORDERED: LACOSAMIDE 50 MG TABLET PO ONE (12:18)
[2023-07-25] MEDS ORDERED: lamoTRIgine 100 MG TABLET ONE (12:18)
[2023-07-25] MEDS ORDERED: levETIRAcetam 500 MG TABLET (FP) PO ONE (12:18)
[2023-07-25] MEDS: LACOSAMIDE 200 MG TABLET PO ONE (12:20)
[2023-07-25] MEDS: levETIRAcetam 500 MG TABLET (FP) PO ONE (12:20)
[2023-07-25] MEDS ORDERED: ALBUTEROL SO4 2.5/IPRATROPIUM 0.5 INH SOL 3 ML VIAL.NEB. NEB ONE (13:35)
[2023-07-25] MEDS ORDERED: ACETAMINOPHEN 325 MG TABLET (FP) PO PRN (15:28)
[2023-07-25] MEDS ORDERED: MELATONIN 5 MG TABLETS PO PRN (15:28)
[2023-07-25] MEDS ORDERED: MECLIZINE HCL 12.5 MG TABLET PO PRN (15:28)
[2023-07-25 16:07] VITALS: BMI 27.6
[2023-07-25] MEDS: FAMOTIDINE 20 MG TABLET PO SCH (21:43)
[2023-07-25] MEDS: GABAPENTIN 300 MG CAPSULE PO SCH (21:43)
[2023-07-25] MEDS: metoPROLOL SUCCINATE 25 MG TAB.SR.24H (FP) PO SCH (21:43)
[2023-07-25] MEDS: ATORVASTATIN CA 10 MG TABLET (FP) PO SCH (21:43)
[2023-07-25] MEDS: lamoTRIgine 100 MG TABLET PO SCH (21:44)
[2023-07-25] MEDS: levETIRAcetam 500 MG TABLET (FP) PO SCH (21:44)
[2023-07-25] MEDS: LACOSAMIDE 200 MG TABLET PO SCH (22:15)
[2023-07-26] MEDS: TAMSULOSIN HCL 0.4 MG CAP PO SCH (08:56)
[2023-07-26] MEDS: CLOPIDOGREL BISULFATE 75 MG TABLET (FP) PO SCH (08:59)
[2023-07-26] MEDS: ASPIRIN COATED 81 MG TABLET.EC PO SCH (08:59)
[2023-07-26] MEDS: MULTIVITAMINS (DAILY MVI) TABLET (FP) PO SCH (09:00)
[2023-07-27] MEDS: cloBAZam 10 MG TABLET PO SCH (10:36)
[2023-07-27 15:28] VITALS: BP 106/55; PULSE 77; RESP 18; TEMP 98.5
== END 2023-07-27 17:18 | disposition home or self-care (01) ==
LOC: JER 04:50 → JERBED 13:16 → J5S 14:30
PROVIDERS: ADMIT Internal Medicine; ATTEND Internal Medicine
PROC: 3E033NZ Introduction of Analgesics, Hypnotics, Sedatives into Peripheral Vein, Percutaneous Approach (ICD-10-PCS; principal; 2023-07-25)
PROC: 3E0337Z Introduction of Electrolytic and Water Balance Substance into Peripheral Vein, Percutaneous Approach (ICD-10-PCS; 2023-07-25)
PROC: 3E033GC Introduction of Other Therapeutic Substance into Peripheral Vein, Percutaneous Approach (ICD-10-PCS; 2023-07-25)
DX: R56.9 Unspecified convulsions (principal); G93.41 Metabolic encephalopathy; R41.82 Altered mental status, unspecified; I25.10 Atherosclerotic heart disease of native coronary artery without angina pectoris; I11.0 Hypertensive heart disease with heart failure; E78.5 Hyperlipidemia, unspecified; E05.90 Thyrotoxicosis, unspecified without thyrotoxic crisis or storm; R73.03 Prediabetes; I69.954 Hemiplegia and hemiparesis following unspecified cerebrovascular disease affecting left non-dominant side; Z87.891 Personal history of nicotine dependence; Z95.810 Presence of automatic (implantable) cardiac defibrillator
CPT/HCPCS: 0241U-QW; 36415; 70450-TC; 71045-TC-FY; 80053; 80175; 80177; 81003; 85027; 87086; 93005; 93010; 99285-25; G0378; J0131

== ENCOUNTER 2023-11-15 01:09 | Emergency (ER) | payer BC ==
[2023-11-15 01:16] VITALS: RESP 18; TEMP 97.5; BMI 27.4
[2023-11-15] MEDS: SODIUM CHLORIDE 1,000 ML IV SCH (02:05)
[2023-11-15 02:08] LABS: HEMATOCRIT 34.5 % (35.4-49); HEMOGLOBIN 11.8 GM/dL (11.7-16.9); MCH 31.4 pg (25.7-33.7); MEAN CELL VOLUME 92.3 fl (80-96); MEAN PLT VOLUME 8.4 fl (7.5-11.1); MONO % 6.4 % (3.8-10.2); NEUT % 59.6 % (42.8-82.8); PLATELET COUNT 219 10^3/uL (134-434); RBC 3.74 M/mm3 (4.00-5.60); RDW 13.4 % (11.9-15.9); WHITE BLOOD COUNT 6.1 K/mm3 (4.0-10.0)
[2023-11-15] MEDS: SODIUM CHLORIDE 0.9% 500 ML INFUS.BAG IV ONE (02:09)
[2023-11-15 02:20] LABS: INR 1.07 (0.83-1.09); PROTHROMBIN TIME (PATIENT) 12.3 SEC (9.7-13.0)
[2023-11-15 02:22] LABS: POTASSIUM 3.8 mmol/L (3.5-5.1)
[2023-11-15 02:23] LABS: ACTIVATED PTT 28.3 SECONDS (25.2-36.5)
[2023-11-15 02:24] LABS: ALBUMIN 3.3 g/dl (3.4-5.0); CALCIUM 8.5 mg/dL (8.5-10.1)
[2023-11-15 02:26] LABS: BLOOD UREA NITROGEN 13.8 mg/dL (7-18)
[2023-11-15 02:28] LABS: CREATININE 0.9 mg/dL (0.55-1.3)
[2023-11-15 02:29] LABS: TOT PROT 5.9 g/dl (6.4-8.2)
[2023-11-15 02:31] LABS: BILIRUBIN,TOTAL 0.4 mg/dL (0.2-1)
[2023-11-15 03:53] VITALS: BP 150/77; PULSE 76
== END 2023-11-15 04:14 | disposition home or self-care (01) ==
LOC: JER 01:09
DX: M54.10 Radiculopathy, site unspecified (principal); R20.2 Paresthesia of skin; R20.0 Anesthesia of skin; R53.1 Weakness
CPT/HCPCS: 36415; 70450-TC; 70496-TC; 70498-TC; 80053; 80061; 82550; 82962; 83036; 84484; 85025; 85610; 85730; 86850; 86900; 86901; 93005; 93010; 99285-25

== ENCOUNTER 2024-01-25 11:28 | Emergency (ER) | payer BC ==
[2024-01-25 11:58] VITALS: BP 118/59; PULSE 73; RESP 14; TEMP 97.8; BMI 28.4
[2024-01-25] MEDS ORDERED: metoPROLOL SUCCINATE 25 MG TAB.SR.24H (FP) PO ONE (12:55)
[2024-01-25] MEDS ORDERED: ATORVASTATIN CA 10 MG TABLET (FP) ONE (12:55)
[2024-01-25] MEDS ORDERED: cloBAZam 10 MG TABLET ONE (12:55)
[2024-01-25] MEDS ORDERED: TAMSULOSIN HCL 0.4 MG CAP ONE (12:56)
[2024-01-25] MEDS ORDERED: LACOSAMIDE 100 MG TABLET PO SCH (13:01)
[2024-01-25] MEDS: cloBAZam 10 MG TABLET PO ONE (13:33)
[2024-01-25] MEDS: metoPROLOL SUCCINATE 25 MG TAB.SR.24H (FP) PO ONE (13:33)
[2024-01-25] MEDS: TAMSULOSIN HCL 0.4 MG CAP PO ONE (13:33)
[2024-01-25] MEDS: ATORVASTATIN CA 10 MG TABLET (FP) PO ONE (13:33)
[2024-01-25] MEDS: LACOSAMIDE 200 MG TABLET PO SCH (14:18)
== END 2024-01-25 15:49 | disposition home or self-care (01) ==
LOC: JER 11:28
DX: S00.81XA Abrasion of other part of head, initial encounter (principal); W01.0XXA Fall on same level from slipping, tripping and stumbling without subsequent striking against object, initial encounter
CPT/HCPCS: 70450-TC; 73090-TC-LT-FY; 73110-TC-LT-FY; 73130-TC-LT-FY; 99284-25

== ENCOUNTER 2024-03-31 15:13 | Emergency (ER) | payer BC ==
[2024-03-31 15:42] VITALS: BMI 28.4
[2024-03-31 17:12] LABS: PH,URINE 7.5 (5.0-8.0); URINE APPEARANCE CLEAR; URINE BILIRUBIN NEGATIVE (NEGATIVE); URINE COLOR YELLOW; URINE GLUCOSE (UA) NEGATIVE (NEGATIVE); URINE KETONE NEGATIVE (NEGATIVE); URINE LEUK ESTERASE 2+ (NEGATIVE); URINE NITRITE NEGATIVE (NEGATIVE); URINE PROTEIN NEGATIVE (NEGATIVE); URINE UROBILINOGEN 0.2 mg/dL (0.2-1.0)
[2024-03-31 17:14] LABS: EPI CELLS 2.3 /uL (0-25.1); HYALINE CASTS 0.14 /uL (0-3.1); URINE BACTERIA 560.4 /uL (0-1359); URINE RBC 102.4 /uL (0-23.9); URINE WBC 32.1 /uL (0-25.8)
[2024-03-31] MEDS ORDERED: CEFTRIAXONE 1 GM/50 ML BAG ONE (17:54)
[2024-03-31] MEDS: CEFTRIAXONE 1,000 MG in DEXTROSE 5%-WATER - 50 ML IVPB ONE (17:59)
[2024-03-31 18:06] LABS: BASO % 0.9 % (0-2.0); EOS % 1.1 % (0-4.5); HEMATOCRIT 42.4 % (35.4-49); HEMOGLOBIN 13.8 GM/dL (11.7-16.9); LYMPH % 21.1 % (8-40); MCH 30.6 pg (25.7-33.7); MCHC 32.6 g/dl (32.0-35.9); MEAN CELL VOLUME 93.9 fl (80-96); MEAN PLT VOLUME 8.7 fl (7.5-11.1); MONO % 4.3 % (3.8-10.2); NEUT % 72.6 % (42.8-82.8); PLATELET COUNT 245 10^3/uL (134-434); RBC 4.52 M/mm3 (4.00-5.60); WHITE BLOOD COUNT 5.5 K/mm3 (4.0-10.0)
[2024-03-31 18:29] LABS: CALCIUM 9.4 mg/dL (8.5-10.1)
[2024-03-31 18:32] LABS: CREATININE 1.1 mg/dL (0.55-1.3)
[2024-03-31 18:34] LABS: BILIRUBIN,TOTAL 0.5 mg/dL (0.2-1); TOT PROT 7.2 g/dl (6.4-8.2)
[2024-03-31 19:22] LABS: HIV INTERPRETATION NEGATIVE (NEGATIVE)
[2024-03-31 19:26] VITALS: BP 144/76; PULSE 72; RESP 18; TEMP 98.3
== END 2024-03-31 19:35 | disposition home or self-care (01) ==
LOC: JER 15:13
DX: N39.0 Urinary tract infection, site not specified (principal); R31.9 Hematuria, unspecified; R20.0 Anesthesia of skin
CPT/HCPCS: 36415; 80053; 81003; 82962; 85025; 86803; 87086; 87186; 87389; 93005; 93010; 99284-25

== ENCOUNTER 2024-04-06 16:21 | Emergency (ER) | payer BC ==
[2024-04-06 17:09] VITALS: BP 141/67; PULSE 65; RESP 15; BMI 28.4
[2024-04-06 18:29] LABS: BASO % 0.3 % (0-2.0); EOS % 1.2 % (0-4.5); HEMATOCRIT 39.3 % (35.4-49); HEMOGLOBIN 13.1 GM/dL (11.7-16.9); LYMPH % 29.5 % (8-40); MCH 30.6 pg (25.7-33.7); MCHC 33.4 g/dl (32.0-35.9); MEAN CELL VOLUME 91.5 fl (80-96); MEAN PLT VOLUME 8.1 fl (7.5-11.1); MONO % 4.4 % (3.8-10.2); NEUT % 64.6 % (42.8-82.8); PLATELET COUNT 237 10^3/uL (134-434); RBC 4.29 M/mm3 (4.00-5.60); RDW 14.3 % (11.9-15.9); WHITE BLOOD COUNT 4.9 K/mm3 (4.0-10.0)
[2024-04-06 18:30] LABS: EPI CELLS 3 /uL (0-25.1); HYALINE CASTS 0 /uL (0-3.1); PH,URINE 7.5 (5.0-8.0); URINE APPEARANCE CLEAR; URINE BACTERIA 2 /uL (0-1359); URINE BILIRUBIN NEGATIVE (NEGATIVE); URINE COLOR YELLOW; URINE GLUCOSE (UA) NEGATIVE (NEGATIVE); URINE KETONE NEGATIVE (NEGATIVE); URINE LEUK ESTERASE TRACE (NEGATIVE); URINE NITRITE NEGATIVE (NEGATIVE); URINE PROTEIN NEGATIVE (NEGATIVE); URINE RBC 15 /uL (0-23.9); URINE UROBILINOGEN 0.2 mg/dL (0.2-1.0); URINE WBC 5 /uL (0-25.8)
[2024-04-06 18:58] LABS: ALBUMIN 3.7 g/dl (3.4-5.0); BLOOD UREA NITROGEN 11.7 mg/dL (7-18)
[2024-04-06 19:02] LABS: CREATININE 0.9 mg/dL (0.55-1.3)
[2024-04-06 19:03] LABS: BILIRUBIN,TOTAL 0.4 mg/dL (0.2-1); TOT PROT 6.5 g/dl (6.4-8.2)
[2024-04-06 19:51] LABS: HIV INTERPRETATION NEGATIVE (NEGATIVE)
== END 2024-04-06 22:30 | disposition home or self-care (01) ==
LOC: JER 16:21
DX: R56.9 Unspecified convulsions (principal); R20.0 Anesthesia of skin
CPT/HCPCS: 36415; 70450-TC; 80053; 81003; 85025; 86803; 87389; 93005; 93010; 99285-25

== ENCOUNTER 2025-04-13 08:06 | Day surgery (SDC) | payer OTHER, BC ==
[2025-04-12 09:00] VITALS: BMI 26.6
[2025-04-13] MEDS ORDERED: EPINEPHrine 1:10,000 (P-F SYR) 1 MG/10 ML DISP.SYRIN ONE (10:04)
[2025-04-13 12:20] VITALS: TEMP 97.7
[2025-04-13 13:41] VITALS: BP 115/71; PULSE 81; RESP 18
== END 2025-04-13 10:55 | disposition home or self-care (01) ==
LOC: FASU-ENDO 08:06
PROVIDERS: ATTEND Internal Medicine Gastroenterology
PROC: 0DBN8ZX Excision of Sigmoid Colon, Via Natural or Artificial Opening Endoscopic, Diagnostic (ICD-10-PCS; 2025-04-13)
PROC: 0DBP8ZX Excision of Rectum, Via Natural or Artificial Opening Endoscopic, Diagnostic (ICD-10-PCS; 2025-04-13)
PROC: 0DBH8ZX Excision of Cecum, Via Natural or Artificial Opening Endoscopic, Diagnostic (ICD-10-PCS; 2025-04-13)
PROC: 0DB98ZX Excision of Duodenum, Via Natural or Artificial Opening Endoscopic, Diagnostic (ICD-10-PCS; 2025-04-13)
PROC: 0DB68ZX Excision of Stomach, Via Natural or Artificial Opening Endoscopic, Diagnostic (ICD-10-PCS; 2025-04-13)
PROC: 0DB58ZX Excision of Esophagus, Via Natural or Artificial Opening Endoscopic, Diagnostic (ICD-10-PCS; 2025-04-13)
PROC: 3E0H8KZ Introduction of Other Diagnostic Substance into Lower GI, Via Natural or Artificial Opening Endoscopic (ICD-10-PCS; 2025-04-13)
PROC: 0DBK8ZX Excision of Ascending Colon, Via Natural or Artificial Opening Endoscopic, Diagnostic (ICD-10-PCS; principal; 2025-04-13 09:35)
DX: Z12.11 Encounter for screening for malignant neoplasm of colon (principal); D12.0 Benign neoplasm of cecum; D12.2 Benign neoplasm of ascending colon; D12.8 Benign neoplasm of rectum; K64.0 First degree hemorrhoids; K57.30 Diverticulosis of large intestine without perforation or abscess without bleeding; D50.9 Iron deficiency anemia, unspecified; K31.89 Other diseases of stomach and duodenum; K29.50 Unspecified chronic gastritis without bleeding
CPT/HCPCS: 88305-TC; 88342-TC